=== PATIENT | female | born 1970 | race Caucasian/White ===

== ENCOUNTER 2017-10-08 14:31 | Emergency (ER) | payer BC, OTHER ==
[2017-10-08] MEDS ORDERED: FUROSEMIDE INJ/PF 40 MG/4 ML SDV IV ONE (15:11)
--- NOTE | 2017-10-08 15:18 | ER Document Report ---
ED Medical Screen (RME) - General Chief Complaint: Shortness Of Breath Stated Complaint: CHEST PAIN, SHORTNESS OF BREATH Time Seen by Provider: 10/08/17 15:11 Mode of Arrival: Wheelchair Information source: Patient TRAVEL OUTSIDE OF THE U.S. IN LAST 30 DAYS: No - HPI Patient complains to provider of: sob; leg swelling Onset: Other - pt. sent from dr. Gentile's office for sob and swelling of LE's - Related Data Allergies/Adverse Reactions: fluticasone [From Advair Diskus] Allergy (Verified 10/08/17 14:35) penicillin V [From Pen-Vee K] Allergy (Verified 10/08/17 14:35) salmeterol [From Advair Diskus] Allergy (Verified 10/08/17 14:35) beta blockers Allergy (Uncoded 10/08/17 14:35) Past Medical History - Social History Frequency of alcohol use: None Drug Abuse: None Renal/ Medical History: Denies: Hx Peritoneal Dialysis Physical Exam - Vital signs Vitals: Temp Pulse Resp BP Pulse Ox 97.4 F 118 H 20 135/84 H 94 10/08/17 14:41 10/08/17 14:41 10/08/17 14:41 10/08/17 14:41 10/08/17 14:41 Course - Vital Signs Vital signs: Temp Pulse Resp BP Pulse Ox 97.4 F 118 H 20 135/84 H 94 10/08/17 14:41 10/08/17 14:41 10/08/17 14:41 10/08/17 14:41 10/08/17 14:41
--- NOTE | 2017-10-08 16:08 | RADIOLOGY REPORT (SQ) ---
EXAM DESCRIPTION: CHEST 2 VIEWS COMPLETED DATE/TIME: 10/08/2017 3:50 pm REASON FOR STUDY: sob COMPARISON: None. EXAM PARAMETERS: NUMBER OF VIEWS: two views TECHNIQUE: Digital Frontal and Lateral radiographic views of the chest acquired. RADIATION DOSE: NA LIMITATIONS: Patient has made a shallow inspiration. FINDINGS: LUNGS AND PLEURA: Ill-defined increased density is identified in the lung bases which coul d represent atelectatic changes or minimal basilar infiltrates. Remaining lung novoa are clear. No pleural effusions are identified. MEDIASTINUM AND HILAR STRUCTURES: No masses or contour abnormalities. HEART AND VASCULAR STRUCTURES: Heart normal size. No evidence for failure. BONES: No acute findings. HARDWARE: None in the chest. OTHER: No other significant finding. IMPRESSION: Ill-defined bibasilar densities as noted above. TECHNICAL DOCUMENTATION: JOB ID: [id number] [employer]- All Rights Reserved Reading location - IP/workstation name: [email or web address]
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
[2017-10-08 19:43] LABS: ABSOLUTE BASOPHILS # (AUTO) 0.1 10^3/uL (0.0-0.2); ABSOLUTE EOSINOPHILS # (AUTO) 0.2 10^3/uL (0.0-0.6); ABSOLUTE LYMPHOCYTES (AUTO) 2.4 10^3/uL (0.5-4.7); ABSOLUTE MONOCYTES (AUTO) 0.5 10^3/uL (0.1-1.4); ABSOLUTE NEUT (AUTO) 7.6 10^3/uL (1.7-8.2); BASOPHILS % (AUTO) 0.5 % (0-2); EOSINOPHILS % (AUTO) 1.8 % (0-6); HEMOGLOBIN 12.5 g/dL (12.0-15.5); LYMPHOCYTES % (AUTO) 22.1 % (13-45); MEAN CORPUSCULAR HGB CONC 33.7 g/dL (32.0-36.0); MEAN CORPUSCULAR VOLUME 86 fl (80-97); MONOCYTES % (AUTO) 4.4 % (3-13); PLATELET COUNT 323 10^3/uL (150-450); RED CELL DISTRIBUTION WIDTH 15.7 % (11.5-14.0); SEGMENTED NEUTROPHILS % (AUTO) 71.2 % (42-78); TOTAL CELLS COUNTED % (AUTO) 100 %; WHITE BLOOD COUNT 10.7 10^3/uL (4.0-10.5)
[2017-10-08] MEDS ORDERED: DILTIAZEM HCL 240 MG CAPSULE.CR PO ONE (20:00)
[2017-10-08 20:08] LABS: ALANINE AMINOTRANSFERASE 35 U/L (9-52); ALBUMIN 4.3 g/dL (3.5-5.0); ALKALINE PHOSPHATASE 140 U/L (38-126); ANION GAP 16 (5-19); ASPARTATE AMINO TRANSFERASE 23 U/L (14-36); BILIRUBIN,DIRECT 0.2 mg/dL (0.0-0.4); BILIRUBIN,TOTAL 0.2 mg/dL (0.2-1.3); BLOOD UREA NITROGEN 22 mg/dL (7-20); CALCIUM 9.2 mg/dL (8.4-10.2); CARBON DIOXIDE 24 mmol/L (22-30); CHLORIDE 103 mmol/L (98-107); CREATINE KINASE 77 U/L (30-135); GLUCOSE 103 mg/dL (75-110); POTASSIUM 4.6 mmol/L (3.6-5.0); SODIUM 142.8 mmol/L (137-145); TOTAL PROTEIN 7.9 g/dL (6.3-8.2)
[2017-10-08 20:20] LABS: CREATINE KINASE MB 0.77 ng/mL (<4.55)
[2017-10-08 20:23] LABS: TROPONIN I < 0.012 ng/mL
--- NOTE | 2017-10-08 22:32 | EKG REPORT ---
SEVERITY:- BORDERLINE ECG - SINUS TACHYCARDIA PROBABLE LEFT ATRIAL ABNORMALITY : Confirmed by: Wilfredo Marvin 08-Oct-2017 22:31:38
[2017-10-09 04:58] VITALS: BP 137/79
--- NOTE | 2017-10-09 08:04 | XCELERA REPORT ---
[address] [address] Lower Extremity Venous Evaluation Name: SELMA DOUGLAS Age: 47 yrs Gender: Female : 1970 Patient Status: Emergency Patient Location: ER Study Date: 10/08/2017 07:10 PM Procedure: Color flow and duplex imaging bilaterally of the veins of the lower extremities as well as the Common Femoral veins. Reason For Study: leg swelling, evaluate for DVT Ordering Physician: LINDA TORRES Performed By: Ellen Leblanc Right Sided Venous Evaluation Normal vessel filling wall to wall, compression and augmentation as well as Colour flow down to the infrageniculate veins. Left Sided Venous Evaluation Normal vessel filling wall to wall, compression and augmentation as well as Colour flow down to the infrageniculate veins. Interpretation Summary No duplex evidence of DVT or obstruction in the bilateral lower extremities. : LINDA TORRES > Ephraim Loera
== END 2017-10-08 20:50 | disposition left against medical advice (07) ==
LOC: ER 14:31
DX: R06.02 Shortness of breath (principal); R00.0 Tachycardia, unspecified; Z79.82 Long term (current) use of aspirin; R60.0 Localized edema; I10 Essential (primary) hypertension; E11.9 Type 2 diabetes mellitus without complications; Z90.2 Acquired absence of lung [part of]; Z86.718 Personal history of other venous thrombosis and embolism; Z79.899 Other long term (current) drug therapy; Z88.8 Allergy status to other drugs, medicaments and biological substances; Z88.0 Allergy status to penicillin; Z53.20 Procedure and treatment not carried out because of patient's decision for unspecified reasons
CPT/HCPCS: 36415; 71046; 80053; 82550; 82553; 83880; 84443; 84484; 85025; 85379; 93005; 93010; 93970; 99285

== ENCOUNTER 2017-10-09 13:19 | Observation (INO) | payer BC, OTHER ==
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
[2017-10-09] MEDS ORDERED: KETOROLAC TROMETHAMINE INJ/PF 30 MG/1 ML SDV IV ONE (15:14)
[2017-10-09 15:51] LABS: ALANINE AMINOTRANSFERASE 32 U/L (9-52); ALBUMIN 4.2 g/dL (3.5-5.0); ALKALINE PHOSPHATASE 110 U/L (38-126); ANION GAP 13 (5-19); ASPARTATE AMINO TRANSFERASE 37 U/L (14-36); BILIRUBIN,DIRECT 0.3 mg/dL (0.0-0.4); BILIRUBIN,TOTAL 0.4 mg/dL (0.2-1.3); BLOOD UREA NITROGEN 19 mg/dL (7-20); CALCIUM 9.3 mg/dL (8.4-10.2); CARBON DIOXIDE 26 mmol/L (22-30); CHLORIDE 105 mmol/L (98-107); CREATINE KINASE 78 U/L (30-135); GLUCOSE 88 mg/dL (75-110); POTASSIUM 4.4 mmol/L (3.6-5.0); SODIUM 143.7 mmol/L (137-145); TOTAL PROTEIN 7.9 g/dL (6.3-8.2)
[2017-10-09 15:57] LABS: CREATINE KINASE MB 0.75 ng/mL (<4.55)
[2017-10-09 15:58] LABS: TROPONIN I < 0.012 ng/mL
[2017-10-09 16:00] LABS: ABSOLUTE BASOPHILS # (AUTO) 0.1 10^3/uL (0.0-0.2); ABSOLUTE EOSINOPHILS # (AUTO) 0.1 10^3/uL (0.0-0.6); ABSOLUTE MONOCYTES (AUTO) 0.5 10^3/uL (0.1-1.4); ABSOLUTE NEUT (AUTO) 7.4 10^3/uL (1.7-8.2); BASOPHILS % (AUTO) 0.5 % (0-2); EOSINOPHILS % (AUTO) 1.4 % (0-6); HEMATOCRIT 34.2 % (36.0-47.0); HEMOGLOBIN 11.5 g/dL (12.0-15.5); LYMPHOCYTES % (AUTO) 19.9 % (13-45); MEAN CORPUSCULAR HEMOGLOBIN 28.9 pg (27.0-33.4); MEAN CORPUSCULAR HGB CONC 33.6 g/dL (32.0-36.0); MEAN CORPUSCULAR VOLUME 86 fl (80-97); MONOCYTES % (AUTO) 4.9 % (3-13); PLATELET COUNT 285 10^3/uL (150-450); RED BLOOD COUNT 3.98 10^6/uL (3.72-5.28); RED CELL DISTRIBUTION WIDTH 15.8 % (11.5-14.0); SEGMENTED NEUTROPHILS % (AUTO) 73.3 % (42-78); TOTAL CELLS COUNTED % (AUTO) 100 %; WHITE BLOOD COUNT 10.1 10^3/uL (4.0-10.5)
--- NOTE | 2017-10-09 16:34 | RADIOLOGY REPORT (SQ) ---
EXAM DESCRIPTION: CTA CHEST COMPLETED DATE/TIME: 10/09/2017 4:18 pm REASON FOR STUDY: sob, elevated ddimer COMPARISON: Chest films 10/08/2017 TECHNIQUE: CT scan of the chest performed using helical scanning technique with dynamic intravenous contrast injection. Images reviewed with lung, soft tissue and bone windows. Reconstructed coronal and sagittal MPR images reviewed. Additional 3 dimensional post-processing performed to develop Maximal Intensity Projection images (DE P). All images stored on PACS. All CT scanners at this facility use dose modulation, iterative reconstruction, and/or weight based d osing when appropriate to reduce radiation dose to as low as reasonably achievable (ALARA). [facility]: Dose Right [facility]: CareDose [facility]: Dose Right [facility]: Teradose 4D [facility]: CodeGuard CONTRAST TYPE AND DOSE: contrast/concentration: Isovue 350.00 mg/ml; Total Contrast Delivered: 75.0 ml; Total Saline Delivered: 58.4 ml Contrast bolus optimized for the pulmonary arteries, and diagnostic for the aorta. RENAL FUNCTION: Creatinine 1.7 RADIATION DOSE: CT Rad equipment meets quality standard of care and radiation dose reduction techniq ues were employed. CTDIvol: 19.7 - 19.8 mGy. DLP: 733 mGy-cm. . LIMITATIONS: None. FINDINGS: LUNGS AND PLEURA: Thickened interlobular septa around the periphery of both bases could in dicate mild interstitial edema. There is bandlike atelectasis in the right upper lobe, and right mid dle lobe. Along the left lower lobe lateral aspect, a row of surgical hamida is present post partia l lung resection. No pleural effusions. No pneumothorax. AORTA AND GREAT VESSELS: No aneurysm. Contrast bolus not optimized for the aorta. HEART: No pericardial effusion. No significant coronary artery calcifications. PULMONARY ARTERIES: No emboli visualized in the main pulmonary arteries or the segmental branches. HILAR AND MEDIASTINAL STRUCTURES: No identified masses or abnormal nodes. HARDWARE: None in the chest. UPPER ABDOMEN: Fatty liver THYROID AND OTHER SOFT TISSUES: No masses. No adenopathy. BONES: No acute or significant finding. 3D MIPS: Confirm above findings. OTHER: No other significant finding. IMPRESSION: Right middle lobe and right upper lobe bandlike airspace disease likely atelectasis. Pn eumonia could not be excluded. Old partial resection left lower lobe. No CT angio evidence of acute pulmonary emboli or acute thoracic aortic dissection. COMMENT: Quality ID # [id number]: Final reports with documentation of one or more dose reduction techniques (e.g., Automated exposure control, adjustment of the mA and/or kV according to patient size, use of iterative reconstruction technique) TECHNICAL DOCUMENTATION: JOB ID: [id number] [employer]- All Rights Reserved Reading location - IP/workstation name: [email or web address] [id number]
[2017-10-09] MEDS: FUROSEMIDE INJ/PF 40 MG/4 ML SDV IV SCH (17:58)
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
[2017-10-09] MEDS ORDERED: ALBUTEROL SULFATE 0.083% NEB 2.5 MG/3 ML AMPUL NEB PRN (18:16)
--- NOTE | 2017-10-09 18:18 | EKG REPORT ---
SEVERITY:- OTHERWISE NORMAL ECG - SINUS TACHYCARDIA : Confirmed by: Wilfredo Marvin 09-Oct-2017 18:17:45
[2017-10-09] MEDS ORDERED: (PENDING PHARMACY ID) (Tramadol Hcl/Acetaminophen [Tramadol-Acetaminophn 37.5-325] 1 TAB) PO PRN (20:08)
[2017-10-09] MEDS: PREGABALIN 100 MG CAPSULE PO SCH (21:12)
[2017-10-09] MEDS: PREDNISONE 20 MG TABLET PO SCH (21:13)
[2017-10-09] MEDS: CLONAZEPAM 1 MG TABLET PO PRN (21:13)
[2017-10-09] MEDS: KETOROLAC TROMETHAMINE 10 MG TABLET PO SCH (21:13)
[2017-10-09] MEDS: ENOXAPARIN SODIUM INJ 40 MG/0.4 ML DISP.SYRIN SUBCUT SCH (21:14)
[2017-10-09] MEDS: LANSOPRAZOLE 30 MG TAB.RAP.DR PO SCH (21:14)
[2017-10-09] MEDS ORDERED: QUETIAPINE FUMARATE 100 MG TABLET PO ONE (22:00)
[2017-10-10] MEDS: CARISOPRODOL 350 MG TABLET PO SCH ×4 (01:54→17:32)
[2017-10-10] MEDS: METHOCARBAMOL 750 MG TABLET PO SCH ×4 (01:54→17:32)
[2017-10-10 02:16] LABS: APPEARANCE,URINE CLEAR; BILIRUBIN,URINE NEGATIVE (NEGATIVE); COLOR,URINE YELLOW; GLUCOSE, URINE NEGATIVE (NEGATIVE); KETONES,URINE NEGATIVE (NEGATIVE); LEUKOCYTE ESTERASE,URINE NEGATIVE (NEGATIVE); NITRITE,URINE NEGATIVE (NEGATIVE); PROTEIN,URINE NEGATIVE (NEGATIVE); URINE SPECIFIC GRAVITY 1.024; UROBILINOGEN,URINE NEGATIVE mg/dL (<2.0)
[2017-10-10 05:42] LABS: ABSOLUTE LYMPHOCYTES (AUTO) 0.9 10^3/uL (0.5-4.7); ABSOLUTE MONOCYTES (AUTO) 0.1 10^3/uL (0.1-1.4); ABSOLUTE NEUT (AUTO) 5.9 10^3/uL (1.7-8.2); BASOPHILS % (AUTO) 0.5 % (0-2); EOSINOPHILS % (AUTO) 0.1 % (0-6); HEMATOCRIT 34.8 % (36.0-47.0); HEMOGLOBIN 11.4 g/dL (12.0-15.5); LYMPHOCYTES % (AUTO) 13.3 % (13-45); MEAN CORPUSCULAR HEMOGLOBIN 28.3 pg (27.0-33.4); MEAN CORPUSCULAR HGB CONC 32.8 g/dL (32.0-36.0); MEAN CORPUSCULAR VOLUME 86 fl (80-97); MONOCYTES % (AUTO) 2.1 % (3-13); PLATELET COUNT 285 10^3/uL (150-450); RED BLOOD COUNT 4.03 10^6/uL (3.72-5.28); RED CELL DISTRIBUTION WIDTH 15.9 % (11.5-14.0); TOTAL CELLS COUNTED % (AUTO) 100 %
[2017-10-10] MEDS: LEVOTHYROXINE SODIUM 0.1 MG TABLET PO SCH (06:09)
[2017-10-10] MEDS: PREGABALIN 100 MG CAPSULE PO SCH ×3 (06:09→21:28)
[2017-10-10 06:14] LABS: ALANINE AMINOTRANSFERASE 39 U/L (9-52); ALBUMIN 3.9 g/dL (3.5-5.0); ALKALINE PHOSPHATASE 126 U/L (38-126); ANION GAP 14 (5-19); ASPARTATE AMINO TRANSFERASE 38 U/L (14-36); BILIRUBIN,DIRECT 0.3 mg/dL (0.0-0.4); BILIRUBIN,TOTAL 0.3 mg/dL (0.2-1.3); BLOOD UREA NITROGEN 23 mg/dL (7-20); CALCIUM 9.3 mg/dL (8.4-10.2); CARBON DIOXIDE 24 mmol/L (22-30); CHLORIDE 107 mmol/L (98-107); GLUCOSE 165 mg/dL (75-110); POTASSIUM 4.7 mmol/L (3.6-5.0); SODIUM 145.2 mmol/L (137-145); TOTAL PROTEIN 7.1 g/dL (6.3-8.2)
[2017-10-10] MEDS ORDERED: GLUCAGON,HUMAN RECOMB 1 MG INJ IM PRN (08:23)
[2017-10-10] MEDS ORDERED: DEXTROSE 40% GEL 15 GM TUBE PO PRN (08:23)
[2017-10-10] MEDS ORDERED: DEXTROSE 50%-WATER SYRINGE 25 GM/50 ML DOSE IV PRN (08:23)
[2017-10-10] MEDS ORDERED: DEXTROSE 50%-WATER SYRINGE 12.5 GM/25 ML DOSE IV PRN (08:23)
[2017-10-10] MEDS ORDERED: DEXTROSE 40% GEL 15 GM TUBE X 2 PO PRN (08:23)
[2017-10-10] MEDS: INSULIN REG, HUMAN 100 UNIT/ML 3 ML VIAL (PYX) SUBCUT PRN ×4 (08:44→21:31)
[2017-10-10] MEDS ORDERED: INSULIN REG, HUMAN 100 UNIT/ML 3 ML VIAL (PYX) ONE ×4 (08:50→21:25)
[2017-10-10] MEDS: HYDRALAZINE HCL 50 MG TABLET PO SCH (09:27)
[2017-10-10] MEDS: FUROSEMIDE INJ/PF 40 MG/4 ML SDV IV SCH ×2 (09:28→17:31)
[2017-10-10] MEDS: POTASSIUM CHLORIDE 10 MEQ CAPSULE.ER PO SCH (09:28)
[2017-10-10] MEDS: FOLIC ACID 1 MG TABLET PO SCH (09:28)
[2017-10-10] MEDS: PREDNISONE 20 MG TABLET PO SCH (09:28)
[2017-10-10] MEDS: LANSOPRAZOLE 30 MG TAB.RAP.DR PO SCH (09:29)
[2017-10-10] MEDS: KETOROLAC TROMETHAMINE 10 MG TABLET PO SCH ×2 (09:29→21:28)
[2017-10-10] MEDS: LISINOPRIL 10 MG TABLET PO SCH (09:29)
[2017-10-10] MEDS: ENOXAPARIN SODIUM INJ 40 MG/0.4 ML DISP.SYRIN SUBCUT SCH (09:40)
[2017-10-10] MEDS ORDERED: (PENDING PHARMACY ID) (Diltiazem Hcl [Cartia Xt] 240 MG) PO SCH (10:00)
[2017-10-10] MEDS ORDERED: INSULIN DEGLUDEC 40 UNIT SQ SCH (10:00)
[2017-10-10] MEDS ORDERED: DILTIAZEM HCL 240 MG CAPSULE.CR PO SCH ×2 (10:00→22:00)
[2017-10-10] MEDS ORDERED: (PENDING PHARMACY ID) (Lisinopril [Prinivil] 20 MG) PO SCH (10:00)
[2017-10-10] MEDS ORDERED: (PENDING PHARMACY ID) (Potassium Chloride [Klor-Con M20] 20 MEQ) PO SCH (10:00)
--- NOTE | 2017-10-10 12:50 | RADIOLOGY REPORT (SQ) ---
EXAM DESCRIPTION: CHEST SINGLE VIEW COMPLETED DATE/TIME: 10/10/2017 11:55 am REASON FOR STUDY: SOB COMPARISON: 10/08/2017. EXAM PARAMETERS: NUMBER OF VIEWS: One view. TECHNIQUE: Single frontal radiographic view of the chest acquired. RADIATION DOSE: NA LIMITATIONS: None. FINDINGS: LUNGS AND PLEURA: There are linear densities left mid lung field which could represent dis coid MEDIASTINUM AND HILAR STRUCTURES: Leads cysts. HEART AND VASCULAR STRUCTURES: The heart is normal. The pulmonary vasculature is normal. BONES: Dorsal spondylosis. . HARDWARE: None in the chest. IMPRESSION: Discoid COMMENT: Atelectasis left mid lung field. Otherwise ,no acute disease TECHNICAL DOCUMENTATION: JOB ID: [id number] 2010 [employer]- All Rights Reserved Reading location - IP/workstation name: [email or web address]
[2017-10-10] MEDS ORDERED: OXYCODONE-ACETAMINOPHEN 5-325 MG TABLET PO PRN (13:31)
[2017-10-10] MEDS: OXYCODONE HCL IR 5 MG TABLET PO PRN ×2 (16:01→22:19)
[2017-10-10] MEDS ORDERED: (PENDING PHARMACY ID) (Quetiapine Fumarate [Seroquel] 400 MG) PO SCH (18:00)
[2017-10-10] MEDS ORDERED: QUETIAPINE FUMARATE 100 MG TABLET PO SCH (18:00)
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
[2017-10-10] MEDS: CLONAZEPAM 1 MG TABLET PO PRN (19:30)
[2017-10-10] MEDS ORDERED: TRAMADOL HCL 50 MG TABLET PO PRN (19:39)
[2017-10-11] MEDS: CARISOPRODOL 350 MG TABLET PO SCH ×3 (00:31→11:56)
[2017-10-11] MEDS: METHOCARBAMOL 750 MG TABLET PO SCH ×2 (00:32→05:50)
[2017-10-11] MEDS: OXYCODONE HCL IR 5 MG TABLET PO PRN (04:27)
[2017-10-11] MEDS: PREGABALIN 100 MG CAPSULE PO SCH ×2 (05:50→13:59)
[2017-10-11] MEDS: LEVOTHYROXINE SODIUM 0.1 MG TABLET PO SCH (05:50)
[2017-10-11 08:27] LABS: ANION GAP 14 (5-19); BLOOD UREA NITROGEN 32 mg/dL (7-20); CALCIUM 8.6 mg/dL (8.4-10.2); CARBON DIOXIDE 27 mmol/L (22-30); CHLORIDE 104 mmol/L (98-107); GLUCOSE 95 mg/dL (75-110); POTASSIUM 4.5 mmol/L (3.6-5.0); SODIUM 145.1 mmol/L (137-145)
[2017-10-11] MEDS: KETOROLAC TROMETHAMINE 10 MG TABLET PO SCH (10:44)
[2017-10-11] MEDS: LANSOPRAZOLE 30 MG TAB.RAP.DR PO SCH (10:45)
[2017-10-11] MEDS: FOLIC ACID 1 MG TABLET PO SCH (10:45)
[2017-10-11] MEDS: PREDNISONE 20 MG TABLET PO SCH (10:45)
[2017-10-11] MEDS ORDERED: ACETAMINOPHEN 325 MG TABLET PO PRN (10:47)
[2017-10-11] MEDS ORDERED: IBUPROFEN 600 MG TABLET PO PRN (10:47)
[2017-10-11] MEDS: FUROSEMIDE INJ/PF 40 MG/4 ML SDV IV SCH (10:48)
[2017-10-11] MEDS: ENOXAPARIN SODIUM INJ 40 MG/0.4 ML DISP.SYRIN SUBCUT SCH (10:48)
[2017-10-11] MEDS: POTASSIUM CHLORIDE 10 MEQ CAPSULE.ER PO SCH (10:48)
[2017-10-11] MEDS ORDERED: OXYCODONE HCL IR 5 MG TABLET PO PRN (11:00)
[2017-10-11 12:41] VITALS: BP 105/58
--- NOTE | 2017-10-11 13:52 | XCELERA REPORT ---
[address] [address] Transthoracic Echocardiogram Report Name: SELMA DOUGLAS Age: 47 yrs Gender: Female : 1970 Patient Status: Inpatient Patient Location: [address] [place] [address] Study Date: 10/11/2017 11:56 AM Height: 63 in Weight: 197 lb BSA: 1.9 m2 Procedure: A two-dimensional transthoracic echocardiogram with color flow Doppler was performed. Study Quality: Fair. Reason For Study: SOB, Edema History: SOB, Edema. Ordering Physician: DMITRI MARQUEZ Performed By: Nnamdi Yang Interpretation Summary The left ventricle is normal in size. There is normal left ventricular wall thickness. LV EF is > than 60% Left ventricular systolic function is normal. Doppler measurements suggest normal left ventricular diastolic function The left ventricular wall motion is normal. There is no thrombus. The right ventricle is normal in size and function. The right atrium is normal. The left atrial size is normal. There is no evidence of mitral valve prolapse. There is no vegetation seen on the mitral valve. There is no mitral valve stenosis. There is a mild amount of mitral regurgitation There is no aortic valvular vegetation. There is no aortic valve stenosis There is no LVOT obstruction. No aortic regurgitation is present. There is no tricuspid stenosis. There is a trace amount of tricuspid regurgitation Right ventricular systolic pressure is normal. RVSP is 26 mm of Hg , with RA mean odf 5. There is no pulmonic valvular stenosis. There is a trace amount of pulmonic regurgitation The aortic root is normal size. There is no pericardial effusion. MMode/2D Measurements & Calculations RVDd: 2.3 cm LVIDd: 4.9 cm FS: 32.1 % Ao root diam: 2.6 cm IVSd: 0.91 cm LVIDs: 3.3 cm EDV(Teich): 112.8 ml LVPWd: 0.94 cm ESV(Teich): 45.0 ml Ao root area: 5.2 cm2 EF(Teich): 60.1 % LA dimension: 3.4 cm Doppler Measurements & Calculations MV E max alicia: MV P1/2t max alicia: Ao V2 max: LV V1 max P.9 cm/sec 94.5 cm/sec 129.5 cm/sec 4.1 mmHg MV A max alicia: MV P1/2t: 58.2 msec Ao max PG: LV V1 max: 74.0 cm/sec 6.7 mmHg 100.9 cm/sec MV E/A: 1.9 MVA(P1/2t): 3.8 cm2 LV dP/dt: MV dec slope: 2272 mmHg/s 475.1 cm/sec2 MV dec time: 0.15 sec PA V2 max: PI end-d alicia: TR max alicia: 80.9 cm/sec 126.0 cm/sec 229.4 cm/sec PA max PG: TR max P.6 mmHg 21.0 mmHg Left Ventricle The left ventricle is normal in size. There is normal left ventricular wall thickness. LV EF is > than 60%. Left ventricular systolic function is normal. Doppler measurements suggest normal left ventricular diastolic function. The left ventricular wall motion is normal. There is no thrombus. Right Ventricle The right ventricle is normal in size and function. Atria The right atrium is normal. The left atrial size is normal. Mitral Valve There is mild mitral annular calcification. There is no evidence of mitral valve prolapse. There is no vegetation seen on the mitral valve. There is no mitral valve stenosis. There is a mild amount of mitral regurgitation. Aortic Valve There is no aortic valvular vegetation. There is no aortic valve stenosis. There is no LVOT obstruction. No aortic regurgitation is present. Tricuspid Valve There is no tricuspid stenosis. There is a trace amount of tricuspid regurgitation. Right ventricular systolic pressure is normal. RVSP is 26 mm of Hg , with RA mean odf 5. Pulmonic Valve There is no pulmonic valvular stenosis. There is a trace amount of pulmonic regurgitation. Great Vessels The aortic root is normal size. Effusions There is no pericardial effusion. : DMITRI MARQUEZ > Margarita Dave
[2017-10-11] MEDS: LISINOPRIL 10 MG TABLET PO SCH (14:53)
[2017-10-11] MEDS: HYDRALAZINE HCL 50 MG TABLET PO SCH (14:53)
--- NOTE | 2017-10-11 17:45 | PDOC DISCHARGE SUMMARY ---
General - Admit/Disc Date/PCP Admission Date/Primary Care Provider: 10/09/17 17:51 Discharge Date: 10/11/17 - Left AMA - Discharge Diagnosis (1) Peripheral edema Is this a current diagnosis for this admission?: Yes (2) Dyspnea Is this a current diagnosis for this admission?: Yes (3) Abdominal pain Is this a current diagnosis for this admission?: Yes (4) Diabetes mellitus Is this a current diagnosis for this admission?: Yes (5) Hypertension Is this a current diagnosis for this admission?: Yes - Additional Information Resuscitation Status: Full Code Home Medications: Carisoprodol [Soma 350 mg Tablet] 350 mg PO Q6 10/09/17 Clonazepam [Klonopin 2 mg Tablet] 2 mg PO Q8HP PRN 10/09/17 Diltiazem HCl [Cartia Xt] 240 mg PO DAILY 10/09/17 Folic Acid [Folvite 1 mg Tablet] 1 mg PO DAILY 10/09/17 Hydralazine HCl [Apresoline 50 mg Tablet] 50 mg PO DAILY 10/09/17 Hydrochlorothiazide [Hydrodiuril 25 mg Tablet] 25 mg PO DAILY 10/09/17 Insulin Degludec [Tresiba Flextouch U-100] 40 units SQ DAILY 10/09/17 Ketorolac Tromethamine [Toradol 10 mg Tablet] 10 mg PO Q12 10/09/17 Levothyroxine Sodium [Synthroid 0.1 mg Tablet] 0.1 mg PO Q6AM 10/09/17 Lisinopril [Prinivil] 20 mg PO DAILY 10/09/17 Methocarbamol [Robaxin 750 mg Tablet] 750 mg PO Q6 10/09/17 NPH, Human Insulin Isophane [Novolin N (NPH) Insulin 100 unit/mL] 0 units SQ .SLIDING SCALE 10/09/17 Potassium Chloride [Klor-Con M20] 20 meq PO DAILY 10/09/17 Pregabalin [Lyrica 100 mg Capsule] 200 mg PO Q8 10/09/17 Quetiapine Fumarate [Seroquel] 400 mg PO QPM 10/09/17 Tramadol HCl/Acetaminophen [Tramadol-Acetaminophn 37.5-325] 1 tab PO Q6HP PRN History of Present Illness History of Present Illness: SELMA DOUGLAS is a 47 year old female who was admitted for peripheral edema but left AGAINST MEDICAL ADVICE today. Please see original H&P for full history and physical Hospital Course Hospital Course: After admission to the hospital she was started on IV Lasix for diuresis of her peripheral edema. She has been complaining of pain and yet she tells me that she takes no active pain medication at home. Than when I set that if you not taking any pain medication at home and I will give you Tylenol- at that time patient states that she takes Percocet at home. I asked her if she gets Percocet-states she has chronic back pain and the doctor prescribed it. [place] and I do not have any history of this. This morningby nursing that patient has been going off the floor last night and today for walks. 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 I have not evaluated patient this morning and patient is very upset and telling me that she has to go outside of the gallbladder. Patient tells me that she was to go outside and have pressure. I told her that that is hospital policy but if she wants to go to she will have to go with with supervision with the nurse or an aide. She tells me that she should be allowed to go off the floor she wants because the epstein are closing in on her. I told her that she can go but with supervision only and only for a few minutes at a time. She tells me that she wants to go as many tablets she wants. I told her that nurses have advised me this morning that she is lethargic and drowsy and it is dangerous that she might fall and hurt herself. She tells me that she is fine and she can walk without assistance and does not need supervision. I told her that she can go but only with supervision-I told her that she can go 3-4 times in a day but she states that she wants to go more than that. I told that she can only go for 10-15 minutes at a time but she tells me that she would want to go as many times she want and for longer than 15 minutes at a time. Later I was called by nursing stating that patient wants to leave now because she is unhappy with the care and that she is not allowed to go downstairs on her own. I told nursing that I will be there in less than 15 minutes at a time with the patient right now. Nursing call me back within 5 minutes stating that patient already left the floor and signed AMA papers Physical Exam Vital Signs: Temp Pulse Resp BP Pulse Ox 97.6 F 104 H 20 105/58 L 98 10/11/17 12:40 10/11/17 12:40 10/11/17 12:40 10/11/17 12:40 10/11/17 12:40 Intake & Output 10/10/17 10/11/17 10/12/17 06:59 06:59 06:59 Intake Total 980 Output Total 420 Balance 560 Weight 198 lb 10.184 oz 197 lb 15.602 oz General appearance: PRESENT: no acute distress, obese, other - Lethargic and sleepy Head exam: PRESENT: atraumatic, normocephalic Eye exam: PRESENT: other - Left eye patch noted Ear exam: PRESENT: normal external ear exam Mouth exam: PRESENT: tongue midline Neck exam: ABSENT: tracheal deviation Respiratory exam: PRESENT: clear to auscultation colleen, symmetrical Cardiovascular exam: PRESENT: +S1, +S2 Pulses: PRESENT: +2 pedal pulses bilateral GI/Abdominal exam: PRESENT: normal bowel sounds, soft. 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 Mentation is slow and should respond slowly and asking me the same question multiple times. As I am speaking with her she is telling me that I am too loud Skin exam: PRESENT: dry, warm Results Laboratory Results: 10/10/17 05:18 10/11/17 07:19 10/11/17 07:19 Sodium 145.1 H Potassium 4.5 Chloride 104 Carbon Dioxide 27 Anion Gap 14 BUN 32 H Creatinine 1.08 Est GFR ( Amer) > 60 Est GFR (Non-Af Amer) 54 L Glucose 95 Calcium 8.6 10/11/17 07:19 NT-Pro-B Natriuret Pep 214 H Impressions: Chest/Abdomen CTA 10/09/17 13:47 IMPRESSION: Right middle lobe and right upper lobe bandlike airspace disease likely atelectasis. Pneumonia could not be excluded. Old partial resection left lower lobe. No CT angio evidence of acute pulmonary emboli or acute thoracic aortic dissection. Chest X-Ray 10/10/17 00:00 IMPRESSION: Discoid Qualifiers - * PATIENT BEING DISCHARGED WITH ANY OF THE FOLLOWING DIAGNOSIS: No VTE patient discharged on overlapping Therapy?: No Plan Discharge Plan: Left AMA
[2017-10-11] MEDS ORDERED: QUETIAPINE FUMARATE 100 MG TABLET PO SCH (22:00)
== END 2017-10-11 15:05 | disposition left against medical advice (07) ==
LOC: ER 13:19 → EH 17:51 → INTOOBSV 17:51 → 4S 19:05
PROVIDERS: ADMIT Internal Medicine; ATTEND Internal Medicine
DX: R60.0 Localized edema (principal); R06.02 Shortness of breath; R06.01 Orthopnea; R10.13 Epigastric pain; E11.8 Type 2 diabetes mellitus with unspecified complications; I10 Essential (primary) hypertension; Z53.21 Procedure and treatment not carried out due to patient leaving prior to being seen by health care provider; G89.29 Other chronic pain; M54.9 Dorsalgia, unspecified; R53.83 Other fatigue; R40.0 Somnolence; D86.9 Sarcoidosis, unspecified; R79.89 Other specified abnormal findings of blood chemistry; I69.398 Other sequelae of cerebral infarction; R41.3 Other amnesia; S04.012 Injury of optic nerve, left eye; V69 Occupant of heavy transport vehicle injured in other and unspecified transport accidents; F17.210 Nicotine dependence, cigarettes, uncomplicated; R06.2 Wheezing; R63.5 Abnormal weight gain; R10.30 Lower abdominal pain, unspecified; R06.4 Hyperventilation; R00.0 Tachycardia, unspecified; E03.9 Hypothyroidism, unspecified; Z79.4 Long term (current) use of insulin; Z68.35 Body mass index [BMI] 35.0-35.9, adult; Z90.2 Acquired absence of lung [part of]; Z90.710 Acquired absence of both cervix and uterus; Z79.82 Long term (current) use of aspirin; Z79.02 Long term (current) use of antithrombotics/antiplatelets
CPT/HCPCS: 36415; 71045; 71275; 80048; 80053; 81001; 82550; 82553; 82962; 83036; 83735; 83880; 84484; 85025; 85379; 93005; 93010; 93306; 96374; 99285; J1650; J1885; J1940; J3490; J7512

== ENCOUNTER 2017-10-13 13:00 | Emergency (ER) | payer BC, OTHER ==
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
[2017-10-13 15:58] LABS: ABSOLUTE BASOPHILS # (AUTO) 0.1 10^3/uL (0.0-0.2); ABSOLUTE EOSINOPHILS # (AUTO) 0.2 10^3/uL (0.0-0.6); ABSOLUTE LYMPHOCYTES (AUTO) 2.8 10^3/uL (0.5-4.7); ABSOLUTE MONOCYTES (AUTO) 0.4 10^3/uL (0.1-1.4); ABSOLUTE NEUT (AUTO) 6.8 10^3/uL (1.7-8.2); BASOPHILS % (AUTO) 0.7 % (0-2); HEMATOCRIT 36.3 % (36.0-47.0); HEMOGLOBIN 12.1 g/dL (12.0-15.5); LYMPHOCYTES % (AUTO) 27.1 % (13-45); MEAN CORPUSCULAR HEMOGLOBIN 28.8 pg (27.0-33.4); MEAN CORPUSCULAR HGB CONC 33.3 g/dL (32.0-36.0); MEAN CORPUSCULAR VOLUME 86 fl (80-97); MONOCYTES % (AUTO) 4.3 % (3-13); PLATELET COUNT 341 10^3/uL (150-450); RED CELL DISTRIBUTION WIDTH 15.8 % (11.5-14.0); SEGMENTED NEUTROPHILS % (AUTO) 65.9 % (42-78); TOTAL CELLS COUNTED % (AUTO) 100 %; WHITE BLOOD COUNT 10.4 10^3/uL (4.0-10.5)
--- NOTE | 2017-10-13 16:12 | RADIOLOGY REPORT (SQ) ---
EXAM DESCRIPTION: ACUTE ABDOMEN SERIES COMPLETED DATE/TIME: 10/13/2017 4:04 pm REASON FOR STUDY: Abdominal pain COMPARISON: None. NUMBER OF VIEWS: Three views. TECHNIQUE: Frontal chest, supine abdomen and upright/decubitus abdomen radiographic images acquired. LIMITATIONS: None. FINDINGS: CHEST: Subsegmental airspace disease in the lung bases. FREE AIR: None. No abnormal gas collections. BOWEL GAS PATTERN: Nonobstructive pattern. No dilated loops or air fluid levels. CALCIFICATIONS: No suspicious calcifications. HARDWARE: None in the abdomen. SOFT TISSUES: No gross mass or suggestion of organomegaly. BONES: No acute fracture. No worrisome bone lesions. OTHER: No other significant finding. IMPRESSION: No evidence of bowel obstruction. Atelectasis or early pneumonia in the lung bases. Cl inical correlation is needed. TECHNICAL DOCUMENTATION: JOB ID: [id number] [employer]- All Rights Reserved Reading location - IP/workstation name: [facility]
[2017-10-13 16:13] LABS: ALANINE AMINOTRANSFERASE 21 U/L (9-52); ALBUMIN 4.4 g/dL (3.5-5.0); ALKALINE PHOSPHATASE 140 U/L (38-126); ANION GAP 15 (5-19); ASPARTATE AMINO TRANSFERASE 24 U/L (14-36); BILIRUBIN,DIRECT 0.3 mg/dL (0.0-0.4); BILIRUBIN,TOTAL 0.3 mg/dL (0.2-1.3); BLOOD UREA NITROGEN 21 mg/dL (7-20); CARBON DIOXIDE 28 mmol/L (22-30); CHLORIDE 105 mmol/L (98-107); CREATINE KINASE 45 U/L (30-135); GLUCOSE 105 mg/dL (75-110); LIPASE 62.1 U/L (23-300); SODIUM 147.9 mmol/L (137-145); TOTAL PROTEIN 8.2 g/dL (6.3-8.2)
[2017-10-13 16:25] LABS: CREATINE KINASE MB 0.41 ng/mL (<4.55); NT PRO BNP 42 pg/mL (<125)
[2017-10-13 16:36] LABS: TROPONIN I < 0.012 ng/mL
[2017-10-13 16:41] LABS: APPEARANCE,URINE CLEAR; BILIRUBIN,URINE NEGATIVE (NEGATIVE); COLOR,URINE YELLOW; GLUCOSE, URINE NEGATIVE (NEGATIVE); KETONES,URINE NEGATIVE (NEGATIVE); LEUKOCYTE ESTERASE,URINE SMALL (NEGATIVE); NITRITE,URINE NEGATIVE (NEGATIVE); PROTEIN,URINE NEGATIVE (NEGATIVE); URINE SPECIFIC GRAVITY 1.011; UROBILINOGEN,URINE NEGATIVE mg/dL (<2.0)
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
[2017-10-13 18:04] VITALS: BP 131/63
[2017-10-13 19:37] LABS: URINE AMPHETAMINES SCREEN NEGATIVE; URINE BARBITURATES SCREEN NEGATIVE; URINE BENZODIAZEPINES SCREEN NEGATIVE; URINE COCAINE SCREEN NEGATIVE; URINE MARIJUANA (THC) SCREEN NEGATIVE; URINE METHADONE SCREEN NEGATIVE; URINE PHENCYCLIDINE SCREEN NEGATIVE
--- NOTE | 2017-10-13 22:31 | EKG REPORT ---
SEVERITY:- BORDERLINE ECG - SINUS TACHYCARDIA PROBABLE LEFT ATRIAL ABNORMALITY : Confirmed by: Margarita Dave MD 13-Oct-2017 22:31:08
== END 2017-10-13 18:06 | disposition home or self-care (01) ==
LOC: ER 13:00
DX: R60.0 Localized edema (principal); F17.200 Nicotine dependence, unspecified, uncomplicated; I10 Essential (primary) hypertension; E11.9 Type 2 diabetes mellitus without complications
CPT/HCPCS: 36415; 74022; 80053; 80307; 81001; 82550; 82553; 83690; 83880; 84484; 85025; 93005; 93010; 99284

== ENCOUNTER 2018-03-05 15:55 | Inpatient (IN) | payer BC, OTHER ==
[~2018-03-05 15:55] MED LIST: ROCURONIUM BROMIDE INJ 50 MG/5 ML VIAL IV ONE
[2018-03-05] MEDS ORDERED: ALBUTEROL SULFATE 0.042% NEB (1.25 MG/3 ML) AMPUL NEB ONE (16:25)
[2018-03-05] MEDS ORDERED: FUROSEMIDE INJ/PF 40 MG/4 ML SDV ONE (16:33)
[2018-03-05] MEDS ORDERED: NITROGLYCERIN 2% OINTMENT 1 GM PACKET ONE (16:33)
[2018-03-05] MEDS ORDERED: LORAZEPAM INJ 2 MG/1 ML VIAL ONE (16:34)
[2018-03-05] MEDS ORDERED: ONDANSETRON HCL INJ/PF 4 MG/2 ML SDV ONE (16:34)
[2018-03-05] MEDS ORDERED: KETAMINE HCL INJ 500 MG/10 ML VIAL ONE (16:35)
[2018-03-05] MEDS ORDERED: ETOMIDATE INJ/PF 20 MG/10 ML SDV IV ONE ×3 (16:41→18:56)
[2018-03-05] MEDS ORDERED: FENTANYL CITRATE INJ/PF 100 MCG/2 ML AMPUL ONE ×2 (16:54→22:43)
--- NOTE | 2018-03-05 16:54 | ER Document Report ---
Doctor's Note Notes: 03/05/18 16:53 I was asked to assist with a difficult intubation. The initial attempt, had the tube placed in the esophagus. I used a glide scope, 4 MAC, with a 7.5 ET tube and placed it into the trachea. Bilateral breath sounds with good color change. This is Dr. Hernandez Jarrett.
[2018-03-05] MEDS ORDERED: PROPOFOL 1,000 MG/100 ML INFUS..BTL IV ONE (17:13)
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
[2018-03-05 17:31] LABS: INTERNATIONAL RATION (INR) 1.22
[2018-03-05 17:35] LABS: ALANINE AMINOTRANSFERASE 27 U/L (9-52); ALBUMIN 4.3 g/dL (3.5-5.0); ALKALINE PHOSPHATASE 102 U/L (38-126); ANION GAP 12 (5-19); ASPARTATE AMINO TRANSFERASE 25 U/L (14-36); BILIRUBIN,DIRECT 0.3 mg/dL (0.0-0.4); BILIRUBIN,TOTAL 0.3 mg/dL (0.2-1.3); BLOOD UREA NITROGEN 16 mg/dL (7-20); CALCIUM 9.5 mg/dL (8.4-10.2); CARBON DIOXIDE 28 mmol/L (22-30); CHLORIDE 101 mmol/L (98-107); GLUCOSE 175 mg/dL (75-110); SODIUM 141.2 mmol/L (137-145); TOTAL PROTEIN 7.4 g/dL (6.3-8.2)
--- NOTE | 2018-03-05 17:35 | RADIOLOGY REPORT (SQ) ---
EXAM DESCRIPTION: CHEST SINGLE VIEW COMPLETED DATE/TIME: 03/05/2018 5:20 pm REASON FOR STUDY: intubation COMPARISON: 10/08/2017 EXAM PARAMETERS: NUMBER OF VIEWS: One view. TECHNIQUE: Single frontal radiographic view of the chest acquired. RADIATION DOSE: NA LIMITATIONS: None. FINDINGS: LUNGS AND PLEURA: No opacities, masses or pneumothorax. No pleural effusion. MEDIASTINUM AND HILAR STRUCTURES: No masses. Contour normal. HEART AND VASCULAR STRUCTURES: Heart normal in size. Normal vasculature. BONES: No acute findings. HARDWARE: Endotracheal tube has its tip in the right mainstem bronchus. An NG tube extends to the st omach. OTHER: No other significant finding. IMPRESSION: The endotracheal tube is in the right mainstem bronchus. TECHNICAL DOCUMENTATION: JOB ID: [id number] [employer]- All Rights Reserved Reading location - IP/workstation name: [email or web address]
[2018-03-05 17:45] LABS: HEMATOCRIT 36.3 % (36.0-47.0); MEAN CORPUSCULAR HEMOGLOBIN 27.7 pg (27.0-33.4); MEAN CORPUSCULAR HGB CONC 33.1 g/dL (32.0-36.0); MEAN CORPUSCULAR VOLUME 84 fl (80-97); PLATELET COUNT 444 10^3/uL (150-450); RED BLOOD COUNT 4.33 10^6/uL (3.72-5.28); RED CELL DISTRIBUTION WIDTH 19.6 % (11.5-14.0); WHITE BLOOD COUNT 16.9 10^3/uL (4.0-10.5)
[2018-03-05] MEDS ORDERED: FENTANYL CITRATE INJ/PF 100 MCG/2 ML AMPUL IV ONE ×4 (17:47→22:41)
[2018-03-05] MEDS ORDERED: NITROGLYCERIN 2% OINTMENT 1 GM PACKET TP ONE (17:48)
[2018-03-05] MEDS ORDERED: KETAMINE HCL INJ 500 MG/10 ML VIAL IV ONE ×2 (17:49→17:56)
[2018-03-05 17:50] LABS: APPEARANCE,URINE CLEAR; BILIRUBIN,URINE NEGATIVE (NEGATIVE); COLOR,URINE STRAW; GLUCOSE, URINE NEGATIVE (NEGATIVE); KETONES,URINE NEGATIVE (NEGATIVE); LEUKOCYTE ESTERASE,URINE NEGATIVE (NEGATIVE); NITRITE,URINE NEGATIVE (NEGATIVE); PROTEIN,URINE NEGATIVE (NEGATIVE); URINE SPECIFIC GRAVITY 1.005; UROBILINOGEN,URINE NEGATIVE mg/dL (<2.0)
[2018-03-05] MEDS ORDERED: ROCURONIUM BROMIDE INJ 50 MG/5 ML VIAL IV ONE (17:51)
[2018-03-05] MEDS ORDERED: PIPERACILLIN/TAZOBACTAM 3.375 GM VIAL IV ONE (17:52)
[2018-03-05] MEDS ORDERED: ONDANSETRON HCL INJ/PF 4 MG/2 ML SDV IV ONE (17:52)
[2018-03-05] MEDS ORDERED: FUROSEMIDE INJ/PF 40 MG/4 ML SDV IV ONE (17:53)
[2018-03-05] MEDS ORDERED: NORMAL SALINE 1000 ML 1,000 ML IV ONE (17:54)
[2018-03-05 18:06] LABS: ABSOLUTE LYMPHOCYTES# (MANUAL) 0.7 10^3/uL (0.5-4.7); ABSOLUTE MONOCYTES # (MANUAL) 0.8 10^3/uL (0.1-1.4); ABSOLUTE NEUTROPHILS# (MANUAL) 15.4 10^3/uL (1.7-8.2); BAND NEUTROPHILS % (MANUAL) 2 % (3-5); BASOPHILS % (MANUAL) 0 % (0-2); EOSINOPHILS % (MANUAL) 0 % (0-6); LYMPHOCYTES % (MANUAL) 4 % (13-45); METAMYELOCYTES % (MANUAL) 2 % (0); MONOCYTES % (MANUAL) 5 % (3-13); SEGMENTED NEUTROPHILS % (MAN) 87 % (42-78); TOTAL CELLS COUNTED 100
[2018-03-05 18:07] LABS: HYPOCHROMASIA 1+; PLATELET COMMENT ADEQUATE; POLYCHROMASIA 1+; TOXIC GRANULATION SLIGHT
[2018-03-05 19:29] LABS: ARTERIAL BLOOD BASE EXCESS 3.9 mmol/L; ARTERIAL BLOOD FIO2 100%; ARTERIAL BLOOD H2CO3 1.67 mmol/L (1.05-1.35); ARTERIAL BLOOD HCO3 30.6 mmol/L (20-24); ARTERIAL BLOOD O2 SATURATION 95.7 % (94-98); ARTERIAL BLOOD PCO2 55.5 mmHg (35-45); ARTERIAL BLOOD PH 7.36 (7.35-7.45); ARTERIAL BLOOD PO2 83.5 mmHg (80-100); ARTERIAL BLOOD TOTAL CO2 32.3 mmol/L (21-25)
[2018-03-05] MEDS ORDERED: ENOXAPARIN SODIUM INJ 100 MG/1 ML DISP.SYRIN SUBCUT SCH (20:00)
[2018-03-05] MEDS ORDERED: DEXTROSE 50%-WATER 25 GM/50 ML DISP.SYRIN IV PRN ×2 (21:04)
[2018-03-05] MEDS ORDERED: DEXTROSE 40% GEL 15 GM TUBE PO PRN ×2 (21:04)
[2018-03-05] MEDS ORDERED: GLUCAGON,HUMAN RECOMB 1 MG INJ SUBCUT PRN (21:04)
[2018-03-05] MEDS ORDERED: ONDANSETRON HCL INJ/PF 4 MG/2 ML SDV IV PRN (21:04)
[2018-03-05] MEDS ORDERED: ACETAMINOPHEN 650 MG SUPP.RECT PR PRN (21:04)
[2018-03-05] MEDS ORDERED: ALBUTEROL SULFATE 0.083% NEB 2.5 MG/3 ML AMPUL NEB PRN (21:29)
[2018-03-05] MEDS ORDERED: LABETALOL HCL INJ 20 MG/4 ML DISP.SYRIN IV PRN (21:47)
[2018-03-05] MEDS ORDERED: LEVOFLOXACIN 750 MG/D5W RTU 750 MG/150 ML RTUPB IV SCH (22:00)
[2018-03-05] MEDS: PANTOPRAZOLE SODIUM 40 MG VIAL IV SCH (22:12)
[2018-03-05] MEDS: PROPOFOL 1,000 MG/100 ML INFUS..BTL IV PRN (22:15)
[2018-03-05] MEDS: BUDESONIDE NEB 0.5 MG/2 ML AMPUL NEB SCH (22:18)
[2018-03-05 23:43] LABS: CREATINE KINASE MB 1.24 ng/mL (<4.55)
[2018-03-05] MEDS: NORMAL SALINE 1000 ML 1,000 ML IV PRN (23:45)
[2018-03-05 23:47] LABS: TROPONIN I 0.307 ng/mL
[2018-03-05] MEDS: MIDAZOLAM HCL 50 MG/100 ML RTUINJ IV-INFUSE PRN (23:50)
[2018-03-06] MEDS ORDERED: METHYLPREDNISOLONE INJ 40 MG/1 ML SDV IV SCH
[2018-03-06] MEDS: LEVALBUTEROL HCL NEB 1.25 MG/3 ML AMPUL NEB SCH ×3 (00:38→15:36)
[2018-03-06] MEDS: IPRATROPIUM BROMIDE 0.02% NEB 0.5 MG/2.5 ML AMPUL NEB SCH ×3 (00:38→15:36)
[2018-03-06 00:41] LABS: ARTERIAL BLOOD BASE EXCESS 6.9 mmol/L; ARTERIAL BLOOD H2CO3 1.66 mmol/L (1.05-1.35); ARTERIAL BLOOD HCO3 33.2 mmol/L (20-24); ARTERIAL BLOOD O2 SATURATION 98.4 % (94-98); ARTERIAL BLOOD PCO2 55.2 mmHg (35-45); ARTERIAL BLOOD PO2 122.9 mmHg (80-100); ARTERIAL BLOOD TOTAL CO2 34.9 mmol/L (21-25)
[2018-03-06 00:42] LABS: ARTERIAL BLOOD FIO2 80%
--- NOTE | 2018-03-06 01:05 | RADIOLOGY REPORT (SQ) ---
EXAM DESCRIPTION: XR CHEST 1 VIEW COMPLETED DATE/TME: 03/06/2018 00:00 CLINICAL HISTORY: 47 years, Female, ETT readjusted COMPARISON: Prior chest 03/05/2018 NUMBER OF VIEWS: 1 TECHNIQUE: Portable chest LIMITATIONS: None. FINDINGS: Heart is enlarged but stable. Endotracheal tube is now approximately 1.7 cm above the humphrey. Enteric tube remains in place. No pneumothorax. Osteopenia. Questionable left basilar airspace opacity. IMPRESSION: Tip of the endotracheal tube now lies 1.7 cm above the humphrey. Other findings are grossly stable copyright 2010 [employer]- All Rights Reserved
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
[2018-03-06] MEDS ORDERED: PROPOFOL 1,000 MG/100 ML INFUS..BTL IV PRN (01:20)
[2018-03-06] MEDS ORDERED: ALBUTEROL SULFATE 0.083% NEB 2.5 MG/3 ML AMPUL NEB PRN ×2 (01:51→11:32)
[2018-03-06] MEDS: PROPOFOL 1,000 MG/100 ML INFUS..BTL IV PRN ×7 (02:30→23:40)
[2018-03-06] MEDS: IPRATROPIUM/ALBUTEROL 0.5-2.5 MG/3 ML AMPUL NEB SCH ×3 (03:33→13:58)
[2018-03-06] MEDS: METHYLPREDNISOLONE INJ 125 MG/2 ML SDV IV SCH ×5 (05:05→23:42)
[2018-03-06 05:43] LABS: ARTERIAL BLOOD BASE EXCESS 5.6 mmol/L; ARTERIAL BLOOD H2CO3 1.72 mmol/L (1.05-1.35); ARTERIAL BLOOD HCO3 32.3 mmol/L (20-24); ARTERIAL BLOOD O2 SATURATION 96.8 % (94-98); ARTERIAL BLOOD PCO2 57.3 mmHg (35-45); ARTERIAL BLOOD PH 7.37 (7.35-7.45); ARTERIAL BLOOD PO2 93.9 mmHg (80-100); ARTERIAL BLOOD TOTAL CO2 34.1 mmol/L (21-25)
[2018-03-06 05:47] LABS: HEMOGLOBIN 11.4 g/dL (12.0-15.5); MEAN CORPUSCULAR HEMOGLOBIN 27.9 pg (27.0-33.4); MEAN CORPUSCULAR HGB CONC 33.4 g/dL (32.0-36.0); MEAN CORPUSCULAR VOLUME 84 fl (80-97); PLATELET COUNT 367 10^3/uL (150-450); RED BLOOD COUNT 4.07 10^6/uL (3.72-5.28); RED CELL DISTRIBUTION WIDTH 19.5 % (11.5-14.0); WHITE BLOOD COUNT 20.3 10^3/uL (4.0-10.5)
[2018-03-06 05:48] LABS: ARTERIAL BLOOD FIO2 50%
[2018-03-06] MEDS: MIDAZOLAM HCL 50 MG/100 ML RTUINJ IV-INFUSE PRN ×4 (05:53→22:00)
[2018-03-06 06:08] LABS: CREATINE KINASE MB 1.46 ng/mL (<4.55); TROPONIN I 0.206 ng/mL
[2018-03-06 06:09] LABS: ANION GAP 10 (5-19); BLOOD UREA NITROGEN 16 mg/dL (7-20); CALCIUM 8.7 mg/dL (8.4-10.2); CARBON DIOXIDE 28 mmol/L (22-30); CHLORIDE 103 mmol/L (98-107); CREATINE KINASE 44 U/L (30-135); GLUCOSE 124 mg/dL (75-110); POTASSIUM 4.3 mmol/L (3.6-5.0); SODIUM 141.4 mmol/L (137-145); TRIGLYCERIDES 330 mg/dL (<150)
[2018-03-06 06:14] LABS: FREE T3 3.76 pg/mL (2.77-5.27); FREE T4 (FREE THYROXINE) 0.99 ng/dL (0.78-2.19)
--- NOTE | 2018-03-06 06:24 | RADIOLOGY REPORT (SQ) ---
EXAM DESCRIPTION: XR CHEST 1 VIEW COMPLETED DATE/TME: 03/06/2018 06:00 CLINICAL HISTORY: 47 years, Female, Intubated COMPARISON: 03/06/2018 chest x-ray at 12:53 AM NUMBER OF VIEWS: 1 TECHNIQUE: Portable chest LIMITATIONS: None. FINDINGS: Stable cardiomegaly. Endotracheal tube and enteric tube remain in place. No pneumothorax. Osteopenia. Hazy opacity left lung base. IMPRESSION: Little interval change copyright 2010 [employer]- All Rights Reserved
[2018-03-06 06:27] LABS: THYROID STIMULATING HORMONE 0.27 uIU/mL (0.47-4.68)
[2018-03-06 07:00] LABS: ABSOLUTE LYMPHOCYTES# (MANUAL) 1.2 10^3/uL (0.5-4.7); ABSOLUTE MONOCYTES # (MANUAL) 0.4 10^3/uL (0.1-1.4); ABSOLUTE NEUTROPHILS# (MANUAL) 18.7 10^3/uL (1.7-8.2); BASOPHILS % (MANUAL) 0 % (0-2); EOSINOPHILS % (MANUAL) 0 % (0-6); LYMPHOCYTES % (MANUAL) 6 % (13-45); MONOCYTES % (MANUAL) 2 % (3-13); SEGMENTED NEUTROPHILS % (MAN) 92 % (42-78); TOTAL CELLS COUNTED 100
[2018-03-06 07:09] LABS: ANISOCYTOSIS 2+; PLATELET COMMENT ADEQUATE; POIKILOCYTOSIS 2+; TEAR DROP CELLS 2+; TOXIC GRANULATION 1+
[2018-03-06] MEDS: BUDESONIDE NEB 0.5 MG/2 ML AMPUL NEB SCH ×2 (08:35→20:40)
[2018-03-06] MEDS ORDERED: ENOXAPARIN SODIUM INJ 100 MG/1 ML DISP.SYRIN SUBCUT SCH (10:00)
[2018-03-06] MEDS: NORMAL SALINE 1000 ML 1,000 ML IV PRN ×2 (10:45→22:09)
[2018-03-06] MEDS: PANTOPRAZOLE SODIUM 40 MG VIAL IV SCH ×2 (10:46→21:10)
[2018-03-06] MEDS: LEVOTHYROXINE SODIUM INJ/PF 0.1 MG SDV IV SCH (10:46)
[2018-03-06] MEDS: CHLORHEXIDINE GLUCONATE 0.12% ORAL RINSE 15 ML UDC MM SCH ×2 (10:47→21:20)
[2018-03-06] MEDS ORDERED: ALBUTEROL SULFATE 0.083% NEB 2.5 MG/3 ML AMPUL NEB SCH (11:30)
[2018-03-06 11:55] LABS: CREATINE KINASE MB 1.13 ng/mL (<4.55)
[2018-03-06] MEDS: FONDAPARINUX SODIUM INJ 7.5 MG/0.6 ML DISP.SYRIN SUBCUT SCH (11:57)
[2018-03-06 12:02] LABS: TROPONIN I 0.115 ng/mL
[2018-03-06] MEDS: INSULIN REG, HUMAN 100 UNIT/ML 3 ML VIAL (PYX) SUBCUT PRN ×2 (12:44→19:11)
--- NOTE | 2018-03-06 12:54 | EKG REPORT ---
SEVERITY:- BORDERLINE ECG - SINUS TACHYCARDIA BORDERLINE T ABNORMALITIES, ANT-LAT LEADS : Confirmed by: Wilfredo Marvin 06-Mar-2018 12:53:16
--- NOTE | 2018-03-06 13:48 | RADIOLOGY REPORT (SQ) ---
EXAM DESCRIPTION: CHEST SINGLE VIEW COMPLETED DATE/TIME: 03/06/2018 1:35 pm REASON FOR STUDY: After with endotracheal tube by 1 cm COMPARISON: 03/06/2018 earlier. FINDINGS: Single-view chest AP portable semi-upright at 1249 hours. Endotracheal tube adjusted, good position. Nasogastric tube down. Appearance of the lungs is generally stable. Patchy diffuse airspace disease on the left. TECHNICAL DOCUMENTATION: JOB ID: [id number] Reading location - IP/workstation name: [email or web address]
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
--- NOTE | 2018-03-06 20:27 | CONSULTATION REPORT E ---
Consultation Report NAME: SELMA DOUGLAS : 1970 AGE: 47Y DATE: 03/06/2018 ROOM 608 A TO: SANDRA PRASAD M.D. FROM: THOMAS HOUSTON M.D. Requesting Physician HISTORY OF PRESENT ILLNESS: The patient is 47-year-old female who came in worsening dyspnea over the last 1 or 2 weeks. This became severe, fevers prior to this admission. Hence, the patient went to the emergency room and was admitted. The patient's family said that she has been coughing, sometimes severe paroxysms with whitish to yellow sputum, for the last few days. The patient was diagnosed to have sarcoidosis by lung biopsy in [place] earlier this year. The patient has never seen a party coordinator, but the patient was told that she has sarcoidosis. The patient relocated to [place], [place]. She sees a primary care physician in [place], [place]. The patient was endotracheal intubated last night and mechanically ventilated. That was a difficult endotracheal intubation. Suction with some blood tinged and some purulent endotracheal tube secretions. The patient was placed on ventilator. The patient has been stable on a ventilator overnight. Vital signs have been stable. PAST MEDICAL HISTORY: The patient has multiple episodes of acute respiratory failure requiring endotracheal intubation and invasive mechanical ventilation in the past. She has a past medical history of bronchial asthma/COPD. History of pulmonary sarcoidosis and history of hyperlipidemia, hypertension, pulmonary embolism. She was recently diagnosed and treated with Eliquis. History of heart murmur. History of congestive heart failure. 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 History of diabetes, hypothyroidism, and obesity. SURGICAL HISTORY: 1. Hysterectomy. 2. Partial lobectomy left lung due to lung nodule. SOCIAL HISTORY: Lives with significant other, spouse. Smokes about a pack a day for several years. Denies any illicit drug use or alcohol abuse. FAMILY HISTORY: Diabetes, hypertension. ALLERGIES: 1. ADVAIR. 2. *------* 3. FORMOTEROL. 4. BETA BURAK. HOME MEDICATIONS: 1. Eliquis 5 mg tablet daily. 2. Soma. 3. Klonopin. 4. Cardizem. 5. Folate. 6. Hydralazine. 7. Hydrochlorothiazide. 8. Toradol. 9. Synthroid. 10. Lisinopril. 11. NPH insulin. 12. Lyrica. 13. Seroquel. REVIEW OF SYSTEMS: CONSTITUTIONAL: No fever OR chills. RESPIRATORY: With increasing shortness of breath with cough with yellow-green sputum for the last 1-2 weeks, according to the patient's significant other. History of pneumonia, acute respiratory failure requiring invasive mechanical ventilation, and reportedly history of sarcoidosis. GASTROINTESTINAL: No nausea, vomiting, or diarrhea. GENITOURINARY: No dysuria or hematuria. PHYSICAL EXAMINATION: GENERAL: The patient is sedated, afebrile, not in apparent acute respiratory distress. VITAL SIGNS: Temperature 98.4 with a T-max of 99 degrees Fahrenheit, heart rate is 101, respiratory rate is 13, saturation is 98% on 40% FiO2, pressure support of 10, PEEP of 5, rate of 12, tidal volume 450 with a minute ventilation of 6.27, peak airway pressure 28, exhaled/inhaled tidal volume above 450-470 mL. EYES: No jaundice or pallor. EARS, NOSE, AND THROAT: Oral tracheal tube is in place. No nasal discharge or ear discharge. CHEST AND LUNGS: No wheezing, no rhonchi, no coarse crackles. CARDIOVASCULAR: S1, S2 distinct, tachycardic, regular rhythm. ABDOMEN: Flabby, positive bowel sounds, soft, nondistended, nontender. EXTREMITIES: No joint swelling, no cellulitis. LABORATORY DATA: CBC done this morning showed a white count of 20,000 from 16,000 yesterday, hemoglobin is 11.4, hematocrit is 34, platelet count is 357,000. Blood gas done this morning showed pH of 7.37, pCO2 is 57.3, and pO2 is 93.9 and saturation is 96.8, FiO2 of 50%. Chemistry done today showed sodium is 141, potassium is 4.3, chloride 103, CO2 is 28, BUN 16, creatinine 0.66, glucose 124 and calcium is 8.7, magnesium 1.9. IMAGING STUDIES: Chest x-ray done today showed left lower lobe atelectasis shifting cardiac shadow towards the left side. Tip from the endotracheal tube just slightly above the humphrey pointing towards the right bronchus. Ordered withdrawal of the endotracheal tube at least 1 cm and repeating the chest x-ray following the adjustment of the endotracheal tube. ASSESSMENT: 1. Acute respiratory failure requiring invasive mechanical ventilation. Currently improving and stable. 2. Bronchial asthma/COPD in acute severe bronchospasm. Currently stable and currently not in acute bronchospasm. 3. Pneumonia, possible concomitant. 4. History of sarcoidosis by left lung biopsy. Awaiting biopsy report record from [place]. PLAN/RECOMMENDATION: 1. We will continue to optimize ventilator support. We decreased the FiO2 down to 30%, keeping oxygen saturation 91-94. 2. Continue GI prophylaxis and DVT prophylaxis. 3. Continue Xopenex 1.25 mg every 8 hours around the clock and albuterol 2.5 mg every 4 hours or p.r.n. for breakthrough like severe wheezing or chest tightness. 4. Continue Levaquin. 5. Decrease the Solu-Medrol dose to 60 mg IV every 6 hours. 6. We will start the patient with NG tube feeding using oxepa 1.5 at 20 mL per hour today. 7. Continue Arixtra injection. DICTATING PHYSICIAN: SANDRA PRASAD MD,GLADYS,MPH [id number] PHY#: [id number] ID: [id number] JOB#: [id number] ACCT: [id number] cc:SANDRA PRASAD M.D. > MTDAdria
[2018-03-06] MEDS ORDERED: MEROPENEM 1 GM VIAL ONE (21:40)
[2018-03-06] MEDS: MEROPENEM 1 GM in NORMAL SALINE 50 ML IV SCH (22:02)
[2018-03-07] MEDS: LEVALBUTEROL HCL NEB 1.25 MG/3 ML AMPUL NEB SCH ×4 (00:05→23:11)
[2018-03-07] MEDS: IPRATROPIUM BROMIDE 0.02% NEB 0.5 MG/2.5 ML AMPUL NEB SCH ×4 (00:05→23:11)
[2018-03-07] MEDS: MIDAZOLAM HCL 50 MG/100 ML RTUINJ IV-INFUSE PRN ×6 (00:48→20:54)
[2018-03-07] MEDS: PROPOFOL 1,000 MG/100 ML INFUS..BTL IV PRN ×8 (02:16→22:26)
[2018-03-07 06:00] LABS: HEMOGLOBIN 9.8 g/dL (12.0-15.5); MEAN CORPUSCULAR HEMOGLOBIN 27.4 pg (27.0-33.4); MEAN CORPUSCULAR HGB CONC 32.5 g/dL (32.0-36.0); MEAN CORPUSCULAR VOLUME 84 fl (80-97); PLATELET COUNT 337 10^3/uL (150-450); RED BLOOD COUNT 3.56 10^6/uL (3.72-5.28); RED CELL DISTRIBUTION WIDTH 19.2 % (11.5-14.0); WHITE BLOOD COUNT 14.6 10^3/uL (4.0-10.5)
[2018-03-07] MEDS: MEROPENEM 1 GM in NORMAL SALINE 50 ML IV SCH ×3 (06:04→22:26)
[2018-03-07] MEDS: METHYLPREDNISOLONE INJ 125 MG/2 ML SDV IV SCH ×2 (06:05→11:47)
[2018-03-07] MEDS: NORMAL SALINE 1000 ML 1,000 ML IV PRN ×3 (06:09→23:52)
[2018-03-07 06:28] LABS: ANION GAP 5 (5-19); BLOOD UREA NITROGEN 15 mg/dL (7-20); CALCIUM 8.6 mg/dL (8.4-10.2); CARBON DIOXIDE 27 mmol/L (22-30); CHLORIDE 109 mmol/L (98-107); GLUCOSE 144 mg/dL (75-110); POTASSIUM 3.9 mmol/L (3.6-5.0); SODIUM 140.6 mmol/L (137-145)
[2018-03-07 06:41] LABS: ABSOLUTE LYMPHOCYTES# (MANUAL) 1.8 10^3/uL (0.5-4.7); ABSOLUTE MONOCYTES # (MANUAL) 0.7 10^3/uL (0.1-1.4); ABSOLUTE NEUTROPHILS# (MANUAL) 12.1 10^3/uL (1.7-8.2); BASOPHILS % (MANUAL) 0 % (0-2); EOSINOPHILS % (MANUAL) 0 % (0-6); LYMPHOCYTES % (MANUAL) 12 % (13-45); MONOCYTES % (MANUAL) 5 % (3-13); SEGMENTED NEUTROPHILS % (MAN) 83 % (42-78); TOTAL CELLS COUNTED 100
[2018-03-07 06:42] LABS: ANISOCYTOSIS 2+; PLATELET COMMENT ADEQUATE; POLYCHROMASIA 1+
--- NOTE | 2018-03-07 06:55 | RADIOLOGY REPORT (SQ) ---
EXAM DESCRIPTION: XR CHEST 1 VIEW COMPLETED DATE/TME: 03/07/2018 06:00 CLINICAL HISTORY: 47 years, Female, ASPIRATION? COMPARISON: 03/06/2018 chest NUMBER OF VIEWS: 1 TECHNIQUE: Portable chest LIMITATIONS: None. FINDINGS: Heart size is stable. Endotracheal and enteric tubes remain in place. Osteopenia. Improvement in pulmonary vascular congestion. Equivocal hazy opacity left lung base. Lungs are otherwise clear. No pneumothorax IMPRESSION: Improvement in pulmonary vascular congestion. Other findings are grossly stable copyright 2010 [email or web address]- All Rights Reserved
[2018-03-07 07:03] LABS: ARTERIAL BLOOD BASE EXCESS 2.4 mmol/L; ARTERIAL BLOOD H2CO3 1.13 mmol/L (1.05-1.35); ARTERIAL BLOOD HCO3 26.2 mmol/L (20-24); ARTERIAL BLOOD PCO2 37.6 mmHg (35-45); ARTERIAL BLOOD PH 7.46 (7.35-7.45); ARTERIAL BLOOD PO2 70.1 mmHg (80-100); ARTERIAL BLOOD TOTAL CO2 27.4 mmol/L (21-25)
[2018-03-07 07:15] LABS: ARTERIAL BLOOD FIO2 30%
[2018-03-07] MEDS: BUDESONIDE NEB 0.5 MG/2 ML AMPUL NEB SCH ×2 (08:33→21:36)
[2018-03-07] MEDS: LEVOTHYROXINE SODIUM INJ/PF 0.1 MG SDV IV SCH (10:37)
[2018-03-07] MEDS: PANTOPRAZOLE SODIUM 40 MG VIAL IV SCH ×2 (10:37→22:27)
[2018-03-07] MEDS: CHLORHEXIDINE GLUCONATE 0.12% ORAL RINSE 15 ML UDC MM SCH ×2 (10:37→22:30)
[2018-03-07] MEDS: FONDAPARINUX SODIUM INJ 7.5 MG/0.6 ML DISP.SYRIN SUBCUT SCH (10:37)
--- NOTE | 2018-03-07 16:14 | PDOC PROGRESS REPORT ---
Subjective Progress Note for:: 03/07/18 Subjective:: No adverse events overnight. She still running some elevated temperatures. Had to increase her sedation and since then her breathing pattern has improved. Urine outputs been good. Reason For Visit: ACUTE ON CHRONIC RESPIRATORY FAILURE WITH Physical Exam Vital Signs: Temp Pulse Resp BP Pulse Ox 99.3 F 114 H 24 H 153/79 H 98 03/07/18 16:00 03/07/18 15:34 03/07/18 15:34 03/07/18 09:39 03/07/18 15:34 Intake & Output 03/06/18 03/07/18 03/08/18 06:59 06:59 06:59 Intake Total 1404 4460 1889 Output Total 3550 2125 1275 Balance -2146 2335 614 Weight 93.3 kg 97.2 kg General appearance: PRESENT: no acute distress, disheveled, morbidly obese, other - Sedated, intubated Respiratory exam: PRESENT: decreased breath sounds, symmetrical, unlabored, wheezes. ABSENT: accessory muscle use, rhonchi, tachypnea Cardiovascular exam: PRESENT: tachycardia Vascular exam: PRESENT: normal capillary refill GI/Abdominal exam: PRESENT: normal bowel sounds, soft. ABSENT: distended, guarding, rebound, tenderness Extremities exam: PRESENT: +1 edema - She has generalized nonpitting edema. ABSENT: clubbing Musculoskeletal exam: PRESENT: normal inspection. ABSENT: deformity Neurological exam: PRESENT: other - Sedated, intubated Skin exam: PRESENT: dry, warm Results Laboratory Results: 03/07/18 05:25 03/07/18 05:25 03/07/18 03/07/18 03/07/18 05:25 05:25 05:25 WBC 14.6 H RBC 3.56 L Hgb 9.8 L Hct 30.0 L MCV 84 MCH 27.4 MCHC 32.5 RDW 19.2 H Plt Count 337 Seg Neutrophils % Not Reportable Lymphocytes % Not Reportable Monocytes % Not Reportable Eosinophils % Not Reportable Basophils % Not Reportable Absolute Neutrophils Not Reportable Absolute Lymphocytes Not Reportable Absolute Monocytes Not Reportable Absolute Eosinophils Not Reportable Absolute Basophils Not Reportable Carbonic Acid Cancelled HCO3/H2CO3 Ratio Cancelled ABG pH Cancelled ABG pCO2 Cancelled ABG pO2 Cancelled ABG HCO3 Cancelled ABG O2 Saturation Cancelled ABG Base Excess Cancelled FiO2 Cancelled Sodium 140.6 Potassium 3.9 Chloride 109 H Carbon Dioxide 27 Anion Gap 5 BUN 15 Creatinine 0.50 L Est GFR ( Amer) > 60 Est GFR (Non-Af Amer) > 60 Glucose 144 H Calcium 8.6 Magnesium 2.4 H 03/07/18 06:48 WBC RBC Hgb Hct MCV MCH MCHC RDW Plt Count Seg Neutrophils % Lymphocytes % Monocytes % Eosinophils % Basophils % Absolute Neutrophils Absolute Lymphocytes Absolute Monocytes Absolute Eosinophils Absolute Basophils Carbonic Acid 1.13 HCO3/H2CO3 Ratio 23:1 ABG pH 7.46 H ABG pCO2 37.6 ABG pO2 70.1 L ABG HCO3 26.2 H ABG O2 Saturation 95.0 ABG Base Excess 2.4 FiO2 30% Sodium Potassium Chloride Carbon Dioxide Anion Gap BUN Creatinine Est GFR ( Amer) Est GFR (Non-Af Amer) Glucose Calcium Magnesium 03/05/18 03/05/18 03/05/18 16:24 16:24 23:06 Creatine Kinase 48 CK-MB (CK-2) Troponin I < 0.012 NT-Pro-B Natriuret Pep 114 03/05/18 03/06/18 03/06/18 23:06 05:15 05:15 Creatine Kinase 44 CK-MB (CK-2) 1.24 1.46 Troponin I 0.307 0.206 NT-Pro-B Natriuret Pep 03/06/18 03/06/18 11:16 11:16 Creatine Kinase 38 CK-MB (CK-2) 1.13 Troponin I 0.115 NT-Pro-B Natriuret Pep Impressions: Chest X-Ray 03/07/18 06:00 IMPRESSION: Improvement in pulmonary vascular congestion. Other findings are grossly stable copyright 2011 [employer]- All Rights Reserved Assessment & Plan - Diagnosis (1) Aspiration pneumonia Qualifiers: Aspiration pneumonia type: due to vomit Laterality: left Lung location: lower lobe of lung Qualified Code(s): J69.0 - Pneumonitis due to inhalation of food and vomit Is this a current diagnosis for this admission?: Yes Plan: Continue meropenem. Tracheal aspirate cultures are pending. When she is extubated and clinically improved she is going to need a swallow evaluation. (2) Acute exacerbation of chronic obstructive pulmonary disease (COPD) Is this a current diagnosis for this admission?: Yes Plan: She is on steroids, antibiotics, nebulizer treatments, as well as the oxygen support from mechanical ventilation. She apparently still smokes. She is wheezing today, and if her wheezing does not improve we may have to increase her steroids temporarily. (3) Acute respiratory failure Qualifiers: Respiratory failure complication: unspecified whether with hypoxia or hypercapnia Qualified Code(s): J96.00 - Acute respiratory failure, unspecified whether with hypoxia or hypercapnia Is this a current diagnosis for this admission?: Yes Plan: She was intubated due to her severely increased work of breathing. Once her vital signs stabilized we will begin the process of weaning her from the ventilator. - Time Time Spent with patient: 25-34 minutes
[2018-03-07] MEDS: PREGABALIN 100 MG CAPSULE PO SCH ×2 (16:21→22:27)
[2018-03-07] MEDS: CLONAZEPAM 1 MG TABLET PO SCH ×2 (16:22→22:27)
--- NOTE | 2018-03-07 17:18 | PROGRESS NOTE E ---
Progress Note NAME: SELMA DOUGLAS : 1970 AGE: 47Y DATE: 03/07/2018 ROOM: 608 SUBJECTIVE: Patient is a 47-year-old female who came in with acute respiratory failure, requiring invasive mechanical ventilation. She also had severe COPD exacerbation. There was no fever over the last 24 hours. Patient was noted to be tachycardic at 120 beats per minute this morning, agitated and increased restlessness. There are mild to moderate endotracheal tube secretions. No vomiting noted. No diarrhea noted. Patient is off her home medications, such as Soma, Lyrica, clonazepam, Seroquel and Toradol. Will restart today and determine whether this is enough to make the patient comfortable. OBJECTIVE: GENERAL: Patient appears sedated, not in apparent respiratory distress with a temperature of 99.3, with a T-max of 99.7, heart rate 114 to 120, respiratory rate 24, saturation 98% on 35% FiO2, tidal volume of 415, pressure support of 10, PEEP of 9, and rate of 12. EYES: No jaundice or pallor. EARS, NOSE AND THROAT: No ear drainage. No nasal discharge. Increased whitish secretions around the mouth. Patient appeared to be uncomfortable and restless. CHEST AND LUNGS: No wheezing, no coarse crackles. CARDIOVASCULAR: S1, S2 distinct. Tachycardic at 120, sometimes higher. Regular rate. ABDOMEN: Flabby. Positive bowel sounds. Soft, nondistended. EXTREMITIES: No joint swelling. LABORATORY DATA: CBC done today showed white count of 14.6, down from 20,000 yesterday. Hemoglobin is 9.8 and hematocrit is 30, platelet count is 337,000. ABGs this morning showed pH of 7.46, pCO2 is 37.6, pO2 is 17 and saturation 95% on 30% FiO2. Chemistry done today showed sodium is 140, potassium is 3.9, chloride 109, CO2 is 37, BUN 15, creatinine 0.50 and glucose 144. Calcium is 8.3, carbon dioxide is 2.4. ASSESSMENT: 1. ACUTE RESPIRATORY FAILURE REQUIRING INVASIVE MECHANICAL VENTILATION. Currently not ready to be extubated yet. 2. AGITATED AND TACHYCARDIC, POSSIBLY DUE TO PAIN. Patient on chronic pain medications at home. 3. HISTORY OF COPD. Currently stable. Not in acute exacerbation. PLAN/RECOMMENDATIONS: 1. Will resume Lyrica, Seroquel, Soma and lorazepam. 2. Will continue invasive ventilator management, blood pressure management and nutritional support. DICTATING PHYSICIAN: SANDRA PRASAD MD,GLADYS,MPH [id number] PHY#: [id number] ID: [id number] JOB#: [id number] ACCT: [id number] cc: > MTDD
[2018-03-07] MEDS: METHYLPREDNISOLONE INJ 40 MG/1 ML SDV IV SCH (17:28)
[2018-03-07] MEDS: CARISOPRODOL 350 MG TABLET PO SCH (17:29)
[2018-03-07] MEDS: INSULIN REG, HUMAN 100 UNIT/ML 3 ML VIAL (PYX) SUBCUT PRN (18:24)
[2018-03-07] MEDS: QUETIAPINE FUMARATE 100 MG TABLET PO SCH (22:28)
[2018-03-08] MEDS ORDERED: MIDAZOLAM HCL 50 MG/100 ML RTUINJ ONE (00:15)
[2018-03-08] MEDS: METHYLPREDNISOLONE INJ 40 MG/1 ML SDV IV SCH ×5 (00:16→23:40)
[2018-03-08] MEDS: CARISOPRODOL 350 MG TABLET PO SCH ×5 (00:16→23:40)
[2018-03-08] MEDS: MIDAZOLAM HCL 50 MG/100 ML RTUINJ IV-INFUSE PRN ×3 (00:16→08:28)
[2018-03-08] MEDS: PROPOFOL 1,000 MG/100 ML INFUS..BTL IV PRN ×6 (01:07→20:44)
[2018-03-08 04:12] LABS: HEMATOCRIT 31.4 % (36.0-47.0); HEMOGLOBIN 10.2 g/dL (12.0-15.5); MEAN CORPUSCULAR HEMOGLOBIN 27.2 pg (27.0-33.4); MEAN CORPUSCULAR HGB CONC 32.6 g/dL (32.0-36.0); MEAN CORPUSCULAR VOLUME 84 fl (80-97); PLATELET COUNT 300 10^3/uL (150-450); RED BLOOD COUNT 3.75 10^6/uL (3.72-5.28); RED CELL DISTRIBUTION WIDTH 19.7 % (11.5-14.0); WHITE BLOOD COUNT 14.7 10^3/uL (4.0-10.5)
[2018-03-08 04:13] LABS: ANION GAP 6 (5-19); BLOOD UREA NITROGEN 20 mg/dL (7-20); CALCIUM 8.6 mg/dL (8.4-10.2); CARBON DIOXIDE 24 mmol/L (22-30); CHLORIDE 113 mmol/L (98-107); GLUCOSE 131 mg/dL (75-110); POTASSIUM 4.2 mmol/L (3.6-5.0); SODIUM 143.1 mmol/L (137-145)
[2018-03-08 04:30] LABS: ABSOLUTE LYMPHOCYTES# (MANUAL) 1.8 10^3/uL (0.5-4.7); ABSOLUTE MONOCYTES # (MANUAL) 1.5 10^3/uL (0.1-1.4); ABSOLUTE NEUTROPHILS# (MANUAL) 11.5 10^3/uL (1.7-8.2); BASOPHILS % (MANUAL) 0 % (0-2); EOSINOPHILS % (MANUAL) 0 % (0-6); LYMPHOCYTES % (MANUAL) 12 % (13-45); MONOCYTES % (MANUAL) 10 % (3-13); SEGMENTED NEUTROPHILS % (MAN) 78 % (42-78); TOTAL CELLS COUNTED 100
[2018-03-08 04:31] LABS: ANISOCYTOSIS 1+; PLATELET COMMENT ADEQUATE; POLYCHROMASIA 1+
[2018-03-08] MEDS: MEROPENEM 1 GM in NORMAL SALINE 50 ML IV SCH ×3 (06:00→21:33)
[2018-03-08] MEDS: CLONAZEPAM 1 MG TABLET PO SCH ×3 (06:01→21:34)
[2018-03-08] MEDS: PREGABALIN 100 MG CAPSULE PO SCH ×3 (06:01→21:34)
[2018-03-08 06:17] LABS: ARTERIAL BLOOD BASE EXCESS -0.5 mmol/L; ARTERIAL BLOOD FIO2 35%; ARTERIAL BLOOD H2CO3 1.19 mmol/L (1.05-1.35); ARTERIAL BLOOD HCO3 24.1 mmol/L (20-24); ARTERIAL BLOOD O2 SATURATION 97.3 % (94-98); ARTERIAL BLOOD PCO2 39.5 mmHg (35-45); ARTERIAL BLOOD PO2 95.8 mmHg (80-100); ARTERIAL BLOOD TOTAL CO2 25.4 mmol/L (21-25)
--- NOTE | 2018-03-08 08:13 | RADIOLOGY REPORT (SQ) ---
EXAM DESCRIPTION: CHEST SINGLE VIEW COMPLETED DATE/TIME: 03/08/2018 6:52 am REASON FOR STUDY: Intubated COMPARISON: 03/07/2018 EXAM PARAMETERS: NUMBER OF VIEWS: One view. TECHNIQUE: Single frontal radiographic view of the chest acquired. RADIATION DOSE: NA LIMITATIONS: None. FINDINGS: LUNGS AND PLEURA: No significant interval changes. Stableslight linear parenchymal densi ties at the lung bases, more so on the left. No pneumothorax or pleural effusion. MEDIASTINUM AND HILAR STRUCTURES: No masses. Contour normal. HEART AND VASCULAR STRUCTURES: Cardiomegaly and stable pulmonary vascular congestion. BONES: No acute findings. HARDWARE: Endotracheal tube and nasogastric tube are unchanged in location. OTHER: No other significant finding. IMPRESSION: 1. Stable examinations since the prior study dated 03/07/2018. TECHNICAL DOCUMENTATION: JOB ID: [id number] [employer]- All Rights Reserved Reading location - IP/workstation name: [email or web address]
[2018-03-08] MEDS: IPRATROPIUM BROMIDE 0.02% NEB 0.5 MG/2.5 ML AMPUL NEB SCH ×3 (08:25→23:29)
[2018-03-08] MEDS: BUDESONIDE NEB 0.5 MG/2 ML AMPUL NEB SCH ×2 (08:25→20:48)
[2018-03-08] MEDS: LEVALBUTEROL HCL NEB 1.25 MG/3 ML AMPUL NEB SCH ×3 (08:25→23:29)
[2018-03-08] MEDS: NORMAL SALINE 1000 ML 1,000 ML IV PRN ×2 (08:28→17:31)
[2018-03-08] MEDS: LEVOTHYROXINE SODIUM INJ/PF 0.1 MG SDV IV SCH (09:30)
[2018-03-08] MEDS: PANTOPRAZOLE SODIUM 40 MG VIAL IV SCH ×2 (09:30→21:33)
[2018-03-08] MEDS: CHLORHEXIDINE GLUCONATE 0.12% ORAL RINSE 15 ML UDC MM SCH ×2 (09:30→21:35)
[2018-03-08] MEDS: FONDAPARINUX SODIUM INJ 7.5 MG/0.6 ML DISP.SYRIN SUBCUT SCH (09:31)
--- NOTE | 2018-03-08 18:15 | PDOC PROGRESS REPORT ---
Subjective Progress Note for:: 03/08/18 Subjective:: She still been intermittently febrile. Still tachycardic. Still e ncephalopathic. She does open her eyes to verbal command and will track with her eyes. Reason For Visit: ACUTE ON CHRONIC RESPIRATORY FAILURE WITH Physical Exam Vital Signs: Temp Pulse Resp BP Pulse Ox 99.0 F 113 H 18 151/95 H 97 03/08/18 17:52 03/08/18 17:52 03/08/18 17:52 03/08/18 17:52 03/08/18 17:52 Intake & Output 03/07/18 03/08/18 03/09/18 06:59 06:59 06:59 Intake Total 4460 3603 3024 Output Total 2125 2200 1715 Balance 2335 1403 1309 Weight 97.2 kg 97.9 kg General appearance: PRESENT: disheveled, mild distress, morbidly obese Mouth exam: PRESENT: dry mucosa Teeth exam: PRESENT: poor dentation Respiratory exam: PRESENT: decreased breath sounds - Her respirations are shallow and her breath sounds are diminished in the bases, but difficult to appreciate due to the fact that her tidal volumes are probably pretty low, symmetrical, tachypnea. ABSENT: accessory muscle use, crackles, rhonchi, unlabored, wheezes Cardiovascular exam: PRESENT: tachycardia Vascular exam: PRESENT: normal capillary refill GI/Abdominal exam: PRESENT: hypoactive bowel sounds, soft, tenderness - Mild generalized tenderness to palpation in the abdomen. ABSENT: distended, guarding, rebound Extremities exam: PRESENT: other - She has trace generalized nonpitting edema, her feet are warm. ABSENT: clubbing Musculoskeletal exam: PRESENT: normal inspection. ABSENT: deformity Neurological exam: PRESENT: altered, oriented to person Skin exam: PRESENT: dry, warm Results Laboratory Results: 03/08/18 03:50 03/08/18 03:50 03/08/18 03/08/18 03/08/18 03:50 03:50 06:09 WBC 14.7 H RBC 3.75 Hgb 10.2 L Hct 31.4 L MCV 84 MCH 27.2 MCHC 32.6 RDW 19.7 H Plt Count 300 Seg Neutrophils % Not Reportable Lymphocytes % Not Reportable Monocytes % Not Reportable Eosinophils % Not Reportable Basophils % Not Reportable Absolute Neutrophils Not Reportable Absolute Lymphocytes Not Reportable Absolute Monocytes Not Reportable Absolute Eosinophils Not Reportable Absolute Basophils Not Reportable Carbonic Acid 1.19 HCO3/H2CO3 Ratio 20:1 ABG pH 7.40 ABG pCO2 39.5 ABG pO2 95.8 ABG HCO3 24.1 H ABG O2 Saturation 97.3 ABG Base Excess -0.5 FiO2 35% Sodium 143.1 Potassium 4.2 Chloride 113 H Carbon Dioxide 24 Anion Gap 6 BUN 20 Creatinine 0.51 L Est GFR ( Amer) > 60 Est GFR (Non-Af Amer) > 60 Glucose 131 H Calcium 8.6 Magnesium 2.5 H 03/06/18 00:08 Tracheal Aspirate Gram Stain - Final 03/06/18 00:08 Tracheal Aspirate Sputum Culture - Final C.albicans/C.dubliniensis Normal Sariah Absent 03/05/18 03/05/18 03/05/18 16:24 16:24 23:06 Creatine Kinase 48 CK-MB (CK-2) Troponin I < 0.012 NT-Pro-B Natriuret Pep 114 03/05/18 03/06/18 03/06/18 23:06 05:15 05:15 Creatine Kinase 44 CK-MB (CK-2) 1.24 1.46 Troponin I 0.307 0.206 NT-Pro-B Natriuret Pep 03/06/18 03/06/18 11:16 11:16 Creatine Kinase 38 CK-MB (CK-2) 1.13 Troponin I 0.115 NT-Pro-B Natriuret Pep Impressions: Chest X-Ray 03/08/18 06:00 IMPRESSION: 1. Stable examinations since the prior study dated 03/07/2018. Assessment & Plan - Diagnosis (1) Aspiration pneumonia Qualifiers: Aspiration pneumonia type: due to vomit Laterality: left Lung location: lower lobe of lung Qualified Code(s): J69.0 - Pneumonitis due to inhalation of food and vomit Is this a current diagnosis for this admission?: Yes Plan: She is on broad antibiotic coverage, but it looks like her main issue now is the fact that she is not aerating all the parts of her lungs well enough. I do not know how well she would tolerate chest PT right now but we may have to try something to try to increase her aeration. Currently on tube feeds. (2) Acute exacerbation of chronic obstructive pulmonary disease (COPD) Is this a current diagnosis for this admission?: Yes Plan: I think this is essentially resolved. She is not wheezing anymore, she is just not taking very deep breath. (3) Acute respiratory failure Qualifiers: Respiratory failure complication: hypoxia Qualified Code(s): J96.01 - Acute respiratory failure with hypoxia Is this a current diagnosis for this admission?: Yes Plan: Continue supplemental O2 to maintain SPO2 greater than 90%. Her oxygenation is fine, it is her ventilation that needs improvement, along with aggressive pulmonary toilet. - Time Time Spent with patient: 25-34 minutes
--- NOTE | 2018-03-08 18:19 | PDOC PROGRESS REPORT ---
Subjective Progress Note for:: 03/08/18 Subjective:: No adverse events overnight. She remains sedated and intubated. Temperature curve has improved. She still tachycardic but that is also improved. Urine output has been good. Her sedation has been lightened and she has tolerated that well. Reason For Visit: ACUTE ON CHRONIC RESPIRATORY FAILURE WITH Physical Exam Vital Signs: Temp Pulse Resp BP Pulse Ox 99.0 F 113 H 18 151/95 H 97 03/08/18 17:52 03/08/18 17:52 03/08/18 17:52 03/08/18 17:52 03/08/18 17:52 Intake & Output 03/07/18 03/08/18 03/09/18 06:59 06:59 06:59 Intake Total 4460 3603 3024 Output Total 2125 2200 1715 Balance 2335 1403 1309 Weight 97.2 kg 97.9 kg General appearance: PRESENT: no acute distress, disheveled, morbidly obese, other - Sedated, intubated Respiratory exam: PRESENT: decreased breath sounds, symmetrical, unlabored, wheezes are isolated to the left base. ABSENT: accessory muscle use, rhonchi, tachypnea Cardiovascular exam: PRESENT: tachycardia Vascular exam: PRESENT: normal capillary refill GI/Abdominal exam: PRESENT: normal bowel sounds, soft. ABSENT: distended, guarding, rebound, tenderness Extremities exam: PRESENT: +1 edema - She has generalized nonpitting edema. ABSENT: clubbing Musculoskeletal exam: PRESENT: normal inspection. ABSENT: deformity Neurological exam: PRESENT: other - Sedated, intubated Skin exam: PRESENT: dry, warm Results Laboratory Results: 03/08/18 03:50 03/08/18 03:50 03/08/18 03/08/18 03/08/18 03:50 03:50 06:09 WBC 14.7 H RBC 3.75 Hgb 10.2 L Hct 31.4 L MCV 84 MCH 27.2 MCHC 32.6 RDW 19.7 H Plt Count 300 Seg Neutrophils % Not Reportable Lymphocytes % Not Reportable Monocytes % Not Reportable Eosinophils % Not Reportable Basophils % Not Reportable Absolute Neutrophils Not Reportable Absolute Lymphocytes Not Reportable Absolute Monocytes Not Reportable Absolute Eosinophils Not Reportable Absolute Basophils Not Reportable Carbonic Acid 1.19 HCO3/H2CO3 Ratio 20:1 ABG pH 7.40 ABG pCO2 39.5 ABG pO2 95.8 ABG HCO3 24.1 H ABG O2 Saturation 97.3 ABG Base Excess -0.5 FiO2 35% Sodium 143.1 Potassium 4.2 Chloride 113 H Carbon Dioxide 24 Anion Gap 6 BUN 20 Creatinine 0.51 L Est GFR ( Amer) > 60 Est GFR (Non-Af Amer) > 60 Glucose 131 H Calcium 8.6 Magnesium 2.5 H 03/06/18 00:08 Tracheal Aspirate Gram Stain - Final 03/06/18 00:08 Tracheal Aspirate Sputum Culture - Final C.albicans/C.dubliniensis Normal Sariah Absent 03/05/18 03/05/18 03/05/18 16:24 16:24 23:06 Creatine Kinase 48 CK-MB (CK-2) Troponin I < 0.012 NT-Pro-B Natriuret Pep 114 03/05/18 03/06/18 03/06/18 23:06 05:15 05:15 Creatine Kinase 44 CK-MB (CK-2) 1.24 1.46 Troponin I 0.307 0.206 NT-Pro-B Natriuret Pep 03/06/18 03/06/18 11:16 11:16 Creatine Kinase 38 CK-MB (CK-2) 1.13 Troponin I 0.115 NT-Pro-B Natriuret Pep Impressions: Chest X-Ray 03/08/18 06:00 IMPRESSION: 1. Stable examinations since the prior study dated 03/07/2018. Assessment & Plan - Diagnosis (1) Aspiration pneumonia Qualifiers: Aspiration pneumonia type: due to vomit Laterality: left Lung location: lower lobe of lung Qualified Code(s): J69.0 - Pneumonitis due to inhalation of food and vomit Is this a current diagnosis for this admission?: Yes Plan: Continue meropenem. Cultures are pending. Still planning for a swallow evaluation when she is extubated. (2) Acute exacerbation of chronic obstructive pulmonary disease (COPD) Is this a current diagnosis for this admission?: Yes Plan: Improving well with steroids. Once we get her extubated, we can start to de- escalate to prednisone. (3) Acute respiratory failure Qualifiers: Respiratory failure complication: hypoxia Qualified Code(s): J96.01 - Acute respiratory failure with hypoxia Is this a current diagnosis for this admission?: Yes Plan: She is stable on the ventilator. We hope to be able to start weaning trials tomorrow. She was tachycardic already today so we decided not to do it. - Time Time Spent with patient: 25-34 minutes
[2018-03-08] MEDS: QUETIAPINE FUMARATE 100 MG TABLET PO SCH (21:34)
--- NOTE | 2018-03-09 00:37 | PROGRESS NOTE E ---
Progress Note NAME: SELMA DOUGLAS : 1970 AGE: 47Y DATE: 03/08/2018 ROOM: 608 SUBJECTIVE: The patient is a 47-year-old female who came in with acute respiratory failure requiring intubation and mechanical ventilation due to severe COPD exacerbation and altered mental status. The patient was noted to be tachycardic and agitated this morning while sedation is being weaned off. Unable to wean off sedation completely because of tachycardia to 120 to 125 beats per minute. No vomiting. No diarrhea. The patient tolerated NG tube feeding at 20 mL/hr continued tracheal tube secretions. The patient was started on her home medications yesterday. OBJECTIVE: GENERAL: The patient appears sedated, afebrile, not in apparent respiratory distress. VITAL SIGNS: Temperature 99.3, T-max 99.3. Heart rate 94, respirations 19. O2 saturation 97% on 30% FiO2. SIMV rate of 12, tidal volume 450, PS of 10, PEEP of 5. Peak airway pressure of 25. TV of 365. HEENT: Eyes: No conjunctival pallor. ENT: No ear drainage or nasal discharge. CHEST AND LUNGS: No wheezing. No coarse crackles. No rhonchi noted. CARDIOVASCULAR: S1, S2. ABDOMEN: Flabby. Positive bowel sounds. Soft, nondistended, nontender. EXTREMITIES: No joint swelling, no cellulitis. LABORATORY: White count today is 14.7, hemoglobin 10.2, hematocrit 31.4, platelet count 300. No bands noted. ABG done this morning showed pH of 7.4, pCO2 of 39.5, pO2 of 25.8, saturation 97.3. Chest and lungs showed no new infiltrates, no pleural effusion. Left lower lobe atelectasis due to previous left lower lobe lobectomy. ASSESSMENT: ACUTE RESPIRATORY FAILURE. Requiring aggressive mechanical ventilation, not in acute respiratory distress. The patient agreed to be extubated; the patient became so agitated. PLAN: 1. Optimize ventilator support, hemodynamic and nutritional support. 2. Will do sedation vacation, every morning and if the patient becomes fully awake and comfortable, then will perform spontaneous breathing trial. Will increase the NG tube feeding to 40 mL/hr. DICTATING PHYSICIAN: SANDRA PRASAD MD,GLADYS,MPH [id number] [id number] PHY#: [id number] ID: [id number] JOB#: [id number] ACCT: [id number] cc: > RIK
[2018-03-09] MEDS: MIDAZOLAM HCL 50 MG/100 ML RTUINJ IV-INFUSE PRN (00:42)
[2018-03-09] MEDS: PROPOFOL 1,000 MG/100 ML INFUS..BTL IV PRN ×3 (01:40→10:23)
[2018-03-09] MEDS: NORMAL SALINE 1000 ML 1,000 ML IV PRN ×3 (01:40→19:03)
[2018-03-09 05:25] LABS: HEMATOCRIT 30.8 % (36.0-47.0); HEMOGLOBIN 10.2 g/dL (12.0-15.5); MEAN CORPUSCULAR HEMOGLOBIN 27.5 pg (27.0-33.4); MEAN CORPUSCULAR HGB CONC 33.1 g/dL (32.0-36.0); MEAN CORPUSCULAR VOLUME 83 fl (80-97); PLATELET COUNT 345 10^3/uL (150-450); RED CELL DISTRIBUTION WIDTH 19.5 % (11.5-14.0)
[2018-03-09] MEDS: MEROPENEM 1 GM in NORMAL SALINE 50 ML IV SCH ×3 (05:29→21:33)
[2018-03-09] MEDS: CARISOPRODOL 350 MG TABLET PO SCH ×4 (05:29→23:32)
[2018-03-09] MEDS: CLONAZEPAM 1 MG TABLET PO SCH ×3 (05:29→21:34)
[2018-03-09] MEDS: METHYLPREDNISOLONE INJ 40 MG/1 ML SDV IV SCH ×4 (05:29→23:38)
[2018-03-09] MEDS: PREGABALIN 100 MG CAPSULE PO SCH ×3 (05:29→21:34)
[2018-03-09 05:36] LABS: ALANINE AMINOTRANSFERASE 45 U/L (9-52); ALKALINE PHOSPHATASE 62 U/L (38-126); ANION GAP 6 (5-19); ASPARTATE AMINO TRANSFERASE 30 U/L (14-36); BILIRUBIN,DIRECT 0.3 mg/dL (0.0-0.4); BILIRUBIN,TOTAL 0.3 mg/dL (0.2-1.3); BLOOD UREA NITROGEN 23 mg/dL (7-20); CALCIUM 8.5 mg/dL (8.4-10.2); CARBON DIOXIDE 26 mmol/L (22-30); CHLORIDE 111 mmol/L (98-107); GLUCOSE 131 mg/dL (75-110); POTASSIUM 4.2 mmol/L (3.6-5.0); TOTAL PROTEIN 5.6 g/dL (6.3-8.2)
[2018-03-09 06:24] LABS: ABSOLUTE LYMPHOCYTES# (MANUAL) 2.1 10^3/uL (0.5-4.7); ABSOLUTE NEUTROPHILS# (MANUAL) 9.9 10^3/uL (1.7-8.2); BAND NEUTROPHILS % (MANUAL) 2 % (3-5); BASOPHILS % (MANUAL) 0 % (0-2); EOSINOPHILS % (MANUAL) 0 % (0-6); LYMPHOCYTES % (MANUAL) 15 % (13-45); METAMYELOCYTES % (MANUAL) 1 % (0); MONOCYTES % (MANUAL) 14 % (3-13); SEGMENTED NEUTROPHILS % (MAN) 68 % (42-78); TOTAL CELLS COUNTED 100
[2018-03-09 06:25] LABS: ANISOCYTOSIS 2+; HYPERSEGMENTED NEUTROPHILS PRESENT; POIKILOCYTOSIS SLIGHT; POLYCHROMASIA SLIGHT; SCHISTOCYTES SLIGHT; TOXIC GRANULATION 1+
[2018-03-09 06:26] LABS: PLATELET COMMENT ADEQUATE; PLATELET LARGE PRESENT
--- NOTE | 2018-03-09 06:48 | RADIOLOGY REPORT (SQ) ---
CLINICAL HISTORY: ventilator COMPARISON: March 08, 2018. 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 Lungs are clear without consolidation, atelectasis, mass or edema. There may be a small left pleural effusion. There is no pneumothorax. There are no acute osseous findings. Endotracheal tube, nasogastric tube are unchanged. IMPRESSION: No change.
[2018-03-09] MEDS: IPRATROPIUM BROMIDE 0.02% NEB 0.5 MG/2.5 ML AMPUL NEB SCH ×2 (08:16→16:46)
[2018-03-09] MEDS: BUDESONIDE NEB 0.5 MG/2 ML AMPUL NEB SCH ×2 (08:16→20:57)
[2018-03-09] MEDS: LEVALBUTEROL HCL NEB 1.25 MG/3 ML AMPUL NEB SCH ×2 (08:16→16:46)
[2018-03-09] MEDS: FONDAPARINUX SODIUM INJ 7.5 MG/0.6 ML DISP.SYRIN SUBCUT SCH (09:13)
[2018-03-09] MEDS: PANTOPRAZOLE SODIUM 40 MG VIAL IV SCH ×3 (09:18→21:34)
[2018-03-09] MEDS: LEVOTHYROXINE SODIUM INJ/PF 0.1 MG SDV IV SCH (09:21)
[2018-03-09] MEDS: CHLORHEXIDINE GLUCONATE 0.12% ORAL RINSE 15 ML UDC MM SCH (09:27)
[2018-03-09 14:43] LABS: ARTERIAL BLOOD BASE EXCESS 3.6 mmol/L; ARTERIAL BLOOD H2CO3 1.22 mmol/L (1.05-1.35); ARTERIAL BLOOD HCO3 27.8 mmol/L (20-24); ARTERIAL BLOOD PCO2 40.4 mmHg (35-45); ARTERIAL BLOOD PH 7.46 (7.35-7.45); ARTERIAL BLOOD PO2 59.6 mmHg (80-100)
[2018-03-09 14:47] LABS: ARTERIAL BLOOD FIO2 30%
[2018-03-09] MEDS: TIOTROPIUM BROMIDE DPI 5 CAP/KIT (18 MCG/CAP) IH SCH (17:37)
[2018-03-09] MEDS: BUDESONIDE/FORMOTEROL 160-4.5 MCG 60 PUFF/6 GM MDI IH SCH ×2 (17:39→21:34)
--- NOTE | 2018-03-09 17:56 | PDOC PROGRESS REPORT ---
Subjective Progress Note for:: 03/09/18 Subjective:: No adverse events overnight. Her sedation has been lightened and she is awake and looking at me and answering yes and no questions by shaking her head even though she is on 30 of propofol and 5 of Versed. She still a little tachycardic but her heart rate is improved. Reason For Visit: ACUTE ON CHRONIC RESPIRATORY FAILURE WITH Physical Exam Vital Signs: Temp Pulse Resp BP Pulse Ox 98.6 F 91 20 147/78 H 96 03/09/18 16:00 03/09/18 16:00 03/09/18 16:00 03/09/18 16:00 03/09/18 16:00 Intake & Output 03/08/18 03/09/18 03/10/18 06:59 06:59 06:59 Intake Total 3603 4860 1239 Output Total 2200 3815 2125 Balance 1403 1045 -886 Weight 97.9 kg 98.7 kg General appearance: PRESENT: no acute distress, cooperative, disheveled, morbidly obese, other - Awake and interactive even though she is on sedation, intubated Respiratory exam: PRESENT: rhonchi, symmetrical, unlabored. ABSENT: accessory muscle use, crackles, tachypnea, wheezes Cardiovascular exam: PRESENT: tachycardia Vascular exam: PRESENT: normal capillary refill GI/Abdominal exam: PRESENT: normal bowel sounds, soft. ABSENT: distended, guarding, rebound, tenderness Extremities exam: PRESENT: +1 edema - Generalized nonpitting edema. ABSENT: clubbing Musculoskeletal exam: ABSENT: deformity, normal inspection Neurological exam: PRESENT: alert, awake - Intubated but answers yes/no questions appropriately even though on sedation Skin exam: PRESENT: dry, warm Results Laboratory Results: 03/09/18 05:05 03/09/18 05:05 03/09/18 03/09/18 03/09/18 05:05 05:05 14:18 WBC 14.0 H RBC 3.70 L Hgb 10.2 L Hct 30.8 L MCV 83 MCH 27.5 MCHC 33.1 RDW 19.5 H Plt Count 345 Seg Neutrophils % Not Reportable Lymphocytes % Not Reportable Monocytes % Not Reportable Eosinophils % Not Reportable Basophils % Not Reportable Absolute Neutrophils Not Reportable Absolute Lymphocytes Not Reportable Absolute Monocytes Not Reportable Absolute Eosinophils Not Reportable Absolute Basophils Not Reportable Carbonic Acid 1.22 HCO3/H2CO3 Ratio 22:1 ABG pH 7.46 H ABG pCO2 40.4 ABG pO2 59.6 L ABG HCO3 27.8 H ABG O2 Saturation 92.0 L ABG Base Excess 3.6 FiO2 30% Sodium 143.0 Potassium 4.2 Chloride 111 H Carbon Dioxide 26 Anion Gap 6 BUN 23 H Creatinine 0.50 L Est GFR ( Amer) > 60 Est GFR (Non-Af Amer) > 60 Glucose 131 H Calcium 8.5 Total Bilirubin 0.3 AST 30 ALT 45 Alkaline Phosphatase 62 Total Protein 5.6 L Albumin 3.0 L 03/05/18 03/05/18 03/05/18 16:24 16:24 23:06 Creatine Kinase 48 CK-MB (CK-2) Troponin I < 0.012 NT-Pro-B Natriuret Pep 114 03/05/18 03/06/18 03/06/18 23:06 05:15 05:15 Creatine Kinase 44 CK-MB (CK-2) 1.24 1.46 Troponin I 0.307 0.206 NT-Pro-B Natriuret Pep 03/06/18 03/06/18 11:16 11:16 Creatine Kinase 38 CK-MB (CK-2) 1.13 Troponin I 0.115 NT-Pro-B Natriuret Pep Impressions: Chest X-Ray 03/09/18 05:00 IMPRESSION: No change. Assessment & Plan - Diagnosis (1) Aspiration pneumonia Qualifiers: Aspiration pneumonia type: due to vomit Laterality: left Lung location: lower lobe of lung Qualified Code(s): J69.0 - Pneumonitis due to inhalation of food and vomit Is this a current diagnosis for this admission?: Yes Plan: Doing well on meropenem. Cultures are pending. When she is extubated and taking things by mouth we might be able to switch her to an oral agent. (2) Acute exacerbation of chronic obstructive pulmonary disease (COPD) Is this a current diagnosis for this admission?: Yes Plan: Her wheezing has responded to IV steroids. Once she is extubated and taking things by mouth we might be able to consider putting her on an oral agent. (3) Acute respiratory failure Qualifiers: Respiratory failure complication: hypoxia Qualified Code(s): J96.01 - Acute respiratory failure with hypoxia Is this a current diagnosis for this admission?: Yes Plan: Currently intubated. Pulmonology has been consulted. Anticipate a weaning trial today with possible extubation if she does well with that. - Time Time Spent with patient: 25-34 minutes
--- NOTE | 2018-03-09 19:32 | PROGRESS NOTE E ---
Progress Note NAME: SELMA DOUGLAS : 1970 AGE: 47Y DATE: 03/09/2018 ROOM: 608 SUBJECTIVE: The patient is a 47-year-old female who came in with acute respiratory failure requiring intubation and mechanical ventilation, pneumonia and severe sepsis and COPD/bronchial asthma in acute exacerbation and history of sarcoidosis. The patient has been doing well over the last 24 hours. There were no fever spikes over the last 24 hours. Continued tracheal tube secretions. No nausea, vomiting, diarrhea. Tolerated NG tube feeding. OBJECTIVE: GENERAL: The patient appears awake. Afebrile, not in apparent respiratory distress. VITAL SIGNS: Temperature 98.8 with a T-max of 98.8. Heart rate 92, blood pressure is 125/82, respiratory 17, saturation 97% on 30% FiO2. SIMV rate of 12, tidal volume 450, pressure support of 10, PEEP of 5. Peak airway pressure is 21, exhaled/inhaled tidal volume of 229. Spontaneous respiratory was 17. HEENT: Eyes: No conjunctival pallor. ENT: No ear drainage or nasal discharge. Oral tracheal tube is in place. CHEST AND LUNGS: No wheezing. No rhonchi. No coarse crackles. CARDIOVASCULAR: S1, S2 distinct. Regular rate. ABDOMEN: Flabby. Positive bowel sounds. Soft, nondistended, nontender. EXTREMITIES: No joint swelling, no cellulitis. LABORATORY: CBC showed white count of 14,000, hemoglobin 10.2, hematocrit 30.8, platelet count is 345. Chemistry done this morning showed sodium of 143, potassium 4.2, chloride 111, CO2 is 26, BUN is 23, creatinine 0.5, glucose 131 and calcium is 8.5. Total protein 5.6, albumin 3. Sputum cultures normal [place]. Blood cultures no growth. ASSESSMENT: 1. ACUTE RESPIRATORY FAILURE REQUIRING INVASIVE MECHANICAL VENTILATION. Patient appears to be improving. Did spontaneous breathing trial. If patient does well on spontaneous breathing trial will extubate the patient and discontinue invasive mechanical ventilation. 2. COPD/BRONCHIAL ASTHMA. Currently stable and not in acute exacerbation. 3. PNEUMONIA. Currently improving. PLAN/RECOMMENDATIONS: 1. Will do spontaneous breathing trial. If she is doing okay will extubate the patient. 2. Will start patient's Advair 500 inhaler 1 puff bid daily and Spiriva inhaler 1 puff once daily once extubated. 3. Continue IV antibiotics. DICTATING PHYSICIAN: SANDRA PRASAD MD,GLADYS,MPH [id number] [id number] PHY#: [id number] ID: [id number] JOB#: [id number] ACCT: [id number] cc: > MTDD
[2018-03-09] MEDS: QUETIAPINE FUMARATE 100 MG TABLET PO SCH (21:34)
[2018-03-10] MEDS: IPRATROPIUM BROMIDE 0.02% NEB 0.5 MG/2.5 ML AMPUL NEB SCH ×3 (00:46→16:49)
[2018-03-10] MEDS: LEVALBUTEROL HCL NEB 1.25 MG/3 ML AMPUL NEB SCH ×3 (00:46→16:49)
[2018-03-10] MEDS: NORMAL SALINE 1000 ML 1,000 ML IV PRN ×3 (02:22→23:21)
[2018-03-10 04:33] LABS: BLOOD UREA NITROGEN 27 mg/dL (7-20); CALCIUM 8.7 mg/dL (8.4-10.2); GLUCOSE 108 mg/dL (75-110); POTASSIUM 4.3 mmol/L (3.6-5.0)
[2018-03-10 04:59] LABS: CARBON DIOXIDE 28 mmol/L (22-30); CHLORIDE 109 mmol/L (98-107); SODIUM 142.7 mmol/L (137-145)
[2018-03-10 05:03] LABS: ANION GAP 6 (5-19)
[2018-03-10] MEDS: PREGABALIN 100 MG CAPSULE PO SCH ×3 (05:17→21:38)
[2018-03-10] MEDS: CARISOPRODOL 350 MG TABLET PO SCH ×6 (05:17→23:26)
[2018-03-10] MEDS: CLONAZEPAM 1 MG TABLET PO SCH ×3 (05:17→21:38)
[2018-03-10] MEDS: MEROPENEM 1 GM in NORMAL SALINE 50 ML IV SCH ×3 (05:21→21:37)
[2018-03-10] MEDS: METHYLPREDNISOLONE INJ 40 MG/1 ML SDV IV SCH ×2 (05:21→21:38)
[2018-03-10 08:16] LABS: HEMATOCRIT 32.6 % (36.0-47.0); HEMOGLOBIN 10.6 g/dL (12.0-15.5); MEAN CORPUSCULAR HEMOGLOBIN 27.5 pg (27.0-33.4); MEAN CORPUSCULAR HGB CONC 32.6 g/dL (32.0-36.0); MEAN CORPUSCULAR VOLUME 84 fl (80-97); PLATELET COUNT 338 10^3/uL (150-450); RED BLOOD COUNT 3.87 10^6/uL (3.72-5.28); RED CELL DISTRIBUTION WIDTH 19.9 % (11.5-14.0); WHITE BLOOD COUNT 16.9 10^3/uL (4.0-10.5)
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
[2018-03-10] MEDS: BUDESONIDE NEB 0.5 MG/2 ML AMPUL NEB SCH (08:37)
[2018-03-10 09:08] LABS: ABSOLUTE LYMPHOCYTES# (MANUAL) 2.2 10^3/uL (0.5-4.7); ABSOLUTE MONOCYTES # (MANUAL) 1.2 10^3/uL (0.1-1.4); ABSOLUTE NEUTROPHILS# (MANUAL) 13.5 10^3/uL (1.7-8.2); BAND NEUTROPHILS % (MANUAL) 1 % (3-5); BASOPHILS % (MANUAL) 0 % (0-2); EOSINOPHILS % (MANUAL) 0 % (0-6); LYMPHOCYTES % (MANUAL) 13 % (13-45); MONOCYTES % (MANUAL) 7 % (3-13); MYELOCYTES % (MANUAL) 1 % (0); SEGMENTED NEUTROPHILS % (MAN) 73 % (42-78); TOTAL CELLS COUNTED 100
[2018-03-10 09:09] LABS: METAMYELOCYTES % (MANUAL) 5 % (0)
[2018-03-10 09:11] LABS: PLATELET COMMENT ADEQUATE; TOXIC GRANULATION 1+; TOXIC VACUOLATION PRESENT
[2018-03-10 09:12] LABS: ANISOCYTOSIS 2+; HYPOCHROMASIA SLIGHT; POLYCHROMASIA SLIGHT
[2018-03-10] MEDS ORDERED: (PENDING PHARMACY ID) (Lisinopril [Prinivil] 20 MG) PO SCH (10:00)
[2018-03-10] MEDS: HYDRALAZINE HCL 50 MG TABLET PO SCH (10:29)
[2018-03-10] MEDS: HYDROCHLOROTHIAZIDE 25 MG TABLET PO SCH ×2 (10:30→21:39)
[2018-03-10] MEDS: PANTOPRAZOLE SODIUM 40 MG VIAL IV SCH ×2 (10:30→21:38)
[2018-03-10] MEDS: FOLIC ACID 1 MG TABLET PO SCH (10:30)
[2018-03-10] MEDS: LEVOTHYROXINE SODIUM INJ/PF 0.1 MG SDV IV SCH (10:30)
[2018-03-10] MEDS: APIXABAN 5 MG TABLET PO SCH ×2 (10:31→21:41)
[2018-03-10] MEDS: FLUCONAZOLE 100 MG TABLET PO SCH (10:31)
[2018-03-10] MEDS: TIOTROPIUM BROMIDE DPI 5 CAP/KIT (18 MCG/CAP) IH SCH (10:32)
[2018-03-10] MEDS: BUDESONIDE/FORMOTEROL 160-4.5 MCG 60 PUFF/6 GM MDI IH SCH ×2 (10:32→21:37)
[2018-03-10] MEDS: HYDROMORPHONE HCL INJ/PF 2 MG/ML AMPULE IV PRN (10:48)
[2018-03-10] MEDS ORDERED: (PENDING PHARMACY ID) (Pregabalin [Lyrica] 200 MG) PO SCH (14:00)
[2018-03-10] MEDS ORDERED: METHYLPREDNISOLONE INJ 40 MG/1 ML SDV IV SCH (14:00)
[2018-03-10] MEDS ORDERED: CLONAZEPAM 1 MG TABLET PO PRN (16:02)
[2018-03-10 16:23] LABS: PATH REVIEW PATHOLOGIST REVIEWED
[2018-03-10] MEDS: DILTIAZEM HCL 240 MG CAPSULE.CR PO SCH (21:38)
[2018-03-10] MEDS: QUETIAPINE FUMARATE 100 MG TABLET PO SCH (21:39)
[2018-03-10] MEDS ORDERED: (PENDING PHARMACY ID) (Diltiazem Hcl [Diltiazem 24hr Er] 240 MG) PO SCH (22:00)
[2018-03-10] MEDS ORDERED: (PENDING PHARMACY ID) (Quetiapine Fumarate [Seroquel] 400 MG) PO SCH (22:00)
[2018-03-10] MEDS ORDERED: PREGABALIN 100 MG CAPSULE PO SCH (22:00)
[2018-03-11] MEDS: IPRATROPIUM BROMIDE 0.02% NEB 0.5 MG/2.5 ML AMPUL NEB SCH ×4 (00:34→23:55)
[2018-03-11] MEDS: LEVALBUTEROL HCL NEB 1.25 MG/3 ML AMPUL NEB SCH ×4 (00:34→23:55)
--- NOTE | 2018-03-11 00:42 | PROGRESS NOTE E ---
Progress Note NAME: SELMA DOUGLAS : 1970 AGE: 47Y DATE: 03/10/2018 ROOM: 608 SUBJECTIVE: The patient is a 47-year-old female who came in with acute respiratory failure requiring intubation and mechanical ventilation. Due to severe COPD/bronchial asthma exacerbation. Appeared improved. Extubated yesterday and doing well in the last 24 hours. No fever spikes. No vomiting, no diarrhea, no chest pain. Denies any hemoptysis or purulent sputum production. Denies any dysphagia. OBJECTIVE: GENERAL: The patient awake, alert, coherent, oriented x3. Afebrile, not in apparent respiratory distress. VITAL SIGNS: Temperature 97.9 with a T-max of 97.9. Heart rate is 109. Blood pressure is 155/86, respiratory 17, saturation 95% on 2 L nasal cannula. HEENT: Eyes: No conjunctival pallor with pus to the left eye, possibly blind eye. Ears, nose and throat: No ear drainage, no nasal discharge. CHEST AND LUNGS: No wheezing. No rhonchi. No coarse crackles. CARDIOVASCULAR: S1, S2 distinct. Regular rate, regular rhythm. ABDOMEN: Flabby. Positive bowel sounds. Soft, nondistended, nontender. EXTREMITIES: No joint swelling, no cellulitis. No bipedal edema. LABORATORY: CBC done today showed white count of 16.9 from 14,000 yesterday; hemoglobin 10.6; hematocrit 32.6; platelet count is 338. The seg neutrophils is 33%, band neutrophils is 1%, leukocytes 13%. ABG done yesterday at 2:00 p.m. showed pH of 7.46, pCO2 of 40, pO2 of 59.6, and oxygen saturation 92%. Chemistry done at 3:52 p.m showed sodium of 142, potassium 4.3, chloride 109, CO2 is 28, BUN is 27, creatinine 0.5, glucose 108 and calcium is 8.7. ASSESSMENT: 1. BRONCHIAL ASTHMA/COPD. Currently stable and not in acute severe exacerbation. 2. HISTORY OF ACUTE RESPIRATORY FAILURE REQUIRING INVASIVE MECHANICAL VENTILATION. Currently resolved. Patient extubated. 3. 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 Appeared currently stable. No apparent infiltrates in the lung 3. MORBID OBESITY. PLAN/RECOMMENDATIONS: 1. Continue Symbicort 2 puffs twice a day and albuterol inhaler 2 puffs 4 times a day as needed. 2. Discontinue budesonide nebulizer. 3. Continue meropenem IV. 4. Decrease the Solu-Medrol dose to 20 mg IV piggyback every 8 hours. 5. Continue Protonix 40 mg IV q.12. DICTATING PHYSICIAN: SANDRA PRASAD MD.GLADYS,MPH 1953M [id number] PHY#: [id number] ID: [id number] JOB#: [id number] ACCT: [id number] cc: > MTDD
[2018-03-11] MEDS: CARISOPRODOL 350 MG TABLET PO SCH ×5 (01:02→23:45)
[2018-03-11] MEDS: HYDROMORPHONE HCL INJ/PF 2 MG/ML AMPULE IV PRN ×3 (01:02→18:01)
[2018-03-11 04:21] LABS: ALANINE AMINOTRANSFERASE 43 U/L (9-52); ALBUMIN 3.3 g/dL (3.5-5.0); ALKALINE PHOSPHATASE 54 U/L (38-126); ANION GAP 7 (5-19); ASPARTATE AMINO TRANSFERASE 20 U/L (14-36); BILIRUBIN,DIRECT 0.2 mg/dL (0.0-0.4); BILIRUBIN,TOTAL 0.4 mg/dL (0.2-1.3); BLOOD UREA NITROGEN 28 mg/dL (7-20); CARBON DIOXIDE 30 mmol/L (22-30); CHLORIDE 105 mmol/L (98-107); GLUCOSE 143 mg/dL (75-110); POTASSIUM 4.8 mmol/L (3.6-5.0); SODIUM 141.8 mmol/L (137-145)
[2018-03-11] MEDS: METHYLPREDNISOLONE INJ 40 MG/1 ML SDV IV SCH ×3 (05:28→21:10)
[2018-03-11] MEDS: MEROPENEM 1 GM in NORMAL SALINE 50 ML IV SCH ×3 (05:28→21:09)
[2018-03-11] MEDS: PREGABALIN 100 MG CAPSULE PO SCH ×3 (05:29→21:11)
[2018-03-11] MEDS: CLONAZEPAM 1 MG TABLET PO SCH ×4 (05:29→23:44)
[2018-03-11] MEDS: LEVOTHYROXINE SODIUM 0.1 MG TABLET PO SCH (05:29)
[2018-03-11] MEDS: FOLIC ACID 1 MG TABLET PO SCH (11:00)
[2018-03-11] MEDS: HYDRALAZINE HCL 50 MG TABLET PO SCH (11:01)
[2018-03-11] MEDS: LISINOPRIL 10 MG TABLET PO SCH (11:01)
[2018-03-11] MEDS: FLUCONAZOLE 100 MG TABLET PO SCH (11:02)
[2018-03-11] MEDS: HYDROCHLOROTHIAZIDE 25 MG TABLET PO SCH ×2 (11:02→21:13)
[2018-03-11] MEDS: APIXABAN 5 MG TABLET PO SCH ×2 (11:03→21:14)
[2018-03-11] MEDS: PANTOPRAZOLE SODIUM 40 MG VIAL IV SCH ×2 (11:03→21:10)
[2018-03-11] MEDS: TIOTROPIUM BROMIDE DPI 5 CAP/KIT (18 MCG/CAP) IH SCH (11:03)
[2018-03-11] MEDS: BUDESONIDE/FORMOTEROL 160-4.5 MCG 60 PUFF/6 GM MDI IH SCH ×2 (11:04→21:18)
[2018-03-11] MEDS: INSULIN REG, HUMAN 100 UNIT/ML 3 ML VIAL (PYX) SUBCUT PRN ×2 (12:38→23:46)
[2018-03-11] MEDS: NORMAL SALINE 1000 ML 1,000 ML IV PRN (12:42)
--- NOTE | 2018-03-11 19:09 | PDOC PROGRESS REPORT ---
Subjective Progress Note for:: 03/11/18 Subjective:: This is 47 years old female patient presented with several days history of shortness of breath to ER. Patient intubated for acute on chronic hypoxemic respiratory failure. She is extubated 2 days ago and she tolerates well. Currently she is on oxygen via nasal cannula and BiPAP at night. Since her condition is stabilized she is going to be downgraded and be transferred to [facility]. Reason For Visit: ACUTE ON CHRONIC RESPIRATORY FAILURE WITH Physical Exam Vital Signs: Temp Pulse Resp BP Pulse Ox 99.1 F 99 14 112/82 93 03/11/18 12:00 03/11/18 09:20 03/11/18 18:15 03/11/18 18:15 03/11/18 18:15 Intake & Output 03/10/18 03/11/18 03/12/18 06:59 06:59 06:59 Intake Total 3304 2091 1050 Output Total 4160 5070 1250 Balance -853 -8912 -200 Weight 97.5 kg 97.7 kg General appearance: PRESENT: no acute distress Head exam: PRESENT: atraumatic Eye exam: PRESENT: conjunctiva pink Neck exam: ABSENT: carotid bruit, JVD, lymphadenopathy, thyromegaly Respiratory exam: PRESENT: clear to auscultation colleen, rales, wheezes. ABSENT: rhonchi Cardiovascular exam: PRESENT: RRR. ABSENT: diastolic murmur, rubs, systolic murmur Pulses: PRESENT: normal dorsalis pedis pul GI/Abdominal exam: PRESENT: normal bowel sounds, soft. ABSENT: distended, guarding, mass, organolmegaly, rebound, tenderness Neurological exam: PRESENT: alert, awake, oriented to time, oriented to situation Results Laboratory Results: 03/10/18 03:52 03/11/18 03:41 03/11/18 03:41 Sodium 141.8 Potassium 4.8 Chloride 105 Carbon Dioxide 30 Anion Gap 7 BUN 28 H Creatinine 0.57 Est GFR ( Amer) > 60 Est GFR (Non-Af Amer) > 60 Glucose 143 H Calcium 9.0 Total Bilirubin 0.4 AST 20 ALT 43 Alkaline Phosphatase 54 Total Protein 6.0 L Albumin 3.3 L 03/05/18 19:37 Blood Blood Culture - Final NO GROWTH IN 5 DAYS 03/05/18 16:24 Blood Blood Culture - Final NO GROWTH IN 5 DAYS 03/05/18 03/05/18 03/05/18 16:24 16:24 23:06 Creatine Kinase 48 CK-MB (CK-2) Troponin I < 0.012 NT-Pro-B Natriuret Pep 114 03/05/18 03/06/18 03/06/18 23:06 05:15 05:15 Creatine Kinase 44 CK-MB (CK-2) 1.24 1.46 Troponin I 0.307 0.206 NT-Pro-B Natriuret Pep 03/06/18 03/06/18 11:16 11:16 Creatine Kinase 38 CK-MB (CK-2) 1.13 Troponin I 0.115 NT-Pro-B Natriuret Pep Impressions: Chest X-Ray 03/09/18 05:00 IMPRESSION: No change. Assessment & Plan - Diagnosis (1) Acute and chronic respiratory failure with hypercapnia Is this a current diagnosis for this admission?: Yes Plan: Status post extubation (2) Acute exacerbation of chronic obstructive pulmonary disease (COPD) Is this a current diagnosis for this admission?: Yes Plan: Continue bronchodilator and BiPAP at night. (3) Aspiration pneumonia Qualifiers: Aspiration pneumonia type: due to vomit Laterality: left Lung location: lower lobe of lung Qualified Code(s): J69.0 - Pneumonitis due to inhalation of food and vomit Is this a current diagnosis for this admission?: Yes Plan: Patient has been getting meropenem empirically (4) Hypertension Qualifiers: Hypertension type: unspecified Qualified Code(s): I10 - Essential (primary) hypertension Is this a current diagnosis for this admission?: Yes Plan: Continue home medication (5) Hypothyroidism Qualifiers: Hypothyroidism type: unspecified Qualified Code(s): E03.9 - Hypothyroidism, unspecified Is this a current diagnosis for this admission?: Yes (6) Diabetes mellitus Qualifiers: Diabetes mellitus type: type 2 Diabetes mellitus complication status: with unspecified complications Is this a current diagnosis for this admission?: Yes Plan: To the current regimen
[2018-03-11] MEDS ORDERED: FENTANYL 50 MCG/HR PATCH.TD72 TD SCH (20:00)
[2018-03-11] MEDS: QUETIAPINE FUMARATE 100 MG TABLET PO SCH ×2 (21:12→23:46)
[2018-03-11] MEDS: DILTIAZEM HCL 240 MG CAPSULE.CR PO SCH (21:12)
[2018-03-11] MEDS: CHLORHEXIDINE GLUCONATE 0.12% ORAL RINSE 15 ML UDC MM SCH (23:06)
[2018-03-12] MEDS: NORMAL SALINE 1000 ML 1,000 ML IV PRN ×2 (00:42→17:45)
[2018-03-12] MEDS: HYDROMORPHONE HCL INJ/PF 2 MG/ML AMPULE IV PRN (05:39)
[2018-03-12] MEDS: PREGABALIN 100 MG CAPSULE PO SCH ×3 (05:39→22:18)
[2018-03-12] MEDS: CLONAZEPAM 1 MG TABLET PO SCH ×4 (05:39→22:18)
[2018-03-12] MEDS: CARISOPRODOL 350 MG TABLET PO SCH ×4 (05:39→22:52)
[2018-03-12] MEDS: LEVOTHYROXINE SODIUM 0.1 MG TABLET PO SCH (05:39)
[2018-03-12] MEDS: METHYLPREDNISOLONE INJ 40 MG/1 ML SDV IV SCH (05:39)
[2018-03-12] MEDS: MEROPENEM 1 GM in NORMAL SALINE 50 ML IV SCH (05:40)
[2018-03-12 05:44] LABS: ALANINE AMINOTRANSFERASE 58 U/L (9-52); ALBUMIN 3.2 g/dL (3.5-5.0); ALKALINE PHOSPHATASE 88 U/L (38-126); ANION GAP 9 (5-19); ASPARTATE AMINO TRANSFERASE 24 U/L (14-36); BILIRUBIN,DIRECT 0.2 mg/dL (0.0-0.4); BILIRUBIN,TOTAL 0.3 mg/dL (0.2-1.3); BLOOD UREA NITROGEN 23 mg/dL (7-20); CALCIUM 8.8 mg/dL (8.4-10.2); CARBON DIOXIDE 28 mmol/L (22-30); CHLORIDE 102 mmol/L (98-107); GLUCOSE 132 mg/dL (75-110); POTASSIUM 4.3 mmol/L (3.6-5.0); SODIUM 139.4 mmol/L (137-145); TOTAL PROTEIN 5.7 g/dL (6.3-8.2)
[2018-03-12] MEDS: INSULIN REG, HUMAN 100 UNIT/ML 3 ML VIAL (PYX) SUBCUT PRN (06:25)
[2018-03-12] MEDS: LEVALBUTEROL HCL NEB 1.25 MG/3 ML AMPUL NEB SCH ×2 (08:22→16:05)
[2018-03-12] MEDS: IPRATROPIUM BROMIDE 0.02% NEB 0.5 MG/2.5 ML AMPUL NEB SCH ×2 (08:22→16:05)
[2018-03-12] MEDS: LANSOPRAZOLE 30 MG TAB.RAP.DR PO SCH ×3 (09:52→22:20)
[2018-03-12] MEDS: FOLIC ACID 1 MG TABLET PO SCH (09:52)
[2018-03-12] MEDS: FLUCONAZOLE 100 MG TABLET PO SCH (09:52)
[2018-03-12] MEDS: APIXABAN 5 MG TABLET PO SCH ×2 (09:52→22:18)
[2018-03-12] MEDS: BUDESONIDE/FORMOTEROL 160-4.5 MCG 60 PUFF/6 GM MDI IH SCH ×2 (09:53→22:21)
[2018-03-12] MEDS: TIOTROPIUM BROMIDE DPI 5 CAP/KIT (18 MCG/CAP) IH SCH (09:53)
[2018-03-12] MEDS: CHLORHEXIDINE GLUCONATE 0.12% ORAL RINSE 15 ML UDC MM SCH ×2 (09:54→22:52)
[2018-03-12] MEDS: HYDROCHLOROTHIAZIDE 25 MG TABLET PO SCH ×2 (09:56→22:18)
[2018-03-12] MEDS: LISINOPRIL 10 MG TABLET PO SCH (09:56)
[2018-03-12] MEDS: HYDRALAZINE HCL 50 MG TABLET PO SCH (09:57)
--- NOTE | 2018-03-12 11:27 | PROGRESS NOTE E ---
Progress Note NAME: SELMA DOUGLAS : 1970 AGE: 47Y DATE: 03/11/2018 ROOM: 320 SUBJECTIVE: The patient is a 47-year-old female who came in with acute respiratory failure requiring invasive mechanical ventilation due to severe COPD/bronchial asthma exacerbation. The patient was extubated 2 days ago. Currently, he is feeling well. Denies any fever, chills. Denies any increasing cough or purulent sputum production, hemoptysis. The patient has improving appetite. OBJECTIVE: GENERAL: The patient is awake, alert, coherent, oriented x3, afebrile, not in apparent severe respiratory distress. VITAL SIGNS: Temperature is 98.2 with a T-max of 98.6, heart rate 110, blood pressure is 112/82, respiratory rate 14, saturation 93%. EYES: No jaundice or pallor. EARS, NOSE, AND THROAT: No ear drainage. No nasal discharge. CHEST AND LUNGS: No wheezing, no rhonchi, no coarse crackles. CARDIOVASCULAR: S1, S2 distinct. Normal rate. Regular rhythm. ABDOMEN: Flabby. Positive bowel sounds. Soft, nondistended, nontender. EXTREMITIES: No joint swelling. No cellulitis. LABORATORY: CBC done today showed white count of 16.9, up from 14,000, hemoglobin is 10.6, hematocrit is 32.6, platelet count is 738 with 1 band, neutrophils. Chemistry done today showed sodium is 141, potassium 4.8, chloride of 105, CO2 is 30, BUN is 30, creatinine 0.57, glucose 186, and calcium is 9, total protein 6, and albumin 3.3. ASSESSMENT/PLAN: 1. COPD/BRONCHIAL ASTHMA, ACUTE SEVERE EXACERBATION-CURRENTLY IMPROVED AND STATUS POST ENDOTRACHEAL INTUBATION AND STATUS POST INVASIVE MECHANICAL VENTILATION. 2. HISTORY OF PULMONARY SARCOIDOSIS, STABLE, STATUS POST LEFT LOWER LOBECTOMY. 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 Recommend tapering of IV Solu-Medrol to oral. 3. Continue Spiriva inhaler 1 capsule daily and continue Symbicort 160 mcg 2 puffs twice a day. DICTATING PHYSICIAN: SANDRA PRASAD MD,GLADYS,MPH [id number] [id number] PHY#: [id number] ID: [id number] JOB#: [id number] ACCT: [id number] cc: > MTDD
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
[2018-03-12] MEDS: DILTIAZEM HCL 240 MG CAPSULE.CR PO SCH (22:17)
[2018-03-12] MEDS: QUETIAPINE FUMARATE 100 MG TABLET PO SCH (22:20)
[2018-03-12] MEDS: TRESIBA 100 UNIT/ML SUBCUT SCH (22:59)
[2018-03-13] MEDS: IPRATROPIUM BROMIDE 0.02% NEB 0.5 MG/2.5 ML AMPUL NEB SCH ×3 (00:37→16:22)
[2018-03-13] MEDS: LEVALBUTEROL HCL NEB 1.25 MG/3 ML AMPUL NEB SCH ×3 (00:37→16:22)
[2018-03-13] MEDS: CARISOPRODOL 350 MG TABLET PO SCH ×4 (00:39→17:58)
[2018-03-13] MEDS: CLONAZEPAM 1 MG TABLET PO SCH ×3 (06:13→21:26)
[2018-03-13] MEDS: PREGABALIN 100 MG CAPSULE PO SCH ×3 (06:13→21:27)
[2018-03-13] MEDS: LEVOTHYROXINE SODIUM 0.1 MG TABLET PO SCH (06:14)
[2018-03-13] MEDS: LANSOPRAZOLE 30 MG TAB.RAP.DR PO SCH ×4 (08:28→21:27)
[2018-03-13] MEDS: LEVOFLOXACIN 750 MG/D5W RTU 750 MG/150 ML RTUPB IV SCH (10:43)
[2018-03-13] MEDS: HYDROCHLOROTHIAZIDE 25 MG TABLET PO SCH ×2 (10:46→21:27)
[2018-03-13] MEDS: HYDRALAZINE HCL 50 MG TABLET PO SCH (10:46)
[2018-03-13] MEDS: APIXABAN 5 MG TABLET PO SCH ×2 (10:47→21:28)
[2018-03-13] MEDS: FLUCONAZOLE 100 MG TABLET PO SCH (10:47)
[2018-03-13] MEDS: LISINOPRIL 10 MG TABLET PO SCH (10:47)
[2018-03-13] MEDS: FOLIC ACID 1 MG TABLET PO SCH (10:47)
[2018-03-13] MEDS: TIOTROPIUM BROMIDE DPI 5 CAP/KIT (18 MCG/CAP) IH SCH (10:49)
[2018-03-13] MEDS: PREDNISONE 20 MG TABLET PO SCH (10:49)
[2018-03-13] MEDS: BUDESONIDE/FORMOTEROL 160-4.5 MCG 60 PUFF/6 GM MDI IH SCH ×2 (10:50→21:28)
[2018-03-13] MEDS: CHLORHEXIDINE GLUCONATE 0.12% ORAL RINSE 15 ML UDC MM SCH ×2 (11:00→21:44)
--- NOTE | 2018-03-13 12:23 | PDOC PROGRESS REPORT ---
Subjective Progress Note for:: 03/13/18 Subjective:: No significant change overnight. Patient is sleeping quietly. 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 Reason For Visit: ACUTE ON CHRONIC RESPIRATORY FAILURE WITH Physical Exam Vital Signs: Temp Pulse Resp BP Pulse Ox 97.8 F 80 16 109/64 95 03/13/18 08:00 03/13/18 09:16 03/13/18 09:16 03/13/18 08:00 03/13/18 09:16 Intake & Output 03/12/18 03/13/18 03/14/18 06:59 06:59 06:59 Intake Total 2923 1077 Output Total 2400 1575 Balance 523 -498 Weight 103.6 kg 105 kg General appearance: PRESENT: no acute distress Eye exam: PRESENT: conjunctiva pink Mouth exam: PRESENT: moist Neck exam: ABSENT: carotid bruit, JVD, lymphadenopathy, thyromegaly Respiratory exam: PRESENT: clear to auscultation colleen. ABSENT: rales, rhonchi, wheezes Cardiovascular exam: PRESENT: RRR. ABSENT: diastolic murmur, rubs, systolic murmur GI/Abdominal exam: PRESENT: normal bowel sounds, soft. ABSENT: distended, guarding, mass, organolmegaly, rebound, tenderness Results Laboratory Results: 03/10/18 03:52 03/12/18 04:20 03/05/18 03/05/18 03/05/18 16:24 16:24 23:06 Creatine Kinase 48 CK-MB (CK-2) Troponin I < 0.012 NT-Pro-B Natriuret Pep 114 03/05/18 03/06/18 03/06/18 23:06 05:15 05:15 Creatine Kinase 44 CK-MB (CK-2) 1.24 1.46 Troponin I 0.307 0.206 NT-Pro-B Natriuret Pep 03/06/18 03/06/18 11:16 11:16 Creatine Kinase 38 CK-MB (CK-2) 1.13 Troponin I 0.115 NT-Pro-B Natriuret Pep Impressions: Chest X-Ray 03/09/18 05:00 IMPRESSION: No change. Assessment & Plan - Diagnosis (1) Acute and chronic respiratory failure with hypercapnia Is this a current diagnosis for this admission?: Yes Plan: Status post extubation (2) Acute exacerbation of chronic obstructive pulmonary disease (COPD) Is this a current diagnosis for this admission?: Yes Plan: Continue bronchodilator and BiPAP at night. (3) Aspiration pneumonia Qualifiers: Aspiration pneumonia type: due to vomit Laterality: left Lung location: lower lobe of lung Qualified Code(s): J69.0 - Pneumonitis due to inhalation of food and vomit Is this a current diagnosis for this admission?: Yes Plan: Meropenem was switched to Levaquin (4) Hypertension Qualifiers: Hypertension type: unspecified Qualified Code(s): I10 - Essential (primary) hypertension Is this a current diagnosis for this admission?: Yes Plan: Continue home medication (5) Hypothyroidism Qualifiers: Hypothyroidism type: unspecified Qualified Code(s): E03.9 - Hypothyroidism, unspecified Is this a current diagnosis for this admission?: Yes Plan: Continue Synthroid (6) Diabetes mellitus Qualifiers: Diabetes mellitus type: type 2 Diabetes mellitus complication status: with unspecified complications Is this a current diagnosis for this admission?: Yes Plan: To the current regimen (7) Recent history of pulmonary embolism Is this a current diagnosis for this admission?: Yes Plan: Continue Eliquis (8) History of ischemic stroke without residual deficits Is this a current diagnosis for this admission?: Yes Plan: Continue current regimen (9) Pulmonary sarcoidosis Is this a current diagnosis for this admission?: Yes Plan: In remission
[2018-03-13 14:17] LABS: HEMATOCRIT 34.2 % (36.0-47.0); HEMOGLOBIN 11.1 g/dL (12.0-15.5); MEAN CORPUSCULAR HEMOGLOBIN 27.6 pg (27.0-33.4); MEAN CORPUSCULAR HGB CONC 32.3 g/dL (32.0-36.0); MEAN CORPUSCULAR VOLUME 85 fl (80-97); PLATELET COUNT 356 10^3/uL (150-450); RED BLOOD COUNT 4.01 10^6/uL (3.72-5.28); RED CELL DISTRIBUTION WIDTH 20.2 % (11.5-14.0); WHITE BLOOD COUNT 13.6 10^3/uL (4.0-10.5)
[2018-03-13 15:16] LABS: ABSOLUTE LYMPHOCYTES# (MANUAL) 1.8 10^3/uL (0.5-4.7); ABSOLUTE MONOCYTES # (MANUAL) 0.3 10^3/uL (0.1-1.4); ABSOLUTE NEUTROPHILS# (MANUAL) 11.6 10^3/uL (1.7-8.2); BAND NEUTROPHILS % (MANUAL) 1 % (3-5); BASOPHILS % (MANUAL) 0 % (0-2); EOSINOPHILS % (MANUAL) 0 % (0-6); LYMPHOCYTES % (MANUAL) 13 % (13-45); MONOCYTES % (MANUAL) 2 % (3-13); SEGMENTED NEUTROPHILS % (MAN) 84 % (42-78); TOTAL CELLS COUNTED 100
[2018-03-13 15:17] LABS: ANISOCYTOSIS 2+; HYPOCHROMASIA SLIGHT; PLATELET CLUMPS PRESENT; PLATELET COMMENT ADEQUATE; POLYCHROMASIA SLIGHT; TOXIC GRANULATION 1+
[2018-03-13] MEDS: DILTIAZEM HCL 240 MG CAPSULE.CR PO SCH (21:26)
[2018-03-13] MEDS: QUETIAPINE FUMARATE 100 MG TABLET PO SCH (21:26)
[2018-03-13] MEDS: TRESIBA 100 UNIT/ML SUBCUT SCH (21:42)
[2018-03-14] MEDS: LEVALBUTEROL HCL NEB 1.25 MG/3 ML AMPUL NEB SCH ×2 (00:25→08:33)
[2018-03-14] MEDS: IPRATROPIUM BROMIDE 0.02% NEB 0.5 MG/2.5 ML AMPUL NEB SCH ×2 (00:25→08:33)
[2018-03-14] MEDS: CARISOPRODOL 350 MG TABLET PO SCH ×3 (00:25→11:12)
[2018-03-14] MEDS: PREGABALIN 100 MG CAPSULE PO SCH (05:22)
[2018-03-14] MEDS: CLONAZEPAM 1 MG TABLET PO SCH (05:22)
[2018-03-14] MEDS: LEVOTHYROXINE SODIUM 0.1 MG TABLET PO SCH (05:22)
[2018-03-14 07:06] LABS: HEMATOCRIT 32.7 % (36.0-47.0); HEMOGLOBIN 10.7 g/dL (12.0-15.5); MEAN CORPUSCULAR HEMOGLOBIN 27.7 pg (27.0-33.4); MEAN CORPUSCULAR HGB CONC 32.5 g/dL (32.0-36.0); MEAN CORPUSCULAR VOLUME 85 fl (80-97); PLATELET COUNT 320 10^3/uL (150-450); RED BLOOD COUNT 3.85 10^6/uL (3.72-5.28); RED CELL DISTRIBUTION WIDTH 19.8 % (11.5-14.0); WHITE BLOOD COUNT 12.1 10^3/uL (4.0-10.5)
--- NOTE | 2018-03-14 07:07 | PROGRESS NOTE E ---
Progress Note NAME: SELMA DOUGLAS : 1970 AGE: 47Y DATE: 03/13/2018 ROOM: 322 SUBJECTIVE: The patient is a 47-year-old female who came in with acute respiratory failure requiring invasive mechanical ventilation. The patient was extubated about 2-3 days ago. Admitted has been doing well. Denies any increasing cough or hemoptysis. No chest pain. No acutely worsening dyspnea. No nausea, vomiting, diarrhea. OBJECTIVE: GENERAL: The patient is awake, alert, coherent, oriented x3, afebrile, not in apparent severe respiratory distress. VITAL SIGNS: Temperature is 97.6, with a T-max of 98.9, heart rate is 117, blood pressure is 94/61 to 109/64, respiratory rate is 17, and oxygen saturation 96% on 1.5 L nasal cannula EYES: No jaundice or pallor. EARS, NOSE, AND THROAT: No ear drainage. No nasal discharge. CHEST AND LUNGS: No wheezing. No rhonchi. No coarse crackles. CARDIOVASCULAR: S1, S2 distinct. Normal rate. Regular rhythm. ABDOMEN: Flabby. Positive bowel sounds. Soft, nondistended, nontender. EXTREMITIES: No joint swelling. No cellulitis. LABORATORY: CBC done 3 days ago showed a white count of 16.5, hemoglobin is 10.6, hematocrit is 32.6. Chemistry done yesterday showed sodium of 139.4, potassium of 4.3, chloride is 102, CO2 is 28, BUN is 23, creatinine 0.6, and calcium is 8.8. ASSESSMENT: 1. COPD/BRONCHIAL ASTHMA, currently stable and not in acute exacerbation. 2. STATUS POST ACUTE RESPIRATORY FAILURE REQUIRING INVASIVE MECHANICAL VENTILATION, currently extubated and currently stable. 3. HISTORY OF PULMONARY SARCOIDOSIS, appeared to be stable. 4. MORBID OBESITY. PLAN/RECOMMENDATIONS: 1. Recommend pulmonary clinic followup 3-4 weeks after hospital discharge. 2. Continue Advair and Spiriva upon discharge. 3. Continue Symbicort 160 mcg 2 puffs b.i.d. and Spiriva inhaler 1 capsule to be inhaled once daily upon discharge. 4. Continue antibiotics for a total of 10 days. DICTATING PHYSICIAN: SANDRA PRASAD MD.GLADYS,MPH [id number] PHY#: [id number] ID: [id number] JOB#: [id number] ACCT: [id number] cc: > RIK
[2018-03-14 07:31] LABS: ANION GAP 5 (5-19); BLOOD UREA NITROGEN 19 mg/dL (7-20); CALCIUM 8.6 mg/dL (8.4-10.2); CARBON DIOXIDE 33 mmol/L (22-30); CHLORIDE 102 mmol/L (98-107); GLUCOSE 93 mg/dL (75-110); SODIUM 139.5 mmol/L (137-145)
[2018-03-14 07:43] LABS: ABSOLUTE LYMPHOCYTES# (MANUAL) 3.5 10^3/uL (0.5-4.7); ABSOLUTE MONOCYTES # (MANUAL) 0.6 10^3/uL (0.1-1.4); ABSOLUTE NEUTROPHILS# (MANUAL) 7.9 10^3/uL (1.7-8.2); BAND NEUTROPHILS % (MANUAL) 2 % (3-5); BASOPHILS % (MANUAL) 0 % (0-2); EOSINOPHILS % (MANUAL) 1 % (0-6); LYMPHOCYTES % (MANUAL) 29 % (13-45); METAMYELOCYTES % (MANUAL) 2 % (0); MONOCYTES % (MANUAL) 5 % (3-13); SEGMENTED NEUTROPHILS % (MAN) 61 % (42-78); TOTAL CELLS COUNTED 100
[2018-03-14 07:45] LABS: ANISOCYTOSIS 2+; HYPOCHROMASIA SLIGHT; PLATELET COMMENT ADEQUATE; POLYCHROMASIA SLIGHT
[2018-03-14] MEDS: LANSOPRAZOLE 30 MG TAB.RAP.DR PO SCH ×2 (08:27→10:19)
[2018-03-14] MEDS ORDERED: HYDROCHLOROTHIAZIDE 25 MG TABLET PO SCH (10:00)
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
[2018-03-14] MEDS: PREDNISONE 20 MG TABLET PO SCH (10:18)
[2018-03-14] MEDS: HYDRALAZINE HCL 50 MG TABLET PO SCH ×2 (10:18→10:31)
[2018-03-14] MEDS: FOLIC ACID 1 MG TABLET PO SCH (10:18)
[2018-03-14] MEDS: APIXABAN 5 MG TABLET PO SCH (10:19)
[2018-03-14] MEDS: LEVOFLOXACIN 750 MG/D5W RTU 750 MG/150 ML RTUPB IV SCH (10:19)
[2018-03-14] MEDS: FLUCONAZOLE 100 MG TABLET PO SCH (10:19)
[2018-03-14] MEDS: CHLORHEXIDINE GLUCONATE 0.12% ORAL RINSE 15 ML UDC MM SCH (10:20)
[2018-03-14] MEDS: BUDESONIDE/FORMOTEROL 160-4.5 MCG 60 PUFF/6 GM MDI IH SCH (10:20)
[2018-03-14] MEDS: LISINOPRIL 10 MG TABLET PO SCH (10:28)
[2018-03-14] MEDS: TIOTROPIUM BROMIDE DPI 5 CAP/KIT (18 MCG/CAP) IH SCH (11:31)
[2018-03-14 13:55] VITALS: BP 117/64
[2018-03-14] MEDS ORDERED: DILTIAZEM HCL 240 MG CAPSULE.CR PO SCH (22:00)
== END 2018-03-14 14:15 | disposition home or self-care (01) | DRG 208 ==
LOC: ER 15:55 → EH 20:20 → ICU 23:35 → 3W 03-12 00:15
PROVIDERS: ADMIT Emergency Medicine; ATTEND Emergency Medicine
PROC: 5A1945Z Respiratory Ventilation, 24-96 Consecutive Hours (ICD-10-PCS; principal; 2018-03-05)
PROC: 0BH17EZ Insertion of Endotracheal Airway into Trachea, Via Natural or Artificial Opening (ICD-10-PCS; 2018-03-05)
DX: J96.22 Acute and chronic respiratory failure with hypercapnia (principal); J69.0 Pneumonitis due to inhalation of food and vomit; J44.1 Chronic obstructive pulmonary disease with (acute) exacerbation; B37.89 Other sites of candidiasis; F17.210 Nicotine dependence, cigarettes, uncomplicated; E78.5 Hyperlipidemia, unspecified; Z86.711 Personal history of pulmonary embolism; E11.9 Type 2 diabetes mellitus without complications; I10 Essential (primary) hypertension; E03.9 Hypothyroidism, unspecified; D86.0 Sarcoidosis of lung; E66.9 Obesity, unspecified; R01.1 Cardiac murmur, unspecified; I69.998 Other sequelae following unspecified cerebrovascular disease; H54.62 Unqualified visual loss, left eye, normal vision right eye; Z90.710 Acquired absence of both cervix and uterus; Z90.2 Acquired absence of lung [part of]; Z82.49 Family history of ischemic heart disease and other diseases of the circulatory system; Z83.3 Family history of diabetes mellitus; Z88.0 Allergy status to penicillin; Z79.4 Long term (current) use of insulin; Z79.899 Other long term (current) drug therapy; Z88.8 Allergy status to other drugs, medicaments and biological substances; Z79.890 Hormone replacement therapy; Z78.1 Physical restraint status
CPT/HCPCS: 36415; 51702; 71045; 80048; 80053; 81001; 81025; 82550; 82553; 82803; 82962; 83605; 83735; 83880; 84439; 84443; 84478; 84481; 84484; 85025; 85610; 85730; 87040; 87070; 87205; 93005; 93010; 94002; 94003; 94660; 96361; 96365; 96372; 96375; 99291; 99292; 99406; J1170; J1650; J1652; J1815; J1940; J1956; J2185; J2250; J2405; J2543; J2704; J2920; J2930; J3010; J3490; J7030; J7512; S0164

== ENCOUNTER 2018-06-02 17:09 | Inpatient (IN) | payer OTHER, BC ==
[2018-06-02] MEDS ORDERED: METHYLPREDNISOLONE INJ 125 MG/2 ML SDV IV ONE (18:27)
[2018-06-02] MEDS ORDERED: IPRATROPIUM/ALBUTEROL 0.5-2.5 MG/3 ML AMPUL NEB ONE (18:27)
[2018-06-02] MEDS: ALBUTEROL SULFATE 0.083% NEB 2.5 MG/3 ML AMPUL NEB SCH ×2 (18:43→19:10)
--- NOTE | 2018-06-02 18:50 | RADIOLOGY REPORT (SQ) ---
EXAM DESCRIPTION: CHEST SINGLE VIEW COMPLETED DATE/TIME: 06/02/2018 6:42 pm REASON FOR STUDY: dyspnea COMPARISON: 03/09/2018. EXAM PARAMETERS: NUMBER OF VIEWS: One view. TECHNIQUE: Single frontal radiographic view of the chest acquired. RADIATION DOSE: NA LIMITATIONS: None. FINDINGS: LUNGS AND PLEURA: No opacities, masses or pneumothorax. No pleural effusion. MEDIASTINUM AND HILAR STRUCTURES: No masses. Contour normal. HEART AND VASCULAR STRUCTURES: Heart normal in size. Normal vasculature. BONES: No acute findings. HARDWARE: None in the chest. OTHER: No other significant finding. IMPRESSION: NO ACUTE RADIOGRAPHIC FINDING IN THE CHEST. TECHNICAL DOCUMENTATION: JOB ID: [id number] [employer]- All Rights Reserved Reading location - IP/workstation name: [email or web address]
[2018-06-02 19:10] LABS: ARTERIAL BLOOD BASE EXCESS -0.4 mmol/L; ARTERIAL BLOOD H2CO3 1.25 mmol/L (1.05-1.35); ARTERIAL BLOOD HCO3 24.6 mmol/L (20-24); ARTERIAL BLOOD O2 SATURATION 81.4 % (94-98); ARTERIAL BLOOD PCO2 41.6 mmHg (35-45); ARTERIAL BLOOD PH 7.39 (7.35-7.45); ARTERIAL BLOOD PO2 45.9 mmHg (80-100); ARTERIAL BLOOD TOTAL CO2 25.8 mmol/L (21-25)
[2018-06-02 19:12] LABS: ARTERIAL BLOOD FIO2 ROOM AIR
[2018-06-02 19:24] LABS: ABSOLUTE EOSINOPHILS # (AUTO) 0.1 10^3/uL (0.0-0.6); ABSOLUTE LYMPHOCYTES (AUTO) 2.1 10^3/uL (0.5-4.7); ABSOLUTE MONOCYTES (AUTO) 0.6 10^3/uL (0.1-1.4); ABSOLUTE NEUT (AUTO) 6.8 10^3/uL (1.7-8.2); BASOPHILS % (AUTO) 0.4 % (0-2); HEMATOCRIT 33.9 % (36.0-47.0); HEMOGLOBIN 11.4 g/dL (12.0-15.5); MEAN CORPUSCULAR HEMOGLOBIN 27.4 pg (27.0-33.4); MEAN CORPUSCULAR HGB CONC 33.6 g/dL (32.0-36.0); MEAN CORPUSCULAR VOLUME 82 fl (80-97); MONOCYTES % (AUTO) 6.2 % (3-13); PLATELET COUNT 341 10^3/uL (150-450); RED BLOOD COUNT 4.15 10^6/uL (3.72-5.28); RED CELL DISTRIBUTION WIDTH 19.3 % (11.5-14.0); SEGMENTED NEUTROPHILS % (AUTO) 70.4 % (42-78); TOTAL CELLS COUNTED % (AUTO) 100 %; WHITE BLOOD COUNT 9.6 10^3/uL (4.0-10.5)
[2018-06-02 19:30] LABS: INTERNATIONAL RATION (INR) 0.94; PARTIAL THROMBOPLASTIN TIME 29.6 SEC (23.5-35.8)
[2018-06-02 19:46] LABS: ALANINE AMINOTRANSFERASE 43 U/L (9-52); ALBUMIN 4.3 g/dL (3.5-5.0); ALKALINE PHOSPHATASE 109 U/L (38-126); ANION GAP 13 (5-19); ASPARTATE AMINO TRANSFERASE 33 U/L (14-36); BILIRUBIN,DIRECT 0.3 mg/dL (0.0-0.4); BILIRUBIN,TOTAL 0.3 mg/dL (0.2-1.3); BLOOD UREA NITROGEN 23 mg/dL (7-20); CALCIUM 9.9 mg/dL (8.4-10.2); CARBON DIOXIDE 25 mmol/L (22-30); CHLORIDE 99 mmol/L (98-107); CREATINE KINASE 60 U/L (30-135); GLUCOSE 182 mg/dL (75-110); POTASSIUM 4.7 mmol/L (3.6-5.0); TOTAL PROTEIN 7.3 g/dL (6.3-8.2)
[2018-06-02 19:57] LABS: NT PRO BNP 19 pg/mL (<125)
[2018-06-02 20:00] LABS: TROPONIN I < 0.012 ng/mL
[2018-06-02] MEDS ORDERED: NORMAL SALINE 500 ML IV ONE (20:14)
[2018-06-02] MEDS ORDERED: GLUCAGON,HUMAN RECOMB 1 MG INJ IM PRN (21:08)
[2018-06-02] MEDS ORDERED: MAG HYDROX/AL HYDROX/SIMETH SUSP 30 ML UDCUP PO PRN (21:08)
[2018-06-02] MEDS ORDERED: MAGNESIUM HYDROXIDE SUSP 30 ML UDCUP PO PRN (21:08)
[2018-06-02] MEDS ORDERED: IPRATROPIUM/ALBUTEROL 0.5-2.5 MG/3 ML AMPUL NEB PRN (21:08)
[2018-06-02] MEDS ORDERED: DEXTROSE 50%-WATER 25 GM/50 ML DISP.SYRIN IV PRN ×2 (21:08)
[2018-06-02] MEDS ORDERED: ACETAMINOPHEN 325 MG TABLET PO PRN (21:08)
[2018-06-02] MEDS ORDERED: DEXTROSE 40% GEL 15 GM TUBE PO PRN ×2 (21:08)
[2018-06-02] MEDS ORDERED: CLONAZEPAM 1 MG TABLET PO PRN (21:11)
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
[2018-06-02] MEDS ORDERED: HYDRALAZINE HCL INJ/PF 20 MG/1 ML SDV IV PRN (21:13)
[2018-06-02] MEDS ORDERED: (PENDING PHARMACY ID) (Lisinopril [Prinivil] 20 MG) PO SCH (21:15)
[2018-06-02] MEDS: APIXABAN 5 MG TABLET PO SCH (21:39)
[2018-06-02] MEDS: DILTIAZEM HCL 240 MG CAPSULE.CR PO SCH (21:39)
[2018-06-02] MEDS: DOCUSATE SODIUM 100 MG CAPSULE PO SCH (21:40)
[2018-06-02] MEDS: DOXYCYCLINE HYCLATE 100 MG TABLET PO SCH (21:41)
[2018-06-02] MEDS: LISINOPRIL 10 MG TABLET PO SCH (21:41)
[2018-06-02] MEDS: QUETIAPINE FUMARATE 100 MG TABLET PO SCH (21:41)
[2018-06-02] MEDS: FLUTICASONE NASAL SPRAY 50 MCG/SPRY 120 SPRAY/16 GM NASL SCH (21:42)
[2018-06-02] MEDS: MAGNESIUM SULFATE/D5W 1 GM/100 ML RTUPB IV SCH ×2 (21:43→22:17)
[2018-06-02] MEDS: INSULIN LISPRO 100 UNIT/ML 3 ML VIAL SUBCUT SCH (21:43)
[2018-06-02] MEDS ORDERED: (PENDING PHARMACY ID) (Quetiapine Fumarate [Seroquel] 400 MG) PO SCH (22:00)
[2018-06-02] MEDS ORDERED: HEPARIN SOD (PORCINE) 5,000 UNIT/ML 1 ML SYRINGE SUBCUT SCH (22:00)
[2018-06-02] MEDS ORDERED: (PENDING PHARMACY ID) (Diltiazem Hcl [Diltiazem 24hr Er] 240 MG) PO SCH (22:00)
[2018-06-03] MEDS: IPRATROPIUM/ALBUTEROL 0.5-2.5 MG/3 ML AMPUL NEB SCH ×3 (00:10→15:49)
[2018-06-03] MEDS ORDERED: CLONAZEPAM 1 MG TABLET PO PRN (01:30)
[2018-06-03 01:47] LABS: CREATINE KINASE MB 0.42 ng/mL (<4.55)
[2018-06-03 01:49] LABS: TROPONIN I < 0.012 ng/mL
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
[2018-06-03 07:33] LABS: HEMATOCRIT 32.3 % (36.0-47.0); HEMOGLOBIN 10.4 g/dL (12.0-15.5); MEAN CORPUSCULAR HGB CONC 32.3 g/dL (32.0-36.0); MEAN CORPUSCULAR VOLUME 84 fl (80-97); PLATELET COUNT 320 10^3/uL (150-450); RED BLOOD COUNT 3.86 10^6/uL (3.72-5.28); RED CELL DISTRIBUTION WIDTH 19.1 % (11.5-14.0); WHITE BLOOD COUNT 10.7 10^3/uL (4.0-10.5)
[2018-06-03 07:54] LABS: ANION GAP 11 (5-19); BLOOD UREA NITROGEN 26 mg/dL (7-20); CALCIUM 9.6 mg/dL (8.4-10.2); CARBON DIOXIDE 22 mmol/L (22-30); CHLORIDE 101 mmol/L (98-107); GLUCOSE 338 mg/dL (75-110); POTASSIUM 5.3 mmol/L (3.6-5.0); TRIGLYCERIDES 141 mg/dL (<150)
[2018-06-03 08:08] LABS: DIRECT LDL 141 mg/dL (<100)
[2018-06-03 08:30] LABS: TROPONIN I < 0.012 ng/mL
[2018-06-03] MEDS: DOCUSATE SODIUM 100 MG CAPSULE PO SCH ×2 (09:03→18:40)
[2018-06-03] MEDS: LISINOPRIL 10 MG TABLET PO SCH (09:16)
[2018-06-03] MEDS: FLUTICASONE NASAL SPRAY 50 MCG/SPRY 120 SPRAY/16 GM NASL SCH ×2 (09:16→22:35)
[2018-06-03] MEDS: APIXABAN 5 MG TABLET PO SCH ×2 (09:17→22:34)
[2018-06-03] MEDS: INSULIN LISPRO 100 UNIT/ML 3 ML VIAL SUBCUT SCH ×3 (09:17→18:44)
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
[2018-06-03 14:17] LABS: TROPONIN I < 0.012 ng/mL
[2018-06-03] MEDS: DOXYCYCLINE HYCLATE 100 MG TABLET PO SCH ×2 (14:59→22:36)
[2018-06-03] MEDS ORDERED: OXYCODONE-ACETAMINOPHEN 5-325 MG TABLET PO PRN (18:28)
[2018-06-03] MEDS: DILTIAZEM HCL 240 MG CAPSULE.CR PO SCH (22:34)
[2018-06-03] MEDS: QUETIAPINE FUMARATE 100 MG TABLET PO SCH (22:35)
[2018-06-04] MEDS: IPRATROPIUM/ALBUTEROL 0.5-2.5 MG/3 ML AMPUL NEB SCH ×2 (00:19→07:47)
[2018-06-04] MEDS: INSULIN LISPRO 100 UNIT/ML 3 ML VIAL SUBCUT SCH (09:28)
[2018-06-04] MEDS: DOCUSATE SODIUM 100 MG CAPSULE PO SCH (09:29)
[2018-06-04] MEDS: LISINOPRIL 10 MG TABLET PO SCH (09:33)
[2018-06-04] MEDS: APIXABAN 5 MG TABLET PO SCH (09:34)
[2018-06-04] MEDS: FLUTICASONE NASAL SPRAY 50 MCG/SPRY 120 SPRAY/16 GM NASL SCH (09:34)
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
[2018-06-04 10:52] VITALS: BP 108/73
[2018-06-04] MEDS: DOXYCYCLINE HYCLATE 100 MG TABLET PO SCH (11:07)
== END 2018-06-04 11:06 | disposition home or self-care (01) | DRG 190 ==
LOC: ER 17:09 → EH 21:08 → 5 23:40 → OBSVTOIN 06-04 09:34
PROVIDERS: ADMIT Internal Medicine; ATTEND Internal Medicine
DX: J44.1 Chronic obstructive pulmonary disease with (acute) exacerbation (principal); J96.21 Acute and chronic respiratory failure with hypoxia; Z68.41 Body mass index [BMI] 40.0-44.9, adult; E11.9 Type 2 diabetes mellitus without complications; E66.01 Morbid (severe) obesity due to excess calories; E78.5 Hyperlipidemia, unspecified; E03.9 Hypothyroidism, unspecified; Z86.711 Personal history of pulmonary embolism; S06.9X0A Unspecified intracranial injury without loss of consciousness, initial encounter; Z79.4 Long term (current) use of insulin; F32.9 Major depressive disorder, single episode, unspecified; G47.33 Obstructive sleep apnea (adult) (pediatric); Z91.19 Patient's noncompliance with other medical treatment and regimen; Z79.02 Long term (current) use of antithrombotics/antiplatelets; H54.40 Blindness, one eye, unspecified eye; Z90.2 Acquired absence of lung [part of]; F17.210 Nicotine dependence, cigarettes, uncomplicated; Z83.3 Family history of diabetes mellitus; Z82.49 Family history of ischemic heart disease and other diseases of the circulatory system; Z90.710 Acquired absence of both cervix and uterus; Z88.0 Allergy status to penicillin; Z88.8 Allergy status to other drugs, medicaments and biological substances; R00.0 Tachycardia, unspecified; I69.398 Other sequelae of cerebral infarction
CPT/HCPCS: 36415; 71045; 80048; 80053; 80061; 82550; 82553; 82803; 82962; 83036; 83605; 83735; 83880; 84443; 84484; 85025; 85027; 85610; 85730; 87040; 94640; 94667; 94668; 94799; 96365; 96375; 99285; G0378; J0360; J1815; J2930; J3475; J7040; J7620

== ENCOUNTER 2018-08-30 15:42 | Emergency (ER) | payer BC ==
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
[2018-08-30] MEDS ORDERED: ONDANSETRON HCL INJ/PF 4 MG/2 ML SDV IV ONE (16:19)
--- NOTE | 2018-08-30 16:42 | RADIOLOGY REPORT (SQ) ---
EXAM DESCRIPTION: CHEST SINGLE VIEW COMPLETED DATE/TIME: 08/30/2018 4:32 pm REASON FOR STUDY: sob, cough COMPARISON: 06/02/2018 EXAM PARAMETERS: NUMBER OF VIEWS: One view. TECHNIQUE: Single frontal radiographic view of the chest acquired. RADIATION DOSE: NA LIMITATIONS: Body habitus. Positioning. FINDINGS: LUNGS AND PLEURA: Low lung volumes. No obvious pneumonia. No large effusions. MEDIASTINUM AND HILAR STRUCTURES: No masses. Contour normal. HEART AND VASCULAR STRUCTURES: Heart normal in size. Normal vasculature. BONES: No acute findings. HARDWARE: None in the chest. OTHER: No other significant finding. IMPRESSION: Low lung volumes. No obvious pneumonia. TECHNICAL DOCUMENTATION: JOB ID: [id number] [employer]- All Rights Reserved Reading location - IP/workstation name: [email or web address]
[2018-08-30] MEDS: IPRATROPIUM/ALBUTEROL 0.5-2.5 MG/3 ML AMPUL NEB ONE ×2 (17:11→17:14)
[2018-08-30] MEDS: NORMAL SALINE 1000 ML 1,000 ML IV PRN ×2 (17:12→19:12)
[2018-08-30 17:37] LABS: VENOUS BLOOD BASE EXCESS 0.6 mmol/L; VENOUS BLOOD PCO2 44.2 mmHg (35-63); VENOUS BLOOD PH 7.39 (7.30-7.42)
[2018-08-30 17:45] LABS: ABSOLUTE BASOPHILS # (AUTO) 0.1 10^3/uL (0.0-0.2); ABSOLUTE EOSINOPHILS # (AUTO) 0.1 10^3/uL (0.0-0.6); ABSOLUTE LYMPHOCYTES (AUTO) 1.7 10^3/uL (0.5-4.7); ABSOLUTE MONOCYTES (AUTO) 0.7 10^3/uL (0.1-1.4); ABSOLUTE NEUT (AUTO) 7.7 10^3/uL (1.7-8.2); BASOPHILS % (AUTO) 0.6 % (0-2); EOSINOPHILS % (AUTO) 0.6 % (0-6); HEMATOCRIT 37.9 % (36.0-47.0); HEMOGLOBIN 12.6 g/dL (12.0-15.5); LYMPHOCYTES % (AUTO) 16.6 % (13-45); MEAN CORPUSCULAR HEMOGLOBIN 27.8 pg (27.0-33.4); MEAN CORPUSCULAR HGB CONC 33.3 g/dL (32.0-36.0); MEAN CORPUSCULAR VOLUME 83 fl (80-97); MONOCYTES % (AUTO) 6.7 % (3-13); PLATELET COUNT 300 10^3/uL (150-450); RED BLOOD COUNT 4.54 10^6/uL (3.72-5.28); RED CELL DISTRIBUTION WIDTH 17.9 % (11.5-14.0); SEGMENTED NEUTROPHILS % (AUTO) 75.5 % (42-78); TOTAL CELLS COUNTED % (AUTO) 100 %; WHITE BLOOD COUNT 10.2 10^3/uL (4.0-10.5)
[2018-08-30 17:55] LABS: INTERNATIONAL RATION (INR) 0.94; PROTHROMBIN TIME 13.1 SEC (11.4-15.4)
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
[2018-08-30 19:28] LABS: ALANINE AMINOTRANSFERASE 50 U/L (9-52); ALBUMIN 3.9 g/dL (3.5-5.0); ALKALINE PHOSPHATASE 110 U/L (38-126); ANION GAP 7 (5-19); ASPARTATE AMINO TRANSFERASE 48 U/L (14-36); BILIRUBIN,DIRECT 0.3 mg/dL (0.0-0.4); BILIRUBIN,TOTAL 0.3 mg/dL (0.2-1.3); BLOOD UREA NITROGEN 18 mg/dL (7-20); CALCIUM 8.6 mg/dL (8.4-10.2); CARBON DIOXIDE 27 mmol/L (22-30); CHLORIDE 103 mmol/L (98-107); GLUCOSE 132 mg/dL (75-110); LIPASE 410.6 U/L (23-300); POTASSIUM 4.1 mmol/L (3.6-5.0); SODIUM 136.8 mmol/L (137-145); TOTAL PROTEIN 6.6 g/dL (6.3-8.2)
[2018-08-30 19:40] LABS: NT PRO BNP 38 pg/mL (<125)
[2018-08-30 19:44] LABS: TROPONIN I < 0.012 ng/mL
[2018-08-30 20:43] VITALS: BP 108/70
--- NOTE | 2018-08-30 22:57 | EKG REPORT ---
SEVERITY:- BORDERLINE ECG - SINUS TACHYCARDIA PROBABLE LEFT ATRIAL ABNORMALITY : Confirmed by: Wilfredo Marvin 30-Aug-2018 22:56:05
== END 2018-08-30 20:43 | disposition home or self-care (01) ==
LOC: ER 15:42
DX: I95.9 Hypotension, unspecified (principal); E86.0 Dehydration; R53.1 Weakness; E11.9 Type 2 diabetes mellitus without complications; Z79.4 Long term (current) use of insulin; J44.9 Chronic obstructive pulmonary disease, unspecified; I11.0 Hypertensive heart disease with heart failure; I50.9 Heart failure, unspecified; F17.210 Nicotine dependence, cigarettes, uncomplicated; R00.0 Tachycardia, unspecified
CPT/HCPCS: 93005; 94640; 99284; 96361; 96374; 36415; 82962; 83690; 85025; 85610; 80053; 84484; 82803; 83605; 83880; 71045; 93010; J2405; J7030; J7620

== ENCOUNTER 2019-02-15 14:59 | Emergency (ER) | payer BC, OTHER ==
[2019-02-15] MEDS ORDERED: NORMAL SALINE 1000 ML 1,000 ML IV ONE (15:23)
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
[2019-02-15 16:20] LABS: ABSOLUTE BASOPHILS # (AUTO) 0.1 10^3/uL (0.0-0.2); ABSOLUTE EOSINOPHILS # (AUTO) 0.1 10^3/uL (0.0-0.6); ABSOLUTE LYMPHOCYTES (AUTO) 2.6 10^3/uL (0.5-4.7); ABSOLUTE MONOCYTES (AUTO) 0.7 10^3/uL (0.1-1.4); ABSOLUTE NEUT (AUTO) 7.8 10^3/uL (1.7-8.2); BASOPHILS % (AUTO) 0.8 % (0-2); EOSINOPHILS % (AUTO) 0.7 % (0-6); HEMATOCRIT 37.6 % (36.0-47.0); HEMOGLOBIN 12.7 g/dL (12.0-15.5); LYMPHOCYTES % (AUTO) 22.9 % (13-45); MEAN CORPUSCULAR HEMOGLOBIN 28.5 pg (27.0-33.4); MEAN CORPUSCULAR HGB CONC 33.6 g/dL (32.0-36.0); MEAN CORPUSCULAR VOLUME 85 fl (80-97); PLATELET COUNT 236 10^3/uL (150-450); RED BLOOD COUNT 4.44 10^6/uL (3.72-5.28); RED CELL DISTRIBUTION WIDTH 17.2 % (11.5-14.0); SEGMENTED NEUTROPHILS % (AUTO) 69.6 % (42-78); TOTAL CELLS COUNTED % (AUTO) 100 %; WHITE BLOOD COUNT 11.2 10^3/uL (4.0-10.5)
[2019-02-15 16:25] LABS: VENOUS BLOOD BASE EXCESS 0.3 mmol/L; VENOUS BLOOD HCO3 24.4 mmol/L (20-32); VENOUS BLOOD PCO2 37.6 mmHg (35-63); VENOUS BLOOD PH 7.43 (7.30-7.42)
--- NOTE | 2019-02-15 16:35 | RADIOLOGY REPORT (SQ) ---
EXAM DESCRIPTION: CHEST SINGLE VIEW COMPLETED DATE/TIME: 02/15/2019 4:24 pm REASON FOR STUDY: tachycardia and tachypnea COMPARISON: 08/30/2018 EXAM PARAMETERS: NUMBER OF VIEWS: One view. TECHNIQUE: Single frontal radiographic view of the chest acquired. RADIATION DOSE: NA LIMITATIONS: None. FINDINGS: LUNGS AND PLEURA: No opacities, masses or pneumothorax. No pleural effusion. MEDIASTINUM AND HILAR STRUCTURES: No masses. Contour normal. HEART AND VASCULAR STRUCTURES: Heart normal in size. Normal vasculature. BONES: No acute findings. HARDWARE: None in the chest. OTHER: No other significant finding. IMPRESSION: No evidence of acute cardiopulmonary process. TECHNICAL DOCUMENTATION: JOB ID: [id number] [employer]- All Rights Reserved Reading location - IP/workstation name: [email or web address]
[2019-02-15 16:36] LABS: INTERNATIONAL RATION (INR) 1.05; PARTIAL THROMBOPLASTIN TIME 26.5 SEC (23.5-35.8); PROTHROMBIN TIME 13.7 SEC (11.4-15.4)
--- NOTE | 2019-02-15 16:37 | RADIOLOGY REPORT (SQ) ---
EXAM DESCRIPTION: CT HEAD WITHOUT COMPLETED DATE/TIME: 02/15/2019 4:23 pm REASON FOR STUDY: AMS COMPARISON: None. TECHNIQUE: Axial images acquired through the brain without intravenous contrast. Images reviewed wi th bone, brain and subdural windows. Additional sagittal and coronal reconstructions were generated. Images stored on PACS. All CT scanners at this facility use dose modulation, iterative reconstruction, and/or weight based d osing when appropriate to reduce radiation dose to as low as reasonably achievable (ALARA). [facility]: Dose Right [facility]: CareDose [facility]: Dose Right [facility]: Teradose 4D [facility]: Cerephex RADIATION DOSE: CT Rad equipment meets quality standard of care and radiation dose reduction techniq ues were employed. CTDIvol: 53.2 mGy. DLP: 991 mGy-cm. mGy. LIMITATIONS: None. FINDINGS: VENTRICLES: Normal size and contour. CEREBRUM: No masses. No hemorrhage. No midline shift. No evidence for acute infarction. Normal gra y/white matter differentiation. No areas of low density in the white matter. CEREBELLUM: No masses. No hemorrhage. No alteration of density. No evidence for acute infarction. EXTRAAXIAL SPACES: No fluid collections. No masses. ORBITS AND GLOBE: No intra- or extraconal masses. Normal contour of globe without masses. CALVARIUM: No fracture. PARANASAL SINUSES: No fluid or mucosal thickening. SOFT TISSUES: No mass or hematoma. OTHER: No other significant finding. IMPRESSION: NO ACUTE INTRACRANIAL IMAGING FINDINGS. EVIDENCE OF ACUTE STROKE: NO. COMMENT: Quality ID # [id number]: Final reports with documentation of one or more dose reduction techniques (e.g., Automated exposure control, adjustment of the mA and/or kV according to patient size, use of iterative reconstruction technique) TECHNICAL DOCUMENTATION: JOB ID: [id number] [employer]- All Rights Reserved Reading location - IP/workstation name: [email or web address]
[2019-02-15 16:46] LABS: ALBUMIN 3.7 g/dL (3.5-5.0); ALKALINE PHOSPHATASE 170 U/L (38-126); ANION GAP 13 (5-19); ASPARTATE AMINO TRANSFERASE 36 U/L (14-36); BILIRUBIN,DIRECT 0.2 mg/dL (0.0-0.4); BILIRUBIN,TOTAL 0.3 mg/dL (0.2-1.3); BLOOD UREA NITROGEN 20 mg/dL (7-20); C-REACTIVE PROTEIN 38.8 mg/L (<10.0); CALCIUM 9.3 mg/dL (8.4-10.2); CARBON DIOXIDE 25 mmol/L (22-30); CHLORIDE 98 mmol/L (98-107); GLUCOSE 215 mg/dL (75-110); POTASSIUM 4.9 mmol/L (3.6-5.0); TOTAL PROTEIN 6.5 g/dL (6.3-8.2)
--- NOTE | 2019-02-15 17:46 | EKG REPORT ---
SEVERITY:- BORDERLINE ECG - SINUS RHYTHM PROBABLE LEFT ATRIAL ABNORMALITY : Confirmed by: Jose Gentile MD 15-Feb-2019 17:44:49
[2019-02-15 18:11] LABS: APPEARANCE,URINE SLIGHTLY-CLOUDY; BILIRUBIN,URINE NEGATIVE (NEGATIVE); COLOR,URINE YELLOW; GLUCOSE, URINE NEGATIVE (NEGATIVE); KETONES,URINE NEGATIVE (NEGATIVE); LEUKOCYTE ESTERASE,URINE SMALL (NEGATIVE); NITRITE,URINE NEGATIVE (NEGATIVE); PROTEIN,URINE NEGATIVE (NEGATIVE); UROBILINOGEN,URINE NEGATIVE mg/dL (<2.0)
[2019-02-15] MEDS ORDERED: FENTANYL CITRATE INJ/PF 100 MCG/2 ML AMPUL IV ONE ×2 (18:20→19:36)
[2019-02-15] MEDS ORDERED: IPRATROPIUM/ALBUTEROL 0.5-2.5 MG/3 ML AMPUL NEB ONE (18:21)
[2019-02-15] MEDS ORDERED: HYDROCODONE/ACETAMINOPHEN 5-325 MG (6 TAB/ER DISP) PO PRN (18:22)
[2019-02-15] MEDS ORDERED: LEVOFLOXACIN 750 MG/D5W RTU 750 MG/150 ML RTUPB IV ONE (18:28)
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
[2019-02-15 20:10] VITALS: BP 134/74
== END 2019-02-15 20:20 | disposition home or self-care (01) ==
LOC: ER 14:59
DX: J18.9 Pneumonia, unspecified organism (principal); M25.561 Pain in right knee; R53.1 Weakness; R53.83 Other fatigue; M25.562 Pain in left knee; I95.9 Hypotension, unspecified; R00.0 Tachycardia, unspecified; F17.200 Nicotine dependence, unspecified, uncomplicated; I10 Essential (primary) hypertension; J44.9 Chronic obstructive pulmonary disease, unspecified; E11.9 Type 2 diabetes mellitus without complications
CPT/HCPCS: 93005; 36415; 87040; 83605; 85025; 85610; 85730; 86140; 80053; 81001; 84484; 82803; 71045; 70450; 93010; J3010; J7030; J1956; J7620; 51701; 94640; 96361; 96365; 96375; 96376; 99284

== ENCOUNTER 2019-02-21 15:18 | Inpatient (IN) | payer BC, OTHER ==
--- NOTE | 2019-02-21 16:30 | RADIOLOGY REPORT (SQ) ---
EXAM DESCRIPTION: CHEST SINGLE VIEW COMPLETED DATE/TIME: 02/21/2019 4:19 pm REASON FOR STUDY: COPD COMPARISON: 02/15/2019 EXAM PARAMETERS: NUMBER OF VIEWS: One view. TECHNIQUE: Single frontal radiographic view of the chest acquired. RADIATION DOSE: NA LIMITATIONS: None. FINDINGS: LUNGS AND PLEURA: Diffuse parenchymal opacities at the lung bases right greater than left. No pneumothorax. MEDIASTINUM AND HILAR STRUCTURES: No masses. Contour normal. HEART AND VASCULAR STRUCTURES: Heart enlarged with vascular congestion. BONES: No acute findings. HARDWARE: None in the chest. OTHER: No other significant finding. IMPRESSION: Bibasilar pneumonia right greater than left. Vascular congestion. TECHNICAL DOCUMENTATION: JOB ID: [id number] [employer]- All Rights Reserved Reading location - IP/workstation name: [email or web address]
[2019-02-21] MEDS ORDERED: IPRATROPIUM/ALBUTEROL 0.5-2.5 MG/3 ML AMPUL NEB ONE (16:37)
[2019-02-21] MEDS ORDERED: FUROSEMIDE INJ/PF 20 MG/2 ML SDV IV ONE (16:37)
[2019-02-21] MEDS ORDERED: KETAMINE HCL INJ 500 MG/10 ML VIAL IV ONE (16:37)
[2019-02-21] MEDS ORDERED: METHYLPREDNISOLONE INJ 125 MG/2 ML SDV IV ONE (16:37)
[2019-02-21 16:41] LABS: ABSOLUTE EOSINOPHILS # (AUTO) 0.1 10^3/uL (0.0-0.6); ABSOLUTE LYMPHOCYTES (AUTO) 2.4 10^3/uL (0.5-4.7); ABSOLUTE MONOCYTES (AUTO) 0.6 10^3/uL (0.1-1.4); ABSOLUTE NEUT (AUTO) 6.1 10^3/uL (1.7-8.2); BASOPHILS % (AUTO) 0.5 % (0-2); HEMATOCRIT 36.4 % (36.0-47.0); LYMPHOCYTES % (AUTO) 25.9 % (13-45); MEAN CORPUSCULAR HEMOGLOBIN 28.5 pg (27.0-33.4); MEAN CORPUSCULAR HGB CONC 33.1 g/dL (32.0-36.0); MEAN CORPUSCULAR VOLUME 86 fl (80-97); MONOCYTES % (AUTO) 6.4 % (3-13); PLATELET COUNT 213 10^3/uL (150-450); RED BLOOD COUNT 4.23 10^6/uL (3.72-5.28); RED CELL DISTRIBUTION WIDTH 17.2 % (11.5-14.0); SEGMENTED NEUTROPHILS % (AUTO) 66.2 % (42-78); TOTAL CELLS COUNTED % (AUTO) 100 %; WHITE BLOOD COUNT 9.1 10^3/uL (4.0-10.5)
[2019-02-21 16:50] LABS: VENOUS BLOOD BASE EXCESS -0.7 mmol/L; VENOUS BLOOD HCO3 24.9 mmol/L (20-32); VENOUS BLOOD PCO2 44.3 mmHg (35-63); VENOUS BLOOD PH 7.37 (7.30-7.42)
[2019-02-21] MEDS: MAGNESIUM SULFATE/D5W 1 GM/100 ML RTUPB IV SCH ×2 (16:52→17:01)
[2019-02-21] MEDS ORDERED: LORAZEPAM INJ 2 MG/1 ML VIAL IV ONE (16:57)
[2019-02-21 16:58] LABS: PROTHROMBIN TIME 14.2 SEC (11.4-15.4)
[2019-02-21 17:01] LABS: ALBUMIN 3.9 g/dL (3.5-5.0); ALKALINE PHOSPHATASE 165 U/L (38-126); ANION GAP 15 (5-19); ASPARTATE AMINO TRANSFERASE 35 U/L (14-36); BILIRUBIN,DIRECT 0.2 mg/dL (0.0-0.4); BILIRUBIN,TOTAL 0.3 mg/dL (0.2-1.3); BLOOD UREA NITROGEN 17 mg/dL (7-20); CARBON DIOXIDE 24 mmol/L (22-30); CHLORIDE 100 mmol/L (98-107); GLUCOSE 305 mg/dL (75-110); POTASSIUM 4.4 mmol/L (3.6-5.0); TOTAL PROTEIN 6.7 g/dL (6.3-8.2)
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
[2019-02-21 17:35] LABS: CREATINE KINASE MB 0.84 ng/mL (<4.55)
[2019-02-21 17:39] LABS: NT PRO BNP 53 pg/mL (<125); TROPONIN I < 0.012 ng/mL
[2019-02-21] MEDS ORDERED: ONDANSETRON HCL INJ/PF 4 MG/2 ML SDV IV PRN (18:03)
[2019-02-21] MEDS ORDERED: ACETAMINOPHEN 325 MG TABLET PO PRN (18:03)
[2019-02-21] MEDS ORDERED: OXYCODONE-ACETAMINOPHEN 5-325 MG TABLET PO PRN (18:03)
[2019-02-21] MEDS ORDERED: MAG HYDROX/AL HYDROX/SIMETH SUSP 30 ML UDCUP PO PRN (18:03)
[2019-02-21] MEDS ORDERED: AZITHROMYCIN 250 MG TABLET PO ONE (18:12)
[2019-02-21] MEDS ORDERED: CEFTRIAXONE 1 GM/D5W RTU 50 ML IV ONE (18:12)
[2019-02-21] MEDS ORDERED: GLUCAGON,HUMAN RECOMB 1 MG INJ IM PRN (18:14)
[2019-02-21] MEDS ORDERED: DEXTROSE 40% GEL 15 GM TUBE PO PRN ×2 (18:14)
[2019-02-21] MEDS ORDERED: DEXTROSE 50%-WATER 25 GM/50 ML DISP.SYRIN IV PRN ×2 (18:14)
[2019-02-21] MEDS ORDERED: NORMAL SALINE 1000 ML 1,000 ML IV PRN (18:16)
[2019-02-21] MEDS ORDERED: NORMAL SALINE 1000 ML 3,000 ML IV PRN (18:16)
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
[2019-02-21] MEDS ORDERED: ALBUTEROL SULFATE 0.083% NEB 2.5 MG/3 ML AMPUL NEB SCH (20:00)
[2019-02-21] MEDS: INSULIN REG, HUMAN 100 UNIT/ML 3 ML VIAL (PYX) SUBCUT SCH (21:47)
[2019-02-21] MEDS ORDERED: CLONAZEPAM 1 MG TABLET PO PRN (23:30)
[2019-02-21] MEDS ORDERED: METOPROLOL TARTRATE PF/INJ 5 MG/5 ML SDV IV PRN (23:32)
[2019-02-21] MEDS ORDERED: HYDRALAZINE HCL INJ/PF 20 MG/1 ML SDV IV PRN (23:32)
[2019-02-21] MEDS ORDERED: QUETIAPINE FUMARATE 100 MG TABLET PO ONE (23:59)
[2019-02-21] MEDS ORDERED: IPRATROPIUM BROMIDE 0.02% NEB 0.5 MG/2.5 ML AMPUL NEB ONE (23:59)
[2019-02-21] MEDS ORDERED: HYDRALAZINE HCL 25 MG TABLET PO ONE (23:59)
[2019-02-21] MEDS ORDERED: HYDROCHLOROTHIAZIDE 25 MG TABLET PO ONE (23:59)
[2019-02-21] MEDS ORDERED: ALBUTEROL SULFATE HFA (90 MCG/PUFF) 200 PUFF/8.5 GM MDI IH ONE (23:59)
[2019-02-21] MEDS ORDERED: PREGABALIN 100 MG CAPSULE PO ONE (23:59)
[2019-02-21] MEDS ORDERED: APIXABAN 5 MG TABLET PO ONE (23:59)
--- NOTE | 2019-02-22 00:26 | EKG REPORT ---
SEVERITY:- ABNORMAL ECG - SINUS TACHYCARDIA LEFT ATRIAL ABNORMALITY BORDERLINE T ABNORMALITIES, INFERIOR LEADS : Confirmed by: Wilfredo Marvin 22-Feb-2019 00:26:38
[2019-02-22] MEDS: RINGERS SOLUTION,LACTATED 1,000 ML IV PRN ×6 (00:28→13:42)
[2019-02-22] MEDS: CARISOPRODOL 350 MG TABLET PO SCH ×5 (00:30→23:18)
[2019-02-22] MEDS: APIXABAN 5 MG TABLET PO SCH ×3 (00:31→23:18)
[2019-02-22] MEDS: ALBUTEROL SULFATE 0.083% NEB 2.5 MG/3 ML AMPUL NEB SCH ×4 (02:15→11:50)
[2019-02-22 03:00] LABS: HEMATOCRIT 35.2 % (36.0-47.0); HEMOGLOBIN 11.6 g/dL (12.0-15.5); MEAN CORPUSCULAR HEMOGLOBIN 28.3 pg (27.0-33.4); MEAN CORPUSCULAR HGB CONC 32.8 g/dL (32.0-36.0); MEAN CORPUSCULAR VOLUME 86 fl (80-97); PLATELET COUNT 197 10^3/uL (150-450); RED BLOOD COUNT 4.08 10^6/uL (3.72-5.28); RED CELL DISTRIBUTION WIDTH 17.3 % (11.5-14.0); WHITE BLOOD COUNT 7.8 10^3/uL (4.0-10.5)
[2019-02-22 03:20] LABS: ANION GAP 14 (5-19); BLOOD UREA NITROGEN 20 mg/dL (7-20); CALCIUM 9.2 mg/dL (8.4-10.2); CARBON DIOXIDE 24 mmol/L (22-30); CHLORIDE 101 mmol/L (98-107)
[2019-02-22 03:45] LABS: GLUCOSE 542 mg/dL (75-110)
[2019-02-22] MEDS ORDERED: INSULIN LISPRO 100 UNIT/ML 3 ML VIAL SUBCUT ONE (04:30)
[2019-02-22] MEDS ORDERED: METOPROLOL TARTRATE PF/INJ 5 MG/5 ML SDV IV ONE (04:30)
[2019-02-22] MEDS: PREGABALIN 100 MG CAPSULE PO SCH ×3 (05:48→23:17)
[2019-02-22] MEDS ORDERED: IPRATROPIUM BROMIDE 0.02% NEB 0.5 MG/2.5 ML AMPUL NEB SCH (08:00)
[2019-02-22] MEDS: INSULIN REG, HUMAN 100 UNIT/ML 3 ML VIAL (PYX) SUBCUT SCH ×4 (08:39→23:18)
[2019-02-22] MEDS: LEVOFLOXACIN 750 MG/D5W RTU 750 MG/150 ML RTUPB IV SCH (09:41)
[2019-02-22] MEDS: ALBUTEROL SULFATE HFA (90 MCG/PUFF) 200 PUFF/8.5 GM MDI IH SCH ×2 (09:41→13:38)
[2019-02-22] MEDS ORDERED: HYDROCHLOROTHIAZIDE 25 MG TABLET PO SCH (10:00)
[2019-02-22] MEDS ORDERED: LISINOPRIL 10 MG TABLET PO SCH (10:00)
[2019-02-22] MEDS ORDERED: CEFTRIAXONE 1 GM/D5W RTU 1 GM/50 ML RTUPB IV SCH (10:00)
[2019-02-22] MEDS ORDERED: HYDRALAZINE HCL 25 MG TABLET PO SCH (10:00)
[2019-02-22] MEDS ORDERED: DILTIAZEM HCL 240 MG CAPSULE.CR PO SCH (10:00)
[2019-02-22] MEDS ORDERED: OXYCODONE HCL IR 5 MG TABLET PO ONE (10:45)
[2019-02-22] MEDS ORDERED: INSULIN GLARGINE,HUM.REC.ANLOG 1,000 UNIT/10 ML VIAL SUBCUT ONE ×2 (13:42→23:30)
--- NOTE | 2019-02-22 14:22 | EKG REPORT ---
SEVERITY:- OTHERWISE NORMAL ECG - SINUS TACHYCARDIA : Confirmed by: Wilfredo Marvin 22-Feb-2019 14:22:35
--- NOTE | 2019-02-22 14:22 | PDOC PROGRESS REPORT ---
Subjective Progress Note for:: 02/22/19 Subjective:: Today patient complains of headache as well as pleuritic chest pain which is worse on coughing. Patient is unhappy that she is only receiving Percocet 1 5/325mg p.o. every 4 hours as needed for pain. I have discussed with patient about giving her a lidocaine patch as the pain is likely musculoskeletal from her coughing and even discussed trying Tylenol with codeine but patient has been very reluctant. Patient's girlfriend at bedside states that patient has been taking hydrocodone/acetaminophen 7.5-325 mg at home. Prescribed by her primary care for her knee pain and other pains. Patient is having some cough but her main concern is about pain control. Reason For Visit: COPD EXACERBATION,COMMUNITY AUIRED PNEUMONIA Physical Exam Vital Signs: Temp Pulse Resp BP Pulse Ox 98.0 F 87 18 112/64 92 02/22/19 11:24 02/22/19 11:50 02/22/19 11:50 02/22/19 11:24 02/22/19 11:50 Intake & Output 02/21/19 02/22/19 02/23/19 06:59 06:59 06:59 Intake Total 6691 1974 Output Total 1450 Balance 5241 1974 Weight 101 kg General appearance: PRESENT: morbidly obese Neck exam: ABSENT: JVD Respiratory exam: PRESENT: chest wall tenderness, rhonchi, symmetrical, unlabored. ABSENT: tachypnea, wheezes Cardiovascular exam: PRESENT: RRR, +S1, +S2, tachycardia GI/Abdominal exam: PRESENT: normal bowel sounds, soft. ABSENT: rebound, rigid, tenderness Neurological exam: PRESENT: alert, awake, oriented to person, oriented to place, oriented to time, oriented to situation Psychiatric exam: PRESENT: agitated Results Laboratory Results: 02/22/19 02:47 02/22/19 02:47 02/21/19 02/21/19 02/21/19 16:14 16:14 16:14 WBC 9.1 RBC 4.23 Hgb 12.0 Hct 36.4 MCV 86 MCH 28.5 MCHC 33.1 RDW 17.2 H Plt Count 213 Seg Neutrophils % 66.2 VBG pH 7.37 VBG pCO2 44.3 VBG HCO3 24.9 VBG Base Excess -0.7 Sodium 138.7 Potassium 4.4 Chloride 100 Carbon Dioxide 24 Anion Gap 15 BUN 17 Creatinine 0.91 Est GFR ( Amer) > 60 Glucose 305 H Lactic Acid Calcium 10.0 Phosphorus Magnesium Total Bilirubin 0.3 AST 35 Alkaline Phosphatase 165 H Total Protein 6.7 Albumin 3.9 02/22/19 02/22/19 02/22/19 02:47 02:47 02:47 WBC 7.8 RBC 4.08 Hgb 11.6 L Hct 35.2 L MCV 86 MCH 28.3 MCHC 32.8 RDW 17.3 H Plt Count 197 Seg Neutrophils % VBG pH VBG pCO2 VBG HCO3 VBG Base Excess Sodium 138.9 Potassium 5.0 Chloride 101 Carbon Dioxide 24 Anion Gap 14 BUN 20 Creatinine 0.97 Est GFR ( Amer) > 60 Glucose 542 H* Lactic Acid 3.8 H Calcium 9.2 Phosphorus 3.0 Magnesium 1.6 Total Bilirubin AST Alkaline Phosphatase Total Protein Albumin 02/22/19 06:14 WBC RBC Hgb Hct MCV MCH MCHC RDW Plt Count Seg Neutrophils % VBG pH VBG pCO2 VBG HCO3 VBG Base Excess Sodium Potassium Chloride Carbon Dioxide Anion Gap BUN Creatinine Est GFR ( Amer) Glucose Lactic Acid 4.2 H Calcium Phosphorus Magnesium Total Bilirubin AST Alkaline Phosphatase Total Protein Albumin 02/21/19 02/21/19 16:14 16:14 Creatine Kinase 79 CK-MB (CK-2) 0.84 Troponin I < 0.012 NT-Pro-B Natriuret Pep 53 Impressions: Chest X-Ray 02/21/19 16:01 IMPRESSION: Bibasilar pneumonia right greater than left. Vascular congestion. Assessment and Plan - Diagnosis (1) Community acquired pneumonia Qualifiers: Laterality: unspecified laterality Qualified Code(s): J18.9 - Pneumonia, unspecified organism Is this a current diagnosis for this admission?: Yes Plan: Bibasilar pneumonia continue with Levaquin 750 mg daily Discontinue Rocephin will start on expectorant (2) Acute exacerbation of chronic obstructive pulmonary disease (COPD) Is this a current diagnosis for this admission?: Yes Plan: Patient received a dose of Solu-Medrol 125 mg in ER yesterday Currently patient is not on any steroids and is not having any significant whe ezing. Given poorly controlled blood sugars, I will refrain from starting on steroids at this time and will opt to treat with standing nebulizers. (3) Sepsis Qualifiers: Sepsis type: sepsis due to unspecified organism Sepsis acute organ dysf unction status: with acute organ dysfunction Severe sepsis acute organ dy sfunction type: acute respiratory failure Acute respiratory failure type: with hypoxia Severe sepsis shock status: without septic shock Qualified Code(s): A41.9 - Sepsis, unspecified organism; R65.20 - Severe sepsis without septic shock; J96.01 - Acute respiratory failure with hypoxia Is this a current diagnosis for this admission?: Yes Plan: Sepsis secondary to suspected bacterial community-acquired pneumonia as evidenced by respiratory failure on admission with hypoxia requiring BiPAP initially, tachycardia, lactic acidosis, pneumonia evident on chest x-ray image which has been reviewed by me. Trend lactic acid still currently elevated. IV fluids Currently not requiring any more oxygen and on room air (4) Uncontrolled diabetes mellitus Is this a current diagnosis for this admission?: Yes Plan: Blood sugars are very poorly controlled. Patient takes Tresiba 90 units nightly at home. I have resumed on Lantus 90 units nightly. Given elevated sugars today, I have also given a dose of Lantus 30 units now to help with blood sugar control. Patient will ultimately need more intensive therapy than nightly dosing of Tresiba as her hemoglobin A1c is 9 Continue sliding scale insulin, Accu-Cheks and diabetic diet (5) Morbid obesity Is this a current diagnosis for this admission?: Yes Plan: Dietary weight loss education (6) Hypothyroidism Qualifiers: Hypothyroidism type: unspecified Qualified Code(s): E03.9 - Hypothyroidism, unspecified Is this a current diagnosis for this admission?: Yes Plan: I will verify patient's dose of levothyroxine and restart (7) Pleuritic chest pain Is this a current diagnosis for this admission?: Yes Plan: Pain control. Seems to be secondary to costochondritis from coughing and respiratory tract infection (8) History of pulmonary embolism Is this a current diagnosis for this admission?: Yes Plan: Continue on Eliquis 5 mg twice a day - Plan Summary Summary: I have reviewed patient's [employer] aware and she was prescribed hydrocodone/acetaminophen 7.5 mg - 325 mg every 4 hours as needed for 20 doses starting on 02/17/2019. I will go ahead and just place patient on 7.5 mg of oxycodone every 4 hours as needed pain control. - Time Time Spent with patient: 15-24 minutes
[2019-02-22] MEDS ORDERED: INSULIN GLARGINE,HUM.REC.ANLOG 1,000 UNIT/10 ML VIAL (PYX) SUBCUT ONE (14:30)
[2019-02-22] MEDS ORDERED: NORMAL SALINE 1000 ML 1,000 ML IV ONE (15:00)
[2019-02-22] MEDS ORDERED: LIDOCAINE 5% (700 MG) TRANSDERMAL ADH..PATCH TP ONE (15:00)
[2019-02-22] MEDS: OXYCODONE HCL IR 5 MG TABLET PO PRN (16:47)
[2019-02-22] MEDS: IPRATROPIUM/ALBUTEROL 0.5-2.5 MG/3 ML AMPUL NEB SCH (20:24)
[2019-02-22] MEDS ORDERED: DILTIAZEM HCL 120 MG CAP.SR.24H PO SCH (22:00)
[2019-02-22] MEDS ORDERED: INSULIN GLARGINE,HUM.REC.ANLOG 1,000 UNIT/10 ML VIAL SUBCUT SCH (22:00)
[2019-02-22] MEDS ORDERED: INSULIN GLARGINE,HUM.REC.ANLOG 1,000 UNIT/10 ML VIAL (PYX) SUBCUT PRN (23:08)
[2019-02-22] MEDS: DILTIAZEM HCL 120 MG CAP.SR.24H PO SCH (23:17)
[2019-02-22] MEDS: QUETIAPINE FUMARATE 100 MG TABLET PO SCH (23:26)
[2019-02-23] MEDS: IPRATROPIUM/ALBUTEROL 0.5-2.5 MG/3 ML AMPUL NEB SCH ×4 (03:31→20:35)
[2019-02-23] MEDS: PREGABALIN 100 MG CAPSULE PO SCH ×3 (05:39→22:17)
[2019-02-23] MEDS: CARISOPRODOL 350 MG TABLET PO SCH ×3 (05:39→17:19)
[2019-02-23 05:49] LABS: ABSOLUTE LYMPHOCYTES (AUTO) 2.4 10^3/uL (0.5-4.7); ABSOLUTE MONOCYTES (AUTO) 0.6 10^3/uL (0.1-1.4); ABSOLUTE NEUT (AUTO) 5.5 10^3/uL (1.7-8.2); BASOPHILS % (AUTO) 0.2 % (0-2); EOSINOPHILS % (AUTO) 0.2 % (0-6); HEMATOCRIT 31.5 % (36.0-47.0); HEMOGLOBIN 10.5 g/dL (12.0-15.5); LYMPHOCYTES % (AUTO) 27.9 % (13-45); MEAN CORPUSCULAR HEMOGLOBIN 28.7 pg (27.0-33.4); MEAN CORPUSCULAR HGB CONC 33.4 g/dL (32.0-36.0); MEAN CORPUSCULAR VOLUME 86 fl (80-97); MONOCYTES % (AUTO) 6.7 % (3-13); PLATELET COUNT 191 10^3/uL (150-450); RED BLOOD COUNT 3.67 10^6/uL (3.72-5.28); RED CELL DISTRIBUTION WIDTH 17.2 % (11.5-14.0); TOTAL CELLS COUNTED % (AUTO) 100 %; WHITE BLOOD COUNT 8.5 10^3/uL (4.0-10.5)
[2019-02-23 06:05] LABS: ANION GAP 10 (5-19); BLOOD UREA NITROGEN 20 mg/dL (7-20); CALCIUM 9.1 mg/dL (8.4-10.2); CARBON DIOXIDE 27 mmol/L (22-30); CHLORIDE 105 mmol/L (98-107); GLUCOSE 229 mg/dL (75-110); POTASSIUM 3.8 mmol/L (3.6-5.0)
[2019-02-23] MEDS: LEVOFLOXACIN 750 MG/D5W RTU 750 MG/150 ML RTUPB IV SCH ×2 (09:15→10:24)
[2019-02-23] MEDS: DILTIAZEM HCL 240 MG CAPSULE.CR PO SCH (09:16)
[2019-02-23] MEDS: APIXABAN 5 MG TABLET PO SCH ×2 (09:16→22:17)
[2019-02-23] MEDS: INSULIN REG, HUMAN 100 UNIT/ML 3 ML VIAL (PYX) SUBCUT SCH ×4 (09:16→22:17)
[2019-02-23] MEDS: OXYCODONE HCL IR 5 MG TABLET PO PRN ×3 (09:16→17:20)
[2019-02-23] MEDS ORDERED: INSULIN GLARGINE,HUM.REC.ANLOG 1,000 UNIT/10 ML VIAL SUBCUT ONE (10:30)
[2019-02-23] MEDS ORDERED: INSULIN GLARGINE,HUM.REC.ANLOG 1,000 UNIT/10 ML VIAL (PYX) SUBCUT ONE (11:00)
[2019-02-23] MEDS: LISINOPRIL 10 MG TABLET PO SCH (12:03)
[2019-02-23] MEDS: HYDROCHLOROTHIAZIDE 25 MG TABLET PO SCH ×2 (12:04→22:17)
[2019-02-23] MEDS: LEVOFLOXACIN 750 MG TABLET PO SCH (13:34)
--- NOTE | 2019-02-23 16:47 | PDOC PROGRESS REPORT ---
Subjective Subjective:: Patient complains today of not receiving 10 mg of oxycodone but is still receiving 7.5 mg. She states that she needs the oxycodone 10 mg for her chest pain and continues to be adamant that other options including lidocaine, Tylenol and other non-narcotic options will not work for her. I explained to patient that the Vicodin was only prescribed for her knee pain after her knee surgery and that since her knee was not bothering her she should try taking the other medications rather than dwelling so much on getting 10 mg of oxycodone. Patient also states that she would like antibiotics p.o. because the IV bothers her. Patient is generally unpleased and states that she is not receiving her klonipin even though it has been ordered and she has received it. Complains of some lower extremity swelling. Reason For Visit: COPD EXACERBATION,COMMUNITY AUIRED PNEUMONIA Physical Exam Vital Signs: Temp Pulse Resp BP Pulse Ox 97.3 F 112 H 16 107/65 98 02/23/19 12:01 02/23/19 14:25 02/23/19 14:25 02/23/19 12:01 02/23/19 14:25 Intake & Output 02/22/19 02/23/19 02/24/19 06:59 06:59 06:59 Intake Total 6691 5255 236 Output Total 1450 1740 Balance 5241 3515 236 Weight 101 kg 107.9 kg General appearance: PRESENT: morbidly obese Respiratory exam: PRESENT: symmetrical, unlabored, wheezes - Mild. ABSENT: tachypnea Cardiovascular exam: PRESENT: RRR, +S1, +S2, tachycardia GI/Abdominal exam: PRESENT: normal bowel sounds, soft. ABSENT: rebound, rigid, tenderness Extremities exam: PRESENT: +1 edema Neurological exam: PRESENT: alert, awake, oriented to person, oriented to place, oriented to time, oriented to situation Psychiatric exam: PRESENT: anxious Results Laboratory Results: 02/23/19 05:22 02/23/19 05:22 02/23/19 02/23/19 02/23/19 05:22 05:22 05:22 WBC 8.5 RBC 3.67 L Hgb 10.5 L Hct 31.5 L MCV 86 MCH 28.7 MCHC 33.4 RDW 17.2 H Plt Count 191 Seg Neutrophils % 65.0 Sodium 141.9 Potassium 3.8 Chloride 105 Carbon Dioxide 27 Anion Gap 10 BUN 20 Creatinine 0.85 Est GFR ( Amer) > 60 Glucose 229 H Lactic Acid 1.7 Calcium 9.1 02/21/19 02/21/19 16:14 16:14 Creatine Kinase 79 CK-MB (CK-2) 0.84 Troponin I < 0.012 NT-Pro-B Natriuret Pep 53 Impressions: Chest X-Ray 02/21/19 16:01 IMPRESSION: Bibasilar pneumonia right greater than left. Vascular congestion. Assessment and Plan - Diagnosis (1) Community acquired pneumonia Qualifiers: Laterality: unspecified laterality Qualified Code(s): J18.9 - Pneumonia, unspecified organism Is this a current diagnosis for this admission?: Yes Plan: Bibasilar pneumonia continue with Levaquin 750 mg daily day 3 Continue expectorant (2) Acute exacerbation of chronic obstructive pulmonary disease (COPD) Is this a current diagnosis for this admission?: Yes Plan: Patient received a dose of Solu-Medrol 125 mg in ER on admission Continue nebulizer treatments. I have started patient on prednisone 20 mg twice a day for short course. (3) Sepsis Qualifiers: Sepsis type: sepsis due to unspecified organism Sepsis acute organ dysfun ction status: with acute organ dysfunction Severe sepsis acute organ dysf unction type: acute respiratory failure Acute respiratory failure type: with hypoxia Severe sepsis shock status: without septic shock Qualified Code(s): A41.9 - Sepsis, unspecified organism; R65.20 - Severe sepsis without septic shock; J96.01 - Acute respiratory failure with hypoxia Is this a current diagnosis for this admission?: Yes Plan: Sepsis secondary to suspected bacterial community-acquired pneumonia as evidenced by respiratory failure on admission with hypoxia requiring BiPAP initially, tachycardia, lactic acidosis, pneumonia evident on chest x-ray image which has been reviewed by me. Lactic acidosis resolved, hypoxic respiratory failure resolved. (4) Uncontrolled diabetes mellitus Is this a current diagnosis for this admission?: Yes Plan: Blood sugars are poorly controlled but better as compared to how she presented. Patient did not receive full dose of 90 units last night but instead was given 70 units. I gave her an additional 20 units this morning Patient takes Tresiba 90 units nightly at home. I have her on Lantus 90 units nightly. Patient will ultimately need more intensive therapy than nightly dosing of Tresiba as her hemoglobin A1c is 9 but I would like to see how patients blood sugars respond to her full dose of 90 units nightly first before adjusting regimen Continue sliding scale insulin, Accu-Cheks and diabetic diet (5) Morbid obesity Is this a current diagnosis for this admission?: Yes Plan: Dietary weight loss education (6) Hypothyroidism Qualifiers: Hypothyroidism type: unspecified Qualified Code(s): E03.9 - Hypothyroidism, unspecified Is this a current diagnosis for this admission?: Yes Plan: I tried to verify patient's dose of Synthroid but patient does not know the dose. I will try to get dose from patient's pharmacy if possible (7) Pleuritic chest pain Is this a current diagnosis for this admission?: Yes Plan: Pain control. Seems to be secondary to costochondritis from coughing and respiratory tract infection (8) History of pulmonary embolism Is this a current diagnosis for this admission?: Yes Plan: Continue on Eliquis 5 mg twice a day - Plan Summary Summary: I have reviewed patient's [employer] aware and she was prescribed hydrocodone/acetam inophen 7.5 mg - 325 mg every 4 hours as needed for 20 doses starting on 02/17/2019. I will go ahead and just place patient on 7.5 mg of oxycodone every 4 hours as needed pain control. - Time Time Spent with patient: 15-24 minutes
[2019-02-23] MEDS ORDERED: INSULIN GLARGINE,HUM.REC.ANLOG 1,000 UNIT/10 ML VIAL SUBCUT SCH (22:00)
[2019-02-23] MEDS: QUETIAPINE FUMARATE 100 MG TABLET PO SCH (22:17)
[2019-02-23] MEDS: DILTIAZEM HCL 120 MG CAP.SR.24H PO SCH (22:17)
[2019-02-23] MEDS: PREDNISONE 20 MG TABLET PO SCH (22:22)
[2019-02-24] MEDS: CARISOPRODOL 350 MG TABLET PO SCH ×3 (00:52→13:23)
[2019-02-24] MEDS: IPRATROPIUM/ALBUTEROL 0.5-2.5 MG/3 ML AMPUL NEB SCH ×3 (02:42→14:33)
[2019-02-24] MEDS: OXYCODONE HCL IR 5 MG TABLET PO PRN ×3 (04:20→13:22)
[2019-02-24] MEDS: PREGABALIN 100 MG CAPSULE PO SCH ×2 (05:46→13:23)
[2019-02-24 06:27] LABS: ABSOLUTE EOSINOPHILS # (AUTO) 0.1 10^3/uL (0.0-0.6); ABSOLUTE LYMPHOCYTES (AUTO) 2.7 10^3/uL (0.5-4.7); ABSOLUTE MONOCYTES (AUTO) 0.5 10^3/uL (0.1-1.4); ABSOLUTE NEUT (AUTO) 4.1 10^3/uL (1.7-8.2); BASOPHILS % (AUTO) 0.3 % (0-2); EOSINOPHILS % (AUTO) 1.4 % (0-6); HEMATOCRIT 32.2 % (36.0-47.0); HEMOGLOBIN 10.8 g/dL (12.0-15.5); LYMPHOCYTES % (AUTO) 36.1 % (13-45); MEAN CORPUSCULAR HEMOGLOBIN 28.5 pg (27.0-33.4); MEAN CORPUSCULAR HGB CONC 33.5 g/dL (32.0-36.0); MEAN CORPUSCULAR VOLUME 85 fl (80-97); MONOCYTES % (AUTO) 6.9 % (3-13); PLATELET COUNT 197 10^3/uL (150-450); RED BLOOD COUNT 3.77 10^6/uL (3.72-5.28); RED CELL DISTRIBUTION WIDTH 17.5 % (11.5-14.0); SEGMENTED NEUTROPHILS % (AUTO) 55.3 % (42-78); TOTAL CELLS COUNTED % (AUTO) 100 %; WHITE BLOOD COUNT 7.4 10^3/uL (4.0-10.5)
[2019-02-24 06:50] LABS: ANION GAP 7 (5-19); BLOOD UREA NITROGEN 14 mg/dL (7-20); CARBON DIOXIDE 31 mmol/L (22-30); CHLORIDE 104 mmol/L (98-107); GLUCOSE 126 mg/dL (75-110); POTASSIUM 3.5 mmol/L (3.6-5.0)
[2019-02-24] MEDS: INSULIN REG, HUMAN 100 UNIT/ML 3 ML VIAL (PYX) SUBCUT SCH ×2 (07:55→13:23)
[2019-02-24] MEDS ORDERED: POTASSIUM CHLORIDE 10 MEQ TABLET.ER PO ONE (08:00)
[2019-02-24] MEDS: LEVOFLOXACIN 750 MG TABLET PO SCH (10:02)
[2019-02-24] MEDS: LISINOPRIL 10 MG TABLET PO SCH (10:02)
[2019-02-24] MEDS: APIXABAN 5 MG TABLET PO SCH (10:02)
[2019-02-24] MEDS: HYDROCHLOROTHIAZIDE 25 MG TABLET PO SCH (10:02)
[2019-02-24] MEDS: DILTIAZEM HCL 240 MG CAPSULE.CR PO SCH (10:02)
[2019-02-24] MEDS: PREDNISONE 20 MG TABLET PO SCH (10:11)
--- NOTE | 2019-02-24 13:12 | PDOC DISCHARGE SUMMARY ---
Impression - Admit/DC Date/PCP Admission Date/Primary Care Provider: 02/21/19 18:24 AUDREY RESENDIZ MD Discharge Date: 02/24/19 - Discharge Diagnosis (1) Community acquired pneumonia Is this a current diagnosis for this admission?: Yes (2) Acute exacerbation of chronic obstructive pulmonary disease (COPD) Is this a current diagnosis for this admission?: Yes (3) Sepsis Is this a current diagnosis for this admission?: Yes (4) Uncontrolled diabetes mellitus Is this a current diagnosis for this admission?: Yes (5) Morbid obesity Is this a current diagnosis for this admission?: Yes (6) Hypothyroidism Is this a current diagnosis for this admission?: Yes (7) Pleuritic chest pain Is this a current diagnosis for this admission?: Yes (8) History of pulmonary embolism Is this a current diagnosis for this admission?: Yes (9) Anxiety Is this a current diagnosis for this admission?: Yes - Assessment Summary: Patient presented with worsening shortness of breath as well as cough. On presentation patient was hemodynamically stable. Blood work revealed no evidence of leukocytosis. Patient was noted to have significant lactic acidosis over 4. Patient was also noted to be significantly hypoxic. Patient was sent for a chest x-ray which showed bibasilar pneumonia greater in the right side than the left. Patient was diagnosed with sepsis as evidenced by pneumonia and tachycardia, lactic acidosis and hypoxic respiratory failure. Patient received IV fluids. Documentation notes that patient was initially placed on a BiPAP. Patient was weaned off BiPAP the next day was able to tolerate room air. Hypoxia resolved. Patient was started on antibiotics as well and received IV antibiotics initially ceftriaxone and Levaquin and later de-escalated to only Levaquin. Patient's breathing status is improved and patient is being transitioned to oral Levaquin for 4 more doses to complete 7-day course. Of note patient was also noted to have a mild COPD exacerbation on admission and received Solu-Medrol as well as standing nebulizer treatments. Patient is being discharged on 2 more days of prednisone to make a total of 4 days of steroids. Patient was also very hyperglycemic on presentation with blood sugars in the 500s. Her A1c was measured to be 9.3 indicating poor control of diabetes mellitus type 2. Patient was placed on Lantus [address] of her Tresiba while inpatient and sliding scale insulin and her blood sugar subsequently improved. I have instructed patient that I believe that she will need standing pre-meal doses of NovoLog as opposed to only sliding scale and should of course continue taking her Tresiba 90 units nightly. Patient states that her feeding habits a little bit off cycle and she does not consistently eat scheduled meals. I have recommended patient to take 10 units standing pre-major meals i.e. breakfast lunch and dinner in addition to her sliding scale and Tresiba. She would like to discuss this with her primary care doctor. Patient also expressed pleuritic chest pain on coughing which he states has been from coughing a lot. I have offered patient Tylenol and a lidocaine patch for patient has been very insistent on receiving narcotics for treatment of this pain because she was prescribed Vicodin for recent knee procedure that was done outpatient. I have educated patient that her narcotics was strictly for surgical procedure and that she should refrain from using it for any sort of type of pain that she experiences given its high risk of addiction/dependence. Patient is being discharged in stable conditions. - Additional Information Resuscitation Status: Full Code Discharge Diet: Diabetic Discharge Activity: Activity As Tolerated Referrals: AUDREY RESENDIZ MD [Primary Care Provider] - (Please schedule follow-up appointment within 1 to 2 weeks.) Prescriptions: Prednisone [Deltasone 20 mg Tablet] 20 mg PO Q12 2 Days #4 tablet Levofloxacin [Levaquin 500 mg Tablet] 500 mg PO DAILY #4 tablet Lidocaine [Lidoderm 5% (700 mg) Transdermal Patch] 1 patch TP DAILY #10 adh..patch Home Medications: Albuterol Sulfate [Albuterol Sulfate Hfa] 2 puff IH QID 02/21/19 Apixaban [Eliquis 5 mg Tablet] 5 mg PO Q12 02/21/19 Aspirin [Ecotrin] 81 mg PO DAILY 02/21/19 Carisoprodol [Soma 350 mg Tablet] 350 mg PO Q6 02/21/19 Clonazepam [Klonopin 2 mg Tablet] 2 mg PO Q8HP PRN 02/21/19 Diltiazem HCl [Diltiazem 12Hr ER] 120 mg PO QHS 02/21/19 Diltiazem HCl [Diltiazem 24Hr ER] 240 mg PO DAILY 02/21/19 Folic Acid [Folvite 1 mg Tablet] 1 mg PO DAILY 02/21/19 Hydralazine HCl [Apresoline 25 mg Tablet] 25 mg PO BID 02/21/19 Hydrochlorothiazide [Hydrodiuril 25 mg Tablet] 25 mg PO BID 02/21/19 Insulin Aspart [Novolog Flexpen] 0 unit SUBCUT .SLD SCALE 02/21/19 Insulin Degludec [Tresiba] 90 unit SQ QHS 02/21/19 Lisinopril 20 mg PO DAILY 02/21/19 Pregabalin [Lyrica] 200 mg PO Q8 02/21/19 Quetiapine Fumarate [Seroquel] 400 mg PO QHS 02/21/19 Acetaminophen [Tylenol 325 mg Tablet] 650 mg PO Q4HP PRN tablet 02/24/19 Levofloxacin [Levaquin 500 mg Tablet] 500 mg PO DAILY #4 tablet 02/24/19 Lidocaine [Lidoderm 5% (700 mg) Transdermal Patch] 1 patch TP DAILY #10 adh..patch 02/24/19 Prednisone [Deltasone 20 mg Tablet] 20 mg PO Q12 2 Days #4 tablet 02/24/19 History of Present Illiness History of Present Illness: SELMA DOUGLAS is a 48 year old female who has a history of asthma COPD presents with respiratory distress. Patient's partner states that patient been running in the low 80s to 90s at home with a home pulse ox. Patient does not wear home oxygen but sounds like she would meet requirements for such. Upon admission patient was adamantly refusing to wear BiPAP. At that time ER doctor gave patient Ativan 2 mg and ketamine 20 mg IV while trying to hold patient down and she was trying to swipe away the mass to get it off her face according to respiratory therapy. Upon my review with the patient her ABG was normal and did not require BiPAP at this time. Patient was getting out of bed when I walked into the room to go to the bathroom. Her lungs were diminished but her wheezing was not severe and her O2 sats were mildly diminished. Patient had no treatment prior to arrival all activities aggravating factor. Physical Exam Vital Signs: Temp Pulse Resp BP Pulse Ox 97.6 F 124 H 18 129/74 H 92 02/24/19 11:19 02/24/19 11:19 02/24/19 11:19 02/24/19 11:19 02/24/19 11:19 Intake & Output 02/23/19 02/24/19 02/25/19 06:59 06:59 06:59 Intake Total 5255 686 Output Total 6120 Balance 3515 686 Weight 107.9 kg 106.4 kg General appearance: PRESENT: no acute distress, cooperative, morbidly obese Neck exam: ABSENT: JVD Respiratory exam: PRESENT: clear to auscultation colleen Cardiovascular exam: PRESENT: +S1, +S2 GI/Abdominal exam: PRESENT: normal bowel sounds Neurological exam: PRESENT: alert, awake Results Laboratory Results: WBC 7.4 10^3/uL (4.0-10.5) 02/24/19 05:42 RBC 3.77 10^6/uL (3.72-5.28) 02/24/19 05:42 Hgb 10.8 g/dL (12.0-15.5) L 02/24/19 05:42 Hct 32.2 % (36.0-47.0) L 02/24/19 05:42 MCV 85 fl (80-97) 02/24/19 05:42 MCH 28.5 pg (27.0-33.4) 02/24/19 05:42 MCHC 33.5 g/dL (32.0-36.0) 02/24/19 05:42 RDW 17.5 % (11.5-14.0) H 02/24/19 05:42 Plt Count 197 10^3/uL (150-450) 02/24/19 05:42 Lymph % (Auto) 36.1 % (13-45) 02/24/19 05:42 Falls % (Auto) 6.9 % (3-13) 02/24/19 05:42 Eos % (Auto) 1.4 % (0-6) 02/24/19 05:42 Baso % (Auto) 0.3 % (0-2) 02/24/19 05:42 Absolute Neuts (auto) 4.1 10^3/uL (1.7-8.2) 02/24/19 05:42 Absolute Lymphs (auto) 2.7 10^3/uL (0.5-4.7) 02/24/19 05:42 Absolute Monos (auto) 0.5 10^3/uL (0.1-1.4) 02/24/19 05:42 Absolute Eos (auto) 0.1 10^3/uL (0.0-0.6) 02/24/19 05:42 Absolute Basos (auto) 0.0 10^3/uL (0.0-0.2) 02/24/19 05:42 Seg Neutrophils % 55.3 % (42-78) 02/24/19 05:42 PT 14.2 SEC (11.4-15.4) 02/21/19 16:14 INR 1.10 02/21/19 16:14 VBG pH 7.37 (7.30-7.42) 02/21/19 16:14 VBG pCO2 44.3 mmHg (35-63) 02/21/19 16:14 VBG HCO3 24.9 mmol/L (20-32) 02/21/19 16:14 VBG Base Excess -0.7 mmol/L 02/21/19 16:14 Sodium 142.2 mmol/L (137-145) 02/24/19 05:42 Potassium 3.5 mmol/L (3.6-5.0) L 02/24/19 05:42 Chloride 104 mmol/L (98-107) 02/24/19 05:42 Carbon Dioxide 31 mmol/L (22-30) H 02/24/19 05:42 Anion Gap 7 (5-19) 02/24/19 05:42 BUN 14 mg/dL (7-20) 02/24/19 05:42 Creatinine 0.86 mg/dL (0.52-1.25) 02/24/19 05:42 Est GFR ( Amer) > 60 (>60) 02/24/19 05:42 Est GFR (MDRD) Non-Af > 60 (>60) 02/24/19 05:42 Glucose 126 mg/dL (75-110) H 02/24/19 05:42 POC Glucose 158 mg/dL (70-110) H 02/24/19 11:20 Hemoglobin A1c % 9.3 % (4.7-6.0) H 02/22/19 02:47 Lactic Acid 1.7 mmol/L (0.7-2.1) 02/23/19 05:22 Lactic Acid (Sepsis) 4.7 mmol/L (0.7-2.1) H 02/21/19 22:18 Calcium 9.0 mg/dL (8.4-10.2) 02/24/19 05:42 Phosphorus 3.0 mg/dL (2.5-4.5) 02/22/19 02:47 Magnesium 1.6 mg/dL (1.6-2.3) 02/22/19 02:47 Total Bilirubin 0.3 mg/dL (0.2-1.3) 02/21/19 16:14 Direct Bilirubin 0.2 mg/dL (0.0-0.4) 02/21/19 16:14 Neonat Total Bilirubin Not Reportable 02/21/19 16:14 Neonat Direct Bilirubin Not Reportable 02/21/19 16:14 Neonat Indirect Bili Not Reportable 02/21/19 16:14 AST 35 U/L (14-36) 02/21/19 16:14 ALT 47 U/L (<35) 02/21/19 16:14 Alkaline Phosphatase 165 U/L (38-126) H 02/21/19 16:14 Creatine Kinase 79 U/L (30-135) 02/21/19 16:14 CK-MB (CK-2) 0.84 ng/mL (<4.55) 02/21/19 16:14 Troponin I < 0.012 ng/mL 02/21/19 16:14 NT-Pro-B Natriuret Pep 53 pg/mL (<125) 02/21/19 16:14 Total Protein 6.7 g/dL (6.3-8.2) 02/21/19 16:14 Albumin 3.9 g/dL (3.5-5.0) 02/21/19 16:14 02/21/19 16:14 CK-MB (CK-2) 0.84 Troponin I < 0.012 NT-Pro-B Natriuret Pep 53 Impressions: Chest X-Ray 02/21/19 16:01 IMPRESSION: Bibasilar pneumonia right greater than left. Vascular congestion. Plan Time Spent: Greater than 30 Minutes Stroke Is this a Stroke Patient?: No Acute Heart Failure - Is this a Heart Failure Patient?: No
[2019-02-24 15:57] VITALS: BP 124/59
== END 2019-02-24 16:00 | disposition home or self-care (01) | DRG 871 ==
LOC: ER 15:18 → EH 18:24 → OBSVTOIN 18:24 → INTOOBSV 18:24 → 3S 21:21 → INTOOBSV 02-22 12:04 → OBSVTOIN 02-22 12:04
PROVIDERS: ADMIT Internal Medicine; ATTEND Internal Medicine
DX: A41.9 Sepsis, unspecified organism (principal); J18.9 Pneumonia, unspecified organism; J44.1 Chronic obstructive pulmonary disease with (acute) exacerbation; J44.0 Chronic obstructive pulmonary disease with (acute) lower respiratory infection; Z68.41 Body mass index [BMI] 40.0-44.9, adult; I11.0 Hypertensive heart disease with heart failure; E11.65 Type 2 diabetes mellitus with hyperglycemia; I50.9 Heart failure, unspecified; E03.9 Hypothyroidism, unspecified; E78.5 Hyperlipidemia, unspecified; F41.9 Anxiety disorder, unspecified; E66.01 Morbid (severe) obesity due to excess calories; F32.9 Major depressive disorder, single episode, unspecified; F17.200 Nicotine dependence, unspecified, uncomplicated; M94.0 Chondrocostal junction syndrome [Tietze]; H53.8 Other visual disturbances; I69.398 Other sequelae of cerebral infarction; Z86.711 Personal history of pulmonary embolism; Z90.2 Acquired absence of lung [part of]; Z88.0 Allergy status to penicillin; Z88.8 Allergy status to other drugs, medicaments and biological substances; Z90.710 Acquired absence of both cervix and uterus; Z79.82 Long term (current) use of aspirin; Z79.899 Other long term (current) drug therapy; Z79.4 Long term (current) use of insulin; Z87.820 Personal history of traumatic brain injury; Z90.49 Acquired absence of other specified parts of digestive tract; Z83.3 Family history of diabetes mellitus
CPT/HCPCS: 36415; 71045; 80048; 80053; 82550; 82553; 82803; 82962; 83036; 83605; 83735; 83880; 84100; 84484; 85025; 85027; 85610; 87040; 87150; 93005; 93010; 94640; 94660; 96365; 96366; 96375; 99285; J0696; J1815; J1940; J1956; J2060; J2930; J3475; J3490; J7030; J7120; J7620

== ENCOUNTER 2019-05-20 21:23 | Emergency (ER) | payer BC, OTHER ==
[2019-05-20] MEDS ORDERED: IPRATROPIUM/ALBUTEROL 0.5-2.5 MG/3 ML AMPUL NEB ONE (21:59)
[2019-05-20] MEDS: IPRATROPIUM/ALBUTEROL 0.5-2.5 MG/3 ML AMPUL NEB PRN ×2 (22:20→22:25)
[2019-05-20 22:25] LABS: ABSOLUTE BASOPHILS # (AUTO) 0.1 10^3/uL (0.0-0.2); ABSOLUTE EOSINOPHILS # (AUTO) 0.2 10^3/uL (0.0-0.6); BASOPHILS % (AUTO) 0.5 % (0-2); MEAN CORPUSCULAR HGB CONC 33.6 g/dL (32.0-36.0); TOTAL CELLS COUNTED % (AUTO) 100 %
[2019-05-20 22:30] LABS: ABSOLUTE LYMPHOCYTES (AUTO) 2.8 10^3/uL (0.5-4.7); ABSOLUTE MONOCYTES (AUTO) 0.7 10^3/uL (0.1-1.4); ABSOLUTE NEUT (AUTO) 8.6 10^3/uL (1.7-8.2); EOSINOPHILS % (AUTO) 1.6 % (0-6); HEMATOCRIT 38.3 % (36.0-47.0); HEMOGLOBIN 12.9 g/dL (12.0-15.5); LYMPHOCYTES % (AUTO) 22.7 % (13-45); MEAN CORPUSCULAR HEMOGLOBIN 28.7 pg (27.0-33.4); MEAN CORPUSCULAR VOLUME 85 fl (80-97); MONOCYTES % (AUTO) 5.7 % (3-13); PLATELET COUNT 321 10^3/uL (150-450); RED CELL DISTRIBUTION WIDTH 17.2 % (11.5-14.0); SEGMENTED NEUTROPHILS % (AUTO) 69.5 % (42-78); WHITE BLOOD COUNT 12.3 10^3/uL (4.0-10.5)
[2019-05-20 22:43] LABS: ALBUMIN 4.6 g/dL (3.5-5.0); ALKALINE PHOSPHATASE 136 U/L (38-126); ANION GAP 12 (5-19); ASPARTATE AMINO TRANSFERASE 35 U/L (14-36); BILIRUBIN,DIRECT 0.3 mg/dL (0.0-0.4); BILIRUBIN,TOTAL 0.3 mg/dL (0.2-1.3); BLOOD UREA NITROGEN 25 mg/dL (7-20); CALCIUM 9.9 mg/dL (8.4-10.2); CARBON DIOXIDE 26 mmol/L (22-30); CHLORIDE 102 mmol/L (98-107); GLUCOSE 140 mg/dL (75-110); POTASSIUM 4.7 mmol/L (3.6-5.0); TOTAL PROTEIN 8.2 g/dL (6.3-8.2)
[2019-05-20 22:44] LABS: A TYPE INFLUENZA AG NEGATIVE (NEGATIVE); B INFLUENZA AG NEGATIVE (NEGATIVE)
[2019-05-20 22:55] LABS: CREATINE KINASE MB 0.91 ng/mL (<4.55); NT PRO BNP 28 pg/mL (<125)
--- NOTE | 2019-05-20 23:00 | RADIOLOGY REPORT (SQ) ---
Chest one view on 05/20/2019 at 10:47 PM CLINICAL INDICATION: Shortness of breath COMPARISON: 02/21/2019 FINDINGS: Mild cardiomegaly is noted. There is slight elevation of the left hemidiaphragm. The lungs are clear. Hilar and mediastinal contours are within normal limits. Pulmonary vascularity is within normal limits. IMPRESSION: No acute disease.
[2019-05-20 23:11] LABS: TROPONIN I < 0.012 ng/mL
[2019-05-20] MEDS ORDERED: ACETAMINOPHEN 325 MG TABLET PO ONE (23:27)
[2019-05-20 23:36] LABS: ARTERIAL BLOOD BASE EXCESS 0.8 mmol/L; ARTERIAL BLOOD FIO2 ROOM AIR; ARTERIAL BLOOD H2CO3 1.48 mmol/L (1.05-1.35); ARTERIAL BLOOD O2 SATURATION 89.5 % (94-98); ARTERIAL BLOOD PCO2 49.3 mmHg (35-45); ARTERIAL BLOOD PH 7.36 (7.35-7.45); ARTERIAL BLOOD PO2 59.5 mmHg (80-100); ARTERIAL BLOOD TOTAL CO2 28.5 mmol/L (21-25)
[2019-05-21] MEDS ORDERED: KETOROLAC TROMETHAMINE INJ/PF 30 MG/1 ML SDV IV ONE (01:30)
[2019-05-21] MEDS ORDERED: METHYLPREDNISOLONE INJ 125 MG/2 ML SDV IV ONE (01:52)
[2019-05-21] MEDS ORDERED: NORMAL SALINE 1000 ML 1,000 ML IV ONE (01:52)
[2019-05-21] MEDS ORDERED: IPRATROPIUM/ALBUTEROL 0.5-2.5 MG/3 ML AMPUL NEB ONE (01:54)
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
[2019-05-21] MEDS ORDERED: DILTIAZEM HCL 120 MG CAP.SR.24H PO ONE (02:10)
[2019-05-21] MEDS ORDERED: HYDRALAZINE HCL INJ/PF 20 MG/1 ML SDV IV PRN (02:11)
[2019-05-21] MEDS ORDERED: KETOROLAC TROMETHAMINE INJ/PF 30 MG/1 ML SDV IV PRN (02:11)
[2019-05-21] MEDS ORDERED: IPRATROPIUM/ALBUTEROL 0.5-2.5 MG/3 ML AMPUL NEB PRN (02:12)
[2019-05-21] MEDS ORDERED: CHLORPHENIRAMINE MALEATE 4 MG TABLET PO SCH (02:15)
[2019-05-21] MEDS: MAGNESIUM SULFATE/D5W 1 GM/100 ML RTUPB IV SCH ×2 (02:27→03:17)
[2019-05-21] MEDS ORDERED: AZITHROMYCIN INJ 500 MG VIAL IV ONE (02:41)
[2019-05-21] MEDS ORDERED: AZITHROMYCIN 500 MG in DEXTROSE 5%-WATER 250 ML IV ONE (03:00)
[2019-05-21 05:21] VITALS: BP 155/93
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
[2019-05-21] MEDS ORDERED: AZITHROMYCIN 500 MG in DEXTROSE 5%-WATER 250 ML IV SCH (22:00)
== END 2019-05-21 07:10 | disposition other institution (70) ==
LOC: ER 21:23
DX: J96.21 Acute and chronic respiratory failure with hypoxia (principal); J44.1 Chronic obstructive pulmonary disease with (acute) exacerbation; E11.9 Type 2 diabetes mellitus without complications; R00.0 Tachycardia, unspecified; R11.2 Nausea with vomiting, unspecified; R05 Cough; F17.210 Nicotine dependence, cigarettes, uncomplicated; I50.9 Heart failure, unspecified; Z20.828 Contact with and (suspected) exposure to other viral communicable diseases
CPT/HCPCS: 94640; 99291; 96361; 96375; 96365; 96366; 96368; 36415; 87040; 87070; 82553; 87880; 82803; 83605; 83690; 85025; 87635; 86308; 80053; 84484; 87804; 83880; 71045; J0360; J2930; J1885; J3475; J7060; J7030; J0456; J7620 ×2

== ENCOUNTER 2019-05-22 15:52 | Inpatient (IN) | payer BC, OTHER ==
[2019-05-22 17:08] LABS: ARTERIAL BLOOD H2CO3 1.38 mmol/L (1.05-1.35); ARTERIAL BLOOD HCO3 24.9 mmol/L (20-24); ARTERIAL BLOOD O2 SATURATION 83.3 % (94-98); ARTERIAL BLOOD PH 7.35 (7.35-7.45); ARTERIAL BLOOD PO2 49.9 mmHg (80-100); ARTERIAL BLOOD TOTAL CO2 26.3 mmol/L (21-25)
[2019-05-22 17:08] LABS: ABSOLUTE BASOPHILS # (AUTO) 0.1 10^3/uL (0.0-0.2); ABSOLUTE EOSINOPHILS # (AUTO) 0.1 10^3/uL (0.0-0.6); ABSOLUTE MONOCYTES (AUTO) 0.5 10^3/uL (0.1-1.4); ABSOLUTE NEUT (AUTO) 8.2 10^3/uL (1.7-8.2); BASOPHILS % (AUTO) 0.5 % (0-2); EOSINOPHILS % (AUTO) 0.5 % (0-6); HEMATOCRIT 37.7 % (36.0-47.0); HEMOGLOBIN 12.4 g/dL (12.0-15.5); LYMPHOCYTES % (AUTO) 25.2 % (13-45); MEAN CORPUSCULAR HEMOGLOBIN 27.8 pg (27.0-33.4); MEAN CORPUSCULAR VOLUME 84 fl (80-97); MONOCYTES % (AUTO) 4.2 % (3-13); PLATELET COUNT 297 10^3/uL (150-450); RED BLOOD COUNT 4.47 10^6/uL (3.72-5.28); RED CELL DISTRIBUTION WIDTH 16.9 % (11.5-14.0); SEGMENTED NEUTROPHILS % (AUTO) 69.6 % (42-78); TOTAL CELLS COUNTED % (AUTO) 100 %; WHITE BLOOD COUNT 11.7 10^3/uL (4.0-10.5)
[2019-05-22 17:09] LABS: ARTERIAL BLOOD FIO2 ROOM AIR
[2019-05-22 17:15] LABS: ALBUMIN 4.3 g/dL (3.5-5.0); ALKALINE PHOSPHATASE 135 U/L (38-126); ANION GAP 15 (5-19); ASPARTATE AMINO TRANSFERASE 32 U/L (14-36); BILIRUBIN,DIRECT 0.1 mg/dL (0.0-0.4); BILIRUBIN,TOTAL 0.3 mg/dL (0.2-1.3); BLOOD UREA NITROGEN 41 mg/dL (7-20); CALCIUM 8.7 mg/dL (8.4-10.2); CARBON DIOXIDE 24 mmol/L (22-30); CHLORIDE 99 mmol/L (98-107); GLUCOSE 178 mg/dL (75-110); POTASSIUM 4.1 mmol/L (3.6-5.0); TOTAL PROTEIN 7.5 g/dL (6.3-8.2)
--- NOTE | 2019-05-22 17:20 | RADIOLOGY REPORT (SQ) ---
EXAM DESCRIPTION: CHEST SINGLE VIEW COMPLETED DATE/TIME: 05/22/2019 5:03 pm REASON FOR STUDY: sob COMPARISON: 05/20/2019 and 02/21/2019 TECHNIQUE: Single frontal radiographic view of the chest acquired. NUMBER OF VIEWS: One view. LIMITATIONS: None. FINDINGS: LUNGS AND PLEURA: No pneumothorax. No consolidation or pleural effusion. MEDIASTINUM AND HILAR STRUCTURES: Stable. HEART AND VASCULAR STRUCTURES: Stable. BONES: No acute findings. HARDWARE: None in the chest. OTHER: No other significant finding. IMPRESSION: NO ACUTE FINDINGS. TECHNICAL DOCUMENTATION: JOB ID: [id number] [id number] 2010 [employer]- All Rights Reserved Reading location - IP/workstation name: [email or web address]
[2019-05-22] MEDS ORDERED: NORMAL SALINE 1000 ML 1,000 ML IV ONE (18:09)
[2019-05-22 18:12] LABS: A TYPE INFLUENZA AG NEGATIVE (NEGATIVE); B INFLUENZA AG NEGATIVE (NEGATIVE)
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
[2019-05-22] MEDS ORDERED: ALBUTEROL SULFATE HFA (90 MCG/PUFF) 8 GM MDI IH PRN (18:49)
[2019-05-22] MEDS ORDERED: GUAIFENESIN SYRP 200 MG/10 ML UDC PO PRN (18:49)
[2019-05-22] MEDS ORDERED: ACETAMINOPHEN 325 MG TABLET PO PRN (18:49)
[2019-05-22] MEDS ORDERED: IPRATROPIUM/ALBUTEROL 0.5-2.5 MG/3 ML AMPUL NEB ONE (18:53)
[2019-05-22] MEDS ORDERED: METHYLPREDNISOLONE INJ 125 MG/2 ML SDV IV ONE (18:53)
[2019-05-22] MEDS ORDERED: GLUCAGON,HUMAN RECOMB 1 MG INJ IM PRN (19:01)
[2019-05-22] MEDS ORDERED: DEXTROSE 40% GEL 15 GM TUBE PO PRN ×2 (19:01)
[2019-05-22] MEDS ORDERED: DEXTROSE 50%-WATER 25 GM/50 ML DISP.SYRIN IV PRN ×2 (19:01)
[2019-05-22] MEDS ORDERED: NICOTINE 14 MG/24 HR PATCH.TD24 TD ONE (19:01)
[2019-05-22] MEDS ORDERED: AZITHROMYCIN 250 MG TABLET PO SCH (19:04)
[2019-05-22] MEDS ORDERED: IBUPROFEN 600 MG TABLET PO PRN (19:07)
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
[2019-05-22] MEDS ORDERED: AZITHROMYCIN 250 MG TABLET PO ONE (20:45)
[2019-05-22] MEDS: NORMAL SALINE 1000 ML 1,000 ML IV PRN (22:07)
[2019-05-22] MEDS ORDERED: INSULIN GLARGINE,HUM.REC.ANLOG 1,000 UNIT/10 ML VIAL (PYX) SUBCUT ONE (22:15)
[2019-05-22] MEDS: FAMOTIDINE INJ/PF 20 MG/2 ML SDV IV SCH (23:08)
[2019-05-22] MEDS: GUAIFENESIN 600 MG TABLET.SA PO SCH (23:08)
[2019-05-22] MEDS: INSULIN LISPRO 100 UNIT/ML 3 ML VIAL SUBCUT SCH (23:09)
--- NOTE | 2019-05-23 00:29 | EKG REPORT ---
SEVERITY:- BORDERLINE ECG - SINUS TACHYCARDIA PROBABLE LEFT ATRIAL ABNORMALITY : Confirmed by: Wilfredo Marvin 23-May-2019 00:28:19
[2019-05-23] MEDS ORDERED: INFLUENZA QUAD (6MOS+) 2019-20 VAC 0.5 ML SYR IM ONE (01:15)
[2019-05-23] MEDS: IPRATROPIUM/ALBUTEROL 0.5-2.5 MG/3 ML AMPUL NEB SCH ×4 (02:31→20:21)
[2019-05-23] MEDS: FLUTICASONE NASAL SPRAY 50 MCG/SPRY 120 SPRAY/16 GM NASL SCH ×3 (03:37→21:32)
[2019-05-23] MEDS: METHYLPREDNISOLONE INJ 40 MG/1 ML SDV IV SCH ×3 (05:30→21:30)
[2019-05-23] MEDS: NORMAL SALINE 1000 ML 1,000 ML IV PRN (05:32)
[2019-05-23 05:35] LABS: HEMATOCRIT 35.1 % (36.0-47.0); HEMOGLOBIN 11.7 g/dL (12.0-15.5); MEAN CORPUSCULAR HEMOGLOBIN 28.4 pg (27.0-33.4); MEAN CORPUSCULAR HGB CONC 33.5 g/dL (32.0-36.0); MEAN CORPUSCULAR VOLUME 85 fl (80-97); PLATELET COUNT 254 10^3/uL (150-450); RED BLOOD COUNT 4.13 10^6/uL (3.72-5.28); WHITE BLOOD COUNT 17.7 10^3/uL (4.0-10.5)
[2019-05-23 06:00] LABS: ANION GAP 9 (5-19); BLOOD UREA NITROGEN 32 mg/dL (7-20); CALCIUM 8.8 mg/dL (8.4-10.2); CARBON DIOXIDE 27 mmol/L (22-30); CHLORIDE 103 mmol/L (98-107); GLUCOSE 287 mg/dL (75-110)
[2019-05-23 06:12] LABS: POTASSIUM 5.1 mmol/L (3.6-5.0)
[2019-05-23] MEDS: NICOTINE 14 MG/24 HR PATCH.TD24 TD SCH (09:05)
[2019-05-23] MEDS ORDERED: (PENDING PHARMACY ID) (Clonazepam [Clonazepam] 0.5 MG) PO PRN (09:58)
[2019-05-23] MEDS ORDERED: APIXABAN 5 MG TABLET PO SCH ×2 (10:00→11:00)
[2019-05-23] MEDS: INSULIN LISPRO 100 UNIT/ML 3 ML VIAL SUBCUT SCH ×5 (10:00→21:28)
[2019-05-23] MEDS ORDERED: LEVALBUTEROL HCL NEB 1.25 MG/3 ML AMPUL NEB PRN (10:00)
[2019-05-23] MEDS ORDERED: CLONAZEPAM 1 MG TABLET PO PRN (10:21)
[2019-05-23] MEDS: BUSPIRONE HCL 10 MG TABLET PO SCH ×2 (10:35→21:31)
[2019-05-23] MEDS: GUAIFENESIN 600 MG TABLET.SA PO SCH ×2 (10:35→21:31)
[2019-05-23] MEDS: FAMOTIDINE INJ/PF 20 MG/2 ML SDV IV SCH ×2 (10:35→21:31)
[2019-05-23] MEDS: ASPIRIN 81 MG TABLET, ENT COATED PO SCH (10:36)
[2019-05-23] MEDS: FOLIC ACID 1 MG TABLET PO SCH (10:36)
--- NOTE | 2019-05-23 10:56 | RADIOLOGY REPORT (SQ) ---
EXAM DESCRIPTION: CHEST SINGLE VIEW COMPLETED DATE/TIME: 05/23/2019 10:47 am REASON FOR STUDY: dyspnea, hypoxia COMPARISON: 05/22/2019 EXAM PARAMETERS: NUMBER OF VIEWS: One view. TECHNIQUE: Single frontal radiographic view of the chest acquired. RADIATION DOSE: NA LIMITATIONS: None. FINDINGS: LUNGS AND PLEURA: Bilateral alveolar airspace disease. Increased from prior study. MEDIASTINUM AND HILAR STRUCTURES: No masses. Contour normal. HEART AND VASCULAR STRUCTURES: Heart is enlarged. BONES: No acute findings. HARDWARE: None in the chest. OTHER: No other significant finding. IMPRESSION: Cardiomegaly with probable pulmonary edema. TECHNICAL DOCUMENTATION: JOB ID: [id number] 2010 [employer]- All Rights Reserved Reading location - IP/workstation name: [email or web address]
[2019-05-23] MEDS ORDERED: DILTIAZEM HCL 60 MG TABLET PO ONE (11:00)
[2019-05-23] MEDS ORDERED: BUTALB/ACETAMINOPHEN/CAFFEINE 1 TAB EACH PO ONE (11:00)
[2019-05-23 11:26] LABS: ARTERIAL BLOOD BASE EXCESS -3.5 mmol/L; ARTERIAL BLOOD FIO2 2L; ARTERIAL BLOOD H2CO3 1.51 mmol/L (1.05-1.35); ARTERIAL BLOOD HCO3 23.4 mmol/L (20-24); ARTERIAL BLOOD O2 SATURATION 94.1 % (94-98); ARTERIAL BLOOD PCO2 50.1 mmHg (35-45); ARTERIAL BLOOD PH 7.29 (7.35-7.45); ARTERIAL BLOOD PO2 78.3 mmHg (80-100)
[2019-05-23] MEDS: LIDOCAINE 5% (700 MG) TRANSDERMAL ADH..PATCH TP SCH (12:33)
[2019-05-23 15:10] LABS: INTERNATIONAL RATION (INR) 1.18; PROTHROMBIN TIME 15.1 SEC (11.4-15.4)
[2019-05-23 15:12] LABS: PARTIAL THROMBOPLASTIN TIME 27.7 SEC (23.5-35.8)
[2019-05-23] MEDS ORDERED: HALOPERIDOL LACTATE INJ 5 MG/1 ML VIAL IV PRN (15:14)
[2019-05-23] MEDS ORDERED: CEFTRIAXONE 2 GM/D5W RTU 2 GM/50 ML RTUPB IV ONE (16:00)
--- NOTE | 2019-05-23 16:15 | RADIOLOGY REPORT (SQ) ---
EXAM DESCRIPTION: CT HEAD WITHOUT COMPLETED DATE/TIME: 05/23/2019 4:03 pm REASON FOR STUDY: bacteremia, fever, headache/neck pain COMPARISON: 02/15/2019 TECHNIQUE: Axial images acquired through the brain without intravenous contrast. Images reviewed wi th bone, brain and subdural windows. Additional sagittal and coronal reconstructions were generated. Images stored on PACS. All CT scanners at this facility use dose modulation, iterative reconstruction, and/or weight based d osing when appropriate to reduce radiation dose to as low as reasonably achievable (ALARA). [facility]: Dose Right [facility]: CareDose [facility]: Dose Right [facility]: Teradose 4D [facility]: [employer] RADIATION DOSE: CT Rad equipment meets quality standard of care and radiation dose reduction techniq ues were employed. CTDIvol: 48.6 mGy. DLP: 905 mGy-cm. mGy. LIMITATIONS: None. FINDINGS: VENTRICLES: Normal size and contour. CEREBRUM: No masses. No hemorrhage. No midline shift. No evidence for acute infarction. Normal gra y/white matter differentiation. No areas of low density in the white matter. CEREBELLUM: No masses. No hemorrhage. No alteration of density. No evidence for acute infarction. EXTRAAXIAL SPACES: No fluid collections. No masses. ORBITS AND GLOBE: No intra- or extraconal masses. Normal contour of globe without masses. CALVARIUM: No fracture. PARANASAL SINUSES: No fluid or mucosal thickening. SOFT TISSUES: No mass or hematoma. OTHER: No other significant finding. IMPRESSION: NORMAL BRAIN CT WITHOUT CONTRAST. EVIDENCE OF ACUTE STROKE: NO. COMMENT: Quality ID # [id number]: Final reports with documentation of one or more dose reduction techniques (e.g., Automated exposure control, adjustment of the mA and/or kV according to patient size, use of iterative reconstruction technique) TECHNICAL DOCUMENTATION: JOB ID: [id number] 2010 [employer]- All Rights Reserved Reading location - IP/workstation name: [email or web address]
[2019-05-23] MEDS: PREGABALIN 50 MG CAPSULE PO SCH ×2 (16:38→21:31)
--- NOTE | 2019-05-23 17:05 | PDOC PROGRESS REPORT ---
Subjective Progress Note for:: 05/23/19 Subjective:: SELMA DOUGLAS is a 48 year old female with a past medical history significant for uncontrolled insulin-dependent diabetes mellitus, morbid obesity, remote pulmonary embolism on Eliquis, PTSD, COPD (not on home O2), chronic bronchitis, tobacco dependence with continuous use, and medication noncompliance who was admitted 05/22/2019 with Acute respiratory failure secondary to COPD. Patient was seen multiple times throughout the day. She is noted to have labile mood, anxiety, easily to direct; difficulty to assess mental status, though technically alert and oriented to self, place, and situation. She reports continued headache, neck pain, shortness of breath, cough, and sputum production. She denies fevers, chest pain, abdominal pain, nausea and vomiting. Reason For Visit: ACUTE RESPIRATORY FAILURE WITH HYPOXIA,COPD Physical Exam Vital Signs: Temp Pulse Resp BP Pulse Ox 98.1 F 112 H 16 128/70 H 92 05/23/19 12:15 05/23/19 13:46 05/23/19 12:15 05/23/19 12:15 05/23/19 12:15 Pulse Oximeter Continuous Start: 05/22/19 18:52 Freq: RTQ4 Status: Complete Protocol: Document 05/23/19 08:00 [facility] [place] (Rec: 05/23/19 11:23 [facility] [place] [id number]) Pulse Oximetry Assessment Oxygen Saturation (92-100) 90 Oxygen Delivery Method Room Air Fraction of Inspired Oxygen (FIO2) 21 Equipment Usage Equipment Standby Continuous SpO2 Machine # Nursing monitor Intake & Output 05/22/19 05/23/19 05/24/19 06:59 06:59 06:59 Intake Total 927 2000 Output Total 0 1000 Balance 927 1000 Weight 97.9 kg General appearance: PRESENT: no acute distress, disheveled, obese, well- developed, well-nourished. ABSENT: cooperative Head exam: PRESENT: atraumatic, normocephalic Eye exam: PRESENT: conjunctiva pink, EOMI, PERRLA. ABSENT: scleral icterus Mouth exam: PRESENT: moist, tongue midline Teeth exam: PRESENT: poor dentation Respiratory exam: PRESENT: prolonged expiratory phas, rhonchi, symmetrical, unla bored, wheezes, other - Supplemental oxygen via nasal cannula; refuses BiPAP. ABSENT: rales Cardiovascular exam: PRESENT: RRR, +S1, +S2. ABSENT: diastolic murmur, rubs, systolic murmur Pulses: PRESENT: normal dorsalis pedis pul Vascular exam: PRESENT: normal capillary refill GI/Abdominal exam: PRESENT: distended - Rotund, normal bowel sounds, soft. ABSENT: guarding, mass, organolmegaly, rebound, tenderness Rectal exam: PRESENT: deferred Extremities exam: PRESENT: full ROM. ABSENT: calf tenderness, clubbing, pedal edema Neurological exam: PRESENT: alert, awake, oriented to person, oriented to place, CN II-XII grossly intact, other - Lethargic; intermittently oriented to situation and time. ABSENT: oriented to time, oriented to situation, motor sensory deficit Psychiatric exam: PRESENT: anxious, unusual affect. ABSENT: homicidal ideation, normal mood - Labile, suicidal ideation Skin exam: PRESENT: dry, intact, warm. ABSENT: cyanosis, rash Results Laboratory Results: 05/23/19 05:11 05/23/19 05:11 05/22/19 05/22/19 05/22/19 16:25 16:25 16:50 WBC 11.7 H RBC 4.47 Hgb 12.4 Hct 37.7 MCV 84 MCH 27.8 MCHC 33.0 RDW 16.9 H Plt Count 297 Seg Neutrophils % 69.6 Carbonic Acid 1.38 H HCO3/H2CO3 Ratio 18:1 ABG pH 7.35 ABG pCO2 46.0 H ABG pO2 49.9 L ABG HCO3 24.9 H ABG O2 Saturation 83.3 L ABG Base Excess -1.0 FiO2 ROOM AIR Sodium 137.7 Potassium 4.1 Chloride 99 Carbon Dioxide 24 Anion Gap 15 BUN 41 H Creatinine 2.04 H Est GFR ( Amer) 31 L Glucose 178 H Lactic Acid Calcium 8.7 Total Bilirubin 0.3 AST 32 Alkaline Phosphatase 135 H Total Protein 7.5 Albumin 4.3 05/22/19 05/23/19 05/23/19 17:25 05:11 05:11 WBC 17.7 H RBC 4.13 Hgb 11.7 L Hct 35.1 L MCV 85 MCH 28.4 MCHC 33.5 RDW 17.0 H Plt Count 254 Seg Neutrophils % Carbonic Acid HCO3/H2CO3 Ratio ABG pH ABG pCO2 ABG pO2 ABG HCO3 ABG O2 Saturation ABG Base Excess FiO2 Sodium 138.5 Potassium 5.1 H D Chloride 103 Carbon Dioxide 27 Anion Gap 9 BUN 32 H Creatinine 1.41 H Est GFR ( Amer) 48 L Glucose 287 H Lactic Acid 1.8 Calcium 8.8 Total Bilirubin AST Alkaline Phosphatase Total Protein Albumin 05/23/19 11:00 WBC RBC Hgb Hct MCV MCH MCHC RDW Plt Count Seg Neutrophils % Carbonic Acid 1.51 H HCO3/H2CO3 Ratio 15:1 ABG pH 7.29 L ABG pCO2 50.1 H ABG pO2 78.3 L ABG HCO3 23.4 ABG O2 Saturation 94.1 ABG Base Excess -3.5 FiO2 2L Sodium Potassium Chloride Carbon Dioxide Anion Gap BUN Creatinine Est GFR ( Amer) Glucose Lactic Acid Calcium Total Bilirubin AST Alkaline Phosphatase Total Protein Albumin 05/22/19 17:25 Blood Blood Culture (PCR) - Final 05/22/19 16:25 Troponin I < 0.012 Impressions: Chest X-Ray 05/23/19 00:00 IMPRESSION: Cardiomegaly with probable pulmonary edema. Head CT 05/23/19 00:00 IMPRESSION: NORMAL BRAIN CT WITHOUT CONTRAST. EVIDENCE OF ACUTE STROKE: NO. Assessment and Plan - Diagnosis (1) Acute exacerbation of chronic obstructive pulmonary disease (COPD) Is this a current diagnosis for this admission?: Yes Plan: Blood cultures (05/22/2019; 1 of 4 bottles) initially reported as positive for gram-negative differential cocci; fortunately, culture grew quickly enough to be identified as a gram-positive cocci in pairs. Likely alphahemolytic strep per micro. Repeat blood cultures pending. Sputum culture pending; has not yet been obtained. Repeat ABG is somewhat improved; pH 7.29/pCO2 50.1/pO2 78.3/ RIR657.4. Patient is admitted to the medical floor on continuous cardiac telemetry and pulse oximetry. Will provide supplemental oxygen and BiPAP as needed to maintain saturations greater than 89%. Patient has been refusing BiPAP. We will continue p.o. azithromycin as was prescribed yesterday. Now on IV Rocephin for meningitis coverage. Continue scheduled and as needed nebulizer treatments. Provide IV Solu-Medrol. Mucinex twice daily. Flonase. Robitussin as needed. PPI. Pulmonary toilet is encouraged with incentive spirometer, flutter valve, and early ambulation. (2) Meningitis Is this a current diagnosis for this admission?: Yes Plan: Patient with blood culture (1 of 4 bottles) positive for gram-positive cocci in pairs. Currently complaining of headache, neck stiffness, and low-grade fever. She has labile mood. She is currently alert and oriented x4, though with difficult to assess capacity for higher level thinking. Is unclear if this is related to her underlying Mental health (reportedly PTSD; home medications include temazepam, Lyrica, Requip, Seroquel, Soma). Unfortunately both she and her significant other are very poor historians. Head CT was benign. Infectious disease has recommended Rocephin 2 g twice daily. Eliquis is placed on hold; lumbar puncture is ordered. (3) Acute respiratory failure with hypoxia Is this a current diagnosis for this admission?: Yes Plan: Secondary #1. Evaluation and management as above. (4) Bacteremia Is this a current diagnosis for this admission?: Yes Plan: Blood cultures (05/22/2019; 1 of 4 bottles) initially reported as positive for gram-negative differential cocci; fortunately, culture grew quickly enough to be identified as a gram-positive cocci in pairs. Likely alphahemolytic strep per micro. Infectious diseases consulted; appreciate their evaluation recommendations. At the time of their recommendations, we were still under the impression that she was growing gram-negative diplococci. They advised 2 g Rocephin twice daily. We will continue Rocephin until further identification and sensitivity is known available. (5) Viral URI Is this a current diagnosis for this admission?: Yes Plan: Questionable viral prodrome prior to COPD exacerbation. Influenza is negative. COVID19 testing pending. Droplet w/ N95 and contract precautions. Chest x-ray demonstrated cardiomegaly with probable pulmonary edema. Patient does not have clear evidence of fluid overload by exam (rhonchi throughout; difficult to hear crackles, no pedal edema). Of note, the patient has a history of sarcoidosis. Any CT imaging would likelybe unhelpful in further evaluating for COVID19. Patient has been intermittently discussing leaving AGAINST MEDICAL ADVICE. Infection control nurse has been notified; she has been in contact with the [facility] department to determine the patient's rights, under the circumstances, with regard to leaving AMA. Awaiting their formal recommendations. (6) Acute kidney injury Is this a current diagnosis for this admission?: Yes Plan: Improved; Cr 2.04-> 1.41 Likely prerenal secondary to tachypnea and poor p.o. intake. Received 1 L normal saline bolus by ED provider. Continue maintenance IV fluids overnight. Unfortunately, the patient now has suggestion of pulmonary edema by chest x-ray. We will hold IV fluids; continue to encourage p.o. fluids. Avoid nephrotoxic medications. Follow-up chemistry. (7) Morbid obesity Is this a current diagnosis for this admission?: Yes Plan: BMI 48.3. The patient's morbid obesity certainly exacerbates her COPD and baseline respiratory status. She has a short neck and by positioning I am concerned that she may have partial airway obstruction while sleeping. Therefore I have asked the nursing maintain head of bed elevated to greater than 30 degrees and not allow pillows. She likely has underlying MARINO; recommend outpatient follow-up for formalized sleep testing. She is placed on a cardiac/consistent carb diet. When mentation is improved will need to discuss lifestyle and dietary modification. (8) Diabetes mellitus Qualifiers: Diabetes mellitus type: type 2 Diabetes mellitus complication status: with unspecified complications Is this a current diagnosis for this admission?: Yes Plan: Uncontrolled diabetes mellitus; A1c (02/22/2019) 9.3%. She is placed on a consistent carb/cardiac diet. Lantus 64 units nightly. Accu-Cheks before meals and at bedtime with sliding scale insulin. Hypoglycemia protocol in place. (9) History of pulmonary embolism Is this a current diagnosis for this admission?: Yes Plan: Continue Eliquis 5 mg twice daily. Low threshold for evaluating for CTA as the patient has demonstrated medication noncompliance. (10) Tobacco dependence Is this a current diagnosis for this admission?: Yes Plan: Smoking cessation strongly encouraged. Nicotine replacement therapies are provided. - Time Time Spent with patient: 35 or more minutes Medications reviewed and adjusted accordingly: Yes Anticipated discharge: Home
[2019-05-23] MEDS ORDERED: CEFTRIAXONE 2 GM/D5W RTU 2 GM/50 ML RTUPB IV SCH ×2 (18:00→22:00)
[2019-05-23] MEDS: ROPINIROLE HCL 0.25 MG TABLET PO SCH (21:28)
[2019-05-23] MEDS: INSULIN GLARGINE,HUM.REC.ANLOG 1,000 UNIT/10 ML VIAL SUBCUT SCH (21:29)
[2019-05-23] MEDS: DILTIAZEM HCL 120 MG CAP.SR.24H PO SCH (21:31)
[2019-05-23] MEDS: PHARMACY COMMUNICATION ORDER MC SCH (21:32)
[2019-05-23] MEDS ORDERED: INSULIN GLARGINE,HUM.REC.ANLOG 1,000 UNIT/10 ML VIAL SUBCUT SCH (22:00)
[2019-05-23] MEDS ORDERED: AZITHROMYCIN 250 MG TABLET PO SCH (22:00)
[2019-05-23] MEDS: CEFTRIAXONE 2 GM/D5W RTU 2 GM/50 ML RTUPB IV SCH (23:27)
[2019-05-23] MEDS: CLONAZEPAM 1 MG TABLET PO PRN (23:27)
[2019-05-24] MEDS: IPRATROPIUM/ALBUTEROL 0.5-2.5 MG/3 ML AMPUL NEB SCH ×4 (02:07→20:08)
[2019-05-24] MEDS: METHYLPREDNISOLONE INJ 40 MG/1 ML SDV IV SCH ×3 (05:09→21:50)
[2019-05-24] MEDS: PREGABALIN 50 MG CAPSULE PO SCH ×3 (05:09→21:49)
[2019-05-24] MEDS: LEVOTHYROXINE SODIUM 0.1 MG TABLET PO SCH (05:09)
[2019-05-24 06:06] LABS: HEMATOCRIT 34.5 % (36.0-47.0); HEMOGLOBIN 11.6 g/dL (12.0-15.5); MEAN CORPUSCULAR HEMOGLOBIN 28.5 pg (27.0-33.4); MEAN CORPUSCULAR HGB CONC 33.6 g/dL (32.0-36.0); MEAN CORPUSCULAR VOLUME 85 fl (80-97); PLATELET COUNT 261 10^3/uL (150-450); RED BLOOD COUNT 4.07 10^6/uL (3.72-5.28); RED CELL DISTRIBUTION WIDTH 17.1 % (11.5-14.0)
[2019-05-24 06:30] LABS: ANION GAP 11 (5-19); BLOOD UREA NITROGEN 28 mg/dL (7-20); CALCIUM 9.3 mg/dL (8.4-10.2); CARBON DIOXIDE 24 mmol/L (22-30); CHLORIDE 106 mmol/L (98-107); GLUCOSE 283 mg/dL (75-110); POTASSIUM 4.4 mmol/L (3.6-5.0)
--- NOTE | 2019-05-24 08:53 | Progress Note ---
Provider Note Provider Note: [facility] ID Telephone Advice Consultation Chart reviewed. This is a 48-year-old woman with multiple comorbid conditions including uncontrolled DM, morbid obesity with BMI 38, COPD, history of PE on Eliquis. Patient presented to the ED on 05/20 due to fever, chills, cough, shortness of breath. She received prednisone and azithromycin for COPD exacerbation. There was concern about her recent traveling history and her respiratory distress. She was in [place] 1 month ago, but returned to [place] 3 weeks ago. She had significant tachycardia and hypoxemia, mild leukocytosis. Her influenza test was negative. CXR did show cardiomegaly with opacities suggestive of pulmonary edema. She complained of headache and neck pain. CT brain was negative. Today her WBC increased to 17k. Her blood cultures from admission were initially reported as 1 bottle with a Gram negative diplococci that was later on corrected as GPC in pairs suggestive of Streptococcus spp. She has been afebrile, BP is improved, oxygen saturation remains in low 90s. Due to her traveling history, COVID-19 testing is pending and she remains in isolation awaiting for test results. PMH: Obesity DM COPD GERD PE Allergies: Beta-Blockers (Beta-Adrenergic Bloc Allergy (Unknown, Verified 05/23/19 08:14) betamethasone [From Beta-1] Allergy (Verified 05/23/19 08:14) fluticasone [From Advair Diskus] Allergy (Verified 02/15/19 15:16) penicillin V [From Pen-Vee K] Allergy (Verified 02/15/19 15:16) salmeterol [From Advair Diskus] Allergy (Verified 02/15/19 15:16) Medications: Albuterol Sulfate [Albuterol Sulfate Hfa] 2 puff IH QIDP PRN 02/21/19 Apixaban [Eliquis 5 mg Tablet] 5 mg PO Q12 02/21/19 Aspirin [Ecotrin] 81 mg PO DAILY 02/21/19 Diltiazem HCl [Diltiazem 24Hr ER] 240 mg PO DAILY 02/21/19 Folic Acid [Folvite 1 mg Tablet] 1 mg PO DAILY 02/21/19 Hydrochlorothiazide [Hydrodiuril 25 mg Tablet] 25 mg PO BID 02/21/19 Insulin Aspart [Novolog Flexpen] 0 unit SUBCUT .SLD SCALE 02/21/19 Insulin Degludec [Tresiba] 90 unit SQ QHS 02/21/19 Lisinopril 20 mg PO DAILY 02/21/19 Pregabalin [Lyrica] 200 mg PO Q8 02/21/19 Quetiapine Fumarate [Seroquel] 400 mg PO QHS 02/21/19 Carisoprodol [Soma 350 mg Tablet] 350 mg PO QIDP PRN 05/23/19 Clonazepam 2 mg PO Q8HP PRN 05/23/19 Diltiazem HCl [Diltiazem 24Hr ER (Cd)] 120 mg PO QHS 05/23/19 Hydralazine HCl [Apresoline 50 mg Tablet] 50 mg PO BID 05/23/19 Insulin Aspart [Novolog Insulin 100 Unit/1 ml 10 ml] 10 unit SQ MEALS 05/23/19 Levothyroxine Sodium [Synthroid 0.1 mg Tablet] 0.1 mg PO Q6AM 05/23/19 Ropinirole HCl [Requip 0.25 Mg Tablet] 0.25 mg PO QPM 05/23/19 Vital Signs: Temp Pulse Resp BP Pulse Ox 97.6 F 105 H 20 108/45 L 98 05/24/19 05:16 05/24/19 07:00 05/23/19 20:21 05/24/19 05:16 05/24/19 05:16 Pulse Oximeter Continuous Start: 05/22/19 18:52 Freq: RTQ4 Status: Complete Protocol: Document 05/23/19 08:00 [facility] [place] (Rec: 05/23/19 11:23 [facility] [place] [id number]) Pulse Oximetry Assessment Oxygen Saturation (92-100) 90 Oxygen Delivery Method Room Air Fraction of Inspired Oxygen (FIO2) 21 Equipment Usage Equipment Standby Continuous SpO2 Machine # Nursing monitor Intake & Output 05/23/19 05/24/19 05/25/19 06:59 06:59 06:59 Intake Total 927 2900 Output Total 0 1000 Balance 927 1900 Weight 97.9 kg 97.3 kg Weight/Height Weight 97.3 kg Height 5 ft 3 in Laboratories: 05/24/19 05:05 05/24/19 05:05 MCV 85 fl (80-97) 05/24/19 05:05 MCH 28.5 pg (27.0-33.4) 05/24/19 05:05 MCHC 33.6 g/dL (32.0-36.0) 05/24/19 05:05 RDW 17.1 % (11.5-14.0) H 05/24/19 05:05 Seg Neutrophils % 69.6 % (42-78) 05/22/19 16:25 Carbonic Acid 1.51 mmol/L (1.05-1.35) H 05/23/19 11:00 HCO3/H2CO3 Ratio 15:1 05/23/19 11:00 ABG pH 7.29 (7.35-7.45) L 05/23/19 11:00 ABG pCO2 50.1 mmHg (35-45) H 05/23/19 11:00 ABG pO2 78.3 mmHg (80-100) L 05/23/19 11:00 ABG HCO3 23.4 mmol/L (20-24) 05/23/19 11:00 ABG O2 Saturation 94.1 % (94-98) 05/23/19 11:00 ABG Base Excess -3.5 mmol/L 05/23/19 11:00 FiO2 2L 05/23/19 11:00 Chloride 106 mmol/L (98-107) 05/24/19 05:05 Carbon Dioxide 24 mmol/L (22-30) 05/24/19 05:05 Anion Gap 11 (5-19) 05/24/19 05:05 Est GFR ( Amer) > 60 (>60) 05/24/19 05:05 Glucose 283 mg/dL (75-110) H 05/24/19 05:05 Lactic Acid 1.8 mmol/L (0.7-2.1) 05/22/19 17:25 Calcium 9.3 mg/dL (8.4-10.2) 05/24/19 05:05 Total Bilirubin 0.3 mg/dL (0.2-1.3) 05/22/19 16:25 AST 32 U/L (14-36) 05/22/19 16:25 Alkaline Phosphatase 135 U/L (38-126) H 05/22/19 16:25 Total Protein 7.5 g/dL (6.3-8.2) 05/22/19 16:25 Albumin 4.3 g/dL (3.5-5.0) 05/22/19 16:25 05/22/19 17:25 Blood Blood Culture (PCR) - Final Gram positive cocci in pairs Radiology: Chest X-Ray 05/23/19 00:00 IMPRESSION: Cardiomegaly with probable pulmonary edema. Head CT 05/23/19 00:00 IMPRESSION: NORMAL BRAIN CT WITHOUT CONTRAST. EVIDENCE OF ACUTE STROKE: NO. Assessment and Recommendations: ID consulted initially for Gram negative diplococci bacteremia, corrected to Gram positive cocci in pairs. Patient is morbidly obese and presented with worsening respiratory symptoms. There is also documentation about headache and neck pain. Ceftriaxone BID was started to cover for NEUROPATHOLOGIST involvement. She also received steroids for COPD exacerbation. Blood cultures are growing Gram positive cocci in pairs, likely Streptococcus spp. CT scan of head negative for abscess or stroke. Will recommend to continue ceftriaxone 2g IV every 12 hr for now. TTE to rule out endocarditis (might need LUBNA due to her body habitus). Consider lumbar puncture if suspicion for meningitis is high. Continue isolation until more information is available. Pratima Diop MD [facility] ID [phone]
[2019-05-24] MEDS: FLUTICASONE NASAL SPRAY 50 MCG/SPRY 120 SPRAY/16 GM NASL SCH ×2 (09:04→21:51)
[2019-05-24] MEDS: LIDOCAINE 5% (700 MG) TRANSDERMAL ADH..PATCH TP SCH (09:04)
[2019-05-24] MEDS: ASPIRIN 81 MG TABLET, ENT COATED PO SCH (09:04)
[2019-05-24] MEDS: NICOTINE 14 MG/24 HR PATCH.TD24 TD SCH (09:05)
[2019-05-24] MEDS: CEFTRIAXONE 2 GM/D5W RTU 2 GM/50 ML RTUPB IV SCH ×2 (09:16→21:50)
[2019-05-24] MEDS: INSULIN LISPRO 100 UNIT/ML 3 ML VIAL SUBCUT SCH ×4 (09:16→21:51)
[2019-05-24] MEDS: GUAIFENESIN 600 MG TABLET.SA PO SCH ×2 (09:17→21:49)
[2019-05-24] MEDS: BUSPIRONE HCL 10 MG TABLET PO SCH ×2 (09:17→21:47)
[2019-05-24] MEDS: CLONAZEPAM 1 MG TABLET PO PRN ×2 (09:17→21:55)
[2019-05-24] MEDS: FOLIC ACID 1 MG TABLET PO SCH (09:17)
[2019-05-24] MEDS: FAMOTIDINE INJ/PF 20 MG/2 ML SDV IV SCH ×2 (09:17→21:50)
--- NOTE | 2019-05-24 12:51 | PDOC PROGRESS REPORT ---
Subjective Progress Note for:: 05/24/19 Reason For Visit: ACUTE RESPIRATORY FAILURE WITH HYPOXIA,COPD 05/24/2019 Patient was admitted with COPD exacerbation, medication noncompliance, anxiety, cough Physical Exam Vital Signs: Temp Pulse Resp BP Pulse Ox 97.7 F 104 H 18 138/68 H 96 05/24/19 09:15 05/24/19 11:35 05/24/19 11:35 05/24/19 11:35 05/24/19 11:35 Pulse Oximeter Continuous Start: 05/22/19 18:52 Freq: RTQ4 Status: Complete Protocol: Document 05/23/19 08:00 [facility] [place]Rec: 05/23/19 11:23 [facility] [id number] Pulse Oximetry Assessment Oxygen Saturation (92-100) 90 Oxygen Delivery Method Room Air Fraction of Inspired Oxygen (FIO2) 21 Equipment Usage Equipment Standby Continuous SpO2 Machine # Nursing monitor Intake & Output 05/23/19 05/24/19 05/25/19 06:59 06:59 06:59 Intake Total 927 2900 50 Output Total 0 1000 Balance 927 1900 50 Weight 97.9 kg 97.3 kg General appearance: PRESENT: no acute distress Respiratory exam: PRESENT: decreased breath sounds, rhonchi Cardiovascular exam: PRESENT: RRR. ABSENT: diastolic murmur, rubs, systolic murmur Neurological exam: PRESENT: alert, awake, oriented to person, oriented to place, oriented to time, oriented to situation, CN II-XII grossly intact, other - P atient is able to take your chin and turn it from side to side also put it on her chest, no significant nuchal rigidity. ABSENT: motor sensory deficit Psychiatric exam: PRESENT: agitated - Threatening to leave AMA, anxious Results Laboratory Results: 05/24/19 05:05 05/24/19 05:05 05/24/19 05/24/19 05:05 05:05 WBC 13.0 H RBC 4.07 Hgb 11.6 L Hct 34.5 L MCV 85 MCH 28.5 MCHC 33.6 RDW 17.1 H Plt Count 261 Sodium 141.2 Potassium 4.4 Chloride 106 Carbon Dioxide 24 Anion Gap 11 BUN 28 H Creatinine 1.08 Est GFR ( Amer) > 60 Glucose 283 H Calcium 9.3 05/22/19 17:25 Blood Blood Culture (PCR) - Final 05/22/19 16:25 Troponin I < 0.012 Impressions: Chest X-Ray 05/23/19 00:00 IMPRESSION: Cardiomegaly with probable pulmonary edema. Head CT 05/23/19 00:00 IMPRESSION: NORMAL BRAIN CT WITHOUT CONTRAST. EVIDENCE OF ACUTE STROKE: NO. 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 use Diabetes m ellitus complication status: with other specified complication Qualified Code(s): E11.69 - Type 2 diabetes mellitus with other specified complication Is this a current diagnosis for this admission?: Yes (5) Viral URI Is this a current diagnosis for this admission?: Yes (6) Anxiety Is this a current diagnosis for this admission?: Yes (7) COPD exacerbation Is this a current diagnosis for this admission?: Yes - Plan Summary Summary: 05/24/2019 Temperature 97.6, rate approximately 104, pressure stabilized 108/45 and O2 sat is anywhere from 90 to 98% on room air Patient Medrol 40 mg every 8 hours Rocephin 2 g IV every 12 hours Eliquis 5 mg every 12 hours Also BuSpar and Klonopin and Haldol as needed as well as Requip and Lyrica Infectious disease recommends continuing the Rocephin for the possibility of meningitis although this appears to be low. She has a LP ordered Covid 19 was reported negative Prefer patient to stay in the hospital receiving IV antibiotics until further blood cultures have resulted. Have also ordered a echocardiogram per infectious disease recommendations - Time Time Spent with patient: 25-34 minutes
[2019-05-24] MEDS ORDERED: KETOROLAC TROMETHAMINE INJ/PF 30 MG/1 ML SDV IV PRN (17:00)
[2019-05-24] MEDS: ROPINIROLE HCL 0.25 MG TABLET PO SCH (17:37)
[2019-05-24] MEDS: DILTIAZEM HCL 120 MG CAP.SR.24H PO SCH (21:47)
[2019-05-24] MEDS: MORPHINE SULFATE 10 MG/ML INJ IV PRN (21:49)
[2019-05-24] MEDS: INSULIN GLARGINE,HUM.REC.ANLOG 1,000 UNIT/10 ML VIAL SUBCUT SCH (21:52)
--- NOTE | 2019-05-24 22:14 | XCELERA REPORT ---
[address] [address] Transthoracic Echocardiogram Report Name: SELMA DOUGLAS Age: 48 yrs Gender: Female : 1970 Patient Status: Inpatient Patient Location: [address] [place], [place] [address] Study Date: 05/24/2019 01:25 PM Height: 63 in Weight: 214 lb BSA: 2.0 m2 Procedure: A two-dimensional transthoracic echocardiogram with color flow and Doppler was performed. The study was technically limited with all images being suboptimal in quality. Reason For Study: Rule out endocarditis History: ENDOCARDITIS. Ordering Physician: SONJA HEATH Performed By: Ellen Leblanc Interpretation Summary No defenite evidence of Endocarditis in this limited echo.If clinical suspicion is high recommend LUBNA. The left ventricle is normal in size. There is normal left ventricular wall thickness. LV EF is 60% Left ventricular systolic function is normal. Doppler measurements suggest normal left ventricular diastolic function The left ventricular wall motion is normal. There is no thrombus. Probably no ASD,VSD , or PFO seen. The right ventricle is grossly normal size. The right ventricle is not well visualized secondary to technical limitations The right atrium is normal. The left atrial size is normal. There is no evidence of mitral valve prolapse. There is no vegetation seen on the mitral valve. There is no mitral valve stenosis. There is no mitral regurgitation noted. There is no aortic valvular vegetation. There is no aortic valve stenosis There is no LVOT obstruction. No aortic regurgitation is present. There is no tricuspid valve vegetation. There is no tricuspid stenosis. There is a trace amount of tricuspid regurgitation There is mild pulmonary hypertension by echo RVSP is 37 mm of Hg , with RA mean of 10. There is no pulmonic valvular stenosis. There is a trace amount of pulmonic regurgitation The inferior vena cava was not visualized The aortic root is normal size. There is no pericardial effusion. No defenite evidence of Endocarditis in this limited echo.If clinical suspicion is high recommend LUBNA. MMode/2D Measurements & Calculations RVDd: 2.4 cm LVIDd: 4.9 cm FS: 31.0 % Ao root diam: 2.5 cm IVSd: 0.88 cm LVIDs: 3.4 cm EDV(Teich): 111.5 ml Ao root area: 4.9 cm2 LVPWd: 0.93 cm ESV(Teich): 46.1 ml EF(Teich): 58.6 % Doppler Measurements & Calculations MV E max alicia: MV dec slope: Ao V2 max: LV V1 max P.2 cm/sec 765.4 cm/sec2 170.7 cm/sec 7.6 mmHg MV A max alicia: MV dec time: Ao max PG: LV V1 max: 90.3 cm/sec 0.14 sec 11.7 mmHg 137.9 cm/sec MV E/A: 1.2 PA V2 max: PI end-d alicia: TR max alicia: 116.5 cm/sec 131.8 cm/sec 261.6 cm/sec PA max P.4 mmHg TR max P.4 mmHg Left Ventricle The left ventricle is normal in size. There is normal left ventricular wall thickness. LV EF is 60%. Left ventricular systolic function is normal. Doppler measurements suggest normal left ventricular diastolic function. The left ventricular wall motion is normal. There is no thrombus. Probably no ASD,VSD , or PFO seen. Right Ventricle The right ventricle is grossly normal size. The right ventricle is not well visualized secondary to technical limitations. Atria The right atrium is normal. The left atrial size is normal. Mitral Valve There is no evidence of mitral valve prolapse. There is no vegetation seen on the mitral valve. There is no mitral valve stenosis. There is no mitral regurgitation noted. Aortic Valve There is no aortic valvular vegetation. There is no aortic valve stenosis. There is no LVOT obstruction. No aortic regurgitation is present. Tricuspid Valve There is no tricuspid valve vegetation. There is no tricuspid stenosis. There is a trace amount of tricuspid regurgitation. There is mild pulmonary hypertension by echo. RVSP is 37 mm of Hg , with RA mean of 10. Pulmonic Valve There is no pulmonic valvular stenosis. There is a trace amount of pulmonic regurgitation. Great Vessels The aortic root is normal size. The inferior vena cava was not visualized. Effusions There is no pericardial effusion. : SONJA HEATH Lakshmi
[2019-05-24] MEDS: PHARMACY COMMUNICATION ORDER MC SCH (22:18)
[2019-05-25] MEDS: IPRATROPIUM/ALBUTEROL 0.5-2.5 MG/3 ML AMPUL NEB SCH ×4 (02:04→21:26)
[2019-05-25] MEDS: MORPHINE SULFATE 10 MG/ML INJ IV PRN ×4 (02:25→20:26)
[2019-05-25] MEDS: PREGABALIN 50 MG CAPSULE PO SCH ×3 (05:09→22:41)
[2019-05-25] MEDS: LEVOTHYROXINE SODIUM 0.1 MG TABLET PO SCH (05:09)
[2019-05-25] MEDS: METHYLPREDNISOLONE INJ 40 MG/1 ML SDV IV SCH (05:09)
[2019-05-25] MEDS: INSULIN LISPRO 100 UNIT/ML 3 ML VIAL SUBCUT SCH ×4 (08:32→22:41)
[2019-05-25 08:47] LABS: ABSOLUTE MONOCYTES (AUTO) 0.6 10^3/uL (0.1-1.4); ABSOLUTE NEUT (AUTO) 9.9 10^3/uL (1.7-8.2); BASOPHILS % (AUTO) 0.1 % (0-2); HEMATOCRIT 36.7 % (36.0-47.0); LYMPHOCYTES % (AUTO) 8.7 % (13-45); MEAN CORPUSCULAR HEMOGLOBIN 27.8 pg (27.0-33.4); MEAN CORPUSCULAR HGB CONC 32.5 g/dL (32.0-36.0); MEAN CORPUSCULAR VOLUME 85 fl (80-97); MONOCYTES % (AUTO) 5.5 % (3-13); PLATELET COUNT 271 10^3/uL (150-450); RED CELL DISTRIBUTION WIDTH 17.1 % (11.5-14.0); SEGMENTED NEUTROPHILS % (AUTO) 85.7 % (42-78); TOTAL CELLS COUNTED % (AUTO) 100 %; WHITE BLOOD COUNT 11.5 10^3/uL (4.0-10.5)
[2019-05-25 09:10] LABS: ANION GAP 14 (5-19); BLOOD UREA NITROGEN 34 mg/dL (7-20); CARBON DIOXIDE 22 mmol/L (22-30); CHLORIDE 106 mmol/L (98-107); GLUCOSE 315 mg/dL (75-110); POTASSIUM 4.4 mmol/L (3.6-5.0)
[2019-05-25] MEDS: NICOTINE 14 MG/24 HR PATCH.TD24 TD SCH (11:33)
[2019-05-25] MEDS: LIDOCAINE 5% (700 MG) TRANSDERMAL ADH..PATCH TP SCH (11:33)
[2019-05-25] MEDS: CEFTRIAXONE 2 GM/D5W RTU 2 GM/50 ML RTUPB IV SCH ×2 (11:45→22:43)
[2019-05-25] MEDS: FOLIC ACID 1 MG TABLET PO SCH (11:46)
[2019-05-25] MEDS: FAMOTIDINE INJ/PF 20 MG/2 ML SDV IV SCH ×2 (11:46→22:41)
[2019-05-25] MEDS: BUSPIRONE HCL 10 MG TABLET PO SCH (11:46)
[2019-05-25] MEDS: ASPIRIN 81 MG TABLET, ENT COATED PO SCH (11:47)
[2019-05-25] MEDS: GUAIFENESIN 600 MG TABLET.SA PO SCH ×2 (11:47→22:41)
--- NOTE | 2019-05-25 12:01 | PDOC PROGRESS REPORT ---
Subjective Progress Note for:: 05/25/19 Reason For Visit: ACUTE RESPIRATORY FAILURE WITH HYPOXIA,COPD 05/25/2019 Patient was admitted with a COPD exacerbation, medication noncompliance, anxiety, cough Physical Exam Vital Signs: Temp Pulse Resp BP Pulse Ox 98.6 F 110 H 19 116/74 95 05/25/19 10:39 05/25/19 10:39 05/25/19 10:39 05/25/19 10:39 05/25/19 10:39 Pulse Oximeter Continuous Start: 05/22/19 18:5 2 Freq: RTQ4 Status: Complete Protocol: Document 05/23/19 08:00 [facility] [place]Rec: 05/23/19 11:23 [facility] [place] [id number]) Pulse Oximetry Assessment Oxygen Saturation (92-100) 90 Oxygen Delivery Method Room Air Fraction of Inspired Oxygen (FIO2) 21 Equipment Usage Equipment Standby Continuous SpO2 Machine # Nursing monitor Intake & Output 05/24/19 05/25/19 05/26/19 06:59 06:59 06:59 Intake Total 2900 168 50 Output Total 1000 Balance 1900 168 50 Weight 97.3 kg 97.3 kg General appearance: PRESENT: no acute distress Respiratory exam: PRESENT: clear to auscultation colleen. ABSENT: rales, rhonchi, wheezes Cardiovascular exam: PRESENT: RRR. ABSENT: diastolic murmur, rubs, systolic murmur Neurological exam: PRESENT: alert, awake, oriented to person, oriented to place, oriented to time, oriented to situation, CN II-XII grossly intact, other - No focal deficits patient is able to take her chin and touch her chest although she states her neck it still hurts to turn her head from side to side. ABSENT: motor sensory deficit Psychiatric exam: PRESENT: anxious, flat affect. ABSENT: homicidal ideation, suicidal ideation Results Laboratory Results: 05/25/19 07:52 05/25/19 07:52 05/25/19 05/25/19 07:52 07:52 WBC 11.5 H RBC 4.30 Hgb 12.0 Hct 36.7 MCV 85 MCH 27.8 MCHC 32.5 RDW 17.1 H Plt Count 271 Seg Neutrophils % 85.7 H Sodium 141.5 Potassium 4.4 Chloride 106 Carbon Dioxide 22 Anion Gap 14 BUN 34 H Creatinine 1.01 Est GFR ( Amer) > 60 Glucose 315 H Calcium 9.0 05/22/19 17:25 Blood Blood Culture (PCR) - Final 05/22/19 16:25 Troponin I < 0.012 Impressions: Chest X-Ray 05/23/19 00:00 IMPRESSION: Cardiomegaly with probable pulmonary edema. Head CT 05/23/19 00:00 IMPRESSION: NORMAL BRAIN CT WITHOUT CONTRAST. EVIDENCE OF ACUTE STROKE: NO. Assessment and Plan - Diagnosis (1) Acute respiratory failure with hypoxia Is this a current diagnosis for this admission?: Yes (2) Dyspnea Qualifiers: Dyspnea type: shortness of breath Qualified Code(s): R06.02 - Shortness of breath; R06.00 - Dyspnea, unspecified; R06.01 - Orthopnea Is this a current diagnosis for this admission?: Yes (3) Morbid obesity Is this a current diagnosis for this admission?: Yes (4) Type 2 diabetes mellitus Qualifiers: Diabetes mellitus salvage determiner insulin use: without halfway use Diabetes mellitus complication status: with other specified complication Qualified Code(s): E11.69 - Type 2 diabetes mellitus with other specified complication Is this a current diagnosis for this admission?: Yes (5) Viral URI Is this a current diagnosis for this admission?: Yes (6) Anxiety Is this a current diagnosis for this admission?: Yes (7) COPD exacerbation Is this a current diagnosis for this admission?: Yes - Plan Summary Summary: 05/24/2019 Temperature 97.6, rate approximately 104, pressure stabilized 108/45 and O2 sat is anywhere from 90 to 98% on room air Patient Medrol 40 mg every 8 hours Rocephin 2 g IV every 12 hours Eliquis 5 mg every 12 hours Also BuSpar and Klonopin and Haldol as needed as well as Requip and Lyrica Infectious disease recommends continuing the Rocephin for the possibility of meningitis although this appears to be low. She has a LP ordered Covid 19 was reported negative Prefer patient to stay in the hospital receiving IV antibiotics until further blood cultures have resulted. Have also ordered a echocardiogram per infectious disease recommendations 05/25/2019 Temperature 98.2 pulse is slightly high at 104 but patient runs a normally high pulse rate. Blood pressure stable 140/82 and her sats are 94% on room air Patient had only one positive blood culture out of 4 and currently on Rocephin 2 g every 12 hours per infectious disease TTE yesterday was negative for any vegetation and she had an ejection fracture o f 60% Patient is still on Solu-Medrol 40 mg IV every 8 Eliquis has been held now for 48 hours so she should be able to have her lumbar puncture done today looking for either bacterial or viral meningitis. And honestly I doubt that she has either. Patient's co-visit 19 test was negative reportedly yesterday If lumbar puncture proved to be negative I would anticipate on discharging her tomorrow having her complete her antibiotics with Keflex p.o. I am going to DC her IV Solu-Medrol today and place her on p.o. prednisone - Time Time Spent with patient: 25-34 minutes
[2019-05-25] MEDS: FLUTICASONE NASAL SPRAY 50 MCG/SPRY 120 SPRAY/16 GM NASL SCH (13:11)
[2019-05-25] MEDS: CLONAZEPAM 1 MG TABLET PO PRN ×2 (13:31→22:40)
[2019-05-25 15:07] LABS: APPEARANCE ALL TUBES CLEAR; COLOR TUBE 1 PINK; COLOR TUBE 2 COLORLESS; COLOR TUBE 3 COLORLESS; COLOR TUBE 4 COLORLESS; CSF TOTAL VOLUME 20.5 CC; CSF TUBE NUMBER 3; RED BLOOD CELL,CSF 89 /uL (0-10); VOLUME TUBE 1 4.2 CC; VOLUME TUBE 2 5.3 CC; VOLUME TUBE 3 5.2 CC; VOLUME TUBE 4 5.8 CC
[2019-05-25 15:08] LABS: GLUCOSE,CSF 202 mg/dL (40-70); PROTEIN,CSF 93 mg/dL (12-60); WHITE BLOOD CELL,CSF 2 /uL (0-5)
--- NOTE | 2019-05-25 15:50 | RADIOLOGY REPORT (SQ) ---
EXAM DESCRIPTION: LUMBAR PUNCTURE COMPLETED DATE/TIME: 05/25/2019 2:29 pm REASON FOR STUDY: encephalopathy, (+) blood cultures COMPARISON: None. FLUOROSCOPY TIME: 0.2 seconds 1 images saved to PACS. TECHNIQUE: Fluoroscopic guided lumbar puncture. LIMITATIONS: None. PROCEDURE: After written consent and assessment were obtained, the patient was brought into the fluo roscopy room and placed prone on the table. The patient's lower back was prepped in a sterile fashio n and an entry site was selected under live fluoroscopic guidance. The entry site was anesthetized wi th 1% lidocaine. A 20 gauge needle was advanced through the skin and into the thecal sac at the level of L2-L3. Opening pressure of 29 water units. After approximately 21.5 ml was drained, the needle was removed and a sterile bandage was placed of the site. Closing pressure of 16 water units. Speci mens were sent to the lab for testing. A fluoroscopic spot image was saved to PACS confirming level access. FINDINGS: Clear CSF IMPRESSION: Lumbar puncture under fluoroscopy. No immediate complication. COMMENT: Patient medication list reviewed: Yes- Quality ID# [id number]:Eligible professional attests to doc umenting in the medical record they obtained, updated, or reviewed the patient's current medications. . Quality ID 145: Final reports for procedures using fluoroscopy that document radiation exposure bart blaise, or exposure time and number of fluorographic images (if radiation exposure indices are not avail able) TECHNICAL DOCUMENTATION: JOB ID: [id number] 2010 [employer]- All Rights Reserved Reading location - IP/workstation name: [email or web address]
[2019-05-25] MEDS: ROPINIROLE HCL 0.25 MG TABLET PO SCH (17:18)
[2019-05-25] MEDS: INSULIN GLARGINE,HUM.REC.ANLOG 1,000 UNIT/10 ML VIAL SUBCUT SCH (22:41)
[2019-05-25] MEDS: DILTIAZEM HCL 120 MG CAP.SR.24H PO SCH (22:42)
[2019-05-26] MEDS: BUSPIRONE HCL 10 MG TABLET PO SCH ×3 (01:45→22:21)
[2019-05-26] MEDS: PHARMACY COMMUNICATION ORDER MC SCH ×2 (01:46→22:21)
[2019-05-26] MEDS: FLUTICASONE NASAL SPRAY 50 MCG/SPRY 120 SPRAY/16 GM NASL SCH ×3 (01:46→22:21)
[2019-05-26] MEDS: IPRATROPIUM/ALBUTEROL 0.5-2.5 MG/3 ML AMPUL NEB SCH ×4 (02:12→20:20)
[2019-05-26] MEDS: MORPHINE SULFATE 10 MG/ML INJ IV PRN ×2 (02:41→08:31)
[2019-05-26] MEDS: PREGABALIN 50 MG CAPSULE PO SCH ×3 (05:41→22:20)
[2019-05-26] MEDS: LEVOTHYROXINE SODIUM 0.1 MG TABLET PO SCH (05:41)
[2019-05-26] MEDS: INSULIN LISPRO 100 UNIT/ML 3 ML VIAL SUBCUT SCH ×4 (08:25→22:08)
[2019-05-26] MEDS ORDERED: CARISOPRODOL 350 MG TABLET PO PRN (09:00)
[2019-05-26] MEDS: ASPIRIN 81 MG TABLET, ENT COATED PO SCH (09:27)
[2019-05-26] MEDS: GUAIFENESIN 600 MG TABLET.SA PO SCH ×2 (09:27→22:20)
[2019-05-26] MEDS: FOLIC ACID 1 MG TABLET PO SCH (09:28)
[2019-05-26] MEDS: PREDNISONE 20 MG TABLET PO SCH (09:28)
[2019-05-26] MEDS: FAMOTIDINE INJ/PF 20 MG/2 ML SDV IV SCH ×2 (09:31→22:20)
[2019-05-26] MEDS: NICOTINE 14 MG/24 HR PATCH.TD24 TD SCH (11:34)
[2019-05-26] MEDS: LIDOCAINE 5% (700 MG) TRANSDERMAL ADH..PATCH TP SCH (11:34)
--- NOTE | 2019-05-26 14:05 | Progress Note ---
Provider Note Provider Note: [facility] Telephone Advice Follow Up Chart reviewed. This is a 48-year-old woman with multiple comorbid conditions in cluding uncontrolled DM, morbid obesity with BMI 38, anxiety disorder, COPD, history of PE on Eliquis. Patient presented to the ED on 05/20 due to fever, chills, cough, shortness of breath. She received prednisone and azithromycin for COPD exacerbation. There was concern about her recent traveling history and her respiratory distress. She was in [place] 1 month ago, but returned to [place] 3 weeks ago. She had significant tachycardia and hypoxemia, mild leukocytosis. Her influenza test was negative. CXR did show cardiomegaly with opacities suggestive of pulmonary edema. Covid-19 test negative. She complained of headache and neck pain. CT brain was negative. LP done and CSF analysis not consistent with bacterial meningitis. Protein elevated, but patient's symptoms resolving. Low suspicion for meningitis. Her blood cultures from admission were initially reported as 1 bottle with a Gram negative diplococci that was later on corrected as GPC in pairs suggestive of Streptococcus spp. Patient's cultures were updated as Streptococcus mitis. 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 TTE was negative for vegetations although it was limited. She has been afebrile, BP is improved, oxygen saturation remains in low 90s. Medications: Albuterol Sulfate [Albuterol Sulfate Hfa] 2 puff IH QIDP PRN 02/21/19 Apixaban [Eliquis 5 mg Tablet] 5 mg PO Q12 02/21/19 Aspirin [Ecotrin] 81 mg PO DAILY 02/21/19 Diltiazem HCl [Diltiazem 24Hr ER] 240 mg PO DAILY 02/21/19 Folic Acid [Folvite 1 mg Tablet] 1 mg PO DAILY 02/21/19 Hydrochlorothiazide [Hydrodiuril 25 mg Tablet] 25 mg PO BID 02/21/19 Insulin Aspart [Novolog Flexpen] 0 unit SUBCUT .SLD SCALE 02/21/19 Insulin Degludec [Tresiba] 90 unit SQ QHS 02/21/19 Lisinopril 20 mg PO DAILY 02/21/19 Pregabalin [Lyrica] 200 mg PO Q8 02/21/19 Quetiapine Fumarate [Seroquel] 400 mg PO QHS 02/21/19 Carisoprodol [Soma 350 mg Tablet] 350 mg PO QIDP PRN 05/23/19 Clonazepam 2 mg PO Q8HP PRN 05/23/19 Diltiazem HCl [Diltiazem 24Hr ER (Cd)] 120 mg PO QHS 05/23/19 Hydralazine HCl [Apresoline 50 mg Tablet] 50 mg PO BID 05/23/19 Insulin Aspart [Novolog Insulin 100 Unit/1 ml 10 ml] 10 unit SQ MEALS 05/23/19 Levothyroxine Sodium [Synthroid 0.1 mg Tablet] 0.1 mg PO Q6AM 05/23/19 Ropinirole HCl [Requip 0.25 Mg Tablet] 0.25 mg PO QPM 05/23/19 Vital Signs: Temp Pulse Resp BP Pulse Ox 98.3 F 96 12 129/70 H 96 05/26/19 11:12 05/26/19 11:12 05/26/19 11:12 05/26/19 11:12 05/26/19 11:12 Pulse Oximeter Continuous Start: 05/22/19 18:52 Freq: RTQ4 Status: Complete Protocol: Document 05/23/19 08:00 [facility] [place] (Rec: 05/23/19 11:23 [facility] [place] [id number]) Pulse Oximetry Assessment Oxygen Saturation (92-100) 90 Oxygen Delivery Method Room Air Fraction of Inspired Oxygen (FIO2) 21 Equipment Usage Equipment Standby Continuous SpO2 Machine # Nursing monitor Intake & Output 05/25/19 05/26/19 05/27/19 06:59 06:59 06:59 Intake Total 168 1126 Balance 168 1126 Weight 97.3 kg 99.1 kg Weight/Height Weight 99.1 kg Height 5 ft 3 in Laboratories: 05/25/19 07:52 05/25/19 07:52 MCV 85 fl (80-97) 05/25/19 07:52 MCH 27.8 pg (27.0-33.4) 05/25/19 07:52 MCHC 32.5 g/dL (32.0-36.0) 05/25/19 07:52 RDW 17.1 % (11.5-14.0) H 05/25/19 07:52 Seg Neutrophils % 85.7 % (42-78) H 05/25/19 07:52 Carbonic Acid 1.51 mmol/L (1.05-1.35) H 05/23/19 11:00 HCO3/H2CO3 Ratio 15:1 05/23/19 11:00 ABG pH 7.29 (7.35-7.45) L 05/23/19 11:00 ABG pCO2 50.1 mmHg (35-45) H 05/23/19 11:00 ABG pO2 78.3 mmHg (80-100) L 05/23/19 11:00 ABG HCO3 23.4 mmol/L (20-24) 05/23/19 11:00 ABG O2 Saturation 94.1 % (94-98) 05/23/19 11:00 ABG Base Excess -3.5 mmol/L 05/23/19 11:00 FiO2 2L 05/23/19 11:00 Chloride 106 mmol/L (98-107) 05/25/19 07:52 Carbon Dioxide 22 mmol/L (22-30) 05/25/19 07:52 Anion Gap 14 (5-19) 05/25/19 07:52 Est GFR ( Amer) > 60 (>60) 05/25/19 07:52 Glucose 315 mg/dL (75-110) H 05/25/19 07:52 Lactic Acid 1.8 mmol/L (0.7-2.1) 05/22/19 17:25 Calcium 9.0 mg/dL (8.4-10.2) 05/25/19 07:52 Total Bilirubin 0.3 mg/dL (0.2-1.3) 05/22/19 16:25 AST 32 U/L (14-36) 05/22/19 16:25 Alkaline Phosphatase 135 U/L (38-126) H 05/22/19 16:25 Total Protein 7.5 g/dL (6.3-8.2) 05/22/19 16:25 Albumin 4.3 g/dL (3.5-5.0) 05/22/19 16:25 Fluid Tube Number 3 05/25/19 14:05 CSF Volume 20.5 CC 05/25/19 14:05 CSF Appearance CLEAR 05/25/19 14:05 CSF WBC 2 /uL (0-5) 05/25/19 14:05 CSF RBC 89 /uL (0-10) 05/25/19 14:05 CSF Color (1) PINK 05/25/19 14:05 CSF Color (2) COLORLESS 05/25/19 14:05 CSF Color (3) COLORLESS 05/25/19 14:05 CSF Color (4) COLORLESS 05/25/19 14:05 CSF Glucose 202 mg/dL (40-70) H 05/25/19 14:05 CSF Total Protein 93 mg/dL (12-60) H 05/25/19 14:05 05/22/19 17:25 Blood Blood Culture (PCR) - Final 05/22/19 17:25 Blood Blood Culture - Final Strep Mitis/Oralis Group Radiology: Chest X-Ray 05/23/19 00:00 IMPRESSION: Cardiomegaly with probable pulmonary edema. Head CT 05/23/19 00:00 IMPRESSION: NORMAL BRAIN CT WITHOUT CONTRAST. EVIDENCE OF ACUTE STROKE: NO. Lumbar Puncture 05/25/19 00:00 IMPRESSION: Lumbar puncture under fluoroscopy. No immediate complication. Assessment and Recommendations: Patient evaluated due to Streptococcus mitis bacteremia in 1 set. This is rarely a contaminant. It can be translocation from the oral cavity. These can also cause endocarditis but this has been ruled out with TTE. She cleared the bacteremia. Her headache resolved and no neck stiffness. LP was done but CSF analysis not consistent with bacterial meningitis. She is ready to be discharged home. If an oral option is elected, levofloxacin 750 mg po daily for 7 days (total of 10 days) would be recommended. Linezolid is an alternative but she is on anxiolytics and this can increase the risk of serotonin syndrome. Avoid any calcium, magnesium, iron, aluminium containing drugs and MVI while on levofloxacin. Be aware of the risk of CDI and tendon rupture, QT prolongation. Please call if questions. Pratima Diop MD [facility] ID [phone]
--- NOTE | 2019-05-26 14:13 | PDOC PROGRESS REPORT ---
Subjective Progress Note for:: 05/26/19 Reason For Visit: ACUTE RESPIRATORY FAILURE WITH HYPOXIA,COPD 05/26/2019 COPD exacerbation ,medication noncompliance anxiety and cough Physical Exam Vital Signs: Temp Pulse Resp BP Pulse Ox 98.3 F 96 16 129/70 H 96 05/26/19 11:12 05/26/19 13:57 05/26/19 13:57 05/26/19 11:12 05/26/19 13:57 Pulse Oximeter Continuous Start: 05/22/19 18:52 Freq: RTQ4 Status: Complete Protocol: Document 05/23/19 08:00 [facility] [place]23/19 11:23 [facility] [id number] Pulse Oximetry Assessment Oxygen Saturation (92-100) 90 Oxygen Delivery Method Room Air Fraction of Inspired Oxygen (FIO2) 21 Equipment Usage Equipment Standby Continuous SpO2 Machine # Nursing monitor Intake & Output 05/25/19 05/26/19 05/27/19 06:59 06:59 06:59 Intake Total 168 1126 480 Balance 168 1126 480 Weight 97.3 kg 99.1 kg General appearance: PRESENT: no acute distress, other - Patient asking to go home Respiratory exam: PRESENT: clear to auscultation colleen. ABSENT: rales, rhonchi, wheezes Cardiovascular exam: PRESENT: RRR. ABSENT: diastolic murmur, rubs, systolic murmur Neurological exam: PRESENT: alert, awake, oriented to person, oriented to place, oriented to time, oriented to situation, CN II-XII grossly intact, other - No nuchal rigidity, photophobia. ABSENT: motor sensory deficit Psychiatric exam: PRESENT: appropriate affect, normal mood. ABSENT: homicidal ideation, suicidal ideation Results Laboratory Results: 05/25/19 07:52 05/25/19 07:52 05/25/19 05/25/19 14:05 14:05 Fluid Tube Number 3 CSF Volume 20.5 CSF Appearance CLEAR CSF WBC 2 CSF RBC 89 CSF Color (1) PINK CSF Color (2) COLORLESS CSF Color (3) COLORLESS CSF Color (4) COLORLESS CSF Glucose 202 H CSF Total Protein 93 H 05/22/19 17:25 Blood Blood Culture (PCR) - Final 05/22/19 17:25 Blood Blood Culture - Final Strep Mitis/Oralis Grp 05/22/19 16:25 Troponin I < 0.012 Impressions: Chest X-Ray 05/23/19 00:00 IMPRESSION: Cardiomegaly with probable pulmonary edema. Head CT 05/23/19 00:00 IMPRESSION: NORMAL BRAIN CT WITHOUT CONTRAST. EVIDENCE OF ACUTE STROKE: NO. Lumbar Puncture 05/25/19 00:00 IMPRESSION: Lumbar puncture under fluoroscopy. No immediate complication. Assessment and Plan - Diagnosis (1) Acute respiratory failure with hypoxia Is this a current diagnosis for this admission?: Yes (2) Dyspnea Qualifiers: Dyspnea type: shortness of breath Qualified Code(s): R06.02 - Shortness of breath; R06.00 - Dyspnea, unspecified; R06.01 - Orthopnea Is this a current diagnosis for this admission?: Yes (3) Morbid obesity Is this a current diagnosis for this admission?: Yes (4) Type 2 diabetes mellitus Qualifiers: Diabetes mellitus intermediate teacher insulin use: without jail use Diabetes mellitus complication status: with other specified complication Qualified Code(s): E11.69 - Type 2 diabetes mellitus with other specified complication Is this a current diagnosis for this admission?: Yes (5) Viral URI Is this a current diagnosis for this admission?: Yes (6) Anxiety Is this a current diagnosis for this admission?: Yes (7) COPD exacerbation Is this a current diagnosis for this admission?: Yes - Plan Summary Summary: 05/24/2019 Temperature 97.6, rate approximately 104, pressure stabilized 108/45 and O2 sat is anywhere from 90 to 98% on room air Patient Medrol 40 mg every 8 hours Rocephin 2 g IV every 12 hours Eliquis 5 mg every 12 hours Also BuSpar and Klonopin and Haldol as needed as well as Requip and Lyrica Infectious disease recommends continuing the Rocephin for the possibility of meningitis although this appears to be low. She has a LP ordered Covid 19 was reported negative Prefer patient to stay in the hospital receiving IV antibiotics until further blood cultures have resulted. Have also ordered a echocardiogram per infectious disease recommendations 05/25/2019 Temperature 98.2 pulse is slightly high at 104 but patient runs a normally high pulse rate. Blood pressure stable 140/82 and her sats are 94% on room air Patient had only one positive blood culture out of 4 and currently on Rocephin 2 g every 12 hours per infectious disease TTE yesterday was negative for any vegetation and she had an ejection fracture of 60% Patient is still on Solu-Medrol 40 mg IV every 8 Eliquis has been held now for 48 hours so she should be able to have her lumbar puncture done today looking for either bacterial or viral meningitis. And honestly I doubt that she has either. Patient's co-visit 19 test was negative reportedly yesterday If lumbar puncture proved to be negative I would anticipate on discharging her tomorrow having her complete her antibiotics with Keflex p.o. I am going to DC her IV Solu-Medrol today and place her on p.o. prednisone 05/26/2019 Patient remains afebrile 98 3 pulse 96 blood pressure 129/70 Patient denies nuchal rigidity or headache Lumbar puncture yesterday was basically normal Going to keep patient relatively inactive today with bedrest so she does not get a post LP headache and plan to discharge her tomorrow. Agree that 7 days of Levaquin would be indicated, appreciate infectious disease note I have changed patient's medications to all p.o. I have discussed this with patient and her significant other - Time Time Spent with patient: 25-34 minutes
[2019-05-26] MEDS: OXYCODONE HCL IR 5 MG TABLET PO PRN ×2 (15:35→23:47)
[2019-05-26] MEDS: CEPHALEXIN 500 MG CAPSULE PO SCH ×2 (15:35→22:20)
[2019-05-26] MEDS: ROPINIROLE HCL 0.25 MG TABLET PO SCH (17:43)
[2019-05-26] MEDS: INSULIN GLARGINE,HUM.REC.ANLOG 1,000 UNIT/10 ML VIAL SUBCUT SCH (22:09)
[2019-05-26] MEDS: DILTIAZEM HCL 120 MG CAP.SR.24H PO SCH (22:20)
[2019-05-27] MEDS: IPRATROPIUM/ALBUTEROL 0.5-2.5 MG/3 ML AMPUL NEB SCH ×2 (02:28→08:39)
[2019-05-27] MEDS: PREGABALIN 50 MG CAPSULE PO SCH (06:02)
[2019-05-27] MEDS: LEVOTHYROXINE SODIUM 0.1 MG TABLET PO SCH (06:02)
[2019-05-27] MEDS: CEPHALEXIN 500 MG CAPSULE PO SCH (06:02)
[2019-05-27] MEDS: OXYCODONE HCL IR 5 MG TABLET PO PRN ×2 (06:25→10:32)
[2019-05-27] MEDS: INSULIN LISPRO 100 UNIT/ML 3 ML VIAL SUBCUT SCH ×2 (10:27→12:39)
[2019-05-27] MEDS: PREDNISONE 20 MG TABLET PO SCH (10:34)
[2019-05-27] MEDS: ASPIRIN 81 MG TABLET, ENT COATED PO SCH (10:34)
[2019-05-27] MEDS: BUSPIRONE HCL 10 MG TABLET PO SCH (10:34)
[2019-05-27] MEDS: LIDOCAINE 5% (700 MG) TRANSDERMAL ADH..PATCH TP SCH (10:35)
[2019-05-27] MEDS: GUAIFENESIN 600 MG TABLET.SA PO SCH (10:35)
[2019-05-27] MEDS: FOLIC ACID 1 MG TABLET PO SCH (10:35)
[2019-05-27] MEDS: NICOTINE 14 MG/24 HR PATCH.TD24 TD SCH (10:36)
[2019-05-27] MEDS: FAMOTIDINE INJ/PF 20 MG/2 ML SDV IV SCH (10:36)
[2019-05-27] MEDS: FLUTICASONE NASAL SPRAY 50 MCG/SPRY 120 SPRAY/16 GM NASL SCH (12:39)
[2019-05-27 13:36] VITALS: BP 139/69
--- NOTE | 2019-05-27 16:31 | PDOC DISCHARGE SUMMARY ---
Impression - Admit/DC Date/PCP Admission Date/Primary Care Provider: 05/22/19 18:53 AUDREY RESENDIZ MD Discharge Date: 05/27/19 - Discharge Diagnosis (1) Acute respiratory failure with hypoxia Is this a current diagnosis for this admission?: Yes (2) Dyspnea Is this a current diagnosis for this admission?: Yes (3) Morbid obesity Is this a current diagnosis for this admission?: Yes (4) Type 2 diabetes mellitus Is this a current diagnosis for this admission?: Yes (5) Viral URI Is this a current diagnosis for this admission?: Yes (6) Anxiety Is this a current diagnosis for this admission?: Yes (7) COPD exacerbation Is this a current diagnosis for this admission?: Yes - Assessment Summary: 05/24/2019 Temperature 97.6, rate approximately 104, pressure stabilized 108/45 and O2 sat is anywhere from 90 to 98% on room air Patient Medrol 40 mg every 8 hours Rocephin 2 g IV every 12 hours Eliquis 5 mg every 12 hours Also BuSpar and Klonopin and Haldol as needed as well as Requip and Lyrica Infectious disease recommends continuing the Rocephin for the possibility of meningitis although this appears to be low. She has a LP ordered Covid 19 was reported negative Prefer patient to stay in the hospital receiving IV antibiotics until further blood cultures have resulted. Have also ordered a echocardiogram per infectious disease recommendations 05/25/2019 Temperature 98.2 pulse is slightly high at 104 but patient runs a normally high pulse rate. Blood pressure stable 140/82 and her sats are 94% on room air Patient had only one positive blood culture out of 4 and currently on Rocephin 2 g every 12 hours per infectious disease TTE yesterday was negative for any vegetation and she had an ejection fracture of 60% Patient is still on Solu-Medrol 40 mg IV every 8 Eliquis has been held now for 48 hours so she should be able to have her lumbar puncture done today looking for either bacterial or viral meningitis. And honestly I doubt that she has either. Patient's co-visit 19 test was negative reportedly yesterday If lumbar puncture proved to be negative I would anticipate on discharging her tomorrow having her complete her antibiotics with Keflex p.o. I am going to DC her IV Solu-Medrol today and place her on p.o. prednisone 05/26/2019 Patient remains afebrile 98 3 pulse 96 blood pressure 129/70 Patient denies nuchal rigidity or headache Lumbar puncture yesterday was basically normal Going to keep patient relatively inactive today with bedrest so she does not get a post LP headache and plan to discharge her tomorrow. Agree that 7 days of Levaquin would be indicated, appreciate infectious disease note I have changed patient's medications to all p.o. I have discussed this with patient and her significant other 05/27/2019. She was discharged home today. Was originally admitted on the after having been seen in the emergency room on the and discharged home. He was admitted with shortness of breath have been getting worse for the last 4 or 5 days. Also complains of chills and nonproductive cough Patient was tested for Covid 19 and found to be negative while here in the hospital She also underwent a lumbar puncture that was normal. Patient was discharged home today on3 days of Keflex 500 mg 3 times daily. Her strep mitis and to be sensitive to the cephalosporins. This was one positive blood culture out of 4, could have very well been a contaminant Patient was medically stable at the time of discharge she was also sent out on a Medrol Dosepak 3 days worth of oxycodone and her Lyrica 50 mg every 8 hours as well as a NicoDerm patch. Patient and her significant other seems satisfied with the visit and the discussion today - Additional Information Resuscitation Status: Full Code Discharge Diet: Diabetic Discharge Activity: Activity As Tolerated Referrals: AUDREY RESENDIZ MD [Primary Care Provider] - 06/07/19 10:00 am Prescriptions: Cephalexin Monohydrate [Keflex 500 mg Capsule] 500 mg PO Q8 3 Days #12 capsule Pregabalin [Lyrica 50 mg Capsule] 50 mg PO Q8 30 Days #90 capsule Methylprednisolone [Medrol Dosepack (4 mg/Tab) 21 Tab/Dosepak] 4 mg PO ASDIR PRN #21 tab.ds.pk PRN Reason: Nicotine [Nicoderm 14 mg/24 Hr Transdermal Patch] 1 each TD DAILY 30 Days #30 patch.td24 Oxycodone HCl [Oxy-Ir 5 mg Tablet] 5 mg PO Q6HP PRN 3 Days #12 tablet PRN Reason: Home Medications: Albuterol Sulfate [Albuterol Sulfate Hfa] 2 puff IH QIDP PRN 02/21/19 Apixaban [Eliquis 5 mg Tablet] 5 mg PO Q12 02/21/19 Aspirin [Ecotrin] 81 mg PO DAILY 02/21/19 Diltiazem HCl [Diltiazem 24Hr ER] 240 mg PO DAILY 02/21/19 Folic Acid [Folvite 1 mg Tablet] 1 mg PO DAILY 02/21/19 Hydrochlorothiazide [Hydrodiuril 25 mg Tablet] 25 mg PO BID 02/21/19 Insulin Aspart [Novolog Flexpen] 0 unit SUBCUT .SLD SCALE 02/21/19 Insulin Degludec [Tresiba] 90 unit SQ QHS 02/21/19 Lisinopril 20 mg PO DAILY 02/21/19 Quetiapine Fumarate [Seroquel] 400 mg PO QHS 02/21/19 Carisoprodol [Soma 350 mg Tablet] 350 mg PO QIDP PRN 05/23/19 Clonazepam 2 mg PO Q8HP PRN 05/23/19 Diltiazem HCl [Diltiazem 24Hr ER (Cd)] 120 mg PO QHS 05/23/19 Hydralazine HCl [Apresoline 50 mg Tablet] 50 mg PO BID 05/23/19 Insulin Aspart [Novolog Insulin (Aspart) 100 unit/mL] 10 unit SQ MEALS 05/23/19 Levothyroxine Sodium [Synthroid 0.1 mg Tablet] 0.1 mg PO Q6AM 05/23/19 Ropinirole HCl [Requip 0.25 mg Tablet] 0.25 mg PO QPM 05/23/19 Acetaminophen [Tylenol 325 mg Tablet] 650 mg PO Q4HP PRN tablet 05/27/19 Cephalexin Monohydrate [Keflex 500 mg Capsule] 500 mg PO Q8 3 Days #12 capsule 05/27/19 Clonazepam [Klonopin 1 mg Tablet] 1 mg PO Q8HP PRN tablet 05/27/19 Guaifenesin [Mucinex Sr 600 mg Tablet.sa] 600 mg PO Q12 tablet.sa 05/27/19 Guaifenesin [Robitussin Syrup 200 mg/10 ml Ud Cup] 200 mg PO Q4HP PRN udc Ibuprofen [Motrin 600 mg Tablet] 600 mg PO Q8HP PRN tablet 05/27/19 Methylprednisolone [Medrol Dosepack (4 mg/Tab) 21 Tab/Dosepak] 4 mg PO ASDIR PRN #21 tab.ds.pk 05/27/19 Nicotine [Nicoderm 14 mg/24 Hr Transdermal Patch] 1 each TD DAILY 30 Days #30 patch.td24 05/27/19 Oxycodone HCl [Oxy-Ir 5 mg Tablet] 5 mg PO Q6HP PRN 3 Days #12 tablet 05/27/19 Pregabalin [Lyrica 50 mg Capsule] 50 mg PO Q8 30 Days #90 capsule 05/27/19 History of Present Illiness History of Present Illness: SELMA DOUGLAS is a 48 year old female Physical Exam Vital Signs: Temp Pulse Resp BP Pulse Ox 97.7 F 100 18 138/68 H 99 05/27/19 12:54 05/27/19 12:54 05/27/19 12:54 05/27/19 12:54 05/27/19 12:54 Pulse Oximeter Continuous Start: 05/22/19 18:52 Freq: RTQ4 Status: Complete Protocol: Document 05/23/19 08:00 [facility] [place]Rec[place] 05/23/19 11:23 [facility] [id number] Pulse Oximetry Assessment Oxygen Saturation (92-100) 90 Oxygen Delivery Method Room Air Fraction of Inspired Oxygen (FIO2) 21 Equipment Usage Equipment Standby Continuous SpO2 Machine # Nursing monitor Intake & Output 05/26/19 05/27/19 05/28/19 06:59 06:59 06:59 Intake Total 1126 980 222 Balance 1126 980 222 Weight 99.1 kg 99.1 kg Results Laboratory Results: WBC 11.5 10^3/uL (4.0-10.5) H 05/25/19 07:52 RBC 4.30 10^6/uL (3.72-5.28) 05/25/19 07:52 Hgb 12.0 g/dL (12.0-15.5) 05/25/19 07:52 Hct 36.7 % (36.0-47.0) 05/25/19 07:52 MCV 85 fl (80-97) 05/25/19 07:52 MCH 27.8 pg (27.0-33.4) 05/25/19 07:52 MCHC 32.5 g/dL (32.0-36.0) 05/25/19 07:52 RDW 17.1 % (11.5-14.0) H 05/25/19 07:52 Plt Count 271 10^3/uL (150-450) 05/25/19 07:52 Lymph % (Auto) 8.7 % (13-45) L 05/25/19 07:52 [place] % (Auto) 5.5 % (3-13) 05/25/19 07:52 Eos % (Auto) 0.0 % (0-6) 05/25/19 07:52 Baso % (Auto) 0.1 % (0-2) 05/25/19 07:52 Absolute Neuts (auto) 9.9 10^3/uL (1.7-8.2) H 05/25/19 07:52 Absolute Lymphs (auto) 1.0 10^3/uL (0.5-4.7) 05/25/19 07:52 Absolute Monos (auto) 0.6 10^3/uL (0.1-1.4) 05/25/19 07:52 Absolute Eos (auto) 0.0 10^3/uL (0.0-0.6) 05/25/19 07:52 Absolute Basos (auto) 0.0 10^3/uL (0.0-0.2) 05/25/19 07:52 Seg Neutrophils % 85.7 % (42-78) H 05/25/19 07:52 PT 15.1 SEC (11.4-15.4) 05/23/19 14:48 INR 1.18 05/23/19 14:48 APTT 27.7 SEC (23.5-35.8) 05/23/19 14:48 Carbonic Acid 1.51 mmol/L (1.05-1.35) H 05/23/19 11:00 HCO3/H2CO3 Ratio 15:1 05/23/19 11:00 ABG pH 7.29 (7.35-7.45) L 05/23/19 11:00 ABG pCO2 50.1 mmHg (35-45) H 05/23/19 11:00 ABG pO2 78.3 mmHg (80-100) L 05/23/19 11:00 ABG HCO3 23.4 mmol/L (20-24) 05/23/19 11:00 ABG Total CO2 25.0 mmol/L (21-25) 05/23/19 11:00 ABG O2 Saturation 94.1 % (94-98) 05/23/19 11:00 ABG Base Excess -3.5 mmol/L 05/23/19 11:00 FiO2 2L 05/23/19 11:00 Sodium 141.5 mmol/L (137-145) 05/25/19 07:52 Potassium 4.4 mmol/L (3.6-5.0) 05/25/19 07:52 Chloride 106 mmol/L (98-107) 05/25/19 07:52 Carbon Dioxide 22 mmol/L (22-30) 05/25/19 07:52 Anion Gap 14 (5-19) 05/25/19 07:52 BUN 34 mg/dL (7-20) H 05/25/19 07:52 Creatinine 1.01 mg/dL (0.52-1.25) 05/25/19 07:52 Est GFR ( Amer) > 60 (>60) 05/25/19 07:52 Est GFR (MDRD) Non-Af 58 (>60) L 05/25/19 07:52 Glucose 315 mg/dL (75-110) H 05/25/19 07:52 POC Glucose 152 mg/dL (70-110) H 05/27/19 11:07 Lactic Acid 1.8 mmol/L (0.7-2.1) 05/22/19 17:25 Calcium 9.0 mg/dL (8.4-10.2) 05/25/19 07:52 Total Bilirubin 0.3 mg/dL (0.2-1.3) 05/22/19 16:25 Direct Bilirubin 0.1 mg/dL (0.0-0.4) 05/22/19 16:25 Neonat Total Bilirubin Not Reportable 05/22/19 16:25 Neonat Direct Bilirubin Not Reportable 05/22/19 16:25 Neonat Indirect Bili Not Reportable 05/22/19 16:25 AST 32 U/L (14-36) 05/22/19 16:25 ALT 32 U/L (<35) 05/22/19 16:25 Alkaline Phosphatase 135 U/L (38-126) H 05/22/19 16:25 Troponin I < 0.012 ng/mL 05/22/19 16:25 Total Protein 7.5 g/dL (6.3-8.2) 05/22/19 16:25 Albumin 4.3 g/dL (3.5-5.0) 05/22/19 16:25 Fluid Tube Number 3 05/25/19 14:05 CSF Volume 20.5 CC 05/25/19 14:05 CSF Appearance CLEAR 05/25/19 14:05 CSF WBC 2 /uL (0-5) 05/25/19 14:05 CSF RBC 89 /uL (0-10) 05/25/19 14:05 CSF Color (1) PINK 05/25/19 14:05 CSF Color (2) COLORLESS 05/25/19 14:05 CSF Color (3) COLORLESS 05/25/19 14:05 CSF Color (4) COLORLESS 05/25/19 14:05 CSF Glucose 202 mg/dL (40-70) H 05/25/19 14:05 CSF Total Protein 93 mg/dL (12-60) H 05/25/19 14:05 Influenza A (Rapid) NEGATIVE (NEGATIVE) 05/22/19 17:35 Influenza B (Rapid) NEGATIVE (NEGATIVE) 05/22/19 17:35 05/22/19 16:25 Troponin I < 0.012 Impressions: Chest X-Ray 05/22/19 16:47 IMPRESSION: NO ACUTE FINDINGS. Chest X-Ray 05/23/19 00:00 IMPRESSION: Cardiomegaly with probable pulmonary edema. Head CT 05/23/19 00:00 IMPRESSION: NORMAL BRAIN CT WITHOUT CONTRAST. EVIDENCE OF ACUTE STROKE: NO. Lumbar Puncture 05/25/19 00:00 IMPRESSION: Lumbar puncture under fluoroscopy. No immediate complication. Stroke Is this a Stroke Patient?: No Acute Heart Failure - Is this a Heart Failure Patient?: No
== END 2019-05-27 13:29 | disposition home or self-care (01) | DRG 189 ==
LOC: ER 15:52 → EH 18:53 → 3S 21:56 → 5 05-23 06:18 → 4N 05-24 14:59
PROVIDERS: ADMIT Internal Medicine; ATTEND Physician Assistant
PROC: 5A09457 Assistance with Respiratory Ventilation, 24-96 Consecutive Hours, Continuous Positive Airway Pressure (ICD-10-PCS; principal; 2019-05-25)
PROC: 009U3ZX Drainage of Spinal Canal, Percutaneous Approach, Diagnostic (ICD-10-PCS; 2019-05-25)
PROC: B01B1ZZ Fluoroscopy of Spinal Cord using Low Osmolar Contrast (ICD-10-PCS; 2019-05-25)
DX: J96.01 Acute respiratory failure with hypoxia (principal); J44.1 Chronic obstructive pulmonary disease with (acute) exacerbation; Z68.42 Body mass index [BMI] 45.0-49.9, adult; N17.9 Acute kidney failure, unspecified; F41.9 Anxiety disorder, unspecified; E66.01 Morbid (severe) obesity due to excess calories; J06.9 Acute upper respiratory infection, unspecified; F43.10 Post-traumatic stress disorder, unspecified; E78.5 Hyperlipidemia, unspecified; I10 Essential (primary) hypertension; E03.9 Hypothyroidism, unspecified; K21.9 Gastro-esophageal reflux disease without esophagitis; E11.65 Type 2 diabetes mellitus with hyperglycemia; D86.9 Sarcoidosis, unspecified; F17.210 Nicotine dependence, cigarettes, uncomplicated; E78.00 Pure hypercholesterolemia, unspecified; Z91.14 Patient's other noncompliance with medication regimen; Z79.899 Other long term (current) drug therapy; Z79.4 Long term (current) use of insulin; Z79.01 Long term (current) use of anticoagulants; Z86.711 Personal history of pulmonary embolism; Z90.2 Acquired absence of lung [part of]; Z79.82 Long term (current) use of aspirin; Z88.8 Allergy status to other drugs, medicaments and biological substances; Z88.0 Allergy status to penicillin
CPT/HCPCS: 36415; 36600; 62328; 70450; 71045; 80048; 80053; 82803; 82945; 82962; 83605; 84157; 84484; 85025; 85027; 85610; 85730; 87040; 87077; 87150; 87186; 87252; 87804; 89050; 93005; 93010; 93306; 94640; 94660; 94762; 94799; 99285; J0696; J1630; J1815; J1885; J2270; J2920; J2930; J3490; J7030; J7620; S0028

== ENCOUNTER 2019-06-05 19:31 | Emergency (ER) | payer BC, OTHER ==
[2019-06-05] MEDS ORDERED: METHYLPREDNISOLONE INJ 125 MG/2 ML SDV IV ONE (19:57)
[2019-06-05] MEDS ORDERED: IPRATROPIUM/ALBUTEROL 0.5-2.5 MG/3 ML AMPUL NEB ONE ×2 (19:57→21:26)
[2019-06-05 20:08] LABS: ABSOLUTE EOSINOPHILS # (AUTO) 0.1 10^3/uL (0.0-0.6); ABSOLUTE LYMPHOCYTES (AUTO) 1.9 10^3/uL (0.5-4.7); ABSOLUTE MONOCYTES (AUTO) 0.8 10^3/uL (0.1-1.4); ABSOLUTE NEUT (AUTO) 6.8 10^3/uL (1.7-8.2); BASOPHILS % (AUTO) 0.4 % (0-2); EOSINOPHILS % (AUTO) 0.9 % (0-6); HEMATOCRIT 36.8 % (36.0-47.0); HEMOGLOBIN 12.5 g/dL (12.0-15.5); MEAN CORPUSCULAR HEMOGLOBIN 28.5 pg (27.0-33.4); MEAN CORPUSCULAR HGB CONC 34.1 g/dL (32.0-36.0); MEAN CORPUSCULAR VOLUME 84 fl (80-97); MONOCYTES % (AUTO) 8.6 % (3-13); PLATELET COUNT 296 10^3/uL (150-450); RED BLOOD COUNT 4.41 10^6/uL (3.72-5.28); RED CELL DISTRIBUTION WIDTH 17.4 % (11.5-14.0); SEGMENTED NEUTROPHILS % (AUTO) 70.1 % (42-78); TOTAL CELLS COUNTED % (AUTO) 100 %; WHITE BLOOD COUNT 9.7 10^3/uL (4.0-10.5)
--- NOTE | 2019-06-05 20:20 | RADIOLOGY REPORT (SQ) ---
EXAM DESCRIPTION: XR CHEST 1 VIEW COMPLETED DATE/TME: 06/05/2019 19:41 CLINICAL HISTORY: 48 years, Female, dyspnea COMPARISON: Prior study from 05/23/2019 NUMBER OF VIEWS: One TECHNIQUE: Single frontal view of the chest was obtained portably LIMITATIONS: None. FINDINGS: Cardiac and mediastinal contours are stable. Lung volumes are low. No focal consolidation, pleural effusion, or pneumothorax is evident. IMPRESSION: Negative low lung volume study. copyright 2010 [employer]- All Rights Reserved
[2019-06-05 20:22] LABS: ALBUMIN 4.2 g/dL (3.5-5.0); ALKALINE PHOSPHATASE 111 U/L (38-126); ANION GAP 11 (5-19); ASPARTATE AMINO TRANSFERASE 31 U/L (14-36); BILIRUBIN,DIRECT 0.4 mg/dL (0.0-0.4); BILIRUBIN,TOTAL 0.4 mg/dL (0.2-1.3); BLOOD UREA NITROGEN 15 mg/dL (7-20); CALCIUM 9.4 mg/dL (8.4-10.2); CARBON DIOXIDE 31 mmol/L (22-30); CHLORIDE 96 mmol/L (98-107); GLUCOSE 123 mg/dL (75-110); POTASSIUM 4.1 mmol/L (3.6-5.0); TOTAL PROTEIN 7.7 g/dL (6.3-8.2)
[2019-06-05 20:33] LABS: ARTERIAL BLOOD BASE EXCESS 6.5 mmol/L; ARTERIAL BLOOD H2CO3 1.38 mmol/L (1.05-1.35); ARTERIAL BLOOD HCO3 31.3 mmol/L (20-24); ARTERIAL BLOOD O2 SATURATION 88.1 % (94-98); ARTERIAL BLOOD PCO2 45.7 mmHg (35-45); ARTERIAL BLOOD PH 7.45 (7.35-7.45); ARTERIAL BLOOD PO2 51.9 mmHg (80-100); ARTERIAL BLOOD TOTAL CO2 32.7 mmol/L (21-25)
[2019-06-05 20:34] LABS: NT PRO BNP 62 pg/mL (<125)
[2019-06-05 20:36] LABS: TROPONIN I < 0.012 ng/mL
[2019-06-05 20:37] LABS: ARTERIAL BLOOD FIO2 ROOM AIR
[2019-06-05] MEDS ORDERED: MAGNESIUM SULFATE/D5W 1 GM/100 ML RTUPB IV SCH (21:30)
--- NOTE | 2019-06-05 22:06 | EKG REPORT ---
SEVERITY:- ABNORMAL ECG - SINUS TACHYCARDIA LEFT ATRIAL ABNORMALITY NONSPECIFIC ST-T CHANGES DIFFUSE : Confirmed by: Jose Gentile MD 05-Jun-2019 22:05:31
[2019-06-05 22:16] VITALS: BP 111/68
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
== END 2019-06-05 22:41 | disposition left against medical advice (07) ==
LOC: ER 19:31
DX: J44.1 Chronic obstructive pulmonary disease with (acute) exacerbation (principal); R09.02 Hypoxemia; I10 Essential (primary) hypertension; R00.0 Tachycardia, unspecified; F17.200 Nicotine dependence, unspecified, uncomplicated; E11.9 Type 2 diabetes mellitus without complications; Z87.01 Personal history of pneumonia (recurrent); Z90.2 Acquired absence of lung [part of]; Z88.8 Allergy status to other drugs, medicaments and biological substances; Z88.0 Allergy status to penicillin; Z53.29 Procedure and treatment not carried out because of patient's decision for other reasons
CPT/HCPCS: 93005; 94640; 99285; 96375; 96365; 36415; 82803; 85025; 80053; 84484; 83880; 71045; 93010; J2930; J3475; J7620

== ENCOUNTER 2019-06-29 22:10 | Emergency (ER) | payer BC, OTHER ==
[2019-06-29 23:08] LABS: ABSOLUTE BASOPHILS # (AUTO) 0.1 10^3/uL (0.0-0.2); ABSOLUTE EOSINOPHILS # (AUTO) 0.1 10^3/uL (0.0-0.6); ABSOLUTE LYMPHOCYTES (AUTO) 2.6 10^3/uL (0.5-4.7); ABSOLUTE MONOCYTES (AUTO) 0.8 10^3/uL (0.1-1.4); ABSOLUTE NEUT (AUTO) 10.8 10^3/uL (1.7-8.2); BASOPHILS % (AUTO) 0.8 % (0-2); EOSINOPHILS % (AUTO) 0.5 % (0-6); HEMATOCRIT 35.8 % (36.0-47.0); HEMOGLOBIN 12.1 g/dL (12.0-15.5); LYMPHOCYTES % (AUTO) 17.8 % (13-45); MEAN CORPUSCULAR HEMOGLOBIN 27.8 pg (27.0-33.4); MEAN CORPUSCULAR HGB CONC 33.8 g/dL (32.0-36.0); MEAN CORPUSCULAR VOLUME 82 fl (80-97); MONOCYTES % (AUTO) 5.8 % (3-13); PLATELET COUNT 287 10^3/uL (150-450); RED BLOOD COUNT 4.36 10^6/uL (3.72-5.28); RED CELL DISTRIBUTION WIDTH 18.6 % (11.5-14.0); SEGMENTED NEUTROPHILS % (AUTO) 75.1 % (42-78); TOTAL CELLS COUNTED % (AUTO) 100 %; WHITE BLOOD COUNT 14.4 10^3/uL (4.0-10.5)
[2019-06-29] MEDS ORDERED: IPRATROPIUM/ALBUTEROL 0.5-2.5 MG/3 ML AMPUL NEB ONE (23:16)
[2019-06-29 23:18] LABS: INTERNATIONAL RATION (INR) 1.11; PROTHROMBIN TIME 14.4 SEC (11.4-15.4)
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
[2019-06-29 23:24] LABS: ALBUMIN 4.7 g/dL (3.5-5.0); ALKALINE PHOSPHATASE 154 U/L (38-126); ANION GAP 12 (5-19); ASPARTATE AMINO TRANSFERASE 36 U/L (14-36); BILIRUBIN,TOTAL 0.3 mg/dL (0.2-1.3); BLOOD UREA NITROGEN 31 mg/dL (7-20); CALCIUM 11.3 mg/dL (8.4-10.2); CARBON DIOXIDE 30 mmol/L (22-30); CHLORIDE 93 mmol/L (98-107); GLUCOSE 177 mg/dL (75-110); POTASSIUM 4.7 mmol/L (3.6-5.0); TOTAL PROTEIN 7.9 g/dL (6.3-8.2)
[2019-06-29] MEDS ORDERED: ONDANSETRON HCL INJ/PF 4 MG/2 ML SDV IV ONE (23:24)
[2019-06-29] MEDS ORDERED: MORPHINE SULFATE 10 MG/ML INJ IV ONE (23:24)
[2019-06-29 23:40] LABS: VENOUS BLOOD BASE EXCESS 4.1 mmol/L; VENOUS BLOOD HCO3 29.3 mmol/L (20-32); VENOUS BLOOD PCO2 45.3 mmHg (35-63); VENOUS BLOOD PH 7.43 (7.30-7.42)
--- NOTE | 2019-06-29 23:57 | RADIOLOGY REPORT (SQ) ---
XR CHEST 1 VIEW EXAM DATE: 06/29/2019 10:28 PM CDT HISTORY: Shortness of breath. COMPARISON: 06/05/2019 FINDINGS: The heart size is within normal limits. There is no pulmonary vascular congestion. No consolidation, pleural effusion, or pneumothorax is seen. IMPRESSION: No evidence of acute cardiopulmonary disease.
[2019-06-30] MEDS: NORMAL SALINE 1000 ML 1,000 ML IV PRN ×2 (01:09→03:49)
--- NOTE | 2019-06-30 03:27 | RADIOLOGY REPORT (SQ) ---
CT abdomen and pelvis without contrast on 06/30/2019 at 2:43 AM CLINICAL INDICATION: Left lower quadrant pain TECHNIQUE: Multiple axial images are obtained throughout the abdomen and pelvis without the administration of contrast. This exam was performed according to our departmental dose-optimization program, which includes automated exposure control, adjustment of the mA and/or kV according to patient size and/or use of iterative reconstruction technique. Total DLP is 913.01 mGy*cm. COMPARISON: CT chest and upper abdomen from 10/09/2017 FINDINGS: Abdomen: There is a stable pulmonary cyst in the medial right lung base. There is mild linear atelectasis or scarring in the left lung base. The lung bases are otherwise clear. There is fatty infiltration of the liver. Hepatomegaly is noted. There are no renal or ureteral stones and no hydronephrosis. There is a 1.9 cm right adrenal nodule that measures 6 Hounsfield units and is consistent with an adenoma with no follow-up recommended. The unenhanced solid abdominal organs are otherwise unremarkable. There is no abdominal adenopathy. There is no free fluid or free air within the abdomen. The abdominal portion of the GI tract is unremarkable. Pelvis: The patient is status post hysterectomy. There is no free fluid in the pelvis. There is no pelvic adenopathy. Pelvic portion of the GI tract including the appendix is unremarkable. No bony abnormality is noted. IMPRESSION: 1. Hepatomegaly with fatty infiltration of the liver. 2. Otherwise essentially unremarkable unenhanced exam.
[2019-06-30] MEDS ORDERED: MORPHINE SULFATE 10 MG/ML INJ IV ONE (03:34)
[2019-06-30 05:53] LABS: APPEARANCE,URINE SLIGHTLY-CLOUDY; BILIRUBIN,URINE NEGATIVE (NEGATIVE); COLOR,URINE YELLOW; GLUCOSE, URINE NEGATIVE (NEGATIVE); KETONES,URINE NEGATIVE (NEGATIVE); PROTEIN,URINE NEGATIVE (NEGATIVE); URINE SPECIFIC GRAVITY 1.012; UROBILINOGEN,URINE NEGATIVE mg/dL (<2.0)
[2019-06-30] MEDS ORDERED: CEFTRIAXONE 1 GM/D5W RTU 1 GM/50 ML RTUPB IV ONE (05:55)
[2019-06-30 07:21] VITALS: BP 123/95
--- NOTE | 2019-06-30 09:56 | EKG REPORT ---
SEVERITY:- ABNORMAL ECG - SINUS TACHYCARDIA BASELINE ARTIFACTS : Confirmed by: Wilfredo Marvin 30-Jun-2019 09:55:40
== END 2019-06-30 07:23 | disposition home or self-care (01) ==
LOC: ER 22:10
DX: N39.0 Urinary tract infection, site not specified (principal); R11.2 Nausea with vomiting, unspecified; R00.0 Tachycardia, unspecified; R10.9 Unspecified abdominal pain; R06.02 Shortness of breath; R05 Cough; R19.7 Diarrhea, unspecified; F17.210 Nicotine dependence, cigarettes, uncomplicated; D86.9 Sarcoidosis, unspecified; J44.9 Chronic obstructive pulmonary disease, unspecified; Z88.8 Allergy status to other drugs, medicaments and biological substances; Z88.0 Allergy status to penicillin; I50.9 Heart failure, unspecified; I11.0 Hypertensive heart disease with heart failure; E11.9 Type 2 diabetes mellitus without complications
CPT/HCPCS: 93005; 36415; 87040; 83605; 83690; 85025; 85610; 80053; 81001; 82803; 71045; 74176; 93010; J2270 ×2; J2405; J7030; J0696; J7620; 82962; 94640; 96361; 96365; 96375; 96376; 99285

== ENCOUNTER 2019-07-26 13:21 | Observation (INO) | payer BC, OTHER ==
[2019-07-26] MEDS ORDERED: METHYLPREDNISOLONE INJ 125 MG/2 ML SDV IV ONE (13:43)
[2019-07-26] MEDS ORDERED: IPRATROPIUM/ALBUTEROL 0.5-2.5 MG/3 ML AMPUL NEB ONE (13:46)
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
--- NOTE | 2019-07-26 13:59 | RADIOLOGY REPORT (SQ) ---
EXAM DESCRIPTION: CHEST SINGLE VIEW IMAGES COMPLETED DATE/TIME: 07/26/2019 1:48 pm REASON FOR STUDY: sob COMPARISON: 06/29/2019 EXAM PARAMETERS: NUMBER OF VIEWS: One view. TECHNIQUE: Single frontal radiographic view of the chest acquired. RADIATION DOSE: NA LIMITATIONS: None. FINDINGS: LUNGS AND PLEURA: Low lung volumes with interstitial crowding. No focal consolidation, pl eural effusion or pneumothorax. MEDIASTINUM AND HILAR STRUCTURES: Central vascular congestion. HEART AND VASCULAR STRUCTURES: Enlarged cardiac silhouette, stable. Central vascular congestion with out overt edema. BONES: No acute findings. HARDWARE: None in the chest. OTHER: No other significant finding. IMPRESSION: Low lung volumes with Central vascular congestion and without overt edema. TECHNICAL DOCUMENTATION: JOB ID: [id number] 2010 [employer]- All Rights Reserved Reading location - IP/workstation name: [email or web address]
[2019-07-26] MEDS: MAGNESIUM SULFATE/D5W 1 GM/100 ML RTUPB IV SCH ×2 (14:13→14:30)
[2019-07-26 14:30] LABS: HEMATOCRIT 35.1 % (36.0-47.0); HEMOGLOBIN 11.7 g/dL (12.0-15.5); MEAN CORPUSCULAR HEMOGLOBIN 27.2 pg (27.0-33.4); MEAN CORPUSCULAR HGB CONC 33.4 g/dL (32.0-36.0); MEAN CORPUSCULAR VOLUME 82 fl (80-97); PLATELET COUNT 283 10^3/uL (150-450); RED CELL DISTRIBUTION WIDTH 18.6 % (11.5-14.0); WHITE BLOOD COUNT 10.4 10^3/uL (4.0-10.5)
[2019-07-26 14:51] LABS: ALBUMIN 4.2 g/dL (3.5-5.0); ALKALINE PHOSPHATASE 144 U/L (38-126); ANION GAP 9 (5-19); ASPARTATE AMINO TRANSFERASE 48 U/L (14-36); BILIRUBIN,TOTAL 0.4 mg/dL (0.2-1.3); BLOOD UREA NITROGEN 14 mg/dL (7-20); CALCIUM 9.8 mg/dL (8.4-10.2); CARBON DIOXIDE 28 mmol/L (22-30); CHLORIDE 99 mmol/L (98-107); CREATINE KINASE 53 U/L (30-135); GLUCOSE 192 mg/dL (75-110); POTASSIUM 4.7 mmol/L (3.6-5.0); TOTAL PROTEIN 7.3 g/dL (6.3-8.2)
[2019-07-26 14:55] LABS: ABSOLUTE LYMPHOCYTES# (MANUAL) 2.8 10^3/uL (0.5-4.7); ABSOLUTE MONOCYTES # (MANUAL) 0.1 10^3/uL (0.1-1.4); BASOPHILS % (MANUAL) 1 % (0-2); EOSINOPHILS % (MANUAL) 0 % (0-6); LYMPHOCYTES % (MANUAL) 25 % (13-45); METAMYELOCYTES % (MANUAL) 2 % (0-1); MONOCYTES % (MANUAL) 1 % (3-13); SEGMENTED NEUTROPHILS % (MAN) 69 % (42-78); TOTAL CELLS COUNTED 100
[2019-07-26 14:56] LABS: ANISOCYTOSIS 2+; PLATELET COMMENT ADEQUATE; PLATELET LARGE PRESENT; POIKILOCYTOSIS SLIGHT; POLYCHROMASIA 1+; TEAR DROP CELLS SLIGHT
[2019-07-26 15:02] LABS: CREATINE KINASE MB 1.07 ng/mL (<4.55)
[2019-07-26 15:03] LABS: TROPONIN I < 0.012 ng/mL
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
[2019-07-26] MEDS: ALBUTEROL SULFATE 0.083% NEB 2.5 MG/3 ML AMPUL NEB SCH (16:07)
[2019-07-26] MEDS ORDERED: MAG HYDROX/AL HYDROX/SIMETH SUSP 30 ML UDCUP PO PRN (16:18)
[2019-07-26] MEDS ORDERED: ONDANSETRON HCL INJ/PF 4 MG/2 ML SDV IV PRN (16:18)
[2019-07-26] MEDS ORDERED: ACETAMINOPHEN 325 MG TABLET PO PRN (16:18)
[2019-07-26] MEDS ORDERED: MAGNESIUM HYDROXIDE SUSP 30 ML UDCUP PO PRN (16:18)
[2019-07-26] MEDS ORDERED: ALBUTEROL SULFATE 0.083% NEB 2.5 MG/3 ML AMPUL NEB PRN (16:18)
[2019-07-26] MEDS ORDERED: HYDRALAZINE HCL INJ/PF 20 MG/1 ML SDV IV PRN (16:25)
[2019-07-26 16:35] LABS: APPEARANCE,URINE CLEAR; BILIRUBIN,URINE NEGATIVE (NEGATIVE); COLOR,URINE STRAW; GLUCOSE, URINE NEGATIVE (NEGATIVE); KETONES,URINE NEGATIVE (NEGATIVE); LEUKOCYTE ESTERASE,URINE NEGATIVE (NEGATIVE); NITRITE,URINE NEGATIVE (NEGATIVE); PROTEIN,URINE NEGATIVE (NEGATIVE); URINE SPECIFIC GRAVITY 1.005; UROBILINOGEN,URINE NEGATIVE mg/dL (<2.0)
[2019-07-26] MEDS ORDERED: GUAIFENESIN SYRP 200 MG/10 ML UDC PO PRN (16:42)
--- NOTE | 2019-07-26 16:46 | PDOC H&P ---
History of Present Illness Admission Date/PCP: 07/26/19 16:19 AUDREY RESENDIZ MD Patient complains of: shortness of breath History of Present Illness: SELMA DOUGLAS is a 48 year old female with a past medical history significant for uncontrolled insulin-dependent diabetes mellitus, morbid obesity, remote pulmonary embolism on Eliquis, PTSD, COPD (not on home O2), chronic bronchitis, tobacco dependence with continuous use, and medication noncompliance who pre sented to the emergency department with a complaint of 2-3 days with progressively worsening shortness of breath, productive cough, and wheezing. Patient developed hemoptysis overnight which is what prompted her to be seen in the emergency department today. Evaluation emergency department revealed Low-grade temp 99.5, tachycardia (HR 108) hypertensive urgency (160/110) and mild hypoxia on room air. CBC and chemistry are unremarkable other than slightly elevated transaminases (AST 48/ALT 54/alk phos 144). Chest x-ray reveals low lung volumes with central vascular congestion without overt edema. She is provided IV magnesium, Solu-Medrol, and supplemental oxygen. She is referred to the hospitalist service for admission and management of the above- stated complaints and findings. Past Medical History Cardiac Medical History: Reports: Congestive Heart Failure, Hyperlipidema, Hypertension, Pulmonary Embolism, Heart Murmur Pulmonary Medical History: Reports: Bronchitis, Chronic Obstructive Pulmonary Disease (COPD), Intubation, Pneumonia, Respiratory Failure, Sleep Apnea EENT Medical History: Reports: None Neurological Medical History: Reports: Ischemic CVA Denies: Seizures Endocrine Medical History: Reports: Diabetes Mellitus Type 2, Hypothyroidism, Obesity Denies: Diabetes Mellitus Type 1, Hyperthyroidism Renal/ Medical History: Reports: None Malignancy Medical History: Reports: None GI Medical History: Reports: Gastroesophageal Reflux Disease Denies: Cirrhosis, Crohn's Disease, Hepatitis, Ulcerative Colitis Musculoskeltal Medical History: Denies: Arthritis, Gout Skin Medical History: Denies: Eczema, Psoriasis Psychiatric Medical History: Reports: Depression, Post Traumatic Stress Disorder Hematology: Denies: Anemia, Bleeding Tendencies Past Surgical History Past Surgical History: Reports: Hysterectomy, Other - Partial LLL lung resection Social History Smoking Status: Former Smoker Electronic Cigarette use?: No Last Time Smoked: 07/14/2019 Frequency of Alcohol Use: None Hx Recreational Drug Use: No Drugs: None Hx Prescription Drug Abuse: No - Advance Directive Resuscitation Status: Full Code Family History Family History: DM, Hypertension Parental Family History Reviewed: Yes Children Family History Reviewed: Yes Sibling(s) Family History Reviewed.: Yes Medication/Allergy Home Medications: Albuterol Sulfate [Albuterol Sulfate Hfa] 2 puff IH QIDP PRN 02/21/19 Apixaban [Eliquis 5 mg Tablet] 5 mg PO Q12 02/21/19 Aspirin [Ecotrin] 81 mg PO DAILY 02/21/19 Diltiazem HCl [Diltiazem 24Hr ER] 240 mg PO DAILY 02/21/19 Folic Acid [Folvite 1 mg Tablet] 1 mg PO DAILY 02/21/19 Hydrochlorothiazide [Hydrodiuril 25 mg Tablet] 25 mg PO BID 02/21/19 Insulin Aspart [Novolog Flexpen] 0 unit SUBCUT .SLD SCALE 02/21/19 Insulin Degludec [Tresiba] 90 unit SQ QHS 02/21/19 Lisinopril 20 mg PO DAILY 02/21/19 Quetiapine Fumarate [Seroquel] 400 mg PO QHS 02/21/19 Carisoprodol [Soma 350 mg Tablet] 350 mg PO QIDP PRN 05/23/19 Clonazepam 2 mg PO Q8HP PRN 05/23/19 Diltiazem HCl [Diltiazem 24Hr ER (Cd)] 120 mg PO QHS 05/23/19 Hydralazine HCl [Apresoline 50 mg Tablet] 50 mg PO BID 05/23/19 Insulin Aspart [Novolog Insulin (Aspart) 100 unit/mL] 10 unit SQ MEALS 05/23/19 Levothyroxine Sodium [Synthroid 0.1 mg Tablet] 0.1 mg PO Q6AM 05/23/19 Ropinirole HCl [Requip 0.25 mg Tablet] 0.25 mg PO QPM 05/23/19 Acetaminophen [Tylenol 325 mg Tablet] 650 mg PO Q4HP PRN tablet 05/27/19 Cephalexin Monohydrate [Keflex 500 mg Capsule] 500 mg PO Q8 3 Days #12 capsule 05/27/19 Clonazepam [Klonopin 1 mg Tablet] 1 mg PO Q8HP PRN tablet 05/27/19 Guaifenesin [Mucinex Sr 600 mg Tablet.sa] 600 mg PO Q12 tablet.sa 03/20/20 Guaifenesin [Robitussin Syrup 200 mg/10 ml Ud Cup] 200 mg PO Q4HP PRN udc 05/27/19 Ibuprofen [Motrin 600 mg Tablet] 600 mg PO Q8HP PRN tablet 05/27/19 Methylprednisolone [Medrol Dosepack (4 mg/Tab) 21 Tab/Dosepak] 4 mg PO ASDIR PRN #21 tab.ds.pk 05/27/19 Nicotine [Nicoderm 14 mg/24 Hr Transdermal Patch] 1 each TD DAILY 30 Days #30 patch.td24 05/27/19 Oxycodone HCl [Oxy-Ir 5 mg Tablet] 5 mg PO Q6HP PRN 3 Days #12 tablet 05/27/19 Pregabalin [Lyrica 50 mg Capsule] 50 mg PO Q8 30 Days #90 capsule 05/27/19 Ipratropium/Albuterol Sulfate [Duoneb 3 ml Ampul] 3 ml NEB RTQ6HP PRN #30 vial.neb 06/05/19 Methylprednisolone [Medrol Dosepack (4 mg/Tab) 21 Tab/Dosepak] 4 mg PO ASDIR PRN #21 tab.ds.pk 06/05/19 Cephalexin Monohydrate [Keflex 500 mg Capsule] 500 mg PO QID #20 capsule 06/30/19 Ondansetron [Zofran Odt 4 mg Tablet] 1 - 2 tab PO Q4H PRN #15 tab.rapdis 06/30/19 Allergies/Adverse Reactions: Beta-Blockers (Beta-Adrenergic Bloc Allergy (Unknown, Verified 07/26/19 16:26) betamethasone [From Beta-1] Allergy (Verified 07/26/19 16:26) fluticasone [From Advair Diskus] Allergy (Verified 07/26/19 16:26) penicillin V [From Pen-Vee K] Allergy (Verified 07/26/19 16:26) salmeterol [From Advair Diskus] Allergy (Verified 07/26/19 16:26) artficial sweeteners Allergy (Uncoded 07/26/19 16:26) Review of Systems Constitutional: ABSENT: chills, fever(s), headache(s), weight gain, weight loss Eyes: ABSENT: visual disturbances Ears: ABSENT: hearing changes Cardiovascular: ABSENT: chest pain, dyspnea on exertion, edema, orthropnea, p alpitations Respiratory: PRESENT: cough, dyspnea, hemoptysis Gastrointestinal: ABSENT: abdominal pain, constipation, diarrhea, hematemesis, hematochezia, nausea, vomiting Genitourinary: ABSENT: dysuria, hematuria Musculoskeletal: ABSENT: joint swelling Integumentary: ABSENT: rash, wounds Neurological: ABSENT: abnormal gait, abnormal speech, confusion, dizziness, focal weakness, syncope Psychiatric: ABSENT: anxiety, depression, homidical ideation, suicidal ideation Endocrine: ABSENT: cold intolerance, heat intolerance, polydipsia, polyuria Hematologic/Lymphatic: ABSENT: easy bleeding, easy bruising Physical Exam Vital Signs: Temp Pulse Resp BP Pulse Ox 99.5 F 19 160/110 H 90 L 07/26/19 13:25 07/26/19 16:07 07/26/19 16:07 07/26/19 16:07 Intake & Output 07/25/19 07/26/19 07/27/19 06:59 06:59 06:59 Intake Total 200 Balance 200 General appearance: PRESENT: no acute distress, disheveled - Strong odor of tobacco, obese, well-developed, well-nourished Head exam: PRESENT: atraumatic, normocephalic Eye exam: PRESENT: conjunctiva pink, EOMI, PERRLA, other - Missing left eye (remote injury). ABSENT: scleral icterus Mouth exam: PRESENT: moist, tongue midline Teeth exam: PRESENT: poor dentation Neck exam: ABSENT: carotid bruit, JVD, lymphadenopathy, thyromegaly Respiratory exam: PRESENT: prolonged expiratory phas, rhonchi, symmetrical, tachypnea, unlabored, wheezes, other - Supplemental oxygen via nasal cannula. ABSENT: rales Cardiovascular exam: PRESENT: RRR, tachycardia. ABSENT: diastolic murmur, rubs, systolic murmur Pulses: PRESENT: normal dorsalis pedis pul Vascular exam: PRESENT: normal capillary refill GI/Abdominal exam: PRESENT: normal bowel sounds, soft. ABSENT: distended, guarding, mass, organolmegaly, rebound, tenderness Rectal exam: PRESENT: deferred Extremities exam: PRESENT: full ROM. ABSENT: calf tenderness, clubbing, pedal edema Neurological exam: PRESENT: alert, awake, oriented to person, oriented to place, oriented to time, oriented to situation, CN II-XII grossly intact. ABSENT: motor sensory deficit Psychiatric exam: PRESENT: anxious, appropriate affect, unusual affect. ABSENT: homicidal ideation, normal mood - Labile, suicidal ideation Skin exam: PRESENT: dry, intact, warm. ABSENT: cyanosis, rash Results Laboratory Results: 07/26/19 14:15 07/26/19 14:15 07/26/19 07/26/19 14:15 14:15 WBC 10.4 RBC 4.30 Hgb 11.7 L Hct 35.1 L MCV 82 MCH 27.2 MCHC 33.4 RDW 18.6 H Plt Count 283 Seg Neutrophils % Not Reportable Sodium 135.9 L Potassium 4.7 Chloride 99 Carbon Dioxide 28 Anion Gap 9 BUN 14 Creatinine 0.99 Est GFR ( Amer) > 60 Glucose 192 H Calcium 9.8 Total Bilirubin 0.4 AST 48 H Alkaline Phosphatase 144 H Total Protein 7.3 Albumin 4.2 07/26/19 07/26/19 07/26/19 14:15 14:15 14:15 Creatine Kinase 53 CK-MB (CK-2) 1.07 Troponin I < 0.012 NT-Pro-B Natriuret Pep 40 Impressions: Chest X-Ray 07/26/19 13:25 IMPRESSION: Low lung volumes with Central vascular congestion and without overt edema. Assessment and Plan - Diagnosis (1) Acute exacerbation of chronic obstructive pulmonary disease (COPD) Is this a current diagnosis for this admission?: Yes Plan: Sputum cultures are pending. CXR is benign. ABG pending Patient is admitted to the medical floor. Will provide supplemental oxygen as needed to maintain saturations greater than 89%. CPAP ordered for MARINO; consider BiPAP once ABG results are available. Continue scheduled and as needed nebulizer treatments. Provide IV Solu-Medrol. Mucinex twice daily. Flonase. Robitussin as needed. PPI. Pulmonary toilet is encouraged with incentive spirometer, flutter valve, and early ambulation. (2) Pulmonary sarcoidosis Is this a current diagnosis for this admission?: Yes Plan: Steroids as above. Followed by Dr. Kemp; will require close follow up. May benefit from pulmonary rehabilitation following discharge. (3) Acute and chronic respiratory failure Is this a current diagnosis for this admission?: Yes Plan: Secondary to #1 & 2. Management as above. (4) Hypertensive urgency Is this a current diagnosis for this admission?: Yes Plan: IV hydralazine 10 mg now. Continue IV hydralazine every 6 hours. Blood pressure control. We will resume home regiment once reconciled. Cardiac diet. (5) Hypothyroidism Qualifiers: Hypothyroidism type: unspecified Qualified Code(s): E03.9 - Hypothyroidism, unspecified Is this a current diagnosis for this admission?: Yes Plan: Continue home dose levothyroxine. (6) Pleuritic chest pain Is this a current diagnosis for this admission?: Yes Plan: Tylenol as needed. Lidoderm patch Nonpharmacological interventions. Avoid narcotics (7) Tobacco dependence Is this a current diagnosis for this admission?: Yes Plan: Patient states that she discontinued smoking 2 weeks ago, however, she has a very strong odor of tobacco about her and is noted to have cigarette geovain on her purse. Smoking cessation strongly encouraged. Nicotine replacement therapies offered and declined at this time. (8) Morbid obesity with BMI of 40.0-44.9, adult Is this a current diagnosis for this admission?: Yes Plan: Dietary discretion and lifestyle modification are advised. A1c with a.m. lab work. Continue home dose levothyroxine. Cardiac/consistent carb diet. (9) MARINO (obstructive sleep apnea) Is this a current diagnosis for this admission?: Yes Plan: Patient with likely stay; has not had the opportunity to have an overnight sleep study completed for CPAP. Discussed importance of keeping head of bed elevated and not utilizing pillows to prevent neck flexion worsening her obstruction. Supplemental oxygen as needed and CPAP nightly. - Time Time Spent with patient: 35 or more minutes Medications reviewed and adjusted accordingly: Yes Anticipated discharge: Home Within: within 48 hours
[2019-07-26 16:55] LABS: ARTERIAL BLOOD BASE EXCESS 2.2 mmol/L; ARTERIAL BLOOD FIO2 2; ARTERIAL BLOOD H2CO3 1.38 mmol/L (1.05-1.35); ARTERIAL BLOOD HCO3 27.5 mmol/L (20-24); ARTERIAL BLOOD O2 SATURATION 93.1 % (94-98); ARTERIAL BLOOD PCO2 45.7 mmHg (35-45); ARTERIAL BLOOD PO2 66.5 mmHg (80-100); ARTERIAL BLOOD TOTAL CO2 28.9 mmol/L (21-25)
[2019-07-26] MEDS ORDERED: HYDRALAZINE HCL INJ/PF 20 MG/1 ML SDV IV ONE (17:00)
[2019-07-26] MEDS ORDERED: KETOROLAC TROMETHAMINE INJ/PF 30 MG/1 ML SDV IV ONE (17:00)
[2019-07-26] MEDS ORDERED: APIXABAN 5 MG TABLET PO SCH (18:00)
[2019-07-26 18:27] VITALS: BP 136/61
[2019-07-26] MEDS ORDERED: CLONAZEPAM 1 MG TABLET PO PRN (19:11)
[2019-07-26] MEDS ORDERED: HYDROCHLOROTHIAZIDE 25 MG TABLET PO SCH (20:00)
[2019-07-26] MEDS ORDERED: FAMOTIDINE 20 MG TABLET PO SCH (22:00)
[2019-07-26] MEDS ORDERED: DILTIAZEM HCL 120 MG CAP.SR.24H PO SCH (22:00)
[2019-07-26] MEDS ORDERED: METHYLPREDNISOLONE INJ 40 MG/1 ML SDV IV SCH (22:00)
[2019-07-26] MEDS ORDERED: SODIUM CHLORIDE NASAL SPRAY 44 ML NASL SCH (22:00)
[2019-07-26] MEDS ORDERED: GUAIFENESIN 600 MG TABLET.SA PO SCH (22:00)
[2019-07-27] MEDS ORDERED: IPRATROPIUM/ALBUTEROL 0.5-2.5 MG/3 ML AMPUL NEB SCH
[2019-07-27] MEDS ORDERED: LEVOTHYROXINE SODIUM 0.1 MG TABLET PO SCH (06:00)
--- NOTE | 2019-07-27 07:44 | EKG REPORT ---
SEVERITY:- BORDERLINE ECG - SINUS TACHYCARDIA PROBABLE LEFT ATRIAL ABNORMALITY : Confirmed by: Margarita Dave MD 27-Jul-2019 07:44:08
[2019-07-27] MEDS ORDERED: FLUTICASONE NASAL SPRAY 50 MCG/SPRY 120 SPRAY/16 GM NASL SCH (10:00)
[2019-07-27] MEDS ORDERED: DOCUSATE SODIUM 100 MG CAPSULE PO SCH (10:00)
[2019-07-27] MEDS ORDERED: LIDOCAINE 5% (700 MG) TRANSDERMAL ADH..PATCH TP SCH (10:00)
[2019-07-27] MEDS ORDERED: LISINOPRIL 10 MG TABLET PO SCH (10:00)
--- NOTE | 2019-07-27 16:44 | Left Against Medical Advice ---
Against Medical Advice Admission Date/Time: 07/26/19 16:19 Primary Care Provider: AUDREY RESENDIZ MD Date of Patient Emigration: 07/26/19 - Diagnosis: (1) Acute exacerbation of chronic obstructive pulmonary disease (COPD) Is this a current diagnosis for this admission?: Yes (2) Pulmonary sarcoidosis Is this a current diagnosis for this admission?: Yes (3) Acute and chronic respiratory failure Is this a current diagnosis for this admission?: Yes (4) Hypertensive urgency Is this a current diagnosis for this admission?: Yes (5) Hypothyroidism Is this a current diagnosis for this admission?: Yes (6) Pleuritic chest pain Is this a current diagnosis for this admission?: Yes (7) Tobacco dependence Is this a current diagnosis for this admission?: Yes (8) Morbid obesity with BMI of 40.0-44.9, adult Is this a current diagnosis for this admission?: Yes (9) MARINO (obstructive sleep apnea) Is this a current diagnosis for this admission?: Yes - Summary: Summary: Please see Admission and Progress Notes as well. SELMA DOUGLAS is a 49 F, who LEFT AGAINST MEDICAL ADVICE. The Patient was admitted on 07/26/19 16:19. Per H&P: SELMA DOUGLAS is a 48 year old female with a past medical history significant for uncontrolled insulin-dependent diabetes mellitus, morbid obesity, remote pulmonary embolism on Eliquis, PTSD, COPD (not on home O2), chronic bronchitis, tobacco dependence with continuous use, and medication noncompliance who presented to the emergency department with a complaint of 2-3 days with progressively worsening shortness of breath, productive cough, and wheezing. Patient developed hemoptysis overnight which is what prompted her to be seen in the emergency department today. Evaluation emergency department revealed Low-grade temp 99.5, tachycardia (HR 108) hypertensive urgency (160/110) and mild hypoxia on room air. CBC and chemistry are unremarkable other than slightly elevated transaminases (AST 48/ALT 54/alk phos 144). Chest x-ray reveals low lung volumes with central vascular congestion without overt edema. She is provided IV magnesium, Solu-Medrol, and supplemental oxygen. She is referred to the hospitalist service for admission and management of the above- stated complaints and findings. Course: Patient was started on standard COPD care set w/ recommendations for supplemental oxygen, nebulizer treatments, steroid therapy, and BiPAP use while sleeping. Upon arrival to the floor, was called by nursing with patient request for continuous pulse oximetry. Patient also requesting to keep pillow despite education that neck flexion would worsen her MARINO and overall respiratory status; asked nursing to provide 'flat' pillow. Nursing was also asked to educate patient on BiPAP importance and to document patient's use/tolerance. Hypertensive urgency was addressed through IV Hydralazine pending home medication reconciliation. Uncontrolled DM was addressed through SSI. Patient reported AKHTAR and was provided IV Toradol per her specific request. Per nursing notes, the patient left AGAINST MEDICAL ADVICE at 20:00.
== END 2019-07-26 19:30 | disposition left against medical advice (07) ==
LOC: ER 13:21 → EH 16:19 → INTOOBSV 16:19 → 4S 18:58
PROVIDERS: ADMIT Internal Medicine; ATTEND Internal Medicine
DX: J44.1 Chronic obstructive pulmonary disease with (acute) exacerbation (principal); G47.33 Obstructive sleep apnea (adult) (pediatric); D86.0 Sarcoidosis of lung; J96.21 Acute and chronic respiratory failure with hypoxia; I16.0 Hypertensive urgency; E03.9 Hypothyroidism, unspecified; R07.81 Pleurodynia; E11.65 Type 2 diabetes mellitus with hyperglycemia; F17.210 Nicotine dependence, cigarettes, uncomplicated; E66.01 Morbid (severe) obesity due to excess calories; I69.398 Other sequelae of cerebral infarction; H54.62 Unqualified visual loss, left eye, normal vision right eye; R51 Headache; Z91.19 Patient's noncompliance with other medical treatment and regimen; Z82.49 Family history of ischemic heart disease and other diseases of the circulatory system; Z68.41 Body mass index [BMI] 40.0-44.9, adult; Z90.2 Acquired absence of lung [part of]; Z79.4 Long term (current) use of insulin
CPT/HCPCS: 93005; 99285; 96375; 96365; 36415; 82553; 82803; 82550; 85025; 80053; 81001; 84484; 83880; 71045; 93010; 36600; J2930; J1885; J3475; J3490

== ENCOUNTER 2019-08-18 16:18 | Emergency (ER) | payer BC, OTHER ==
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
[2019-08-18 17:12] LABS: ABSOLUTE BASOPHILS # (AUTO) 0.1 10^3/uL (0.0-0.2); ABSOLUTE LYMPHOCYTES (AUTO) 2.9 10^3/uL (0.5-4.7); ABSOLUTE MONOCYTES (AUTO) 0.6 10^3/uL (0.1-1.4); ABSOLUTE NEUT (AUTO) 7.6 10^3/uL (1.7-8.2); BASOPHILS % (AUTO) 0.8 % (0-2); EOSINOPHILS % (AUTO) 0.4 % (0-6); HEMATOCRIT 37.7 % (36.0-47.0); HEMOGLOBIN 12.3 g/dL (12.0-15.5); LYMPHOCYTES % (AUTO) 25.5 % (13-45); MEAN CORPUSCULAR HEMOGLOBIN 25.7 pg (27.0-33.4); MEAN CORPUSCULAR HGB CONC 32.6 g/dL (32.0-36.0); MEAN CORPUSCULAR VOLUME 79 fl (80-97); MONOCYTES % (AUTO) 5.3 % (3-13); PLATELET COUNT 333 10^3/uL (150-450); RED BLOOD COUNT 4.79 10^6/uL (3.72-5.28); RED CELL DISTRIBUTION WIDTH 18.4 % (11.5-14.0); TOTAL CELLS COUNTED % (AUTO) 100 %; WHITE BLOOD COUNT 11.2 10^3/uL (4.0-10.5)
--- NOTE | 2019-08-18 17:20 | RADIOLOGY REPORT (SQ) ---
EXAM DESCRIPTION: CHEST SINGLE VIEW IMAGES COMPLETED DATE/TIME: 08/18/2019 4:04 pm REASON FOR STUDY: Short of breath chest pain COMPARISON: 07/26/2019 EXAM PARAMETERS: NUMBER OF VIEWS: One view. TECHNIQUE: Single frontal radiographic view of the chest acquired. RADIATION DOSE: NA LIMITATIONS: None. FINDINGS: LUNGS AND PLEURA: Improved aeration in the right perihilar and left lower lobe. No focal consolidation or pleural effusion. No pneumothorax. MEDIASTINUM AND HILAR STRUCTURES: No masses. Contour normal. HEART AND VASCULAR STRUCTURES: Heart normal in size. Normal vasculature. BONES: No acute findings. HARDWARE: None in the chest. OTHER: No other significant finding. IMPRESSION: No acute cardiopulmonary disease. Improved aeration from prior. TECHNICAL DOCUMENTATION: JOB ID: [id number] 2010 [employer]- All Rights Reserved Reading location - IP/workstation name: [email or web address]
[2019-08-18 17:26] LABS: ALBUMIN 4.4 g/dL (3.5-5.0); ALKALINE PHOSPHATASE 122 U/L (38-126); ANION GAP 10 (5-19); ASPARTATE AMINO TRANSFERASE 42 U/L (14-36); BILIRUBIN,TOTAL 0.4 mg/dL (0.2-1.3); BLOOD UREA NITROGEN 35 mg/dL (7-20); CALCIUM 11.1 mg/dL (8.4-10.2); CARBON DIOXIDE 33 mmol/L (22-30); CHLORIDE 95 mmol/L (98-107); GLUCOSE 154 mg/dL (75-110); POTASSIUM 3.5 mmol/L (3.6-5.0); TOTAL PROTEIN 7.7 g/dL (6.3-8.2)
--- NOTE | 2019-08-18 17:28 | EKG REPORT ---
SEVERITY:- ABNORMAL ECG - SINUS TACHYCARDIA RIGHT ATRIAL ABNORMALITY NONSPECIFIC INTRAVENTRICULAR CONDUCTION DELAY : Confirmed by: Margarita Dave MD 18-Aug-2019 17:27:35
[2019-08-18] MEDS ORDERED: MORPHINE SULFATE 10 MG/ML INJ IV ONE ×3 (17:36→21:53)
[2019-08-18] MEDS ORDERED: NORMAL SALINE 1000 ML 1,000 ML IV ONE ×2 (17:37→18:11)
[2019-08-18] MEDS ORDERED: ONDANSETRON HCL INJ/PF 4 MG/2 ML SDV IV ONE (17:37)
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
--- NOTE | 2019-08-18 18:33 | RADIOLOGY REPORT (SQ) ---
EXAM DESCRIPTION: CT HEAD WITHOUT IMAGES COMPLETED DATE/TIME: 08/18/2019 6:21 pm REASON FOR STUDY: AMS, fall COMPARISON: 05/23/2019 TECHNIQUE: Axial images acquired through the brain without intravenous contrast. Images reviewed wi th bone, brain and subdural windows. Additional sagittal and coronal reconstructions were generated. Images stored on PACS. All CT scanners at this facility use dose modulation, iterative reconstruction, and/or weight based d osing when appropriate to reduce radiation dose to as low as reasonably achievable (ALARA). [facility]: Dose Right [facility]: CareDose [facility]: Dose Right [facility]: Teradose 4D [facility]: Smart [employer] RADIATION DOSE: CT Rad equipment meets quality standard of care and radiation dose reduction techniq ues were employed. CTDIvol: 48.6 mGy. DLP: 855 mGy-cm. mGy. LIMITATIONS: None. FINDINGS: VENTRICLES: Normal size and contour. CEREBRUM: No masses. No hemorrhage. No midline shift. No evidence for acute infarction. Normal gra y/white matter differentiation. No areas of low density in the white matter. CEREBELLUM: No masses. No hemorrhage. No alteration of density. No evidence for acute infarction. EXTRAAXIAL SPACES: No fluid collections. No masses. ORBITS AND GLOBE: No intra- or extraconal masses. Normal contour of globe without masses. CALVARIUM: No fracture. PARANASAL SINUSES: No fluid or mucosal thickening. SOFT TISSUES: No mass or hematoma. OTHER: No other significant finding. IMPRESSION: NORMAL BRAIN CT WITHOUT CONTRAST. EVIDENCE OF ACUTE STROKE: NO. COMMENT: Quality ID # [id number]: Final reports with documentation of one or more dose reduction techniques (e.g., Automated exposure control, adjustment of the mA and/or kV according to patient size, use of iterative reconstruction technique) TECHNICAL DOCUMENTATION: JOB ID: [id number] 2010 [employer]- All Rights Reserved Reading location - IP/workstation name: [email or web address]
--- NOTE | 2019-08-18 18:36 | RADIOLOGY REPORT (SQ) ---
EXAM DESCRIPTION: CT LUMBAR SPINE WITHOUT IMAGES COMPLETED DATE/TIME: 08/18/2019 6:21 pm REASON FOR STUDY: Low back pain, frequent falls COMPARISON: None. TECHNIQUE: Axial images acquired through the lumbar spine without intravenous contrast. Images revi ewed with lung, soft tissue and bone windows. Reconstructed coronal and sagittal MPR images reviewed . All images stored on PACS. All CT scanners at this facility use dose modulation, iterative reconstruction, and/or weight based d osing when appropriate to reduce radiation dose to as low as reasonably achievable (ALARA). [facility]: Dose Right [facility]: CareDose [facility]: Dose Right [facility]: Teradose 4D [facility]: Smart [employer] RADIATION DOSE: CT Rad equipment meets quality standard of care and radiation dose reduction techniq ues were employed. CTDIvol: 31.5 mGy. DLP: 1193 mGy-cm. mGy. LIMITATIONS: None. FINDINGS: SEGMENTATION: Normal. No transitional anatomy. ALIGNMENT: Normal. VERTEBRAL BODIES: No fractures. No dislocation. No acute findings. DISCS: No significant protrusions. Study limited by lack of intrathecal contrast. PEDICLES, TRANSVERSE PROCESSES: No fractures. No dislocation. No acute findings. FACETS, POSTERIOR ELEMENTS: No fractures. No dislocation. No spinal stenosis. HARDWARE: None in the spine. VISUALIZED RIBS: No fractures. SOFT TISSUES: Fatty liver. OTHER: No other significant finding. IMPRESSION: Normal lumbar CT. Hepatic steatosis. TECHNICAL DOCUMENTATION: JOB ID: [id number] Quality ID # [id number]: Final reports with documentation of one or more dose reduction techniques (e.g., Au tomated exposure control, adjustment of the mA and/or kV according to patient size, use of iterative reconstruction technique) 2010 [employer]- All Rights Reserved Reading location - IP/workstation name: [email or web address]
[2019-08-18 20:43] LABS: ANION GAP 7 (5-19); BLOOD UREA NITROGEN 34 mg/dL (7-20); CALCIUM 9.9 mg/dL (8.4-10.2); CARBON DIOXIDE 35 mmol/L (22-30); CHLORIDE 98 mmol/L (98-107); GLUCOSE 99 mg/dL (75-110); POTASSIUM 3.4 mmol/L (3.6-5.0)
[2019-08-18] MEDS ORDERED: POTASSIUM CHLORIDE 10 MEQ TABLET.ER PO ONE (20:55)
[2019-08-18 22:02] LABS: ANION GAP 6 (5-19); BLOOD UREA NITROGEN 34 mg/dL (7-20); CALCIUM 9.2 mg/dL (8.4-10.2); CARBON DIOXIDE 32 mmol/L (22-30); CHLORIDE 101 mmol/L (98-107); GLUCOSE 124 mg/dL (75-110); POTASSIUM 3.4 mmol/L (3.6-5.0)
[2019-08-18 22:57] VITALS: BP 114/57
== END 2019-08-18 22:57 | disposition home or self-care (01) ==
LOC: ER 16:18
DX: N17.9 Acute kidney failure, unspecified (principal); R55 Syncope and collapse; R19.7 Diarrhea, unspecified; R05 Cough; R53.1 Weakness; R07.9 Chest pain, unspecified; M54.5 Low back pain; R00.0 Tachycardia, unspecified; R29.6 Repeated falls; E11.9 Type 2 diabetes mellitus without complications; J44.9 Chronic obstructive pulmonary disease, unspecified; E66.9 Obesity, unspecified; K76.0 Fatty (change of) liver, not elsewhere classified; I10 Essential (primary) hypertension; Z86.711 Personal history of pulmonary embolism; Z87.891 Personal history of nicotine dependence; Z88.8 Allergy status to other drugs, medicaments and biological substances; Z88.0 Allergy status to penicillin; Z91.018 Allergy to other foods; Z79.01 Long term (current) use of anticoagulants
CPT/HCPCS: 93005; 96376; 99285; 96361; 96374; 96375; 36415; 83735; 85025; 80053; 84484; 71045; 70450; 72131; 93010; J2270; J2405; J7030

== ENCOUNTER 2019-08-29 13:50 | Emergency (ER) | payer BC, OTHER ==
[2019-08-29] MEDS ORDERED: MORPHINE SULFATE 10 MG/ML INJ IV ONE ×2 (14:09→20:00)
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
[2019-08-29 14:27] LABS: ABSOLUTE BASOPHILS # (AUTO) 0.1 10^3/uL (0.0-0.2); ABSOLUTE EOSINOPHILS # (AUTO) 0.1 10^3/uL (0.0-0.6); ABSOLUTE LYMPHOCYTES (AUTO) 2.1 10^3/uL (0.5-4.7); ABSOLUTE MONOCYTES (AUTO) 0.7 10^3/uL (0.1-1.4); ABSOLUTE NEUT (AUTO) 9.8 10^3/uL (1.7-8.2); BASOPHILS % (AUTO) 0.5 % (0-2); EOSINOPHILS % (AUTO) 0.5 % (0-6); HEMATOCRIT 41.8 % (36.0-47.0); HEMOGLOBIN 13.5 g/dL (12.0-15.5); LYMPHOCYTES % (AUTO) 16.5 % (13-45); MEAN CORPUSCULAR HEMOGLOBIN 25.4 pg (27.0-33.4); MEAN CORPUSCULAR HGB CONC 32.2 g/dL (32.0-36.0); MEAN CORPUSCULAR VOLUME 79 fl (80-97); MONOCYTES % (AUTO) 5.3 % (3-13); PLATELET COUNT 313 10^3/uL (150-450); RED BLOOD COUNT 5.31 10^6/uL (3.72-5.28); RED CELL DISTRIBUTION WIDTH 18.3 % (11.5-14.0); SEGMENTED NEUTROPHILS % (AUTO) 77.2 % (42-78); TOTAL CELLS COUNTED % (AUTO) 100 %; WHITE BLOOD COUNT 12.7 10^3/uL (4.0-10.5)
[2019-08-29 14:41] LABS: ALBUMIN 4.3 g/dL (3.5-5.0); ALKALINE PHOSPHATASE 139 U/L (38-126); ANION GAP 11 (5-19); ASPARTATE AMINO TRANSFERASE 45 U/L (14-36); BILIRUBIN,TOTAL 0.4 mg/dL (0.2-1.3); BLOOD UREA NITROGEN 17 mg/dL (7-20); CALCIUM 10.7 mg/dL (8.4-10.2); CARBON DIOXIDE 31 mmol/L (22-30); CHLORIDE 96 mmol/L (98-107); GLUCOSE 160 mg/dL (75-110); POTASSIUM 3.6 mmol/L (3.6-5.0); TOTAL PROTEIN 7.7 g/dL (6.3-8.2)
--- NOTE | 2019-08-29 15:14 | RADIOLOGY REPORT (SQ) ---
EXAM DESCRIPTION: KNEE BILATERAL 1-2 VIEWS IMAGES COMPLETED DATE/TIME: 08/29/2019 2:48 pm REASON FOR STUDY: injury COMPARISON: None. NUMBER OF VIEWS: Four views. TECHNIQUE: AP and lateral views of the right and left knees were obtained. LIMITATIONS: None. FINDINGS: MINERALIZATION: Normal. RIGHT KNEE BONES: No acute fracture or dislocation. JOINT: No joint effusion. The quadriceps and patellar tendon silhouettes are intact. SOFT TISSUE: LEFT KNEE BONES: No acute fracture or dislocation. JOINT: No joint effusion. The quadriceps and patellar tendon silhouettes are intact. SOFT TISSUE: No prepatellar soft tissue swelling. IMPRESSION: No acute osseous abnormality of the knees. TECHNICAL DOCUMENTATION: JOB ID: [id number] 2010 [employer]- All Rights Reserved Reading location - IP/workstation name: [email or web address]
[2019-08-29 20:20] LABS: APPEARANCE,URINE CLOUDY; BILIRUBIN,URINE NEGATIVE (NEGATIVE); COLOR,URINE AMBER; GLUCOSE, URINE NEGATIVE (NEGATIVE); KETONES,URINE NEGATIVE (NEGATIVE); LEUKOCYTE ESTERASE,URINE SMALL (NEGATIVE); NITRITE,URINE NEGATIVE (NEGATIVE); PROTEIN,URINE 30 mg/dL (NEGATIVE); URINE SPECIFIC GRAVITY 1.023; UROBILINOGEN,URINE NEGATIVE mg/dL (<2.0)
[2019-08-29] MEDS ORDERED: NORMAL SALINE 500 ML IV ONE (20:26)
[2019-08-29] MEDS ORDERED: FENTANYL CITRATE INJ/PF 100 MCG/2 ML AMPUL IV ONE (20:30)
[2019-08-29] MEDS ORDERED: ONDANSETRON HCL INJ/PF 4 MG/2 ML SDV IV ONE (20:30)
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
[2019-08-29] MEDS ORDERED: HYDROCODONE/ACETAMINOPHEN 5-325 MG (6 TAB/ER DISP) PO PRN (22:06)
[2019-08-29] MEDS ORDERED: LIDOCAINE 5% (700 MG) TRANSDERMAL ADH..PATCH TP ONE (22:06)
[2019-08-29 23:12] VITALS: BP 135/80
== END 2019-08-29 23:10 | disposition home or self-care (01) ==
LOC: ER 13:50
DX: S89.92XA Unspecified injury of left lower leg, initial encounter (principal); M25.561 Pain in right knee; M25.562 Pain in left knee; W19.XXXA Unspecified fall, initial encounter; Y93.89 Activity, other specified; M54.5 Low back pain; D72.829 Elevated white blood cell count, unspecified; J44.9 Chronic obstructive pulmonary disease, unspecified; I10 Essential (primary) hypertension; E11.9 Type 2 diabetes mellitus without complications; I26.99 Other pulmonary embolism without acute cor pulmonale; Z79.01 Long term (current) use of anticoagulants; Z87.891 Personal history of nicotine dependence; Z88.8 Allergy status to other drugs, medicaments and biological substances; Z88.0 Allergy status to penicillin
CPT/HCPCS: 99283; 96361; 96374; 96375; 36415; 87086; 85025; 80053; 81001; 73560; J3010; J2270; J2405; J7040

== ENCOUNTER 2019-09-11 02:26 | Emergency (ER) | payer BC, OTHER ==
[2019-09-11 05:14] LABS: ABSOLUTE EOSINOPHILS # (AUTO) 0.1 10^3/uL (0.0-0.6); ABSOLUTE LYMPHOCYTES (AUTO) 2.8 10^3/uL (0.5-4.7); ABSOLUTE MONOCYTES (AUTO) 0.6 10^3/uL (0.1-1.4); ABSOLUTE NEUT (AUTO) 7.8 10^3/uL (1.7-8.2); BASOPHILS % (AUTO) 0.3 % (0-2); EOSINOPHILS % (AUTO) 1.1 % (0-6); HEMATOCRIT 36.8 % (36.0-47.0); LYMPHOCYTES % (AUTO) 24.4 % (13-45); MEAN CORPUSCULAR HEMOGLOBIN 24.8 pg (27.0-33.4); MEAN CORPUSCULAR HGB CONC 32.7 g/dL (32.0-36.0); MEAN CORPUSCULAR VOLUME 76 fl (80-97); MONOCYTES % (AUTO) 5.5 % (3-13); PLATELET COUNT 298 10^3/uL (150-450); RED BLOOD COUNT 4.85 10^6/uL (3.72-5.28); RED CELL DISTRIBUTION WIDTH 19.3 % (11.5-14.0); SEGMENTED NEUTROPHILS % (AUTO) 68.7 % (42-78); TOTAL CELLS COUNTED % (AUTO) 100 %; WHITE BLOOD COUNT 11.4 10^3/uL (4.0-10.5)
[2019-09-11 05:34] LABS: ALKALINE PHOSPHATASE 149 U/L (38-126); ANION GAP 7 (5-19); ASPARTATE AMINO TRANSFERASE 34 U/L (14-36); BILIRUBIN,DIRECT 0.1 mg/dL (0.0-0.4); BILIRUBIN,TOTAL 0.3 mg/dL (0.2-1.3); BLOOD UREA NITROGEN 17 mg/dL (7-20); CALCIUM 10.5 mg/dL (8.4-10.2); CARBON DIOXIDE 32 mmol/L (22-30); CHLORIDE 99 mmol/L (98-107); GLUCOSE 136 mg/dL (75-110); POTASSIUM 4.4 mmol/L (3.6-5.0); TOTAL PROTEIN 7.1 g/dL (6.3-8.2)
[2019-09-11 06:42] VITALS: BP 115/68
[2019-09-11] MEDS ORDERED: MORPHINE SULFATE 10 MG/ML INJ IV ONE (07:43)
[2019-09-11] MEDS ORDERED: ONDANSETRON HCL INJ/PF 4 MG/2 ML SDV IV ONE (07:43)
--- NOTE | 2019-09-11 08:31 | RADIOLOGY REPORT (SQ) ---
EXAM DESCRIPTION: ACUTE ABDOMEN SERIES IMAGES COMPLETED DATE/TIME: 09/11/2019 8:10 am REASON FOR STUDY: chest pain/ left lower abd pain COMPARISON: CT abdomen pelvis 06/30/2019 Chest film 06/29/2027 Abdominal films 10/13/2017 NUMBER OF VIEWS: Three views. TECHNIQUE: Frontal chest, supine abdomen and upright/decubitus abdomen radiographic images acquired. LIMITATIONS: None. FINDINGS: CHEST: No focal infiltrates. No pleural effusion or pneumothorax. Stable mild to moderate cardiomegaly FREE AIR: None. No abnormal gas collections. BOWEL GAS PATTERN: Nonobstructive pattern. No dilated loops or air fluid levels. CALCIFICATIONS: No suspicious calcifications. HARDWARE: None in the abdomen. SOFT TISSUES: Hepatomegaly is present BONES: No acute fracture. No worrisome bone lesions. OTHER: No other significant finding. IMPRESSION: No acute infiltrates Nonobstructive bowel gas pattern. Hepatomegaly TECHNICAL DOCUMENTATION: JOB ID: [id number] 2010 [employer]- All Rights Reserved Reading location - IP/workstation name: [email or web address]
[2019-09-11 08:36] LABS: NT PRO BNP 56 pg/mL (<125)
[2019-09-11 08:37] LABS: TROPONIN I < 0.012 ng/mL
[2019-09-11 09:17] LABS: AMORPHOUS SEDIMENT,URINE TRACE /HPF; APPEARANCE,URINE CLOUDY; BILIRUBIN,URINE NEGATIVE (NEGATIVE); COLOR,URINE AMBER; GLUCOSE, URINE NEGATIVE (NEGATIVE); KETONES,URINE NEGATIVE (NEGATIVE); LEUKOCYTE ESTERASE,URINE MODERATE (NEGATIVE); NITRITE,URINE POSITIVE (NEGATIVE); PROTEIN,URINE 30 mg/dL (NEGATIVE); URINE SPECIFIC GRAVITY 1.016; UROBILINOGEN,URINE NEGATIVE mg/dL (<2.0)
[2019-09-11 09:37] LABS: URINE AMPHETAMINES SCREEN NEGATIVE; URINE BARBITURATES SCREEN NEGATIVE; URINE BENZODIAZEPINES SCREEN NEGATIVE; URINE COCAINE SCREEN NEGATIVE; URINE MARIJUANA (THC) SCREEN NEGATIVE; URINE METHADONE SCREEN NEGATIVE; URINE PHENCYCLIDINE SCREEN NEGATIVE
[2019-09-11] MEDS ORDERED: NITROFURANTOIN MONOHYD/M-CRYST 100 MG CAPSULE PO ONE (10:29)
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
--- NOTE | 2019-09-11 17:23 | EKG REPORT ---
SEVERITY:- BORDERLINE ECG - SINUS TACHYCARDIA PROBABLE LEFT ATRIAL ABNORMALITY : Confirmed by: Margarita Dave MD 11-Sep-2019 17:22:31
== END 2019-09-11 10:49 | disposition home or self-care (01) ==
LOC: ER 02:26
DX: R07.89 Other chest pain (principal); N39.0 Urinary tract infection, site not specified; R11.2 Nausea with vomiting, unspecified; R51 Headache; R10.814 Left lower quadrant abdominal tenderness; R00.0 Tachycardia, unspecified; R16.0 Hepatomegaly, not elsewhere classified; I10 Essential (primary) hypertension; E11.9 Type 2 diabetes mellitus without complications; Z87.891 Personal history of nicotine dependence; Z86.711 Personal history of pulmonary embolism; Z87.19 Personal history of other diseases of the digestive system; Z88.8 Allergy status to other drugs, medicaments and biological substances; Z88.0 Allergy status to penicillin; Z91.018 Allergy to other foods
CPT/HCPCS: 93005; 99284; 51701; 96374; 36415; 87086; 83690; 85025; 87088; 80053; 81001; 84484; 80307; 83880; 74022; 93010; J2405; J8499

== ENCOUNTER 2019-11-01 00:25 | Observation (INO) | payer BC, OTHER ==
[2019-11-01 01:51] LABS: ABSOLUTE BASOPHILS # (AUTO) 0.1 10^3/uL (0.0-0.2); ABSOLUTE EOSINOPHILS # (AUTO) 0.1 10^3/uL (0.0-0.6); ABSOLUTE LYMPHOCYTES (AUTO) 1.8 10^3/uL (0.5-4.7); ABSOLUTE MONOCYTES (AUTO) 0.6 10^3/uL (0.1-1.4); ABSOLUTE NEUT (AUTO) 10.1 10^3/uL (1.7-8.2); BASOPHILS % (AUTO) 0.7 % (0-2); EOSINOPHILS % (AUTO) 0.6 % (0-6); HEMATOCRIT 38.1 % (36.0-47.0); HEMOGLOBIN 12.3 g/dL (12.0-15.5); LYMPHOCYTES % (AUTO) 14.5 % (13-45); MEAN CORPUSCULAR HEMOGLOBIN 23.4 pg (27.0-33.4); MEAN CORPUSCULAR HGB CONC 32.3 g/dL (32.0-36.0); MEAN CORPUSCULAR VOLUME 72 fl (80-97); PLATELET COUNT 390 10^3/uL (150-450); RED BLOOD COUNT 5.26 10^6/uL (3.72-5.28); RED CELL DISTRIBUTION WIDTH 21.8 % (11.5-14.0); SEGMENTED NEUTROPHILS % (AUTO) 79.2 % (42-78); TOTAL CELLS COUNTED % (AUTO) 100 %; WHITE BLOOD COUNT 12.7 10^3/uL (4.0-10.5)
[2019-11-01 02:14] LABS: INTERNATIONAL RATION (INR) 1.07; PROTHROMBIN TIME 14.1 SEC (11.4-15.4)
[2019-11-01 02:17] LABS: ALBUMIN 4.5 g/dL (3.5-5.0); ALKALINE PHOSPHATASE 164 U/L (38-126); ANION GAP 9 (5-19); ASPARTATE AMINO TRANSFERASE 35 U/L (14-36); BILIRUBIN,DIRECT 0.4 mg/dL (0.0-0.4); BILIRUBIN,TOTAL 0.6 mg/dL (0.2-1.3); BLOOD UREA NITROGEN 14 mg/dL (7-20); CALCIUM 9.7 mg/dL (8.4-10.2); CARBON DIOXIDE 30 mmol/L (22-30); CHLORIDE 96 mmol/L (98-107); CREATINE KINASE 148 U/L (30-135); GLUCOSE 128 mg/dL (75-110); POTASSIUM 3.8 mmol/L (3.6-5.0); TOTAL PROTEIN 7.6 g/dL (6.3-8.2)
[2019-11-01 02:28] LABS: CREATINE KINASE MB 0.66 ng/mL (<4.55)
[2019-11-01 02:29] LABS: TROPONIN I < 0.012 ng/mL
[2019-11-01] MEDS ORDERED: ASPIRIN 81 MG TABLET, CHEWABLE PO ONE (02:34)
[2019-11-01] MEDS: NITROGLYCERIN 0.4 MG/TAB 25 TAB/BOTTLE SL PRN ×3 (02:45→03:13)
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
[2019-11-01 03:00] LABS: PARTIAL THROMBOPLASTIN TIME 33.3 SEC (23.5-35.8)
[2019-11-01 03:02] LABS: D-DIMER 0.52 ug/mL (0.00-0.50)
--- NOTE | 2019-11-01 03:28 | RADIOLOGY REPORT (SQ) ---
EXAM DESCRIPTION: XR CHEST 1 VIEW COMPLETED DATE/TME: 11/01/2019 01:27 CLINICAL HISTORY: 49 years, Female, PAIN . COMPARISON: 08/18/2019 NUMBER OF VIEWS: One TECHNIQUE: AP upright view of the chest LIMITATIONS: None. FINDINGS: The lungs are clear. The heart size is stable. There is no pneumothorax or pleural effusion. No intraperitoneal free air. Bones are unremarkable. IMPRESSION: No acute cardiopulmonary abnormality. copyright 2010 [employer]- All Rights Reserved
[2019-11-01] MEDS ORDERED: MORPHINE SULFATE 10 MG/ML INJ IV ONE ×2 (03:58→06:39)
[2019-11-01] MEDS ORDERED: LORAZEPAM INJ 2 MG/1 ML VIAL IV ONE ×2 (03:59→08:23)
[2019-11-01] MEDS ORDERED: NORMAL SALINE 500 ML IV ONE (03:59)
[2019-11-01 06:13] LABS: APPEARANCE,URINE SLIGHTLY-CLOUDY; BILIRUBIN,URINE NEGATIVE (NEGATIVE); COLOR,URINE YELLOW; GLUCOSE, URINE NEGATIVE (NEGATIVE); KETONES,URINE NEGATIVE (NEGATIVE); LEUKOCYTE ESTERASE,URINE LARGE (NEGATIVE); NITRITE,URINE POSITIVE (NEGATIVE); PROTEIN,URINE NEGATIVE (NEGATIVE); UROBILINOGEN,URINE NEGATIVE mg/dL (<2.0)
[2019-11-01 06:23] LABS: URINE AMPHETAMINES SCREEN NEGATIVE; URINE BARBITURATES SCREEN NEGATIVE; URINE BENZODIAZEPINES SCREEN NEGATIVE; URINE COCAINE SCREEN NEGATIVE; URINE MARIJUANA (THC) SCREEN NEGATIVE; URINE METHADONE SCREEN NEGATIVE; URINE PHENCYCLIDINE SCREEN NEGATIVE
--- NOTE | 2019-11-01 07:37 | RADIOLOGY REPORT (SQ) ---
CLINICAL HISTORY: chest pain, tachy, h/o pe. CREAT 0.88 COMPARISON: October 09, 2017. TECHNIQUE: CT CHEST ANGIOGRAPHY WITHOUT THEN WITH IV CONTRAST on 11/01/2019 4:00 AM CDT. MIPS reconstructions were generated. This exam was performed according to our departmental dose-optimization program, which includes automated exposure control, adjustment of the mA and/or kV according to patient size and/or use of iterative reconstruction technique. MIP images were generated. FINDINGS: Thoracic aorta is normal in course and caliber without aneurysm or dissection. The main pulmonary artery is mildly dilated measuring 3.4 cm. There are no acute or chronic filling defects. There is evidence of prior left lower lobe wedge resection. The heart is mildly enlarged. There is no pericardial effusion. Intrathoracic lymph nodes are not enlarged. There is no pleural effusion, pleural thickening or pneumothorax. Central airways are patent. There is mild bibasilar atelectasis and scarring. In the upper abdomen, the liver is fatty in attenuation. There are no acute osseous findings. No suspicious bony lesions. IMPRESSION: Cardiomegaly with no aortic dissection or aneurysm. No pulmonary embolus. Mildly dilated main pulmonary artery which can be seen in the central pulmonary arterial hypertension. No pneumonia.
[2019-11-01] MEDS ORDERED: DILTIAZEM HCL INJ 25 MG/5 ML VIAL IV ONE (08:23)
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
[2019-11-01] MEDS ORDERED: APIXABAN 5 MG TABLET PO ONE (09:33)
[2019-11-01] MEDS ORDERED: CLONAZEPAM 2 MG PO PRN (13:17)
[2019-11-01] MEDS ORDERED: IPRATROPIUM/ALBUTEROL 0.5-2.5 MG/3 ML AMPUL NEB PRN (13:17)
[2019-11-01] MEDS: PREGABALIN 100 MG CAPSULE PO SCH ×2 (14:30→22:44)
[2019-11-01] MEDS: DILTIAZEM HCL 60 MG TABLET PO SCH ×2 (14:30→22:47)
[2019-11-01] MEDS: CARISOPRODOL 350 MG TABLET PO PRN ×2 (14:30→22:49)
[2019-11-01] MEDS ORDERED: INSULIN REGULAR HUMAN 10 UNIT SUBCUT SCH (16:00)
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
--- NOTE | 2019-11-01 17:05 | EKG REPORT ---
SEVERITY:- BORDERLINE ECG - SINUS TACHYCARDIA PROBABLE LEFT ATRIAL ABNORMALITY BORDERLINE T ABNORMALITIES, INFERIOR LEADS : Confirmed by: Margarita Dave MD 01-Nov-2019 17:04:42
[2019-11-01] MEDS: HYDROCHLOROTHIAZIDE 25 MG TABLET PO SCH (17:46)
[2019-11-01] MEDS: ROPINIROLE HCL 0.25 MG TABLET PO SCH ×2 (17:47→22:43)
[2019-11-01] MEDS: INSULIN REG, HUMAN 100 UNIT/ML 3 ML VIAL (PYX) SUBCUT SCH (17:47)
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
[2019-11-01] MEDS: CLONAZEPAM 1 MG TABLET PO PRN (19:59)
[2019-11-01] MEDS ORDERED: (PENDING PHARMACY ID) (Quetiapine Fumarate [Seroquel] 400 MG) PO SCH (22:00)
[2019-11-01] MEDS ORDERED: INSULIN DEGLUDEC 45 UNIT SUBCUT SCH (22:00)
[2019-11-01] MEDS: QUETIAPINE FUMARATE 100 MG TABLET PO SCH (22:45)
[2019-11-01] MEDS: APIXABAN 5 MG TABLET PO SCH (22:45)
[2019-11-02] MEDS: CLONAZEPAM 1 MG TABLET PO PRN ×4 (04:45→23:25)
[2019-11-02] MEDS: PREGABALIN 100 MG CAPSULE PO SCH ×3 (05:33→22:13)
[2019-11-02] MEDS: ROPINIROLE HCL 0.25 MG TABLET PO SCH ×3 (05:33→22:31)
[2019-11-02] MEDS: CARISOPRODOL 350 MG TABLET PO PRN ×3 (05:33→20:22)
[2019-11-02] MEDS ORDERED: LEVOTHYROXINE SODIUM 0.1 MG TABLET PO SCH (06:00)
[2019-11-02 06:25] LABS: ABSOLUTE EOSINOPHILS # (AUTO) 0.1 10^3/uL (0.0-0.6); ABSOLUTE LYMPHOCYTES (AUTO) 2.2 10^3/uL (0.5-4.7); ABSOLUTE MONOCYTES (AUTO) 0.4 10^3/uL (0.1-1.4); ABSOLUTE NEUT (AUTO) 6.7 10^3/uL (1.7-8.2); BASOPHILS % (AUTO) 0.5 % (0-2); EOSINOPHILS % (AUTO) 1.3 % (0-6); HEMATOCRIT 35.9 % (36.0-47.0); HEMOGLOBIN 11.6 g/dL (12.0-15.5); LYMPHOCYTES % (AUTO) 23.1 % (13-45); MEAN CORPUSCULAR HEMOGLOBIN 23.5 pg (27.0-33.4); MEAN CORPUSCULAR HGB CONC 32.4 g/dL (32.0-36.0); MEAN CORPUSCULAR VOLUME 73 fl (80-97); MONOCYTES % (AUTO) 4.1 % (3-13); PLATELET COUNT 304 10^3/uL (150-450); RED BLOOD COUNT 4.95 10^6/uL (3.72-5.28); RED CELL DISTRIBUTION WIDTH 21.5 % (11.5-14.0); TOTAL CELLS COUNTED % (AUTO) 100 %; WHITE BLOOD COUNT 9.5 10^3/uL (4.0-10.5)
[2019-11-02 06:40] LABS: ALBUMIN 3.9 g/dL (3.5-5.0); ALKALINE PHOSPHATASE 128 U/L (38-126); ANION GAP 12 (5-19); ASPARTATE AMINO TRANSFERASE 26 U/L (14-36); BILIRUBIN,DIRECT 0.3 mg/dL (0.0-0.4); BILIRUBIN,TOTAL 0.4 mg/dL (0.2-1.3); BLOOD UREA NITROGEN 9 mg/dL (7-20); CALCIUM 9.3 mg/dL (8.4-10.2); CARBON DIOXIDE 27 mmol/L (22-30); CHLORIDE 98 mmol/L (98-107); GLUCOSE 175 mg/dL (75-110); POTASSIUM 3.1 mmol/L (3.6-5.0); TOTAL PROTEIN 6.8 g/dL (6.3-8.2)
[2019-11-02] MEDS: INSULIN REG, HUMAN 100 UNIT/ML 3 ML VIAL (PYX) SUBCUT SCH ×3 (09:09→17:41)
[2019-11-02] MEDS: DILTIAZEM HCL 60 MG TABLET PO SCH ×2 (09:10→22:12)
[2019-11-02] MEDS: ASPIRIN 81 MG TABLET, ENT COATED PO SCH (09:11)
[2019-11-02] MEDS: HYDROCHLOROTHIAZIDE 25 MG TABLET PO SCH ×2 (09:11→17:42)
[2019-11-02] MEDS: APIXABAN 5 MG TABLET PO SCH ×2 (09:11→22:13)
[2019-11-02] MEDS: FOLIC ACID 1 MG TABLET PO SCH (09:11)
--- NOTE | 2019-11-02 09:57 | PDOC PROGRESS REPORT ---
Subjective Progress Note for:: 11/02/19 Subjective:: The patient is fixated on her tachycardia. She does not seem to understand that this is not a condition that has an easy fix. She did have a suppressed TSH. She also is concerned about a urinary tract infection. Reason For Visit: CHEST PAIN,UNSPECIFIED,TACHYCARDIA,HYPERTENSION Physical Exam Vital Signs: Temp Pulse Resp BP Pulse Ox 97.3 F 103 H 18 110/68 94 11/02/19 08:08 11/02/19 08:08 11/02/19 08:08 11/02/19 08:08 11/02/19 08:08 Intake & Output 11/01/19 11/02/19 11/03/19 06:59 06:59 06:59 Intake Total 500 650 Output Total 200 Balance 500 450 Weight 92.079 kg 89.8 kg General appearance: PRESENT: no acute distress, cooperative, well-developed Head exam: PRESENT: atraumatic, normocephalic Eye exam: PRESENT: other - right eye covered Ear exam: PRESENT: normal external ear exam. ABSENT: bleeding, drainage Respiratory exam: PRESENT: clear to auscultation colleen, symmetrical, unlabored. ABSENT: rales, rhonchi, tachypnea, wheezes Cardiovascular exam: PRESENT: RRR, +S1, +S2, tachycardia. ABSENT: bradycardia, systolic murmur GI/Abdominal exam: PRESENT: normal bowel sounds, soft. ABSENT: guarding, tenderness Rectal exam: PRESENT: deferred Gentrourinary exam: ABSENT: indwelling catheter Neurological exam: PRESENT: alert, awake, oriented to person, oriented to place, oriented to time, oriented to situation, motor sensory deficit - Patch over left eye. ABSENT: altered Psychiatric exam: PRESENT: anxious, flat affect. ABSENT: agitated Focused psych exam: ABSENT: delusional, paranoid, restlessness Results Laboratory Results: 11/02/19 06:03 11/02/19 06:03 11/01/19 11/02/19 11/02/19 04:41 06:03 06:03 WBC 9.5 RBC 4.95 Hgb 11.6 L Hct 35.9 L MCV 73 L MCH 23.5 L MCHC 32.4 RDW 21.5 H Plt Count 304 Seg Neutrophils % 71.0 Sodium 137.0 Potassium 3.1 L Chloride 98 Carbon Dioxide 27 Anion Gap 12 BUN 9 Creatinine 0.83 Est GFR ( Amer) > 60 Glucose 175 H Calcium 9.3 Total Bilirubin 0.4 AST 26 Alkaline Phosphatase 128 H Total Protein 6.8 Albumin 3.9 TSH 0.37 L 11/01/19 11/01/19 11/01/19 01:37 01:37 04:41 Creatine Kinase 148 H CK-MB (CK-2) 0.66 Troponin I < 0.012 < 0.012 Impressions: Chest X-Ray 11/01/19 01:27 IMPRESSION: No acute cardiopulmonary abnormality. copyright 2011 [employer]- All Rights Reserved Chest/Abdomen CTA 11/01/19 04:00 IMPRESSION: Cardiomegaly with no aortic dissection or aneurysm. No pulmonary embolus. Mildly dilated main pulmonary artery which can be seen in the central pulmonary arterial hypertension. No pneumonia. Assessment and Plan - Diagnosis (1) Tachycardia Is this a current diagnosis for this admission?: Yes Plan: The patient has sinus tachycardia. Cardiology is seeing the patient. Unfortunately she is "allergic" to beta-blockers. She is currently on diltiazem. Still exhibits low-grade tachycardia. (2) Generalized anxiety disorder Is this a current diagnosis for this admission?: Yes Plan: Multiple medications. Patient is still anxious and anxiety could be driving her heart rate. Continue current regimen. (3) Hypothyroidism Qualifiers: Hypothyroidism type: unspecified Qualified Code(s): E03.9 - Hypothyroidism, unspecified Is this a current diagnosis for this admission?: Yes Plan: Her TSH is slightly low. I will decrease her levothyroxine to 88 mcg daily after holding it for several days (4) UTI (urinary tract infection) Qualifiers: Urinary tract infection type: acute cystitis Is this a current diagnosis for this admission?: Yes Plan: Patient has had enterococcus and several bouts of cystitis with coagulase- negative staph. These are not typical organisms for the urine however the enterococcus is. She does have a penicillin allergy with significantly limits treatment options. Nitrofurantoin I feel would work best for her. (5) Hyperglycemia due to type 2 diabetes mellitus Qualifiers: Diabetes mellitus long-term insulin use: with long-term use Qualified Code(s): E11.65 - Type 2 diabetes mellitus with hyperglycemia; Z79.4 - half-way (current) use of insulin Is this a current diagnosis for this admission?: Yes Plan: Continue mealtime dosing and sliding scale coverage - Plan Summary Summary: Patient admitted for work up of sinus tachycardia. Cardio consulted who plans to do echo. May be secondary to anxiety vs hyperthyroidism from thyroid meds. - Time Medications reviewed and adjusted accordingly: Yes Anticipated Discharge Disposition: Home with Home Health Anticipated Discharge Timeframe: within 48 hours
[2019-11-02] MEDS ORDERED: POTASSIUM CHLORIDE 10 MEQ TABLET.ER PO ONE (10:30)
--- NOTE | 2019-11-02 12:03 | PDOC PROGRESS REPORT ---
Subjective Progress Note for:: 11/02/19 Subjective:: SELMA DOUGLAS is a 49 year old female with long history of palpitations/sinus tachycardia, left lung PE in January 2019, malignant hypertension, pulmonary sarcoidosis s/p lung surgery, type II DM, blind in the right eye, anxiety, hyperlipidemia, panic attacks, hypothyroidism and chronic back pain who is consulted to our service for evaluation of chest pain and palpitations. She developed chest pain yesterday and was present for 4-5 hours before she sought medical attention. She described it as a tightness, localized to the substernal area and radiating to her back, associated with racing heart and mild diaphoresis but no shortness of breath, syncope or presyncope. It resolved spontaneously. She also c/o racing heart/palpitations that had been controlled in the past with diltiazem however the preparation was recently changed to slow release and the patient noticed worsening of her index symptoms. She also states that at some point her lisinopril and hydralazine were discontinued and since then her BP had been very elevated. She is currently resting in bed without chest pain or shortness of breath. 11/02/19: The patient had an uneventful night and is found sleeping comfortably in her bed. She is easily arousable but becomes extremely anxious when discussing her case. She is essentially obsessed with the fact that she has an elevated heart rate and continues to state that "I do not like my pulse and wanted something done about it". She continues to bring up the issue that at least 1 of her sisters had a pacemaker implanted "and her pulse is now regulated" and implies that she once something like that done to her. I spent a significant amount of time this morning with her explaining that she has no indication for pacemaker at this point. Her HR continues to be elevated however it is now better controlled. She is pending echocardiography today. She denies new cardiac complaints. Her BP is now controlled and at goal. Physical exam on 11/02/19: GA: alert, oriented x3, no acute distress. HEENT: no JVD, left eye covered with a bandage. HEART: mildly tachycardic without rubs or murmurs. LUNGS: CTA bilaterally. LE: no edema or cyanosis. Reason For Visit: CHEST PAIN,UNSPECIFIED,TACHYCARDIA,HYPERTENSION Physical Exam Vital Signs: Temp Pulse Resp BP Pulse Ox 98.3 F 105 H 16 123/55 L 92 11/02/19 04:20 11/02/19 04:20 11/02/19 04:20 11/02/19 04:20 11/02/19 04:20 Intake & Output 10/31/19 11/01/19 11/02/19 06:59 06:59 06:59 Intake Total 500 650 Output Total 200 Balance 500 450 Weight 92.079 kg 89.8 kg Results Laboratory Results: 11/02/19 06:03 11/01/19 11/02/19 04:41 06:03 WBC 9.5 RBC 4.95 Hgb 11.6 L Hct 35.9 L MCV 73 L MCH 23.5 L MCHC 32.4 RDW 21.5 H Plt Count 304 Seg Neutrophils % 71.0 TSH 0.37 L 11/01/19 11/01/19 11/01/19 01:37 01:37 04:41 Creatine Kinase 148 H CK-MB (CK-2) 0.66 Troponin I < 0.012 < 0.012 Impressions: Chest X-Ray 11/01/19 01:27 IMPRESSION: No acute cardiopulmonary abnormality. copyright 2010 [employer]- All Rights Reserved Chest/Abdomen CTA 11/01/19 04:00 IMPRESSION: Cardiomegaly with no aortic dissection or aneurysm. No pulmonary embolus. Mildly dilated main pulmonary artery which can be seen in the central pulmonary arterial hypertension. No pneumonia. Assessment & Plan - Diagnosis (1) Chest pain, unspecified Qualifiers: Chest pain type: unspecified Qualified Code(s): R07.9 - Chest pain, unspecified Is this a current diagnosis for this admission?: Yes Plan: The patient had chest pain with both typical and atypical features in the setting of a prolonged history of sinus tachycardia and multiple cardiac risk factors for coronary artery disease. Fortunately, her cardiac troponins are negative. She has remained chest pain-free since admission. Obviously the patient will need risk stratification with pharmacological nuclear stress test however I'm concerned that her tachycardia will worsen during the administration of lexiscan therefore I recommend controlling her heart rate better before proceeding with stress test. Recommendations: -Echocardiogram to assess for structural heart disease. -Continue attempts to improve tachycardia. -Pharmacological MPS after above. (2) Tachycardia Is this a current diagnosis for this admission?: Yes Plan: The patient has a long history of sinus tachycardia which is now better controlled since admission on a very complicated diltiazem regimen. Per her report, that regimen was changed at [facility] however she did not agree with that change and became very symptomatic per her report reason why her prior regimen was reinitiated during this admission. The etiology of her tachycardia is likely to be multifactorial to include but not limited to thyroid disease (she has a mildly suppressed TSH), history of PE, possible evidence of pHTN on chest CTA, obesity, deconditioning, severe anxiety with the latter being the most significant contributor of all. She was just restarted on her prior outpatient regimen. Unfortunately, she is apparently allergic to BB. There is no evidence of new PE on chest CTA and, up-to-date, there is no evidence of significant cardiac disease that could be the primary cause of her tachycardia. 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 She seems to be fixed in the idea that she needs a pacemaker to "control my heart rate like my sister" even after she was explained that she has no indication for pacemaker at this point. I believe the best course of action at this point is to optimize her psychotropic medications for her anxiety as well as her Synthroid. Recommendations: -Continue with current management. -Continue with cardiac telemetry. -Echocardiogram. -Further recommendations pending results of echocardiogram. (3) Hypertension Qualifiers: Is this a current diagnosis for this admission?: Yes Plan: The patient had been on hydralazine and lisinopril in the past which were both discontinued due to RICH in a prior admission. Her BP is now at goal with only occasional episodes of hypertension. Recommendations: -Conitnue with current management. -Avoid hydralazine. -Further management per primary team.
[2019-11-02] MEDS: NITROFURANTOIN MONOHYD/M-CRYST 100 MG CAPSULE PO SCH ×2 (14:07→22:13)
--- NOTE | 2019-11-02 16:54 | XCELERA REPORT ---
[address] [address] Transthoracic Echocardiogram Report Name: SELMA DOUGLAS Age: 49 yrs Gender: Female : 1970 Patient Status: Inpatient Patient Location: [address] [place] [address] Study Date: 11/02/2019 01:15 PM History: Tachycardia Height: 63 in Weight: 203 lb BSA: 1.9 m2 Procedure: A complete two-dimensional transthoracic echocardiogram was performed (2D, M-mode, spectral and color flow Doppler). The study was technically difficult with many images being suboptimal in quality. Doppler interrogation is suboptimal. Patient is tachycardic throughout study. Reason For Study: tachycardia Previous Evaluation: A previous study was performed on 05/24/2019 LVEF prserved. Valves okay. History: Tachcycardia. Ordering Physician: SORIN SOLOMON Performed By: Anjana Rogel Interpretation Summary The study was technically difficult with many images being suboptimal in quality. Left ventricular systolic function is normal. The Ejection Fraction estimate is 55-60% The right ventricular systolic function is normal. There is no aortic valve stenosis There is a trace amount of mitral regurgitation Minimal pericardial effusion. MMode/2D Measurements & Calculations RVDd: 2.3 cm LVIDd: 5.3 cm FS: 39.0 % Ao root diam: 2.0 cm IVSd: 1.1 cm LVIDs: 3.2 cm EDV(Teich): 135.5 ml Ao root area: 3.2 cm2 LVPWd: 0.96 cm ESV(Teich): 42.0 ml EF(Teich): 69.0 % Doppler Measurements & Calculations MV E max alicia: MV dec slope: Ao V2 max: LV V1 max P.1 cm/sec 488.1 cm/sec2 165.3 cm/sec 8.2 mmHg MV A max alicia: MV dec time: 0.18 secAo max PG: LV V1 max: 80.3 cm/sec 10.9 mmHg 143.0 cm/sec MV E/A: 1.1 PA V2 max: 113.5 cm/sec PA max P.2 mmHg Left Ventricle The left ventricle is normal in size. There is mild to moderate concentric left ventricular hypertrophy. Left ventricular systolic function is normal. The Ejection Fraction estimate is 55-60%. LV diastolic function not assessed. Regional wall motion abnormalities cannot be excluded due to limited visualization. Right Ventricle The right ventricle is not well visualized secondary to technical limitations. The right ventricular systolic function is normal. Atria Right atrium not well visualized secondary to technical limitations. The left atrial size is normal. Mitral Valve The mitral valve is grossly normal. There is no mitral valve stenosis. There is a trace amount of mitral regurgitation. Aortic Valve The aortic valve is not well visualized secondary to technical limitations. The aortic valve opens well. The aortic valve is trileaflet. There is no aortic valve stenosis. No aortic regurgitation is present. Tricuspid Valve The tricuspid valve is not well visualized secondary to technical limitations. Suboptimal assessment. Pulmonic Valve The pulmonic valve is not well visualized. Great Vessels The aortic root is normal size. The inferior vena cava was not visualized. Effusions Minimal pericardial effusion. : SORIN SOLOMON Anil
[2019-11-02] MEDS: RINGERS SOLUTION,LACTATED 1,000 ML IV PRN (18:50)
[2019-11-02] MEDS ORDERED: TRAZODONE HCL 50 MG TABLET PO PRN (19:32)
--- NOTE | 2019-11-02 20:53 | Progress Note ---
Provider Note Provider Note: I was contacted by the nurses. The patient is refusing to take her oral nitrofurantoin and insists on IV antibiotics. They are not appropriate for the situation. She is also concerned about getting IV fluids. There is no indication that she is volume depleted. Final results and urine culture are pending however the nitrofurantoin will cover some gram positives and some gram- negative's. I instructed the nurse to document all of these episodes.
[2019-11-02] MEDS: PHENAZOPYRIDINE HCL 100 MG TABLET PO SCH (22:12)
[2019-11-02] MEDS: QUETIAPINE FUMARATE 100 MG TABLET PO SCH (22:12)
[2019-11-02] MEDS: POTASSIUM CHLORIDE 10 MEQ TABLET.ER PO SCH ×2 (22:13→22:21)
[2019-11-02] MEDS: OXYCODONE-ACETAMINOPHEN 5-325 MG TABLET PO PRN (22:18)
[2019-11-02] MEDS ORDERED: ROPINIROLE HCL 0.25 MG TABLET ONE (22:22)
[2019-11-03] MEDS: OXYCODONE-ACETAMINOPHEN 5-325 MG TABLET PO PRN ×4 (02:28→14:59)
[2019-11-03] MEDS: CARISOPRODOL 350 MG TABLET PO PRN ×2 (04:24→10:48)
[2019-11-03] MEDS: RINGERS SOLUTION,LACTATED 1,000 ML IV PRN (04:25)
[2019-11-03 05:10] LABS: ABSOLUTE EOSINOPHILS # (AUTO) 0.1 10^3/uL (0.0-0.6); ABSOLUTE LYMPHOCYTES (AUTO) 2.1 10^3/uL (0.5-4.7); ABSOLUTE MONOCYTES (AUTO) 0.5 10^3/uL (0.1-1.4); ABSOLUTE NEUT (AUTO) 6.3 10^3/uL (1.7-8.2); BASOPHILS % (AUTO) 0.5 % (0-2); EOSINOPHILS % (AUTO) 1.1 % (0-6); HEMATOCRIT 33.3 % (36.0-47.0); HEMOGLOBIN 10.6 g/dL (12.0-15.5); LYMPHOCYTES % (AUTO) 23.6 % (13-45); MEAN CORPUSCULAR HEMOGLOBIN 23.4 pg (27.0-33.4); MEAN CORPUSCULAR HGB CONC 31.9 g/dL (32.0-36.0); MEAN CORPUSCULAR VOLUME 73 fl (80-97); MONOCYTES % (AUTO) 5.1 % (3-13); PLATELET COUNT 278 10^3/uL (150-450); RED BLOOD COUNT 4.54 10^6/uL (3.72-5.28); RED CELL DISTRIBUTION WIDTH 21.3 % (11.5-14.0); SEGMENTED NEUTROPHILS % (AUTO) 69.7 % (42-78); TOTAL CELLS COUNTED % (AUTO) 100 %; WHITE BLOOD COUNT 9.1 10^3/uL (4.0-10.5)
[2019-11-03 05:23] LABS: ALBUMIN 3.5 g/dL (3.5-5.0); ALKALINE PHOSPHATASE 137 U/L (38-126); ANION GAP 11 (5-19); ASPARTATE AMINO TRANSFERASE 30 U/L (14-36); BILIRUBIN,DIRECT 0.3 mg/dL (0.0-0.4); BILIRUBIN,TOTAL 0.5 mg/dL (0.2-1.3); BLOOD UREA NITROGEN 11 mg/dL (7-20); CALCIUM 8.9 mg/dL (8.4-10.2); CARBON DIOXIDE 27 mmol/L (22-30); CHLORIDE 99 mmol/L (98-107); GLUCOSE 141 mg/dL (75-110); POTASSIUM 3.9 mmol/L (3.6-5.0); TOTAL PROTEIN 6.2 g/dL (6.3-8.2)
[2019-11-03] MEDS ORDERED: LEVOTHYROXINE SODIUM 0.088 MG TABLET PO SCH (06:00)
[2019-11-03] MEDS: PREGABALIN 100 MG CAPSULE PO SCH ×2 (06:34→13:37)
[2019-11-03] MEDS: ROPINIROLE HCL 0.25 MG TABLET PO SCH ×2 (06:34→15:00)
[2019-11-03] MEDS: PHENAZOPYRIDINE HCL 100 MG TABLET PO SCH ×2 (06:35→13:37)
[2019-11-03] MEDS: CLONAZEPAM 1 MG TABLET PO PRN (07:44)
[2019-11-03] MEDS: INSULIN REG, HUMAN 100 UNIT/ML 3 ML VIAL (PYX) SUBCUT SCH ×3 (08:00→13:36)
[2019-11-03] MEDS ORDERED: DILTIAZEM HCL 240 MG CAPSULE.CR PO SCH (10:00)
--- NOTE | 2019-11-03 10:16 | PDOC PROGRESS REPORT ---
Subjective Progress Note for:: 11/03/19 Subjective:: SELMA DOUGLAS is a 49 year old female with long history of palpitations/sinus tachycardia, left lung PE in January 2019, malignant hypertension, pulmonary sarcoidosis s/p lung surgery, type II DM, blind in the right eye, anxiety, hyperlipidemia, panic attacks, hypothyroidism and chronic back pain who is consulted to our service for evaluation of chest pain and palpitations. She developed chest pain yesterday and was present for 4-5 hours before she sought medical attention. She described it as a tightness, localized to the substernal area and radiating to her back, associated with racing heart and mild diaphoresis but no shortness of breath, syncope or presyncope. It resolved spontaneously. She also c/o racing heart/palpitations that had been controlled in the past with diltiazem however the preparation was recently changed to slow release and the patient noticed worsening of her index symptoms. She also states that at some point her lisinopril and hydralazine were discontinued and since then her BP had been very elevated. She is currently resting in bed without chest pain or shortness of breath. 11/03/19: The patient had an uneventful night and is found awake and eating breakfast. She does have a UTI and has been having low-grade fevers however and, per the nursing staff report, she had been refusing her p.o. antibiotics and had been demanding IV antibiotics. Her heart rate is now at goal and below 100 bpm on telemetry. She has no new cardiovascular complaints. Her echocardiogram yesterday demonstrated a normal ejection fraction and no significant valvular disease. Her blood pressure continues to be at goal. Physical exam on 11/03/19: GA: alert, oriented x3, no acute distress. HEENT: no JVD, left eye covered with a bandage. HEART: Regular rate and rhythm without rubs or murmurs. LUNGS: CTA bilaterally. LE: no edema or cyanosis. Reason For Visit: CHEST PAIN,UNSPECIFIED,TACHYCARDIA,HYPERTENSION Physical Exam Vital Signs: Temp Pulse Resp BP Pulse Ox 100.1 F 87 18 108/61 94 11/03/19 07:50 11/03/19 07:13 11/03/19 07:13 11/03/19 07:13 11/03/19 07:13 Intake & Output 11/02/19 11/03/19 11/04/19 06:59 06:59 06:59 Intake Total 650 2568 Output Total 200 500 Balance 450 2068 Weight 89.8 kg 89.7 kg Results Laboratory Results: 11/03/19 04:15 11/03/19 04:15 11/03/19 11/03/19 04:15 04:15 WBC 9.1 RBC 4.54 Hgb 10.6 L Hct 33.3 L MCV 73 L MCH 23.4 L MCHC 31.9 L RDW 21.3 H Plt Count 278 Seg Neutrophils % 69.7 Sodium 137.0 Potassium 3.9 Chloride 99 Carbon Dioxide 27 Anion Gap 11 BUN 11 Creatinine 0.97 Est GFR ( Amer) > 60 Glucose 141 H Calcium 8.9 Magnesium 2.1 Total Bilirubin 0.5 AST 30 Alkaline Phosphatase 137 H Total Protein 6.2 L Albumin 3.5 11/01/19 11/01/19 11/01/19 01:37 01:37 04:41 Creatine Kinase 148 H CK-MB (CK-2) 0.66 Troponin I < 0.012 < 0.012 Impressions: Chest X-Ray 11/01/19 01:27 IMPRESSION: No acute cardiopulmonary abnormality. copyright 2010 [facility]- All Rights Reserved Chest/Abdomen CTA 11/01/19 04:00 IMPRESSION: Cardiomegaly with no aortic dissection or aneurysm. No pulmonary embolus. Mildly dilated main pulmonary artery which can be seen in the central pulmonary arterial hypertension. No pneumonia. 11/03/19 04:15 11/03/19 04:15 MCV 73 fl (80-97) L 11/03/19 04:15 MCH 23.4 pg (27.0-33.4) L 11/03/19 04:15 MCHC 31.9 g/dL (32.0-36.0) L 11/03/19 04:15 RDW 21.3 % (11.5-14.0) H 11/03/19 04:15 Seg Neutrophils % 69.7 % (42-78) 11/03/19 04:15 Chloride 99 mmol/L (98-107) 11/03/19 04:15 Carbon Dioxide 27 mmol/L (22-30) 11/03/19 04:15 Anion Gap 11 (5-19) 11/03/19 04:15 Est GFR ( Amer) > 60 (>60) 11/03/19 04:15 Glucose 141 mg/dL (75-110) H 11/03/19 04:15 Calcium 8.9 mg/dL (8.4-10.2) 11/03/19 04:15 Magnesium 2.1 mg/dL (1.6-2.3) 11/03/19 04:15 Total Bilirubin 0.5 mg/dL (0.2-1.3) 11/03/19 04:15 AST 30 U/L (14-36) 11/03/19 04:15 Alkaline Phosphatase 137 U/L (38-126) H 11/03/19 04:15 Total Protein 6.2 g/dL (6.3-8.2) L 11/03/19 04:15 Albumin 3.5 g/dL (3.5-5.0) 11/03/19 04:15 TSH 0.37 uIU/mL (0.47-4.68) L 11/01/19 04:41 Urine Color YELLOW 11/01/19 05:45 Urine Appearance SLIGHTLY-CLOUDY 11/01/19 05:45 Urine pH 7.0 (5.0-9.0) 11/01/19 05:45 Ur Specific [place] 1.010 11/01/19 05:45 Urine Protein NEGATIVE mg/dL (NEGATIVE) 11/01/19 05:45 Urine Glucose (UA) NEGATIVE mg/dL (NEGATIVE) 11/01/19 05:45 Urine Ketones NEGATIVE mg/dL (NEGATIVE) 11/01/19 05:45 Urine Blood SMALL (NEGATIVE) H 11/01/19 05:45 Urine Nitrite POSITIVE (NEGATIVE) H 11/01/19 05:45 Ur Leukocyte Esterase LARGE (NEGATIVE) H 11/01/19 05:45 Urine WBC (Auto) 130 /HPF 11/01/19 05:45 Urine RBC (Auto) 5 /HPF 11/01/19 05:45 11/01/19 11/01/19 11/01/19 01:37 01:37 04:41 Creatine Kinase 148 H CK-MB (CK-2) 0.66 Troponin I < 0.012 < 0.012 Current Medication List Generic Name Dose Route Start Last Admin Trade Name Freq PRN Reason Stop Dose Admin Albuterol/Ipratropium 3 ml 11/01/19 13:17 Duoneb 3 Ml Ampul NEB 12/01/19 13:16 RTQIDP PRN SHORTNESS OF BREATH Apixaban 5 mg 11/01/19 22:00 11/02/19 22:13 Eliquis 5 Mg Tablet PO 12/01/19 21:59 5 mg Q12 RADHA Administration Aspirin 81 mg 11/02/19 10:00 11/02/19 09:11 Ecotrin 81 Mg Ec Tablet PO 12/02/19 09:59 81 mg DAILY RADHA Administration Carisoprodol 350 mg 11/01/19 13:17 11/03/19 04:24 Soma 350 Mg Tablet PO 12/01/19 13:16 350 mg QIDP PRN Administration FOR PAIN Clonazepam 2 mg 11/01/19 15:09 11/03/19 07:44 Klonopin 1 Mg Tablet PO 11/08/19 15:08 2 mg Q8HP PRN Administration ANXIETY/AGITATION Diltiazem HCl 120 mg 11/03/19 22:00 Cardizem Cd 120 Mg Capsule PO 12/03/19 21:59 QHS RADHA Diltiazem HCl 240 mg 11/03/19 10:00 Cardizem Cd 240 Mg Capsule.Cr PO 12/03/19 09:59 DAILY RADHA Folic Acid 1 mg 11/02/19 10:00 11/02/19 09:11 Folvite 1 Mg Tablet PO 12/02/19 09:59 1 mg DAILY RADHA Administration Hydrochlorothiazide 25 mg 11/01/19 18:00 11/02/19 17:42 Hydrodiuril 25 Mg Tablet PO 12/01/19 17:59 25 mg BID RADHA Administration Lactated Ringer's 1,000 mls @ 100 mls/hr 11/02/19 18:09 11/03/19 04:25 Lactated Ringers 1000 Ml Iv Soln IV 12/02/19 18:08 100 mls/hr CONTINUOUS PRN Administration THIS MED IS NOT "PRN" Insulin Human Regular 10 unit 11/01/19 16:00 11/03/19 08:46 Humulin R (Pyxis) Insulin 100 Unit/Ml 3ml SUBCUT 12/01/19 15:59 10 unit AC RADHA Administration Nitrofurantoin Macrocrystals 100 mg 11/02/19 13:00 11/02/19 22:13 Macrobid 100 Mg Capsule PO 11/09/19 12:59 Not Given Q12 RADHA Oxycodone/Acetaminophen 1 tab 11/02/19 19:58 11/03/19 06:35 Percocet 5-325 Mg Tablet PO 11/09/19 19:57 1 tab Q4HP PRN Administration FOR PAIN SCALE 4-5 Tresiba Flextouch U- 1 dose 11/02/19 22:00 200 SUBCUT 12/02/19 21:[address] [facility] Phenazopyridine HCl 100 mg 11/02/19 22:00 11/03/19 06:35 Pyridium 100 Mg Tablet PO 12/02/19 21:59 100 mg Q8 RADHA Administration Potassium Chloride 20 meq 11/02/19 22:00 11/02/19 22:21 Klor-Con 10 Meq Tablet Er PO 12/02/19 21:59 Not Given Q12 RADHA Pregabalin 200 mg 11/01/19 14:00 11/03/19 06:34 Lyrica 100 Mg Capsule PO 12/01/19 13:59 200 mg Q8 RADHA Administration Quetiapine Fumarate 400 mg 11/01/19 22:00 11/02/19 22:12 Seroquel 100 Mg Tablet PO 12/01/19 21:59 400 mg QHS RADHA Administration Ropinirole HCl 0.75 mg 11/01/19 15:00 11/03/19 06:34 Requip 0.25 Mg Tablet PO 12/01/19 14:59 0.75 mg Q8 RADHA Administration Trazodone HCl 150 mg 11/02/19 19:32 Desyrel 50 Mg Tablet PO 12/02/19 19:31 HSP PRN SLEEP OR INSOMNIA Discontinued Medications Generic Name Dose Route Start Last Admin Trade Name Freq PRN Reason Stop Dose Admin Apixaban 5 mg 11/01/19 09:33 11/01/19 10:23 Eliquis 5 Mg Tablet PO 11/01/19 09:34 5 mg NOW ONE Administration Aspirin 324 mg 11/01/19 02:34 11/01/19 02:45 Aspirin 81 Mg Chewable Tablet PO 11/01/19 02:35 324 mg NOW ONE Administration Diltiazem HCl 15 mg 11/01/19 08:23 11/01/19 08:37 Cardizem Inj 25 Mg/5 Ml Vial IV 11/01/19 08:24 15 mg NOW ONE Administration Diltiazem HCl 240 mg 11/01/19 13:30 11/02/19 09:10 Cardizem 60 Mg Tablet PO 12/01/19 13:29 240 mg DAILY RADHA Administration Diltiazem HCl 120 mg 11/01/19 22:00 11/02/19 22:12 Cardizem 60 Mg Tablet PO 12/01/19 21:59 120 mg QHS RADHA Administration Sodium Chloride 500 mls @ 0 mls/hr 11/01/19 03:59 11/01/19 06:32 Nacl 0.9% 500 Ml Iv Soln IV 11/01/19 04:00 Infused NOW ONE Infusion Wide Open Levothyroxine Sodium 0.1 mg 11/02/19 06:00 11/02/19 05:33 Synthroid 0.1 Mg Tablet PO 12/02/19 05:59 0.1 mg Q6AM RADHA Administration Levothyroxine Sodium 0.088 mg 11/03/19 06:00 Synthroid 0.088 Mg Tablet PO 12/03/19 05:59 Q6AM RADHA Lorazepam 1 mg 11/01/19 03:59 11/01/19 04:42 Ativan Inj 2 Mg/1 Ml Vial IV 11/01/19 04:00 1 mg NOW ONE Administration Lorazepam 2 mg 11/01/19 08:23 11/01/19 08:37 Ativan Inj 2 Mg/1 Ml Vial IV 11/01/19 08:24 2 mg NOW ONE Administration Morphine Sulfate 2 mg 11/01/19 03:58 11/01/19 04:41 Morphine 10 Mg/Ml Inj IV 11/01/19 03:59 2 mg NOW ONE Administration Morphine Sulfate 2 mg 11/01/19 06:39 11/01/19 06:43 Morphine 10 Mg/Ml Inj IV 11/01/19 06:40 2 mg NOW ONE Administration Nitroglycerin 1 tab 11/01/19 02:33 11/01/19 03:13 Nitrostat 0.4 Mg (1/150 Gr) Tabs 25/Bottle SL 11/04/19 02:33 1 bottle Q5MP PRN Administration FOR CHEST PAIN Patient Own Medication 45 units 11/01/19 22:00 11/02/19 15:45 Insulin Degludec [Tresiba Flextouch U-200] SUBCUT 12/01/19 21:59 Not Given QHS RADHA Tresiba Flextouch U- 1 dose 11/02/19 22:00 200 SUBCUT 12/02/19 21:59 QHS RADHA Potassium Chloride 40 meq 11/02/19 10:30 11/02/19 11:55 Klor-Con 10 Meq Tablet Er PO 11/02/19 10:31 40 meq NOW ONE Administration Ropinirole HCl Confirm 11/02/19 22:22 11/02/19 22:31 Requip 0.25 Mg Tablet Administered 11/02/19 22:23 Not Given Dose 0.25 mg .ROUTE .[facility] Assessment & Plan - Diagnosis (1) Chest pain, unspecified Qualifiers: Chest pain type: unspecified Qualified Code(s): R07.9 - Chest pain, unspecified Is this a current diagnosis for this admission?: Yes Plan: The patient had chest pain with both typical and atypical features in the setting of a prolonged history of sinus tachycardia and multiple cardiac risk factors for coronary artery disease. Fortunately, her cardiac troponins are negative. She has remained chest pain-free since admission. Recommendations: -Outpatient pharmacological nuclear stress test. (2) Tachycardia Is this a current diagnosis for this admission?: Yes Plan: Now resolved. Recommendations: -Continue with current management. -Cardiology does not have further recommendations therefore we will sign off the case for now. Please feel free to reconsult if clinically indicated. (3) Hypertension Qualifiers: Is this a current diagnosis for this admission?: Yes Plan: Her blood pressure is now at goal. Further management per inpatient team.
[2019-11-03] MEDS: HYDROCHLOROTHIAZIDE 25 MG TABLET PO SCH (10:40)
[2019-11-03] MEDS: POTASSIUM CHLORIDE 10 MEQ TABLET.ER PO SCH (10:41)
[2019-11-03] MEDS: ASPIRIN 81 MG TABLET, ENT COATED PO SCH (10:41)
[2019-11-03] MEDS: FOLIC ACID 1 MG TABLET PO SCH (10:41)
[2019-11-03] MEDS: APIXABAN 5 MG TABLET PO SCH (10:41)
[2019-11-03] MEDS: NITROFURANTOIN MONOHYD/M-CRYST 100 MG CAPSULE PO SCH (10:42)
--- NOTE | 2019-11-03 14:17 | PDOC DISCHARGE SUMMARY ---
Impression - Admit/DC Date/PCP Admission Date/Primary Care Provider: 11/01/19 10:20 AUDREY RESENDIZ MD Discharge Date: 11/03/19 - Discharge Diagnosis (1) Tachycardia Is this a current diagnosis for this admission?: Yes (2) Generalized anxiety disorder Is this a current diagnosis for this admission?: Yes (3) Hypothyroidism Is this a current diagnosis for this admission?: Yes (4) UTI (urinary tract infection) Is this a current diagnosis for this admission?: Yes (5) Hyperglycemia due to type 2 diabetes mellitus Is this a current diagnosis for this admission?: Yes - Assessment Summary: Patient admitted for work up of sinus tachycardia. Cardio consulted who plans to do echo. May be secondary to anxiety vs hyperthyroidism from thyroid meds. - Additional Information Discharge Diet: Cardiac, Diabetic Discharge Activity: Activity As Tolerated Referrals: AUDREY RESENDIZ MD [Primary Care Provider] - 11/21/19 9:00 am Prescriptions: Amoxicillin/Potassium Clav [Augmentin 875-125 Tablet] 1 tab PO Q12 #20 tablet Phenazopyridine HCl [Pyridium 100 mg Tablet] 100 mg PO Q8 #21 tablet Levothyroxine Sodium [Synthroid 0.088 mg Tablet] 0.088 mg PO DAILY #30 tablet Home Medications: Apixaban [Eliquis 5 mg Tablet] 5 mg PO Q12 02/21/19 Folic Acid [Folvite 1 mg Tablet] 1 mg PO DAILY 02/21/19 Hydrochlorothiazide [Hydrodiuril 25 mg Tablet] 25 mg PO BID 02/21/19 Quetiapine Fumarate [Seroquel] 400 mg PO QHS 02/21/19 Carisoprodol [Soma 350 mg Tablet] 350 mg PO QIDP PRN 05/23/19 Clonazepam 2 mg PO Q8HP PRN 05/23/19 Ropinirole HCl [Requip 0.25 mg Tablet] 0.25 mg PO Q8 05/23/19 Pregabalin [Lyrica 100 mg Capsule] 200 mg PO Q8 07/26/19 Insulin Regular, Human [Novolin R] 0 units SUBCUT .SLIDING SCALE MDD 28 units 09/26/19 Ipratropium/Albuterol Sulfate [Duoneb 3 ml Ampul] 3 ml NEB RTQIDP PRN 09/26/19 Albuterol Sulfate [Albuterol Sulfate Hfa] 1 puff IH Q4HP PRN 11/01/19 Aspirin [Ecotrin 81 mg EC Tablet] 81 mg PO DAILY 11/01/19 Diltiazem HCl [Diltiazem 24Hr ER] 360 mg PO DAILY 11/01/19 Insulin Degludec [Tresiba Flextouch U-200] 45 units SUBCUT QHS 11/01/19 Insulin Regular, Human [Novolin R] 10 units SUBCUT AC 11/01/19 Amoxicillin/Potassium Clav [Augmentin 875-125 Tablet] 1 tab PO Q12 #20 tablet 11/03/19 Levothyroxine Sodium [Synthroid 0.088 mg Tablet] 0.088 mg PO DAILY #30 tablet 11/03/19 Phenazopyridine HCl [Pyridium 100 mg Tablet] 100 mg PO Q8 #21 tablet 11/03/19 History of Present Illiness History of Present Illness: SELMA DOUGLAS is a 49 year old female PMH of Pulmonary Sarcoidosis,Type 2 DM, hypothyrodism, MARINO, anxiety who was admitted due to complains of persistent palpitation that started 1 week [employer]. She was discharged from [facility] 4 weeks prior treated for a UTI. During that admission she was found to have hepatomegaly with hepatic steatosis and RICH. When she was discharged her lisinopril was discontinued due to RICH, as well as her hydralazine. Since then, she has had on and off episodes of anxiety and palpitations. She apparently had an episode of Loss of consciousness lasted a few hours 2 weeks prior to this admission. they went to replaced by [facility] and was sent home after a negative work up. Her on and off palpitations has progressed hence she came to the ED and was subseque ntly admitted for further management. Hospital Course Hospital Course: Challenging hospital course. The patient was evaluated by cardiology for her sinus tachycardia. It appears that this is a chronic issue. She is already on 360 mg of diltiazem. She is allergic to beta-blockers which normally would be the mainstay of treatment. Currently stable with follow-up planned as outpatient. She did develop a urinary tract infection then per family and patient this is been a recurrent issue. She might benefit from urology evaluation. Urine culture still preliminary with gram-negative bacilli. Today the patient's daughter informed me that she has been on Macrobid multiple times without successful treatment. It could be related to too short a course but she does state that she has been on 10 days in the past. She does well with Augmentin and she states that Augmentin has been helpful in the past. She tolerates it despite a listed penicillin allergy. The patient has refused Macrodantin over the past several days instead of taking it to see if it was helpful. I am going to give the patient a single dose of Unasyn IV and then she will discharge on Augmentin for a full 10 days. Physical Exam Vital Signs: Temp Pulse Resp BP Pulse Ox 97.5 F 111 H 18 149/89 H 97 11/03/19 11:31 11/03/19 11:31 11/03/19 11:31 11/03/19 11:31 11/03/19 11:31 Intake & Output 11/02/19 11/03/19 11/04/19 06:59 06:59 06:59 Intake Total 650 2568 480 Output Total 200 500 Balance 450 2068 480 Weight 89.8 kg 89.7 kg General appearance: PRESENT: no acute distress Respiratory exam: PRESENT: clear to auscultation colleen, symmetrical, unlabored. ABSENT: rales, rhonchi, tachypnea, wheezes Cardiovascular exam: PRESENT: +S1, +S2, tachycardia Musculoskeletal exam: PRESENT: ambulatory Neurological exam: PRESENT: alert, awake, oriented to person, oriented to place, oriented to time, oriented to situation Psychiatric exam: PRESENT: appropriate affect. ABSENT: agitated, anxious Results Laboratory Results: WBC 9.1 10^3/uL (4.0-10.5) 11/03/19 04:15 RBC 4.54 10^6/uL (3.72-5.28) 11/03/19 04:15 Hgb 10.6 g/dL (12.0-15.5) L 11/03/19 04:15 Hct 33.3 % (36.0-47.0) L 11/03/19 04:15 MCV 73 fl (80-97) L 11/03/19 04:15 MCH 23.4 pg (27.0-33.4) L 11/03/19 04:15 MCHC 31.9 g/dL (32.0-36.0) L 11/03/19 04:15 RDW 21.3 % (11.5-14.0) H 11/03/19 04:15 Plt Count 278 10^3/uL (150-450) 11/03/19 04:15 Lymph % (Auto) 23.6 % (13-45) 11/03/19 04:15 [place] % (Auto) 5.1 % (3-13) 11/03/19 04:15 Eos % (Auto) 1.1 % (0-6) 11/03/19 04:15 Baso % (Auto) 0.5 % (0-2) 11/03/19 04:15 Absolute Neuts (auto) 6.3 10^3/uL (1.7-8.2) 11/03/19 04:15 Absolute Lymphs (auto) 2.1 10^3/uL (0.5-4.7) 11/03/19 04:15 Absolute Monos (auto) 0.5 10^3/uL (0.1-1.4) 11/03/19 04:15 Absolute Eos (auto) 0.1 10^3/uL (0.0-0.6) 11/03/19 04:15 Absolute Basos (auto) 0.0 10^3/uL (0.0-0.2) 11/03/19 04:15 Seg Neutrophils % 69.7 % (42-78) 11/03/19 04:15 PT 14.1 SEC (11.4-15.4) 11/01/19 01:37 PT Cancelled 11/01/19 01:37 INR 1.07 11/01/19 01:37 INR Cancelled 11/01/19 01:37 INR (Anticoag Therapy) Cancelled 11/01/19 01:37 APTT 33.3 SEC (23.5-35.8) 11/01/19 01:37 D-Dimer 0.52 ug/mL (0.00-0.50) H 11/01/19 01:37 Sodium 137.0 mmol/L (137-145) 11/03/19 04:15 Potassium 3.9 mmol/L (3.6-5.0) 11/03/19 04:15 Chloride 99 mmol/L (98-107) 11/03/19 04:15 Carbon Dioxide 27 mmol/L (22-30) 11/03/19 04:15 Anion Gap 11 (5-19) 11/03/19 04:15 BUN 11 mg/dL (7-20) 11/03/19 04:15 Creatinine 0.97 mg/dL (0.52-1.25) 11/03/19 04:15 Est GFR ( Amer) > 60 (>60) 11/03/19 04:15 Est GFR (MDRD) Non-Af > 60 (>60) 11/03/19 04:15 Glucose 141 mg/dL (75-110) H 11/03/19 04:15 POC Glucose 124 mg/dL (70-110) H 11/03/19 11:33 Calcium 8.9 mg/dL (8.4-10.2) 11/03/19 04:15 Magnesium 2.1 mg/dL (1.6-2.3) 11/03/19 04:15 Total Bilirubin 0.5 mg/dL (0.2-1.3) 11/03/19 04:15 Direct Bilirubin 0.3 mg/dL (0.0-0.4) 11/03/19 04:15 Neonat Total Bilirubin Not Reportable 11/03/19 04:15 Neonat Direct Bilirubin Not Reportable 11/03/19 04:15 Neonat Indirect Bili Not Reportable 11/03/19 04:15 AST 30 U/L (14-36) 11/03/19 04:15 ALT 18 U/L (<35) 11/03/19 04:15 Alkaline Phosphatase 137 U/L (38-126) H 11/03/19 04:15 Creatine Kinase 148 U/L (30-135) H 11/01/19 01:37 CK-MB (CK-2) 0.66 ng/mL (<4.55) 11/01/19 01:37 Troponin I < 0.012 ng/mL 11/01/19 04:41 Total Protein 6.2 g/dL (6.3-8.2) L 11/03/19 04:15 Albumin 3.5 g/dL (3.5-5.0) 11/03/19 04:15 TSH 0.37 uIU/mL (0.47-4.68) L 11/01/19 04:41 Urine Color YELLOW 11/01/19 05:45 Urine Appearance SLIGHTLY-CLOUDY 11/01/19 05:45 Urine pH 7.0 (5.0-9.0) 11/01/19 05:45 Ur Specific [place] 1.010 11/01/19 05:45 Urine Protein NEGATIVE mg/dL (NEGATIVE) 11/01/19 05:45 Urine Glucose (UA) NEGATIVE mg/dL (NEGATIVE) 11/01/19 05:45 Urine Ketones NEGATIVE mg/dL (NEGATIVE) 11/01/19 05:45 Urine Blood SMALL (NEGATIVE) H 11/01/19 05:45 Urine Nitrite POSITIVE (NEGATIVE) H 11/01/19 05:45 Urine Bilirubin NEGATIVE (NEGATIVE) 11/01/19 05:45 Urine Urobilinogen NEGATIVE mg/dL (<2.0) 11/01/19 05:45 Ur Leukocyte Esterase LARGE (NEGATIVE) H 11/01/19 05:45 Urine WBC (Auto) 130 /HPF 11/01/19 05:45 Urine RBC (Auto) 5 /HPF 11/01/19 05:45 U Hyaline Cast (Auto) 1 /LPF 11/01/19 05:45 Urine Bacteria (Auto) 2+ /HPF 11/01/19 05:45 Squamous Epi Cells Auto 6 /HPF 11/01/19 05:45 Urine Mucus (Auto) RARE /LPF 11/01/19 05:45 Urine Ascorbic Acid NEGATIVE (NEGATIVE) 11/01/19 05:45 Urine Opiates Screen UNCONFIRMED POSITIVE 11/01/19 05:45 Urine Methadone Screen NEGATIVE 11/01/19 05:45 Ur Barbiturates Screen NEGATIVE 11/01/19 05:45 Ur Phencyclidine Scrn NEGATIVE 11/01/19 05:45 Ur Amphetamines Screen NEGATIVE 11/01/19 05:45 U Benzodiazepines Scrn NEGATIVE 11/01/19 05:45 Urine Cocaine Screen NEGATIVE 11/01/19 05:45 U Marijuana (THC) Screen NEGATIVE 11/01/19 05:45 11/01/19 11/01/19 01:37 04:41 CK-MB (CK-2) 0.66 Troponin I < 0.012 < 0.012 Impressions: Chest X-Ray 11/01/19 01:27 IMPRESSION: No acute cardiopulmonary abnormality. copyright 2010 [employer]- All Rights Reserved Chest/Abdomen CTA 11/01/19 04:00 IMPRESSION: Cardiomegaly with no aortic dissection or aneurysm. No pulmonary embolus. Mildly dilated main pulmonary artery which can be seen in the central pulmonary arterial hypertension. No pneumonia. Plan Health Concerns: Recurrent urinary tract infections Plan of Treatment: Full 10-day course of Augmentin. If urine culture results indicate I can call the patient to change antibiotics. Augmentin is fairly broad-spectrum and should be effective. In addition the patient will see cardiology as an outpatient for her sinus tachycardia which could be her baseline. Goals: Complete resolution of urinary infection with urology evaluation to assess the patient and try and determine why she has recurrent infections. Also follow-up outpatient cardiology Time Spent: Greater than 30 Minutes Stroke Is this a Stroke Patient?: No Acute Heart Failure - Is this a Heart Failure Patient?: No
[2019-11-03] MEDS ORDERED: AMPICILLIN SODIUM/SULBACTAM NA 1.5 GM in NORMAL SALINE 50 ML IV SCH (15:00)
[2019-11-03 15:56] VITALS: BP 139/77
[2019-11-03] MEDS ORDERED: DILTIAZEM HCL 120 MG CAP.SR.24H PO SCH (22:00)
== END 2019-11-03 16:26 | disposition home or self-care (01) ==
LOC: ER 00:25 → INTOOBSV 10:20 → EH 10:20 → 5 12:32
PROVIDERS: ADMIT Internal Medicine; ATTEND Hospitalist
DX: R00.0 Tachycardia, unspecified (principal); F41.1 Generalized anxiety disorder; E03.9 Hypothyroidism, unspecified; N30.00 Acute cystitis without hematuria; R07.89 Other chest pain; E11.65 Type 2 diabetes mellitus with hyperglycemia; G89.29 Other chronic pain; M54.9 Dorsalgia, unspecified; I10 Essential (primary) hypertension; E66.01 Morbid (severe) obesity due to excess calories; S06.309S Unspecified focal traumatic brain injury with loss of consciousness of unspecified duration, sequela; H54.62 Unqualified visual loss, left eye, normal vision right eye; V89.2XXS Person injured in unspecified motor-vehicle accident, traffic, sequela; F14.11 Cocaine abuse, in remission; Z98.890 Other specified postprocedural states; Z88.0 Allergy status to penicillin; Z90.2 Acquired absence of lung [part of]; Z79.02 Long term (current) use of antithrombotics/antiplatelets; Z79.890 Hormone replacement therapy; Z79.4 Long term (current) use of insulin; Z79.899 Other long term (current) drug therapy; Z79.82 Long term (current) use of aspirin; Z87.09 Personal history of other diseases of the respiratory system; Z87.891 Personal history of nicotine dependence; Z82.49 Family history of ischemic heart disease and other diseases of the circulatory system; Z88.8 Allergy status to other drugs, medicaments and biological substances
CPT/HCPCS: 93005; 99285; 96361; 96374; 96375; 36415 ×3; 87086; 82553; 82962 ×3; 82550; 83735; 84443; 85025 ×3; 85610; 85730; 87088; 80053 ×3; 81001; 84484; 87186; 80307; 85379; 93306; 71045; 71275; 93010; 97116; 97163; 97165; G0378 ×3; J3490 ×6; J2270; J2060; J1815 ×3; J0295; J7040; J7120 ×2

== ENCOUNTER → 2019-11-21 | Outpatient (CLI) | payer OTHER ==
--- NOTE | 2019-11-21 14:07 | RADIOLOGY REPORT (SQ) ---
EXAM DESCRIPTION: VENOUS UNILATERAL LOWER IMAGES COMPLETED DATE/TIME: 11/21/2019 1:41 pm REASON FOR STUDY: LT FOOT PAIN M79.89 OTHER SPECIFIED SOFT TISSUE DISORDERS M79.672 PAIN IN LEFT F OOT COMPARISON: None. TECHNIQUE: Dynamic and static cowan scale and color images acquired of the left leg venous system. Se lected spectral images acquired with additional compression and augmentation maneuvers. The contralat eral common femoral vein and saphenofemoral junction were also imaged. Images stored on PACS. LIMITATIONS: None. FINDINGS: COMMON FEMORAL: Normal phasicity, compression and augmentation. No visualized echogenic ma terial on cowan scale. No defects on color images. FEMORAL: Normal compression and augmentation. No visualized echogenic material on cowan scale. No defe cts on color images. POPLITEAL: Normal compression, augmentation. No visualized echogenic material on cowan scale. No defec ts on color images. CALF VESSELS: Normal compression, augmentation. No visualized echogenic material on cowan scale. No de fects on color images. GSV and SSV: Normal compression, augmentation. No visualized echogenic material on cowan scale. No def ects on color images. ANY DEEP VENOUS INSUFFICIENCY: Not evaluated. ANY EVIDENCE OF POPLITEAL CYST: No. OTHER: No other significant finding. CONTRALATERAL COMMON FEMORAL VEIN: Normal phasicity, compression and augmentation. No visualized echogenic material on cowan scale. No de fects on color images. IMPRESSION: 1. NO EVIDENCE OF DVT OR SVT IN THE LEFT LEG. TECHNICAL DOCUMENTATION: JOB ID: [id number] 2010 [employer]- All Rights Reserved Reading location - IP/workstation name: [email or web address]
== END ==
LOC: SP 12:24
PROVIDERS: ATTEND Family Medicine
DX: M79.672 Pain in left foot (principal); M79.89 Other specified soft tissue disorders
CPT/HCPCS: 93971

== ENCOUNTER 2019-12-01 20:24 | Inpatient (IN) | payer BC, OTHER ==
[2019-12-01] MEDS ORDERED: ALBUTEROL SULFATE 0.083% NEB 2.5 MG/3 ML AMPUL NEB ONE (21:04)
[2019-12-01] MEDS ORDERED: ACETAMINOPHEN 325 MG TABLET PO ONE (21:15)
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
[2019-12-01] MEDS ORDERED: LORAZEPAM INJ 2 MG/1 ML VIAL IV ONE (22:35)
--- NOTE | 2019-12-01 22:37 | RADIOLOGY REPORT (SQ) ---
AP Portable chest: 12/01/2019 9:36 PM CDT History: 49-year old patient with dyspnea, cough. Comparison: Chest radiograph performed 11/01/2019. Findings: The cardiomediastinal silhouette is enlarged. No pneumothorax is seen. No acute airspace opacities are seen. No discrete pleural effusion is apparent. Impression: No acute airspace opacities are seen. The cardiomediastinal silhouette is enlarged.
[2019-12-01] MEDS ORDERED: NORMAL SALINE 1000 ML 1,000 ML IV ONE (23:05)
[2019-12-01] MEDS ORDERED: IPRATROPIUM/ALBUTEROL 0.5-2.5 MG/3 ML AMPUL NEB ONE (23:07)
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
[2019-12-01 23:27] LABS: HEMATOCRIT 30.6 % (36.0-47.0); MEAN CORPUSCULAR HEMOGLOBIN 24.1 pg (27.0-33.4); MEAN CORPUSCULAR HGB CONC 32.6 g/dL (32.0-36.0); MEAN CORPUSCULAR VOLUME 74 fl (80-97); PLATELET COUNT 336 10^3/uL (150-450); RED BLOOD COUNT 4.15 10^6/uL (3.72-5.28); RED CELL DISTRIBUTION WIDTH 23.8 % (11.5-14.0); WHITE BLOOD COUNT 12.4 10^3/uL (4.0-10.5)
[2019-12-01 23:29] LABS: INTERNATIONAL RATION (INR) 1.32; PARTIAL THROMBOPLASTIN TIME 33.2 SEC (23.5-35.8); PROTHROMBIN TIME 16.6 SEC (11.4-15.4)
[2019-12-01 23:38] LABS: A TYPE INFLUENZA AG NEGATIVE (NEGATIVE); B INFLUENZA AG NEGATIVE (NEGATIVE)
[2019-12-01 23:41] LABS: ALBUMIN 4.3 g/dL (3.5-5.0); ALKALINE PHOSPHATASE 138 U/L (38-126); ANION GAP 13 (5-19); ASPARTATE AMINO TRANSFERASE 27 U/L (14-36); BILIRUBIN,DIRECT 0.4 mg/dL (0.0-0.4); BILIRUBIN,TOTAL 0.5 mg/dL (0.2-1.3); BLOOD UREA NITROGEN 31 mg/dL (7-20); CALCIUM 9.6 mg/dL (8.4-10.2); CARBON DIOXIDE 27 mmol/L (22-30); CHLORIDE 101 mmol/L (98-107); GLUCOSE 154 mg/dL (75-110); POTASSIUM 4.6 mmol/L (3.6-5.0); TOTAL PROTEIN 7.2 g/dL (6.3-8.2)
[2019-12-01 23:46] LABS: ABSOLUTE MONOCYTES # (MANUAL) 0.7 10^3/uL (0.1-1.4); ANISOCYTOSIS 3+; BAND NEUTROPHILS % (MANUAL) 2 % (3-5); BASOPHILS % (MANUAL) 0 % (0-2); EOSINOPHILS % (MANUAL) 0 % (0-6); LYMPHOCYTES % (MANUAL) 16 % (13-45); MONOCYTES % (MANUAL) 6 % (3-13); PLATELET COMMENT ADEQUATE; SEGMENTED NEUTROPHILS % (MAN) 76 % (42-78); TOTAL CELLS COUNTED 100
[2019-12-01 23:53] LABS: NT PRO BNP 70 pg/mL (<125)
[2019-12-01 23:54] LABS: TROPONIN I < 0.012 ng/mL
[2019-12-02 00:38] LABS: ARTERIAL BLOOD BASE EXCESS 1.4 mmol/L; ARTERIAL BLOOD HCO3 28.3 mmol/L (20-24); ARTERIAL BLOOD O2 SATURATION 59.1 % (94-98); ARTERIAL BLOOD PCO2 56.6 mmHg (35-45); ARTERIAL BLOOD PH 7.32 (7.35-7.45)
[2019-12-02 00:40] LABS: ARTERIAL BLOOD FIO2 3L
[2019-12-02 01:16] LABS: APPEARANCE,URINE CLOUDY; BILIRUBIN,URINE NEGATIVE (NEGATIVE); COLOR,URINE YELLOW; GLUCOSE, URINE NEGATIVE (NEGATIVE); KETONES,URINE NEGATIVE (NEGATIVE); LEUKOCYTE ESTERASE,URINE LARGE (NEGATIVE); NITRITE,URINE NEGATIVE (NEGATIVE); PROTEIN,URINE NEGATIVE (NEGATIVE); URINE SPECIFIC GRAVITY 1.009; UROBILINOGEN,URINE NEGATIVE mg/dL (<2.0)
[2019-12-02] MEDS ORDERED: METHYLPREDNISOLONE INJ 125 MG/2 ML SDV IV ONE (02:09)
[2019-12-02 02:19] LABS: URINE AMPHETAMINES SCREEN NEGATIVE; URINE BARBITURATES SCREEN NEGATIVE; URINE BENZODIAZEPINES SCREEN NEGATIVE; URINE COCAINE SCREEN NEGATIVE; URINE MARIJUANA (THC) SCREEN NEGATIVE; URINE METHADONE SCREEN NEGATIVE; URINE PHENCYCLIDINE SCREEN NEGATIVE
--- NOTE | 2019-12-02 02:29 | RADIOLOGY REPORT (SQ) ---
INDICATION: seizure like activity. COMPARISON: September 26, 2019 CORRELATION: None TECHNIQUE: Noncontrast spiral axial CT images were obtained from the skull base to vertex. This exam was performed according to our departmental dose-optimization program, which includes automated exposure control, adjustment of the mA and/or kV according to patient size and/or use of iterative reconstruction techniques. FINDINGS: There is no evidence of acute intracranial hemorrhage, midline shift, mass effect or mass lesion. Stiles-white differentiation is normal. There is no evidence of acute large territory infarct. Ventricles and extracerebral spaces are within normal limits, for age. The visualized paranasal sinuses are grossly clear. The orbits and eyeballs are unremarkable. The mastoid air cells are clear. Skull base and calvarium appear intact. IMPRESSION: No acute intracranial process is identified. The cause of the patient's seizure is not identified on this examination.
--- NOTE | 2019-12-02 02:32 | RADIOLOGY REPORT (SQ) ---
CLINICAL INDICATION: fever, cough. . TECHNIQUE: Noncontrast spiral axial CT imaging was obtained of the chest with multiplanar reconstructions. This exam was performed according to our departmental dose-optimization program, which includes automated exposure control, adjustment of the mA and/or kV according to patient size and/or use of iterative reconstruction techniques. COMPARISON: November 01, 2019. CORRELATION: None. FINDINGS: The heart is prominent but stable. No pericardial effusion. No bulky mediastinal adenopathy. The lungs demonstrate progressive interstitial changes bilaterally.. No effusion. No pneumothorax Visualized abdominal contents demonstrate hepatic steatosis. Visualized bones are unremarkable. IMPRESSION: Progressive diffuse interstitial prominence is identified, bilaterally. No dense consolidation. No effusion. No pneumothorax.
[2019-12-02] MEDS ORDERED: RINGERS SOLUTION,LACTATED 1,000 ML IV PRN ×2 (03:33→09:16)
[2019-12-02] MEDS ORDERED: PROMETHAZINE HCL INJ 25 MG/1 ML VIAL IV PRN (03:33)
[2019-12-02] MEDS ORDERED: ONDANSETRON HCL INJ/PF 4 MG/2 ML SDV IV PRN (03:33)
[2019-12-02] MEDS ORDERED: ACETAMINOPHEN 325 MG TABLET PO PRN (03:33)
[2019-12-02] MEDS ORDERED: IPRATROPIUM BROMIDE 0.02% NEB 0.5 MG/2.5 ML AMPUL NEB PRN (03:36)
[2019-12-02] MEDS ORDERED: DEXTROSE 40% GEL 15 GM TUBE PO PRN ×2 (03:37)
[2019-12-02] MEDS ORDERED: GLUCAGON,HUMAN RECOMB 1 MG INJ IM PRN (03:37)
[2019-12-02] MEDS ORDERED: DEXTROSE 50%-WATER 25 GM/50 ML DISP.SYRIN IV PRN ×2 (03:37)
[2019-12-02] MEDS ORDERED: HYDRALAZINE HCL INJ/PF 20 MG/1 ML SDV IV PRN (03:38)
[2019-12-02] MEDS ORDERED: METOPROLOL TARTRATE PF/INJ 5 MG/5 ML SDV IV PRN (03:38)
[2019-12-02] MEDS ORDERED: CEFTRIAXONE 1 GM/D5W RTU 1 GM/50 ML RTUPB IV ONE (04:00)
[2019-12-02] MEDS ORDERED: AZITHROMYCIN 500 MG in DEXTROSE 5%-WATER 250 ML IV ONE (04:00)
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
[2019-12-02] MEDS ORDERED: ENOXAPARIN SODIUM INJ 100 MG/1 ML DISP.SYRIN SUBCUT SCH (06:00)
[2019-12-02] MEDS: OXYCODONE-ACETAMINOPHEN 5-325 MG TABLET PO PRN ×3 (06:11→22:50)
[2019-12-02] MEDS: DEXAMETHASONE 4 MG TABLET PO SCH ×4 (06:55→23:58)
[2019-12-02] MEDS: INSULIN LISPRO 100 UNIT/ML 3 ML VIAL SUBCUT SCH ×4 (06:56→23:55)
[2019-12-02] MEDS: IPRATROPIUM BROMIDE 0.02% NEB 0.5 MG/2.5 ML AMPUL NEB SCH ×3 (07:56→20:15)
[2019-12-02] MEDS: CEFTRIAXONE 1 GM/D5W RTU 1 GM/50 ML RTUPB IV SCH (08:25)
--- NOTE | 2019-12-02 09:20 | PDOC PROGRESS REPORT ---
Subjective Progress Note for:: 12/02/19 Subjective:: 49 year old female past medical history of diabetes, sarcoidosis, COPD, anxiety, hypertension, hypothyroidism, with recurrent hospitalization, last hospitalization about 2 weeks ago, patient is presenting to ED with worsening shortness of breath, started yesterday morning, patient checked her oxygen at home was not noted to be in the 70s, she is also had multiple episodes of nonbloody vomiting but denies any abdominal pain, diarrhea, loss of smell or loss of taste, patient denies any fever, chest pain, chills. Patient has been tested for COVID several times in the past with negative results, but due to multiple hospitalizations, consider suspect for COVID-19 function by ED physician and was assisted for COVID-19. Hospitalist consulted for admission. In ED patient was noted to have mild leukocytosis, bandemia, hypoxemia, RICH on CKD, positive leukocyte esterase, with CT chest showing progressive diffuse interstitial prominence bilaterally. [id number]-old female admitted here several times with multiple medical problems came to the emergency room with complaints of shortness of breath of 1 day duration. At the time of my examination patient is comfortable in the bed sleeping. Pulse ox is 94% on room air. She also complains of nonbloody vomiting at the time of presentation. COVID-19 is pending. Lab work indicates mild leukocytosis, hypoxia, RICH. CT scan suggestive of progressive diffuse interstitial prominence. She is receiving IV Rocephin and Zithromax. Patient looks drowsy but requesting for pain medications. Reason For Visit: ACUTE RESPIRATORY FAILURE WITH HYPOXEMIA,SARCOIDOS Physical Exam Vital Signs: Temp Pulse Resp BP Pulse Ox 99.4 F 112 H 20 152/71 H 96 12/02/19 05:45 12/02/19 07:00 12/02/19 05:45 12/02/19 05:45 12/02/19 05:45 Intake & Output 12/01/19 12/02/19 12/03/19 06:59 06:59 06:59 Intake Total 1000 Output Total 0 Balance 1000 Weight 94.2 kg General appearance: PRESENT: no acute distress, morbidly obese Head exam: PRESENT: atraumatic Eye exam: PRESENT: PERRLA Mouth exam: PRESENT: neck supple Teeth exam: PRESENT: poor dentation Neck exam: ABSENT: carotid bruit, JVD, lymphadenopathy, thyromegaly Respiratory exam: PRESENT: decreased breath sounds Cardiovascular exam: PRESENT: RRR. ABSENT: diastolic murmur, rubs, systolic murmur GI/Abdominal exam: PRESENT: normal bowel sounds, soft. ABSENT: distended, guarding, mass, organolmegaly, rebound, tenderness Rectal exam: PRESENT: deferred Extremities exam: PRESENT: full ROM. ABSENT: calf tenderness, clubbing, pedal edema Neurological exam: PRESENT: alert, awake, oriented to person, oriented to place, oriented to time, oriented to situation, CN II-XII grossly intact. ABSENT: motor sensory deficit Psychiatric exam: PRESENT: appropriate affect, normal mood. ABSENT: homicidal ideation, suicidal ideation Results Laboratory Results: 12/01/19 22:45 12/01/19 22:45 12/01/19 12/01/19 12/01/19 22:45 22:45 22:45 WBC 12.4 H RBC 4.15 Hgb 10.0 L Hct 30.6 L MCV 74 L MCH 24.1 L MCHC 32.6 RDW 23.8 H Plt Count 336 Seg Neutrophils % Not Reportable Carbonic Acid HCO3/H2CO3 Ratio ABG pH ABG pCO2 ABG pO2 ABG HCO3 ABG O2 Saturation ABG Base Excess FiO2 Sodium 140.5 Potassium 4.6 Chloride 101 Carbon Dioxide 27 Anion Gap 13 BUN 31 H Creatinine 1.61 H Est GFR ( Amer) 41 L Glucose 154 H Lactic Acid 2.0 Calcium 9.6 Magnesium Total Bilirubin 0.5 AST 27 Alkaline Phosphatase 138 H Total Protein 7.2 Albumin 4.3 Lipase Urine Color Urine Appearance Urine pH Ur Specific [place] Urine Protein Urine Glucose (UA) Urine Ketones Urine Blood Urine Nitrite Ur Leukocyte Esterase Urine WBC (Auto) Urine RBC (Auto) 12/01/19 12/01/19 12/02/19 22:45 22:45 00:23 WBC RBC Hgb Hct MCV MCH MCHC RDW Plt Count Seg Neutrophils % Carbonic Acid 1.70 H HCO3/H2CO3 Ratio 16:1 ABG pH 7.32 L ABG pCO2 56.6 H ABG pO2 34.0 L* ABG HCO3 28.3 H ABG O2 Saturation 59.1 L ABG Base Excess 1.4 FiO2 3L Sodium Potassium Chloride Carbon Dioxide Anion Gap BUN Creatinine Est GFR ( Amer) Glucose Lactic Acid Calcium Magnesium 2.6 H Total Bilirubin AST Alkaline Phosphatase Total Protein Albumin Lipase 89.1 Urine Color Urine Appearance Urine pH Ur Specific [place] Urine Protein Urine Glucose (UA) Urine Ketones Urine Blood Urine Nitrite Ur Leukocyte Esterase Urine WBC (Auto) Urine RBC (Auto) 12/02/19 00:58 WBC RBC Hgb Hct MCV MCH MCHC RDW Plt Count Seg Neutrophils % Carbonic Acid HCO3/H2CO3 Ratio ABG pH ABG pCO2 ABG pO2 ABG HCO3 ABG O2 Saturation ABG Base Excess FiO2 Sodium Potassium Chloride Carbon Dioxide Anion Gap BUN Creatinine Est GFR ( Amer) Glucose Lactic Acid Calcium Magnesium Total Bilirubin AST Alkaline Phosphatase Total Protein Albumin Lipase Urine Color YELLOW Urine Appearance CLOUDY Urine pH 5.0 Ur Specific [place] 1.009 Urine Protein NEGATIVE Urine Glucose (UA) NEGATIVE Urine Ketones NEGATIVE Urine Blood SMALL H Urine Nitrite NEGATIVE Ur Leukocyte Esterase LARGE H Urine WBC (Auto) 55 Urine RBC (Auto) 12/01/19 12/02/19 22:45 03:15 Troponin I < 0.012 < 0.012 NT-Pro-B Natriuret Pep 70 Impressions: Head CT 12/02/19 00:06 IMPRESSION: No acute intracranial process is identified. The cause of the patient's seizure is not identified on this examination. Chest CT 12/02/19 00:07 IMPRESSION: Progressive diffuse interstitial prominence is identified, bilaterally. No dense consolidation. No effusion. No pneumothorax. Assessment and Plan - Diagnosis (1) Acute kidney injury Is this a current diagnosis for this admission?: Yes Plan: 12/02/19-patient's baseline creatinine is around 0.97 last night creatinine is 1.61. AKA most likely secondary to prerenal causes. Patient is on Ringer lactate at 120 cc/h. Blood pressures are stable. Plan is to decrease the fluids to 50 cc/h. Plan is to repeat the labs tomorrow. (2) Sarcoidosis Is this a current diagnosis for this admission?: No Plan: Resume home meds. 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 Diabetic diet, basal, sliding scale and correctional insulin. Hypoglycemic protocol. Accu-Chek. Adjust meds as needed. Resume home meds upon discharge. Outpatient PCP follow-up. 12/02/2019-patient has history of type 2 diabetes mellitus. Presently on insulin sliding scale before meals and at bedtime. Diet exercise weight loss lifestyle modifications discussed with the patient. To check hemoglobin A1c. (4) Acute respiratory failure with hypoxemia Is this a current diagnosis for this admission?: Yes Plan: Likely due to acute COPD exacerbation, healthcare associated pneumonia or possibly COVID-19 infection. Patient presented with shortness of breath, ABG positive for severe hypoxemia. Admit to IMC, empiric broad-spectrum IV antibiotics, IV steroids, flutter valve, BiPAP, ICS, LABA, LABA, therapeutic Lovenox, p.o. zinc, vitamin C. Follow-up sputum culture, follow-up blood culture, follow-up COVID serology results. 12/02/2019-patient came in with acute respiratory failure hypoxia requiring oxygen supplementations. CT scan of the chest suggestive of progressive interstitial markings. Receiving IV Rocephin and Zithromax. (5) Hypertension Qualifiers: Hypertension type: unspecified Qualified Code(s): I10 - Essential (primary) hypertension Is this a current diagnosis for this admission?: No Plan: 12/02/2019-patient has history of chronic essential hypertension to continue her home medications. Blood pressure is 124/70 this morning. (6) Morbid obesity Is this a current diagnosis for this admission?: No Plan: 12/02/2019-patient BMI is more than 35. Diet exercise weight loss lifestyle modifications discussed with the patient. - Time Anticipated Discharge Disposition: Home, Self Care Anticipated Discharge Timeframe: within 48 hours
[2019-12-02 10:24] LABS: ABSOLUTE LYMPHOCYTES (AUTO) 0.7 10^3/uL (0.5-4.7); ABSOLUTE MONOCYTES (AUTO) 0.1 10^3/uL (0.1-1.4); ABSOLUTE NEUT (AUTO) 6.9 10^3/uL (1.7-8.2); BASOPHILS % (AUTO) 0.2 % (0-2); EOSINOPHILS % (AUTO) 0.1 % (0-6); LYMPHOCYTES % (AUTO) 9.3 % (13-45); MEAN CORPUSCULAR HEMOGLOBIN 24.1 pg (27.0-33.4); MEAN CORPUSCULAR HGB CONC 32.2 g/dL (32.0-36.0); MEAN CORPUSCULAR VOLUME 75 fl (80-97); MONOCYTES % (AUTO) 1.6 % (3-13); PLATELET COUNT 305 10^3/uL (150-450); RED BLOOD COUNT 4.13 10^6/uL (3.72-5.28); RED CELL DISTRIBUTION WIDTH 24.7 % (11.5-14.0); SEGMENTED NEUTROPHILS % (AUTO) 88.8 % (42-78); TOTAL CELLS COUNTED % (AUTO) 100 %; WHITE BLOOD COUNT 7.8 10^3/uL (4.0-10.5)
[2019-12-02 10:32] LABS: INTERNATIONAL RATION (INR) 1.32; PROTHROMBIN TIME 16.5 SEC (11.4-15.4)
[2019-12-02 10:49] LABS: ANISOCYTOSIS 3+; HYPOCHROMASIA SLIGHT; POIKILOCYTOSIS SLIGHT; POLYCHROMASIA SLIGHT
[2019-12-02 10:50] LABS: PLATELET COMMENT ADEQUATE; TARGET CELLS SLIGHT
[2019-12-02 10:52] LABS: ALBUMIN 3.9 g/dL (3.5-5.0); ALKALINE PHOSPHATASE 136 U/L (38-126); ANION GAP 9 (5-19); ASPARTATE AMINO TRANSFERASE 29 U/L (14-36); BILIRUBIN,DIRECT 0.4 mg/dL (0.0-0.4); BILIRUBIN,TOTAL 0.4 mg/dL (0.2-1.3); BLOOD UREA NITROGEN 24 mg/dL (7-20); CALCIUM 9.2 mg/dL (8.4-10.2); CARBON DIOXIDE 28 mmol/L (22-30); CHLORIDE 103 mmol/L (98-107); GLUCOSE 359 mg/dL (75-110); POTASSIUM 5.1 mmol/L (3.6-5.0); TOTAL PROTEIN 6.7 g/dL (6.3-8.2)
[2019-12-02] MEDS: FAMOTIDINE INJ/PF 20 MG/2 ML SDV IV SCH ×2 (11:14→22:51)
[2019-12-02] MEDS: DOCUSATE SODIUM 100 MG/10 ML UDC PO SCH (11:14)
[2019-12-02] MEDS: ASCORBIC ACID 500 MG TABLET PO SCH ×2 (11:14→17:48)
[2019-12-02] MEDS: ZINC SULFATE 220 MG CAPSULE PO SCH (11:14)
[2019-12-02] MEDS: AZITHROMYCIN 500 MG in DEXTROSE 5%-WATER 250 ML IV SCH (11:14)
[2019-12-02] MEDS: APIXABAN 5 MG TABLET PO SCH ×2 (11:14→17:48)
--- NOTE | 2019-12-02 21:26 | EKG REPORT ---
SEVERITY:- BORDERLINE ECG - SINUS TACHYCARDIA PROBABLE LEFT ATRIAL ABNORMALITY : Confirmed by: Margarita Dave MD 02-Dec-2019 21:25:56
[2019-12-02] MEDS ORDERED: AZITHROMYCIN 500 MG in DEXTROSE 5%-WATER 250 ML IV SCH (22:00)
[2019-12-02] MEDS ORDERED: CEFTRIAXONE 1 GM/D5W RTU 1 GM/50 ML RTUPB IV SCH (22:00)
[2019-12-03 06:41] LABS: HEMATOCRIT 30.9 % (36.0-47.0); MEAN CORPUSCULAR HGB CONC 32.3 g/dL (32.0-36.0); MEAN CORPUSCULAR VOLUME 75 fl (80-97); PLATELET COUNT 315 10^3/uL (150-450); RED BLOOD COUNT 4.15 10^6/uL (3.72-5.28); WHITE BLOOD COUNT 13.1 10^3/uL (4.0-10.5)
[2019-12-03] MEDS: INSULIN LISPRO 100 UNIT/ML 3 ML VIAL SUBCUT SCH ×3 (06:41→17:15)
[2019-12-03] MEDS: DEXAMETHASONE 4 MG TABLET PO SCH ×3 (06:41→21:30)
[2019-12-03 06:55] LABS: ALKALINE PHOSPHATASE 113 U/L (38-126); ANION GAP 11 (5-19); ASPARTATE AMINO TRANSFERASE 22 U/L (14-36); BILIRUBIN,DIRECT 0.3 mg/dL (0.0-0.4); BILIRUBIN,TOTAL 0.5 mg/dL (0.2-1.3); BLOOD UREA NITROGEN 24 mg/dL (7-20); CALCIUM 9.8 mg/dL (8.4-10.2); CARBON DIOXIDE 26 mmol/L (22-30); CHLORIDE 104 mmol/L (98-107); GLUCOSE 193 mg/dL (75-110); POTASSIUM 4.4 mmol/L (3.6-5.0); TOTAL PROTEIN 6.9 g/dL (6.3-8.2)
[2019-12-03 06:58] LABS: ABSOLUTE MONOCYTES # (MANUAL) 0.5 10^3/uL (0.1-1.4); ANISOCYTOSIS 3+; BAND NEUTROPHILS % (MANUAL) 2 % (3-5); BASOPHILS % (MANUAL) 0 % (0-2); EOSINOPHILS % (MANUAL) 0 % (0-6); LYMPHOCYTES % (MANUAL) 8 % (13-45); MONOCYTES % (MANUAL) 4 % (3-13); POLYCHROMASIA SLIGHT; SEGMENTED NEUTROPHILS % (MAN) 86 % (42-78); TOTAL CELLS COUNTED 100; TOXIC GRANULATION SLIGHT
[2019-12-03 06:59] LABS: PLATELET COMMENT ADEQUATE
[2019-12-03] MEDS ORDERED: CARISOPRODOL 350 MG TABLET PO PRN (07:29)
[2019-12-03] MEDS ORDERED: ALBUTEROL SULFATE HFA (90 MCG/PUFF) 8 GM MDI (1 MDI/ER DISP) IH PRN (07:29)
[2019-12-03] MEDS ORDERED: ALBUTEROL SULFATE HFA (90 MCG/PUFF) 8 GM MDI IH PRN (07:57)
[2019-12-03] MEDS: IPRATROPIUM BROMIDE 0.02% NEB 0.5 MG/2.5 ML AMPUL NEB SCH ×2 (08:58→13:40)
[2019-12-03] MEDS: IPRATROPIUM/ALBUTEROL 0.5-2.5 MG/3 ML AMPUL NEB SCH ×2 (08:59→13:36)
--- NOTE | 2019-12-03 09:20 | PDOC PROGRESS REPORT ---
Subjective Progress Note for:: 12/03/19 Subjective:: 49 year old female past medical history of diabetes, sarcoidosis, COPD, anxiety, hypertension, hypothyroidism, with recurrent hospitalization, last hospitalization about 2 weeks ago, patient is presenting to ED with worsening shortness of breath, started yesterday morning, patient checked her oxygen at home was not noted to be in the 70s, she is also had multiple episodes of nonbloody vomiting but denies any abdominal pain, diarrhea, loss of smell or loss of taste, patient denies any fever, chest pain, chills. Patient has been tested for COVID several times in the past with negative results, but due to multiple hospitalizations, consider suspect for COVID-19 function by ED physician and was assisted for COVID-19. Hospitalist consulted for admission. In ED patient was noted to have mild leukocytosis, bandemia, hypoxemia, RICH on CKD, positive leukocyte esterase, with CT chest showing progressive diffuse interstitial prominence bilaterally. 12/[id number]-xome-old female admitted here several times with multiple medical problems came to the emergency room with complaints of shortness of breath of 1 day duration. At the time of my examination patient is comfortable in the bed sleeping. Pulse ox is 94% on room air. She also complains of nonbloody vomiting at the time of presentation. COVID-19 is pending. Lab work indicates mild leukocytosis, hypoxia, RICH. CT scan suggestive of progressive diffuse interstitial prominence. She is receiving IV Rocephin and Zithromax. Patient looks drowsy but requesting for pain medications. 12/03/19-no acute events in the last 24 hours. Afebrile. Blood cultures were positive for Gram positive rods. Presently on IV Rocephin and Zithromax. Patient is without IV access from last night. Agreed to have IV access this morning. Reason For Visit: ACUTE RESPIRATORY FAILURE WITH HYPOXEMIA,SARCOIDOS Physical Exam Vital Signs: Temp Pulse Resp BP Pulse Ox 98.0 F 118 H 16 133/86 H 96 12/03/19 07:38 12/03/19 08:59 12/03/19 08:59 12/03/19 07:38 12/03/19 08:59 Intake & Output 12/02/19 12/03/19 12/04/19 06:59 06:59 06:59 Intake Total 1000 1500 Output Total 0 400 Balance 1000 1100 Weight 94.2 kg 92.9 kg General appearance: PRESENT: no acute distress, morbidly obese Head exam: PRESENT: atraumatic Eye exam: PRESENT: other - Has a patching on the left eye. Mouth exam: PRESENT: moist, tongue midline Teeth exam: PRESENT: poor dentation Neck exam: ABSENT: carotid bruit, JVD, lymphadenopathy, thyromegaly Respiratory exam: PRESENT: decreased breath sounds Cardiovascular exam: PRESENT: RRR. ABSENT: diastolic murmur, rubs, systolic murmur GI/Abdominal exam: PRESENT: normal bowel sounds, soft. ABSENT: distended, guarding, mass, organolmegaly, rebound, tenderness Rectal exam: PRESENT: deferred Extremities exam: PRESENT: full ROM. ABSENT: calf tenderness, clubbing, pedal edema Neurological exam: PRESENT: alert, awake, oriented to person, oriented to place, oriented to time, oriented to situation, CN II-XII grossly intact. ABSENT: motor sensory deficit Psychiatric exam: PRESENT: appropriate affect, normal mood. ABSENT: homicidal ideation, suicidal ideation Results Laboratory Results: 12/03/19 06:25 12/03/19 06:25 12/01/19 12/02/19 12/02/19 22:45 10:05 10:05 WBC 12.4 H 7.8 RBC 4.15 4.13 Hgb 10.0 L 10.0 L Hct 30.6 L 31.0 L MCV 74 L 75 L MCH 24.1 L 24.1 L MCHC 32.6 32.2 RDW 23.8 H 24.7 H Plt Count 336 305 Seg Neutrophils % 88.8 H Sodium 140.0 Potassium 5.1 H Chloride 103 Carbon Dioxide 28 Anion Gap 9 BUN 24 H Creatinine 1.16 Est GFR ( Amer) > 60 Glucose 359 H Calcium 9.2 Magnesium 2.3 Total Bilirubin 0.4 AST 29 Alkaline Phosphatase 136 H Total Protein 6.7 Albumin 3.9 TSH 12/03/19 12/03/19 12/03/19 06:25 06:25 06:25 WBC 13.1 H RBC 4.15 Hgb 10.0 L Hct 30.9 L MCV 75 L MCH 24.0 L MCHC 32.3 RDW 24.0 H Plt Count 315 Seg Neutrophils % Not Reportable Sodium 140.6 Potassium 4.4 Chloride 104 Carbon Dioxide 26 Anion Gap 11 BUN 24 H Creatinine 0.93 Est GFR ( Amer) > 60 Glucose 193 H Calcium 9.8 Magnesium 2.2 Total Bilirubin 0.5 AST 22 Alkaline Phosphatase 113 Total Protein 6.9 Albumin 4.0 TSH 0.48 12/01/19 22:52 Blood Blood Culture (PCR) - Final 12/01/19 12/02/19 22:45 03:15 Troponin I < 0.012 < 0.012 NT-Pro-B Natriuret Pep 70 Impressions: Head CT 12/02/19 00:06 IMPRESSION: No acute intracranial process is identified. The cause of the patient's seizure is not identified on this examination. Chest CT 12/02/19 00:07 IMPRESSION: Progressive diffuse interstitial prominence is identified, bilaterally. No dense consolidation. No effusion. No pneumothorax. Assessment and Plan - Diagnosis (1) Acute kidney injury Is this a current diagnosis for this admission?: Yes Plan: 12/02/19-patient's baseline creatinine is around 0.97 last night creatinine is 1.61. AKA most likely secondary to prerenal causes. Patient is on Ringer lactate at 120 cc/h. Blood pressures are stable. Plan is to decrease the fluids to 50 cc/h. Plan is to repeat the labs tomorrow. 12/03/2019-patient admitted with RICH serum creatinine this morning is 0.93. Acute kidney injury is resolved. Plan is to discontinue IV fluids at this time. (2) Sarcoidosis Is this a current diagnosis for this admission?: No Plan: Resume home meds. 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 Diabetic diet, basal, sliding scale and correctional insulin. Hypoglycemic protocol. Accu-Chek. Adjust meds as needed. Resume home meds upon discharge. Outpatient PCP follow-up. 12/02/2019-patient has history of type 2 diabetes mellitus. Presently on insulin sliding scale before meals and at bedtime. Diet exercise weight loss lifestyle modifications discussed with the patient. To check hemoglobin A1c. 12/03/2019-patient has history of type 2 diabetes mellitus. Latest blood sugar is 193. Plan is to continue the present management at this time. (4) Acute respiratory failure with hypoxemia Is this a current diagnosis for this admission?: Yes Plan: Likely due to acute COPD exacerbation, healthcare associated pneumonia or possibly COVID-19 infection. Patient presented with shortness of breath, ABG positive for severe hypoxemia. Admit to IMC, empiric broad-spectrum IV antibiotics, IV steroids, flutter valve, BiPAP, ICS, LABA, LABA, therapeutic Lovenox, p.o. zinc, vitamin C. Follow-up sputum culture, follow-up blood culture, follow-up COVID serology results. 12/02/2019-patient came in with acute respiratory failure hypoxia requiring oxygen supplementations. CT scan of the chest suggestive of progressive interstitial markings. Receiving IV Rocephin and Zithromax. 12/03/2019-patient is comfortably in the bed communicating well. Pulse ox is 94% on 3 L. Presently on IV Rocephin and Zithromax for possible community-acquired pneumonia. (5) Hypertension Qualifiers: Hypertension type: unspecified Qualified Code(s): I10 - Essential (primary) hypertension Is this a current diagnosis for this admission?: No Plan: 12/02/2019-patient has history of chronic essential hypertension to continue her home medications. Blood pressure is 124/70 this morning. 12/03/19-blood pressure is 129/68. Stable. (6) Morbid obesity Is this a current diagnosis for this admission?: No - Time Anticipated Discharge Disposition: Home, Self Care Anticipated Discharge Timeframe: within 48 hours
[2019-12-03] MEDS: APIXABAN 5 MG TABLET PO SCH ×2 (09:43→17:12)
[2019-12-03] MEDS: ZINC SULFATE 220 MG CAPSULE PO SCH (09:43)
[2019-12-03] MEDS: ASCORBIC ACID 500 MG TABLET PO SCH ×2 (09:44→17:12)
[2019-12-03] MEDS: ROPINIROLE HCL 1 MG TABLET PO SCH ×3 (09:44→17:12)
[2019-12-03] MEDS: DILTIAZEM HCL 180 MG CAPSULE.CR PO SCH (09:44)
[2019-12-03] MEDS: HYDROCHLOROTHIAZIDE 25 MG TABLET PO SCH ×2 (09:44→17:12)
[2019-12-03] MEDS: DOCUSATE SODIUM 100 MG/10 ML UDC PO SCH (09:45)
[2019-12-03] MEDS ORDERED: QUETIAPINE FUMARATE 100 MG TABLET PO SCH (10:00)
[2019-12-03] MEDS: FAMOTIDINE INJ/PF 20 MG/2 ML SDV IV SCH ×2 (10:18→21:31)
[2019-12-03] MEDS: CEFTRIAXONE 1 GM/D5W RTU 1 GM/50 ML RTUPB IV SCH (10:18)
[2019-12-03] MEDS: AZITHROMYCIN 500 MG in DEXTROSE 5%-WATER 250 ML IV SCH (10:46)
[2019-12-03] MEDS: MORPHINE SULFATE 10 MG/ML INJ IV PRN ×3 (11:56→21:31)
[2019-12-03] MEDS: CLONAZEPAM 1 MG TABLET PO PRN (11:57)
[2019-12-03] MEDS: OXYCODONE-ACETAMINOPHEN 5-325 MG TABLET PO PRN ×2 (13:26→23:01)
[2019-12-03] MEDS: PREGABALIN 100 MG CAPSULE PO SCH ×2 (13:26→21:30)
[2019-12-03] MEDS: PHENAZOPYRIDINE HCL 100 MG TABLET PO SCH ×2 (13:27→21:30)
[2019-12-03] MEDS ORDERED: IPRATROPIUM/ALBUTEROL 0.5-2.5 MG/3 ML AMPUL NEB PRN (15:00)
[2019-12-03 16:55] LABS: APPEARANCE,URINE CLEAR; BILIRUBIN,URINE NEGATIVE (NEGATIVE); COLOR,URINE YELLOW; GLUCOSE, URINE NEGATIVE (NEGATIVE); KETONES,URINE NEGATIVE (NEGATIVE); LEUKOCYTE ESTERASE,URINE NEGATIVE (NEGATIVE); NITRITE,URINE NEGATIVE (NEGATIVE); PROTEIN,URINE NEGATIVE (NEGATIVE); URINE SPECIFIC GRAVITY 1.018; UROBILINOGEN,URINE NEGATIVE mg/dL (<2.0)
[2019-12-03] MEDS: TEMAZEPAM 7.5 MG CAPSULE PO PRN ×2 (21:30→23:01)
[2019-12-03] MEDS ORDERED: QUETIAPINE FUMARATE 25 MG TABLET PO ONE (21:57)
[2019-12-03] MEDS ORDERED: ROPINIROLE HCL 0.25 MG TABLET PO SCH (22:00)
[2019-12-04] MEDS: INSULIN LISPRO 100 UNIT/ML 3 ML VIAL SUBCUT SCH ×4 (00:28→17:04)
[2019-12-04] MEDS: MORPHINE SULFATE 10 MG/ML INJ IV PRN ×5 (02:09→23:08)
[2019-12-04] MEDS: PHENAZOPYRIDINE HCL 100 MG TABLET PO SCH ×3 (06:23→21:35)
[2019-12-04] MEDS: DEXAMETHASONE 4 MG TABLET PO SCH (06:24)
[2019-12-04] MEDS: PREGABALIN 100 MG CAPSULE PO SCH ×3 (06:24→21:31)
[2019-12-04] MEDS: LEVOTHYROXINE SODIUM 0.088 MG TABLET PO SCH (06:24)
[2019-12-04 09:06] LABS: ABSOLUTE LYMPHOCYTES (AUTO) 1.1 10^3/uL (0.5-4.7); ABSOLUTE MONOCYTES (AUTO) 0.6 10^3/uL (0.1-1.4); ABSOLUTE NEUT (AUTO) 8.5 10^3/uL (1.7-8.2); BASOPHILS % (AUTO) 0.1 % (0-2); HEMATOCRIT 31.7 % (36.0-47.0); HEMOGLOBIN 10.3 g/dL (12.0-15.5); LYMPHOCYTES % (AUTO) 10.8 % (13-45); MEAN CORPUSCULAR HEMOGLOBIN 24.5 pg (27.0-33.4); MEAN CORPUSCULAR HGB CONC 32.6 g/dL (32.0-36.0); MEAN CORPUSCULAR VOLUME 75 fl (80-97); MONOCYTES % (AUTO) 5.8 % (3-13); PLATELET COUNT 333 10^3/uL (150-450); RED BLOOD COUNT 4.22 10^6/uL (3.72-5.28); SEGMENTED NEUTROPHILS % (AUTO) 83.3 % (42-78); TOTAL CELLS COUNTED % (AUTO) 100 %; WHITE BLOOD COUNT 10.2 10^3/uL (4.0-10.5)
[2019-12-04 09:12] LABS: ALBUMIN 4.4 g/dL (3.5-5.0); ALKALINE PHOSPHATASE 119 U/L (38-126); ANION GAP 12 (5-19); ASPARTATE AMINO TRANSFERASE 18 U/L (14-36); BILIRUBIN,TOTAL 0.4 mg/dL (0.2-1.3); BLOOD UREA NITROGEN 25 mg/dL (7-20); CALCIUM 9.7 mg/dL (8.4-10.2); CARBON DIOXIDE 27 mmol/L (22-30); CHLORIDE 102 mmol/L (98-107); GLUCOSE 187 mg/dL (75-110); POTASSIUM 4.6 mmol/L (3.6-5.0); TOTAL PROTEIN 7.3 g/dL (6.3-8.2)
[2019-12-04 09:28] LABS: ANISOCYTOSIS 3+; HYPOCHROMASIA SLIGHT; PLATELET COMMENT ADEQUATE; POIKILOCYTOSIS SLIGHT
[2019-12-04] MEDS: HYDROCHLOROTHIAZIDE 25 MG TABLET PO SCH ×2 (09:59→17:50)
[2019-12-04] MEDS: DILTIAZEM HCL 180 MG CAPSULE.CR PO SCH (09:59)
[2019-12-04] MEDS: ROPINIROLE HCL 1 MG TABLET PO SCH ×3 (09:59→17:50)
[2019-12-04] MEDS: APIXABAN 5 MG TABLET PO SCH (09:59)
[2019-12-04] MEDS: ASCORBIC ACID 500 MG TABLET PO SCH ×2 (10:00→17:55)
[2019-12-04] MEDS: ZINC SULFATE 220 MG CAPSULE PO SCH (10:00)
[2019-12-04] MEDS: FAMOTIDINE INJ/PF 20 MG/2 ML SDV IV SCH ×2 (10:02→21:44)
[2019-12-04] MEDS: CEFTRIAXONE 1 GM/D5W RTU 1 GM/50 ML RTUPB IV SCH ×2 (10:02→13:40)
[2019-12-04] MEDS: DOCUSATE SODIUM 100 MG/10 ML UDC PO SCH (10:02)
[2019-12-04] MEDS: AZITHROMYCIN 500 MG in DEXTROSE 5%-WATER 250 ML IV SCH ×2 (10:02→14:16)
[2019-12-04] MEDS ORDERED: LORAZEPAM INJ 2 MG/1 ML VIAL ONE (10:14)
[2019-12-04] MEDS ORDERED: LORAZEPAM INJ 2 MG/1 ML VIAL IV PRN (10:17)
--- NOTE | 2019-12-04 10:29 | Progress Note ---
Provider Note Provider Note: Responded to ELECTRICAL POWER ENGINEER for seizure. Patient having generalized tonic clonic seizure. No loss of bowel/bladder or tongue biting. Per nursing staff, she has been complaining of feeling lightheaded. No known head trauma. On telemetry, NSR with rates 130-150. VS: afebrile, BP slightly elevated, saturating >95% on RA, tachypnea Meds: Ativan 2 mg IM x1 administered immediately after all seizure activity ceased During the seizure, which lasted 1-2 minutes, she grabbed the bed rail with her left hand. Immediately after the seizure ceased, she was able to say "my arm hurts" (where IM Ativan was administered) and "my tongue hurts" (no evidence of tongue trauma). She is following commands, but slowly. Unclear if this was a true seizure vs pseudoseizure. Discussed with primary attending, Dr. Avila, who is ordering STAT Head CT and labs. Over >30 minutes of critical care time spent.
[2019-12-04] MEDS ORDERED: DEXTROSE 40% GEL 15 GM TUBE PO PRN ×2 (10:40)
[2019-12-04] MEDS ORDERED: GLUCAGON,HUMAN RECOMB 1 MG INJ SUBCUT PRN (10:40)
[2019-12-04] MEDS ORDERED: DEXTROSE 50%-WATER 25 GM/50 ML DISP.SYRIN IV PRN ×2 (10:40)
--- NOTE | 2019-12-04 10:40 | PDOC PROGRESS REPORT ---
Subjective Progress Note for:: 12/04/19 Subjective:: 49 year old female past medical history of diabetes, sarcoidosis, COPD, anxiety, hypertension, hypothyroidism, with recurrent hospitalization, last hospitalization about 2 weeks ago, patient is presenting to ED with worsening shortness of breath, started yesterday morning, patient checked her oxygen at home was not noted to be in the 70s, she is also had multiple episodes of nonbloody vomiting but denies any abdominal pain, diarrhea, loss of smell or loss of taste, patient denies any fever, chest pain, chills. Patient has been tested for COVID several times in the past with negative results, but due to multiple hospitalizations, consider suspect for COVID-19 function by ED physician and was assisted for COVID-19. Hospitalist consulted for admission. In ED patient was noted to have mild leukocytosis, bandemia, hypoxemia, RICH on CKD, positive leukocyte esterase, with CT chest showing progressive diffuse interstitial prominence bilaterally. 12/02/[id number]-tzkd-old female admitted here several times with multiple medical problems came to the emergency room with complaints of shortness of breath of 1 day duration. At the time of my examination patient is comfortable in the bed sleeping. Pulse ox is 94% on room air. She also complains of nonbloody vomiting at the time of presentation. COVID-19 is pending. Lab work indicates mild leukocytosis, hypoxia, RICH. CT scan suggestive of progressive diffuse interstitial prominence. She is receiving IV Rocephin and Zithromax. Patient looks drowsy but requesting for pain medications. 12/03/19-no acute events in the last 24 hours. Afebrile. Blood cultures were positive for Gram positive rods. Presently on IV Rocephin and Zithromax. Patient is without IV access from last night. Agreed to have IV access this morning. 12/04/19-the time of my examination this morning patient is alert and co mmunicating reasonably and I agreed to go home today. But around 10:20 AM patient has a witnessed seizure. She was given 2 mg of IV Ativan stat. Went back to reexamine the patient on rubbing the chest patient is complaining that she is drowsy 100 responding to verbal commands able to give me the date of and the location. Plan is to do the EEG, seizure precautions are requested, CT head was requested, CK and lactic acid levels were requested. To keep her n.p.o. for today and change her insulin sliding scale to every 6 hours. Reason For Visit: ACUTE RESPIRATORY FAILURE WITH HYPOXEMIA,SARCOIDOS Physical Exam Vital Signs: Temp Pulse Resp BP Pulse Ox 97.9 F 101 H 15 126/80 H 93 12/04/19 07:48 12/04/19 09:49 12/04/19 09:49 12/04/19 07:48 12/04/19 09:49 Intake & Output 12/03/19 12/04/19 12/05/19 06:59 06:59 06:59 Intake Total 1500 680 Output Total 400 Balance 1100 680 Weight 92.9 kg 91.6 kg General appearance: PRESENT: no acute distress, cooperative, morbidly obese Head exam: PRESENT: atraumatic Eye exam: PRESENT: PERRLA Ear exam: PRESENT: normal external ear exam Teeth exam: PRESENT: poor dentation Neck exam: ABSENT: carotid bruit, JVD, lymphadenopathy, thyromegaly Respiratory exam: PRESENT: decreased breath sounds Pulses: PRESENT: normal dorsalis pedis pul GI/Abdominal exam: PRESENT: normal bowel sounds, soft. ABSENT: distended, guarding, mass, organolmegaly, rebound, tenderness Rectal exam: PRESENT: deferred Extremities exam: PRESENT: full ROM. ABSENT: calf tenderness, clubbing, pedal edema Neurological exam: PRESENT: alert, awake, oriented to person, oriented to place, oriented to time, oriented to situation, CN II-XII grossly intact. ABSENT: motor sensory deficit Psychiatric exam: PRESENT: appropriate affect, normal mood. ABSENT: homicidal ideation, suicidal ideation Results Laboratory Results: 12/04/19 07:45 12/04/19 07:45 12/03/19 12/04/19 12/04/19 16:30 07:45 07:45 WBC 10.2 RBC 4.22 Hgb 10.3 L Hct 31.7 L MCV 75 L MCH 24.5 L MCHC 32.6 RDW 25.0 H Plt Count 333 Seg Neutrophils % 83.3 H Sodium 141.4 Potassium 4.6 Chloride 102 Carbon Dioxide 27 Anion Gap 12 BUN 25 H Creatinine 0.95 Est GFR ( Amer) > 60 Glucose 187 H Calcium 9.7 Magnesium 2.0 Total Bilirubin 0.4 AST 18 Alkaline Phosphatase 119 Total Protein 7.3 Albumin 4.4 Urine Color YELLOW Urine Appearance CLEAR Urine pH 5.0 Ur Specific [place] 1.018 Urine Protein NEGATIVE Urine Glucose (UA) NEGATIVE Urine Ketones NEGATIVE Urine Blood NEGATIVE Urine Nitrite NEGATIVE Ur Leukocyte Esterase NEGATIVE Urine WBC (Auto) 8 Urine RBC (Auto) 8 12/02/19 00:58 Clean Catch Midstream Urine Culture - Final Lactobacillus (Vaginal Sariah) Mixed Urogenital Sariah C.albicans/C.dubliniensis 12/01/19 22:52 Blood Blood Culture (PCR) - Final 12/01/19 12/02/19 12/04/19 22:45 03:15 07:45 Creatine Kinase 22 L Troponin I < 0.012 < 0.012 NT-Pro-B Natriuret Pep 70 Impressions: Head CT 12/02/19 00:06 IMPRESSION: No acute intracranial process is identified. The cause of the patient's seizure is not identified on this examination. Chest CT 12/02/19 00:07 IMPRESSION: Progressive diffuse interstitial prominence is identified, bilaterally. No dense consolidation. No effusion. No pneumothorax. Assessment and Plan - Diagnosis (1) Acute kidney injury Is this a current diagnosis for this admission?: Yes Plan: 12/02/19-patient's baseline creatinine is around 0.97 last night creatinine is 1.61. AKA most likely secondary to prerenal causes. Patient is on Ringer lactate at 120 cc/h. Blood pressures are stable. Plan is to decrease the fluids to 50 cc/h. Plan is to repeat the labs tomorrow. 12/03/2019-patient admitted with RICH serum creatinine this morning is 0.93. Acute kidney injury is resolved. Plan is to discontinue IV fluids at this time. 12/04/2019-serum creatinine today 0.95. Stable. Not on IV fluids at this time. (2) Sarcoidosis Is this a current diagnosis for this admission?: No Plan: Resume home meds. (3) Type 2 diabetes mellitus Qualifiers: Diabetes mellitus residential insulin use: with residential use Is this a current diagnosis for this admission?: No Plan: History of uncontrolled diabetes. Diabetic diet, basal, sliding scale and correctional insulin. Hypoglycemic protocol. Accu-Chek. Adjust meds as needed. Resume home meds upon discharge. Outpatient PCP follow-up. 12/02/2019-patient has history of type 2 diabetes mellitus. Presently on insulin sliding scale before meals and at bedtime. Diet exercise weight loss lifestyle modifications discussed with the patient. To check hemoglobin A1c. 12/03/2019-patient has history of type 2 diabetes mellitus. Latest blood sugar is 193. Plan is to continue the present management at this time. (4) Acute respiratory failure with hypoxemia Is this a current diagnosis for this admission?: Yes Plan: Likely due to acute COPD exacerbation, healthcare associated pneumonia or possibly COVID-19 infection. Patient presented with shortness of breath, ABG positive for severe hypoxemia. Admit to IMC, empiric broad-spectrum IV antibiotics, IV steroids, flutter valve, BiPAP, ICS, LABA, LABA, therapeutic Lovenox, p.o. zinc, vitamin C. Follow-up sputum culture, follow-up blood culture, follow-up COVID serology results. 12/02/2019-patient came in with acute respiratory failure hypoxia requiring oxygen supplementations. CT scan of the chest suggestive of progressive interstitial markings. Receiving IV Rocephin and Zithromax. 12/03/2019-patient is comfortably in the bed communicating well. Pulse ox is 94% on 3 L. Presently on IV Rocephin and Zithromax for possible community-acquired pneumonia. (5) Hypertension Qualifiers: Hypertension type: unspecified Qualified Code(s): I10 - Essential (primary) hypertension Is this a current diagnosis for this admission?: No Plan: 12/02/2019-patient has history of chronic essential hypertension to continue her home medications. Blood pressure is 124/70 this morning. 12/03/19-blood pressure is 129/68. Stable. 12/04/2019-blood pressure today is 119/73. Stable. (6) Morbid obesity Is this a current diagnosis for this admission?: No (7) Seizure Is this a current diagnosis for this admission?: Yes Plan: 12/04/2019-around 10:20 AM patient was seen not responding with eyes rolled up. Impression is patient has seizure. Given 2 mg of IV Ativan. With mediately went to see the patient thereare no postictal symptoms. Communicating okay. To watch for the seizure activity. Start on IV Ativan 1 mg every 4 as needed for seizure prevention. To keep her n.p.o. today. EEG, CT head, CK and lactic acid levels were requested. - Time Anticipated Discharge Disposition: Home, Self Care Anticipated Discharge Timeframe: within 48 hours
[2019-12-04] MEDS ORDERED: LORAZEPAM INJ 2 MG/1 ML VIAL IM ONE (10:45)
--- NOTE | 2019-12-04 11:54 | RADIOLOGY REPORT (SQ) ---
EXAM DESCRIPTION: CT HEAD WITHOUT IMAGES COMPLETED DATE/TIME: 12/04/2019 11:38 am REASON FOR STUDY: seizure COMPARISON: CT brain 08/18/2019, 09/26/2019, 12/02/2019 TECHNIQUE: Axial images acquired through the brain without intravenous contrast. Images reviewed wi th bone, brain and subdural windows. Images stored on PACS. All CT scanners at this facility use dose modulation, iterative reconstruction, and/or weight based d osing when appropriate to reduce radiation dose to as low as reasonably achievable (ALARA). [facility]: Dose Right [facility]: CareDose [facility]: Dose Right [facility]: Teradose 4D [facility]: [email or web address] RADIATION DOSE: CT Rad equipment meets quality standard of care and radiation dose reduction techniq ues were employed. CTDIvol: 53.2 mGy. DLP: 964 mGy-cm. mGy. LIMITATIONS: None. FINDINGS: VENTRICLES: Normal size and contour. CEREBRUM: No masses. No hemorrhage. No midline shift. No evidence for acute infarction. Normal gra y/white matter differentiation. No areas of low density in the white matter. CEREBELLUM: No masses. No hemorrhage. No alteration of density. No evidence for acute infarction. EXTRAAXIAL SPACES: No fluid collections. No masses. ORBITS AND GLOBE: No intra- or extraconal masses. Normal contour of globe without masses. CALVARIUM: No fracture. PARANASAL SINUSES: No fluid or mucosal thickening. SOFT TISSUES: No mass or hematoma. OTHER: No other significant finding. IMPRESSION: NORMAL BRAIN CT WITHOUT CONTRAST. EVIDENCE OF ACUTE STROKE: NO. COMMENT: Quality ID # [id number]: Final reports with documentation of one or more dose reduction techniques (e.g., Automated exposure control, adjustment of the mA and/or kV according to patient size, use of iterative reconstruction technique) TECHNICAL DOCUMENTATION: JOB ID: [id number] 2010 [employer]- All Rights Reserved Reading location - IP/workstation name: [id number]
[2019-12-04] MEDS: QUETIAPINE FUMARATE 100 MG TABLET PO SCH (21:31)
[2019-12-04] MEDS: ENOXAPARIN SODIUM INJ 100 MG/1 ML DISP.SYRIN SUBCUT SCH (21:32)
[2019-12-04] MEDS: CLONAZEPAM 1 MG TABLET PO PRN (21:32)
[2019-12-04] MEDS: OXYCODONE-ACETAMINOPHEN 5-325 MG TABLET PO PRN (23:08)
[2019-12-05] MEDS: INSULIN LISPRO 100 UNIT/ML 3 ML VIAL SUBCUT SCH ×4 (00:42→23:36)
[2019-12-05 06:13] LABS: HEMATOCRIT 32.2 % (36.0-47.0); HEMOGLOBIN 10.4 g/dL (12.0-15.5); MEAN CORPUSCULAR HEMOGLOBIN 24.3 pg (27.0-33.4); MEAN CORPUSCULAR HGB CONC 32.4 g/dL (32.0-36.0); MEAN CORPUSCULAR VOLUME 75 fl (80-97); PLATELET COUNT 321 10^3/uL (150-450); RED BLOOD COUNT 4.29 10^6/uL (3.72-5.28); WHITE BLOOD COUNT 11.2 10^3/uL (4.0-10.5)
[2019-12-05] MEDS: PREGABALIN 100 MG CAPSULE PO SCH ×3 (06:25→23:36)
[2019-12-05] MEDS: LEVOTHYROXINE SODIUM 0.088 MG TABLET PO SCH (06:25)
[2019-12-05] MEDS: PHENAZOPYRIDINE HCL 100 MG TABLET PO SCH ×3 (06:25→23:35)
[2019-12-05 08:03] LABS: APPEARANCE,URINE CLEAR; BILIRUBIN,URINE NEGATIVE (NEGATIVE); COLOR,URINE AMBER; GLUCOSE, URINE NEGATIVE (NEGATIVE); KETONES,URINE NEGATIVE (NEGATIVE); LEUKOCYTE ESTERASE,URINE NEGATIVE (NEGATIVE); NITRITE,URINE POSITIVE (NEGATIVE); PROTEIN,URINE NEGATIVE (NEGATIVE)
[2019-12-05] MEDS: MORPHINE SULFATE 10 MG/ML INJ IV PRN (10:14)
[2019-12-05] MEDS: FAMOTIDINE INJ/PF 20 MG/2 ML SDV IV SCH (10:18)
[2019-12-05] MEDS: CEFTRIAXONE 1 GM/D5W RTU 1 GM/50 ML RTUPB IV SCH (10:31)
[2019-12-05] MEDS: DILTIAZEM HCL 180 MG CAPSULE.CR PO SCH (10:41)
[2019-12-05] MEDS: HYDROCHLOROTHIAZIDE 25 MG TABLET PO SCH ×2 (10:42→17:05)
[2019-12-05] MEDS: ASCORBIC ACID 500 MG TABLET PO SCH ×2 (10:42→17:02)
[2019-12-05] MEDS: DOCUSATE SODIUM 100 MG/10 ML UDC PO SCH (10:43)
[2019-12-05] MEDS: ROPINIROLE HCL 1 MG TABLET PO SCH ×3 (10:44→17:03)
[2019-12-05] MEDS: ZINC SULFATE 220 MG CAPSULE PO SCH (10:45)
[2019-12-05] MEDS: ENOXAPARIN SODIUM INJ 100 MG/1 ML DISP.SYRIN SUBCUT SCH ×2 (10:49→23:36)
[2019-12-05] MEDS: AZITHROMYCIN 500 MG in DEXTROSE 5%-WATER 250 ML IV SCH (10:51)
[2019-12-05] MEDS: CLONAZEPAM 1 MG TABLET PO PRN (14:06)
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
[2019-12-05] MEDS: OXYCODONE-ACETAMINOPHEN 5-325 MG TABLET PO PRN ×2 (17:34→22:12)
--- NOTE | 2019-12-05 19:37 | PDOC PROGRESS REPORT ---
Subjective Subjective:: Per Previous Physician: " 49 year old female past medical history of diabetes, sarcoidosis, COPD, anxiety, hypertension, hypothyroidism, with recurrent hospitalization, last hospitalization about 2 weeks ago, patient is presenting to ED with worsening shortness of breath, started yesterday morning, patient checked her oxygen at home was not noted to be in the 70s, she is also had multiple episodes of nonbloody vomiting but denies any abdominal pain, diarrhea, loss of smell or loss of taste, patient denies any fever, chest pain, chills. Patient has been tested for COVID several times in the past with negative results, but due to multiple hospitalizations, consider suspect for COVID-19 function by ED physician and was assisted for COVID-19. Hospitalist consulted for admission. In ED patient was noted to have mild leukocytosis, bandemia, hypoxemia, RICH on CKD, positive leukocyte esterase, with CT chest showing progressive diffuse interstitial prominence bilaterally. [id number]-old female admitted here several times with multiple medical problems came to the emergency room with complaints of shortness of breath of 1 day duration. At the time of my examination patient is comfortable in the bed s leeping. Pulse ox is 94% on room air. She also complains of nonbloody vomiting at the time of presentation. COVID-19 is pending. Lab work indicates mild leukocytosis, hypoxia, RICH. CT scan suggestive of progressive diffuse interstitial prominence. She is receiving IV Rocephin and Zithromax. Patient looks drowsy but requesting for pain medications. 12/03/19-no acute events in the last 24 hours. Afebrile. Blood cultures were positive for Gram positive rods. Presently on IV Rocephin and Zithromax. Patient is without IV access from last night. Agreed to have IV access this morning. 12/04/19-the time of my examination this morning patient is alert and communicating reasonably and I agreed to go home today. But around 10:20 AM patient has a witnessed seizure. She was given 2 mg of IV Ativan stat. Went back to reexamine the patient on rubbing the chest patient is complaining that she is drowsy 100 responding to verbal commands able to give me the date of and the location. Plan is to do the EEG, seizure precautions are requested, CT head was requested, CK and lactic acid levels were requested. To keep her n.p.o. for today and change her insulin sliding scale to every 6 hours." 11/27/2019 Patient home today and states she has not had any seizures since yesterday. Per my discussion with nursing staff and the physician who saw the seizure occurring Dr. Valencia, it is very unclear if this was actually a seizure or pseudoseizure. There are eyewitness accounts that the patient was grasping at parts of the bed during the episode and also did not let her hand touch her forehead when it was dropped over her face, she instead moved her arm out of the way during the seizure-like episode. EEG was done and did not show any acute abnormalities although this was not read until late in the afternoon. MRI brain was ordered as this was intended to be done outpatient before patient was acutely ill during this admission. MRI has not been done and once this is done if it is reassuring, patient can be discharged home. He has no new complaints today. I had multiple discussions with her and also her daughter. Everyone is updated today. Reason For Visit: ACUTE RESPIRATORY FAILURE WITH HYPOXEMIA,SARCOIDOS Physical Exam Vital Signs: Temp Pulse Resp BP Pulse Ox 97.9 F 101 H 17 126/74 H 96 12/05/19 16:20 12/05/19 16:20 12/05/19 16:20 12/05/19 16:20 12/05/19 16:20 Intake & Output 12/04/19 12/05/19 12/06/19 06:59 06:59 06:59 Intake Total 216 396 9481 Output Total 800 400 Balance 680 -20 640 Weight 91.6 kg 91.6 kg 91.6 kg General appearance: PRESENT: no acute distress, morbidly obese, well-developed, well-nourished Head exam: PRESENT: atraumatic, normocephalic Eye exam: PRESENT: conjunctiva pink. ABSENT: scleral icterus Mouth exam: PRESENT: moist Respiratory exam: PRESENT: clear to auscultation colleen. ABSENT: rales, rhonchi, wheezes Cardiovascular exam: PRESENT: RRR. ABSENT: diastolic murmur, rubs, systolic murmur GI/Abdominal exam: PRESENT: normal bowel sounds, soft. ABSENT: distended, guarding, mass, organolmegaly, rebound, tenderness Neurological exam: PRESENT: alert, awake, oriented to person, oriented to place, oriented to time, oriented to situation Psychiatric exam: PRESENT: appropriate affect, normal mood Skin exam: PRESENT: dry, intact, warm Results Laboratory Results: 12/05/19 05:44 12/04/19 07:45 12/05/19 12/05/19 05:44 07:30 WBC 11.2 H RBC 4.29 Hgb 10.4 L Hct 32.2 L MCV 75 L MCH 24.3 L MCHC 32.4 RDW 25.0 H Plt Count 321 Urine Color DEJA Urine Appearance CLEAR Urine pH 6.0 Ur Specific Antler 1.010 Urine Protein NEGATIVE Urine Glucose (UA) NEGATIVE Urine Ketones NEGATIVE Urine Blood NEGATIVE Urine Nitrite POSITIVE H Ur Leukocyte Esterase NEGATIVE Urine WBC (Auto) 2 Urine RBC (Auto) 2 12/03/19 16:30 Clean Catch Midstream Urine Culture - Final Yeast, Not Licha Albicans 12/01/19 12/02/19 12/04/19 22:45 03:15 07:45 Creatine Kinase 22 L Troponin I < 0.012 < 0.012 NT-Pro-B Natriuret Pep 70 Impressions: Chest CT 12/02/19 00:07 IMPRESSION: Progressive diffuse interstitial prominence is identified, bilaterally. No dense consolidation. No effusion. No pneumothorax. Head CT 12/04/19 00:00 IMPRESSION: NORMAL BRAIN CT WITHOUT CONTRAST. EVIDENCE OF ACUTE STROKE: NO. Assessment and Plan - Diagnosis (1) Seizure-like activity Is this a current diagnosis for this admission?: Yes Plan: Seen on 12/03 by nursing staff and physician, was voluntarily moving arms and grasping in bed; unclear if true seizure from epilepsy or pseudoseizure instead EEG did not show acute abnormalities MRI brain pending CT head did not show acute abnormalities Discussed with patient and family she needs to see a neurologist (2) Acute kidney injury Is this a current diagnosis for this admission?: Yes Plan: Per Previous Physician: "12/02/19-patient's baseline creatinine is around 0.97 last night creatinine is 1.61. AKA most likely secondary to prerenal causes. Patient is on Ringer lacta te at 120 cc/h. Blood pressures are stable. Plan is to decrease the fluids to 50 cc/h. Plan is to repeat the labs tomorrow. 12/03/2019-patient admitted with RICH serum creatinine this morning is 0.93. Acute kidney injury is resolved. Plan is to discontinue IV fluids at this time. 12/04/2019-serum creatinine today 0.95. Stable. Not on IV fluids at this time." (3) Acute respiratory failure with hypoxemia Is this a current diagnosis for this admission?: Yes Plan: Per Previous Physician: "Likely due to acute COPD exacerbation, healthcare associated pneumonia or possibly COVID-19 infection. Patient presented with shortness of breath, ABG positive for severe hypoxemia. Admit to [facility], empiric broad-spectrum IV antibiotics, IV steroids, flutter valve, BiPAP, ICS, LABA, LABA, therapeutic Lovenox, p.o. zinc, vitamin C. Follow-up sputum culture, follow-up blood culture, follow-up COVID serology results. 12/02/2019-patient came in with acute respiratory failure hypoxia requiring oxygen supplementations. CT scan of the chest suggestive of progressive interstitial markings. Receiving IV Rocephin and Zithromax. 12/03/2019-patient is comfortably in the bed communicating well. Pulse ox is 94% on 3 L. Presently on IV Rocephin and Zithromax for possible community-acquired pneumonia." Resolved (4) Sarcoidosis Is this a current diagnosis for this admission?: No Plan: Resume home meds. Stable (5) COPD exacerbation Is this a current diagnosis for this admission?: Yes Plan: Resolved (6) Hyperlipidemia Qualifiers: Hyperlipidemia type: unspecified Qualified Code(s): E78.5 - Hyperlipidemia, unspecified Is this a current diagnosis for this admission?: Yes (7) Hypertension Qualifiers: Hypertension type: unspecified Qualified Code(s): I10 - Essential (primary) hypertension Is this a current diagnosis for this admission?: No Plan: stable (8) Morbid obesity Is this a current diagnosis for this admission?: No (9) MARINO (obstructive sleep apnea) Is this a current diagnosis for this admission?: Yes (10) Pulmonary sarcoidosis Is this a current diagnosis for this admission?: Yes (11) Recent history of pulmonary embolism Is this a current diagnosis for this admission?: Yes (12) Tobacco dependence Is this a current diagnosis for this admission?: Yes (13) Uncontrolled diabetes mellitus Is this a current diagnosis for this admission?: Yes - Time Time Spent with patient: 25-34 minutes Medications reviewed and adjusted accordingly: Yes Anticipated Discharge Disposition: Home, Self Care Anticipated Discharge Timeframe: within 24 hours - Inpatient Certification Based on my medical assessment, after consideration of the patient's comorbidities, presenting symptoms, or acuity I expect that the services needed warrant INPATIENT care.: Yes I certify that my determination is in accordance with my understanding of Medicare's requirements for reasonable and necessary INPATIENT services [42 CFR 412.3e].: Yes Medical Necessity: Significant Comorbidiites Make Outpatient Treatment Too Risky, Need Close Monitoring Due to Risk of Patient Decompensation, Risk of Complication if Not Cared For in Hospital, Risk of Diagnosis Which Will Require Inpatient Eval/Care/Monitoring
[2019-12-05] MEDS ORDERED: LORAZEPAM INJ 2 MG/1 ML VIAL IV ONE (20:45)
[2019-12-05] MEDS: QUETIAPINE FUMARATE 100 MG TABLET PO SCH (23:35)
[2019-12-05] MEDS: FAMOTIDINE 20 MG TABLET PO SCH (23:36)
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
[2019-12-06] MEDS: PREGABALIN 100 MG CAPSULE PO SCH (05:35)
[2019-12-06] MEDS: PHENAZOPYRIDINE HCL 100 MG TABLET PO SCH (05:35)
[2019-12-06] MEDS: LEVOTHYROXINE SODIUM 0.088 MG TABLET PO SCH (05:35)
[2019-12-06] MEDS: OXYCODONE-ACETAMINOPHEN 5-325 MG TABLET PO PRN ×2 (08:11→12:01)
[2019-12-06] MEDS: INSULIN LISPRO 100 UNIT/ML 3 ML VIAL SUBCUT SCH ×2 (08:12→11:45)
[2019-12-06] MEDS: CEFTRIAXONE 1 GM/D5W RTU 1 GM/50 ML RTUPB IV SCH (11:16)
[2019-12-06] MEDS: ENOXAPARIN SODIUM INJ 100 MG/1 ML DISP.SYRIN SUBCUT SCH (11:18)
[2019-12-06] MEDS: ASCORBIC ACID 500 MG TABLET PO SCH (11:19)
[2019-12-06] MEDS: DILTIAZEM HCL 180 MG CAPSULE.CR PO SCH (11:19)
[2019-12-06] MEDS: ZINC SULFATE 220 MG CAPSULE PO SCH (11:19)
[2019-12-06] MEDS: ROPINIROLE HCL 1 MG TABLET PO SCH (11:20)
[2019-12-06] MEDS: FAMOTIDINE 20 MG TABLET PO SCH (11:20)
[2019-12-06] MEDS: DOCUSATE SODIUM 100 MG CAPSULE PO SCH ×2 (11:20→11:44)
[2019-12-06] MEDS: HYDROCHLOROTHIAZIDE 25 MG TABLET PO SCH (11:20)
[2019-12-06] MEDS: CLONAZEPAM 1 MG TABLET PO PRN (11:20)
[2019-12-06 12:40] VITALS: BP 144/88
--- NOTE | 2019-12-06 12:48 | PDOC DISCHARGE SUMMARY ---
Impression - Admit/DC Date/PCP Admission Date/Primary Care Provider: 12/02/19 03:12 AUDREY RESENDIZ MD Discharge Date: 12/06/19 - Discharge Diagnosis (1) Seizure-like activity Is this a current diagnosis for this admission?: Yes (2) Acute kidney injury Is this a current diagnosis for this admission?: Yes (3) Acute respiratory failure with hypoxemia Is this a current diagnosis for this admission?: Yes (4) Sarcoidosis Is this a current diagnosis for this admission?: No (5) COPD exacerbation Is this a current diagnosis for this admission?: Yes (6) Hyperlipidemia Is this a current diagnosis for this admission?: Yes (7) Hypertension Is this a current diagnosis for this admission?: No (8) Morbid obesity Is this a current diagnosis for this admission?: No (9) MARINO (obstructive sleep apnea) Is this a current diagnosis for this admission?: Yes (10) Pulmonary sarcoidosis Is this a current diagnosis for this admission?: Yes (11) Recent history of pulmonary embolism Is this a current diagnosis for this admission?: Yes (12) Tobacco dependence Is this a current diagnosis for this admission?: Yes (13) Uncontrolled diabetes mellitus Is this a current diagnosis for this admission?: Yes - Additional Information Discharge Diet: Diabetic Discharge Activity: Activity As Tolerated, Balance Activity w/Rest Referrals: AUDREY RESENDIZ MD [Primary Care Provider] - Follow up as needed Home Medications: Apixaban [Eliquis 5 mg Tablet] 5 mg PO Q12 02/21/19 Hydrochlorothiazide [Hydrodiuril 25 mg Tablet] 25 mg PO BID 02/21/19 Quetiapine Fumarate [Seroquel] 400 mg PO DAILY 02/21/19 Carisoprodol [Soma 350 mg Tablet] 350 mg PO QIDP PRN 05/23/19 Clonazepam 2 mg PO Q8HP PRN 05/23/19 Ropinirole HCl [Requip 0.25 mg Tablet] 0.75 mg PO QHS 05/23/19 Pregabalin [Lyrica 100 mg Capsule] 200 mg PO Q8 07/26/19 Ipratropium/Albuterol Sulfate [Duoneb 3 ml Ampul] 3 ml NEB RTQID 09/26/19 Albuterol Sulfate [Albuterol Sulfate Hfa] 1 puff IH Q4HP PRN 11/01/19 Diltiazem HCl [Diltiazem 24Hr ER] 360 mg PO DAILY 11/01/19 Insulin Regular, Human [Novolin R] 28 units SUBCUT DAILY 11/01/19 Phenazopyridine HCl [Pyridium 100 mg Tablet] 100 mg PO Q8 #21 tablet 11/03/19 Levothyroxine Sodium [Synthroid 0.088 mg Tablet] 0.088 mg PO Q6AM 12/02/19 Ropinirole HCl 1 mg PO TID 12/02/19 Apixaban [Eliquis 5 mg Tablet] 5 mg PO BID tablet 12/04/19 Ascorbic Acid [Vitamin C 500 mg Tablet] 500 mg PO BID tablet 12/04/19 History of Present Illiness History of Present Illness: Per Admitting Physician: "SELMA DOUGLAS is a 49 year old female past medical history of diabetes, sarcoidosis, COPD, anxiety, hypertension, hypothyroidism, with recurrent hospitalization, last hospitalization about 2 weeks ago, patient is presenting to ED with worsening shortness of breath, started yesterday morning, patient checked her oxygen at home was not noted to be in the 70s, she is also had multiple episodes of nonbloody vomiting but denies any abdominal pain, diarrhea, loss of smell or loss of taste, patient denies any fever, chest pain, chills. Patient has been tested for COVID several times in the past with negative results, but due to multiple hospitalizations, consider suspect for COVID-19 function by ED physician and was assisted for COVID-19. Hospitalist consulted for admission. In ED patient was noted to have mild leukocytosis, bandemia, hypoxemia, RICH on CKD, positive leukocyte esterase, with CT chest showing progressive diffuse interstitial prominence bilaterally." Hospital Course Hospital Course: Per Previous Physician: " 49 year old female past medical history of diabetes, sarcoidosis, COPD, anxiety, hypertension, hypothyroidism, with recurrent hospitalization, last hospitalization about 2 weeks ago, patient is presenting to ED with worsening shortness of breath, started yesterday morning, patient checked her oxygen at home was not noted to be in the 70s, she is also had multiple episodes of nonblo preet vomiting but denies any abdominal pain, diarrhea, loss of smell or loss of taste, patient denies any fever, chest pain, chills. Patient has been tested for COVID several times in the past with negative results, but due to multiple hospitalizations, consider suspect for COVID-19 function by ED physician and was assisted for COVID-19. Hospitalist consulted for admission. In ED patient was noted to have mild leukocytosis, bandemia, hypoxemia, RICH on CKD, positive leukocyte esterase, with CT chest showing progressive diffuse interstitial prominence bilaterally. [id number]-old female admitted here several times with multiple medical problems came to the emergency room with complaints of shortness of breath of 1 day duration. At the time of my examination patient is comfortable in the bed sleeping. Pulse ox is 94% on room air. She also complains of nonbloody vomiting at the time of presentation. COVID-19 is pending. Lab work indicates mild leukocytosis, hypoxia, RICH. CT scan suggestive of progressive diffuse interstitial prominence. She is receiving IV Rocephin and Zithromax. Patient looks drowsy but requesting for pain medications. 12/03/19-no acute events in the last 24 hours. Afebrile. Blood cultures were positive for Gram positive rods. Presently on IV Rocephin and Zithromax. Patient is without IV access from last night. Agreed to have IV access this morning. 12/04/19-the time of my examination this morning patient is alert and communicating reasonably and I agreed to go home today. But around 10:20 AM patient has a witnessed seizure. She was given 2 mg of IV Ativan stat. Went back to reexamine the patient on rubbing the chest patient is complaining that she is drowsy 100 responding to verbal commands able to give me the date of and the location. Plan is to do the EEG, seizure precautions are requested, CT head was requested, CK and lactic acid levels were requested. To keep her n.p.o. for today and change her insulin sliding scale to every 6 hours." 12/05/2019 Patient home today and states she has not had any seizures since yesterday. Per my discussion with nursing staff and the physician who saw the seizure occurring Dr. Valencia, it is very unclear if this was actually a seizure or pseudoseizure. There are eyewitness accounts that the patient was grasping at parts of the bed during the episode and also did not let her hand touch her forehead when it was dropped over her face, she instead moved her arm out of the way during the seizure-like episode. EEG was done and did not show any acute abnormalities although this was not read until late in the afternoon. MRI brain was ordered as this was intended to be done outpatient before patient was acutely ill during this admission. MRI has not been done and once this is done if it is reassuring, patient can be discharged home. He has no new complaints today. I had multiple discussions with her and also her daughter. Everyone is updated today. No acute events overnight on 12/05. Patient doing quite well although she is a bit unsteady on her feet. We will order physical therapy and occupational therapy at discharge home health. She is agreeable to discharge and states she feels overall quite well today. (1) Seizure-like activity resolved Is this a current diagnosis for this admission?: Yes Plan: Seen on 12/03 by nursing staff and physician, was voluntarily moving arms and grasping in bed; unclear if true seizure from epilepsy or pseudoseizure instead EEG did not show acute abnormalities MRI brain showed no acute abnormalities CT head did not show acute abnormalities Discussed with patient and family she needs to see a neurologist outpatient within 1 week of discharge (2) Acute kidney injury resolved Is this a current diagnosis for this admission?: Yes Plan: Per Previous Physician: "12/02/19-patient's baseline creatinine is around 0.97 last night creatinine is 1.61. AKA most likely secondary to prerenal causes. Patient is on Ringer lactate at 120 cc/h. Blood pressures are stable. Plan is to decrease the fluids to 50 cc/h. Plan is to repeat the labs tomorrow. 12/03/2019-patient admitted with RICH serum creatinine this morning is 0.93. Acute kidney injury is resolved. Plan is to discontinue IV fluids at this time. 12/04/2019-serum creatinine today 0.95. Stable. Not on IV fluids at this time." (3) Acute respiratory failure with hypoxemia resolved Is this a current diagnosis for this admission?: Yes Plan: Per Previous Physician: "Likely due to acute COPD exacerbation, healthcare associated pneumonia or possibly COVID-19 infection. Patient presented with shortness of breath, ABG positive for severe hypoxemia. Admit to IMC, empiric broad-spectrum IV antibiotics, IV steroids, flutter valve, BiPAP, ICS, LABA, LABA, therapeutic Lovenox, p.o. zinc, vitamin C. Follow-up sputum culture, follow-up blood culture, follow-up COVID serology results. 12/02/2019-patient came in with acute respiratory failure hypoxia requiring oxygen supplementations. CT scan of the chest suggestive of progressive interstitial markings. Receiving IV Rocephin and Zithromax. 12/03/2019-patient is comfortably in the bed communicating well. Pulse ox is 94% on 3 L. Presently on IV Rocephin and Zithromax for possible community-acquired pneumonia." Resolved (4) Sarcoidosis Is this a current diagnosis for this admission?: No Plan: Resume home meds. Stable (5) COPD exacerbation resolved Is this a current diagnosis for this admission?: Yes Plan: Resolved (6) Hyperlipidemia Qualifiers: Hyperlipidemia type: unspecified Qualified Code(s): E78.5 - Hyperlipidemia, unspecified Is this a current diagnosis for this admission?: Yes (7) Hypertension Qualifiers: Hypertension type: unspecified Qualified Code(s): I10 - Essential (primary) hypertension Is this a current diagnosis for this admission?: No Plan: stable (8) Morbid obesity Is this a current diagnosis for this admission?: No (9) MARINO (obstructive sleep apnea) Is this a current diagnosis for this admission?: Yes (10) Pulmonary sarcoidosis Is this a current diagnosis for this admission?: Yes (11) Recent history of pulmonary embolism Is this a current diagnosis for this admission?: Yes (12) Tobacco dependence Is this a current diagnosis for this admission?: Yes (13) Uncontrolled diabetes mellitus Is this a current diagnosis for this admission?: Yes Physical Exam Vital Signs: Temp Pulse Resp BP Pulse Ox 97.4 F 129 H 22 H 135/90 H 99 12/06/19 10:00 12/06/19 07:00 12/06/19 00:00 12/06/19 00:00 12/06/19 00:00 Intake & Output 12/05/19 12/06/19 12/07/19 06:59 06:59 06:59 Intake Total 780 1260 Output Total 800 400 Balance -20 860 Weight 91.6 kg 92.4 kg Exam: General appearance: PRESENT: no acute distress, morbidly obese, well-developed, well-nourished, states she feels well and would like to go home today Head exam: PRESENT: atraumatic, normocephalic Eye exam: PRESENT: conjunctiva pink. ABSENT: scleral icterus Mouth exam: PRESENT: moist Respiratory exam: PRESENT: clear to auscultation colleen. ABSENT: rales, rhonchi, wheezes Cardiovascular exam: PRESENT: RRR. ABSENT: diastolic murmur, rubs, systolic murmur GI/Abdominal exam: PRESENT: normal bowel sounds, soft. ABSENT: distended, guarding, mass, organolmegaly, rebound, tenderness Neurological exam: PRESENT: alert, awake, oriented to person, oriented to place, oriented to time, oriented to situation Psychiatric exam: PRESENT: appropriate affect, normal mood Skin exam: PRESENT: dry, intact, warm Results Laboratory Results: WBC 11.2 10^3/uL (4.0-10.5) H 12/05/19 05:44 RBC 4.29 10^6/uL (3.72-5.28) 12/05/19 05:44 Hgb 10.4 g/dL (12.0-15.5) L 12/05/19 05:44 Hct 32.2 % (36.0-47.0) L 12/05/19 05:44 MCV 75 fl (80-97) L 12/05/19 05:44 MCH 24.3 pg (27.0-33.4) L 12/05/19 05:44 MCHC 32.4 g/dL (32.0-36.0) 12/05/19 05:44 RDW 25.0 % (11.5-14.0) H 12/05/19 05:44 Plt Count 321 10^3/uL (150-450) 12/05/19 05:44 Lymph % (Auto) 10.8 % (13-45) L 12/04/19 07:45 [place] % (Auto) 5.8 % (3-13) 12/04/19 07:45 Eos % (Auto) 0.0 % (0-6) 12/04/19 07:45 Baso % (Auto) 0.1 % (0-2) 12/04/19 07:45 Absolute Neuts (auto) 8.5 10^3/uL (1.7-8.2) H 12/04/19 07:45 Absolute Lymphs (auto) 1.1 10^3/uL (0.5-4.7) 12/04/19 07:45 Absolute Monos (auto) 0.6 10^3/uL (0.1-1.4) 12/04/19 07:45 Absolute Eos (auto) 0.0 10^3/uL (0.0-0.6) 12/04/19 07:45 Absolute Basos (auto) 0.0 10^3/uL (0.0-0.2) 12/04/19 07:45 Total Counted 100 12/03/19 06:25 Seg Neutrophils % 83.3 % (42-78) H 12/04/19 07:45 Seg Neuts % (Manual) 86 % (42-78) H 12/03/19 06:25 Band Neutrophils % 2 % (3-5) L 12/03/19 06:25 Lymphocytes % (Manual) 8 % (13-45) L 12/03/19 06:25 Monocytes % (Manual) 4 % (3-13) 12/03/19 06:25 Eosinophils % (Manual) 0 % (0-6) 12/03/19 06:25 Basophils % (Manual) 0 % (0-2) 12/03/19 06:25 Abs Neuts (Manual) 11.5 10^3/uL (1.7-8.2) H 12/03/19 06:25 Abs Lymphs (Manual) 1.0 10^3/uL (0.5-4.7) 12/03/19 06:25 Abs Monocytes (Manual) 0.5 10^3/uL (0.1-1.4) 12/03/19 06:25 Absolute Eos (Manual) 0.0 10^3/uL (0.0-0.6) 12/03/19 06:25 Abs Basophils (Manual) 0.0 10^3/uL (0.0-0.2) 12/03/19 06:25 Toxic Granulation SLIGHT 12/03/19 06:25 Platelet Comment ADEQUATE 12/04/19 07:45 Polychromasia SLIGHT 12/03/19 06:25 Hypochromasia SLIGHT 12/04/19 07:45 Poikilocytosis SLIGHT 12/04/19 07:45 Anisocytosis 3+ 12/04/19 07:45 Microcytosis 1+ 09/27/20 07:45 Target Cells SLIGHT 12/02/19 10:05 PT 16.5 SEC (11.4-15.4) H 12/02/19 10:05 INR 1.32 12/02/19 10:05 APTT 33.2 SEC (23.5-35.8) 12/01/19 22:45 Carbonic Acid 1.70 mmol/L (1.05-1.35) H 12/02/19 00:23 HCO3/H2CO3 Ratio 16:1 12/02/19 00:23 ABG pH 7.32 (7.35-7.45) L 12/02/19 00:23 ABG pCO2 56.6 mmHg (35-45) H 12/02/19 00:23 ABG pO2 34.0 mmHg (80-100) L* 12/02/19 00:23 ABG HCO3 28.3 mmol/L (20-24) H 12/02/19 00:23 ABG Total CO2 30.0 mmol/L (21-25) H 12/02/19 00:23 ABG O2 Saturation 59.1 % (94-98) L 12/02/19 00:23 ABG Base Excess 1.4 mmol/L 12/02/19 00:23 FiO2 3L 12/02/19 00:23 Sodium 141.4 mmol/L (137-145) 12/04/19 07:45 Potassium 4.6 mmol/L (3.6-5.0) 12/04/19 07:45 Chloride 102 mmol/L (98-107) 12/04/19 07:45 Carbon Dioxide 27 mmol/L (22-30) 12/04/19 07:45 Anion Gap 12 (5-19) 12/04/19 07:45 BUN 25 mg/dL (7-20) H 12/04/19 07:45 Creatinine 0.95 mg/dL (0.52-1.25) 12/04/19 07:45 Est GFR ( Amer) > 60 (>60) 12/04/19 07:45 Est GFR (MDRD) Non-Af > 60 (>60) 12/04/19 07:45 Glucose 187 mg/dL (75-110) H 12/04/19 07:45 POC Glucose 117 mg/dL (70-110) H 12/06/19 11:32 Lactic Acid 3.5 mmol/L (0.7-2.1) H 12/04/19 10:56 Calcium 9.7 mg/dL (8.4-10.2) 12/04/19 07:45 Magnesium 2.0 mg/dL (1.6-2.3) 12/04/19 07:45 Total Bilirubin 0.4 mg/dL (0.2-1.3) 12/04/19 07:45 Direct Bilirubin 0.0 mg/dL (0.0-0.4) 12/04/19 07:45 Neonat Total Bilirubin Not Reportable 12/04/19 07:45 Neonat Direct Bilirubin Not Reportable 12/04/19 07:45 Neonat Indirect Bili Not Reportable 12/04/19 07:45 AST 18 U/L (14-36) 12/04/19 07:45 ALT 21 U/L (<35) 12/04/19 07:45 Alkaline Phosphatase 119 U/L (38-126) 12/04/19 07:45 Creatine Kinase 22 U/L (30-135) L 12/04/19 07:45 Troponin I < 0.012 ng/mL 12/02/19 03:15 NT-Pro-B Natriuret Pep 70 pg/mL (<125) 12/01/19 22:45 Total Protein 7.3 g/dL (6.3-8.2) 12/04/19 07:45 Albumin 4.4 g/dL (3.5-5.0) 12/04/19 07:45 Lipase 89.1 U/L (23-300) 12/01/19 22:45 TSH 0.48 uIU/mL (0.47-4.68) 12/03/19 06:25 Urine Color DEJA 12/05/19 07:30 Urine Appearance CLEAR 12/05/19 07:30 Urine pH 6.0 (5.0-9.0) 12/05/19 07:30 Ur Specific Elliott 1.010 12/05/19 07:30 Urine Protein NEGATIVE mg/dL (NEGATIVE) 12/05/19 07:30 Urine Glucose (UA) NEGATIVE mg/dL (NEGATIVE) 12/05/19 07:30 Urine Ketones NEGATIVE mg/dL (NEGATIVE) 12/05/19 07:30 Urine Blood NEGATIVE (NEGATIVE) 12/05/19 07:30 Urine Nitrite POSITIVE (NEGATIVE) H 12/05/19 07:30 Urine Bilirubin NEGATIVE (NEGATIVE) 12/05/19 07:30 Urine Urobilinogen 2.0 mg/dL (<2.0) H 12/05/19 07:30 Ur Leukocyte Esterase NEGATIVE (NEGATIVE) 12/05/19 07:30 Urine WBC (Auto) 2 /HPF 12/05/19 07:30 Urine RBC (Auto) 2 /HPF 12/05/19 07:30 U Hyaline Cast (Auto) 1 /LPF 12/03/19 16:30 Urine Bacteria (Auto) 3+ /HPF 12/02/19 00:58 Urine WBC Clumps RARE /HPF 12/02/19 00:58 Squamous Epi Cells Auto 1 /HPF 12/05/19 07:30 Urine Mucus (Auto) RARE /LPF 12/05/19 07:30 Urine Yeast (Budding) PRESENT /HPF 12/05/19 07:30 Urine Ascorbic Acid NEGATIVE (NEGATIVE) 12/05/19 07:30 Urine HCG, Qual NEGATIVE (NEGATIVE) 12/02/19 00:58 Urine Opiates Screen NEGATIVE 12/02/19 00:58 Urine Methadone Screen NEGATIVE 12/02/19 00:58 Ur Barbiturates Screen NEGATIVE 12/02/19 00:58 Ur Phencyclidine Scrn NEGATIVE 12/02/19 00:58 Ur Amphetamines Screen NEGATIVE 12/02/19 00:58 U Benzodiazepines Scrn NEGATIVE 12/02/19 00:58 Urine Cocaine Screen NEGATIVE 12/02/19 00:58 U Marijuana (THC) Screen NEGATIVE 12/02/19 00:58 COVID-19 Source See comment 12/01/19 22:45 COVID-19 (MARA) Not Detected (Not Detect) 12/01/19 22:45 Influenza A (Rapid) NEGATIVE (NEGATIVE) 12/01/19 23:02 Influenza B (Rapid) NEGATIVE (NEGATIVE) 12/01/19 23:02 12/01/19 12/02/19 22:45 03:15 Troponin I < 0.012 < 0.012 NT-Pro-B Natriuret Pep 70 Impressions: Head CT 12/02/19 00:06 IMPRESSION: No acute intracranial process is identified. The cause of the patient's seizure is not identified on this examination. Chest CT 12/02/19 00:07 IMPRESSION: Progressive diffuse interstitial prominence is identified, bilaterally. No dense consolidation. No effusion. No pneumothorax. Head CT 12/04/19 00:00 IMPRESSION: NORMAL BRAIN CT WITHOUT CONTRAST. EVIDENCE OF ACUTE STROKE: NO. Head MRI 12/05/19 00:00 IMPRESSION: 1. No acute intracranial process is seen. 2. Mild cerebral atrophy and periventricular white matter changes are seen. 3. There is atrophy of the right hippocampus noted. Plan Plan of Treatment: Follow-up with PCP Follow-up with neurology Stop smoking Time Spent: Greater than 30 Minutes Stroke Is this a Stroke Patient?: No Acute Heart Failure Is this a Heart Failure Patient?: No
== END 2019-12-06 15:32 | disposition home health service (06) | DRG 189 ==
LOC: ER 20:24 → EH 12-02 03:12 → 3N 12-02 05:39 → 4N 12-04 01:37
PROVIDERS: ADMIT Internal Medicine; ATTEND Internal Medicine
PROC: 5A09457 Assistance with Respiratory Ventilation, 24-96 Consecutive Hours, Continuous Positive Airway Pressure (ICD-10-PCS; principal; 2019-12-02)
DX: J96.01 Acute respiratory failure with hypoxia (principal); J44.1 Chronic obstructive pulmonary disease with (acute) exacerbation; N17.9 Acute kidney failure, unspecified; I13.0 Hypertensive heart and chronic kidney disease with heart failure and stage 1 through stage 4 chronic kidney disease, or unspecified chronic kidney disease; D86.0 Sarcoidosis of lung; E11.22 Type 2 diabetes mellitus with diabetic chronic kidney disease; N18.9 Chronic kidney disease, unspecified; I50.9 Heart failure, unspecified; F41.9 Anxiety disorder, unspecified; E03.9 Hypothyroidism, unspecified; E78.5 Hyperlipidemia, unspecified; F32.9 Major depressive disorder, single episode, unspecified; F43.10 Post-traumatic stress disorder, unspecified; G47.33 Obstructive sleep apnea (adult) (pediatric); E66.01 Morbid (severe) obesity due to excess calories; R56.9 Unspecified convulsions; E11.65 Type 2 diabetes mellitus with hyperglycemia; Z20.828 Contact with and (suspected) exposure to other viral communicable diseases; I69.398 Other sequelae of cerebral infarction; H54.62 Unqualified visual loss, left eye, normal vision right eye; V89.2XXS Person injured in unspecified motor-vehicle accident, traffic, sequela; Z79.4 Long term (current) use of insulin; Z79.01 Long term (current) use of anticoagulants; Z79.890 Hormone replacement therapy; Z86.711 Personal history of pulmonary embolism; Z87.820 Personal history of traumatic brain injury; Z90.49 Acquired absence of other specified parts of digestive tract; Z87.891 Personal history of nicotine dependence; Z88.0 Allergy status to penicillin; Z88.6 Allergy status to analgesic agent; Z68.35 Body mass index [BMI] 35.0-35.9, adult; Z83.3 Family history of diabetes mellitus; Z88.8 Allergy status to other drugs, medicaments and biological substances; Z82.49 Family history of ischemic heart disease and other diseases of the circulatory system; Z90.710 Acquired absence of both cervix and uterus; Z90.2 Acquired absence of lung [part of]
CPT/HCPCS: 36415; 36600; 70450; 70553; 71045; 71250; 80053; 80307; 81001; 81025; 82550; 82803; 82962; 83605; 83690; 83735; 83880; 84443; 84484; 85025; 85027; 85610; 85730; 87040; 87077; 87086; 87150; 87186; 87635; 87804; 93005; 93010; 94640; 94660; 95819; 96361; 96374; 96375; 99285; A9576; C9803; J0456; J0696; J1650; J1815; J2060; J2270; J2930; J3490; J7030; J7060; J7120; J7613; J7644; J8540; S0028

== ENCOUNTER 2020-01-24 11:11 | Emergency (ER) | payer BC, OTHER ==
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
[2020-01-24] MEDS ORDERED: KETOROLAC TROMETHAMINE 60 MG/2 ML SDV IM ONE (14:25)
--- NOTE | 2020-01-24 17:24 | RADIOLOGY REPORT (SQ) ---
EXAM DESCRIPTION: KNEE LEFT 4 VIEW IMAGES COMPLETED DATE/TIME: 01/24/2020 1:26 pm REASON FOR STUDY: Pain injury a week ago COMPARISON: None. NUMBER OF VIEWS: Four views. TECHNIQUE: AP, lateral, and both oblique radiographic images acquired of the left knee. LIMITATIONS: None. FINDINGS: MINERALIZATION: Normal. BONES: No acute fracture or dislocation. No worrisome bone lesions. JOINT: No effusion. SOFT TISSUES: No soft tissue swelling. No radio-opaque foreign body. OTHER: No other significant finding. IMPRESSION: NEGATIVE STUDY OF THE LEFT KNEE. NO RADIOGRAPHIC EVIDENCE OF ACUTE INJURY. TECHNICAL DOCUMENTATION: JOB ID: [id number] 2010 [employer]- All Rights Reserved Reading location - IP/workstation name: [email or web address]
[2020-01-25 00:11] VITALS: BP 131/80
== END 2020-01-24 15:18 | disposition home or self-care (01) ==
LOC: ER 11:11
DX: S80.02XA Contusion of left knee, initial encounter (principal); M25.562 Pain in left knee; W19.XXXA Unspecified fall, initial encounter; Y92.009 Unspecified place in unspecified non-institutional (private) residence as the place of occurrence of the external cause; F17.210 Nicotine dependence, cigarettes, uncomplicated; I10 Essential (primary) hypertension; J44.9 Chronic obstructive pulmonary disease, unspecified; E11.9 Type 2 diabetes mellitus without complications; Z91.018 Allergy to other foods; Z88.8 Allergy status to other drugs, medicaments and biological substances; Z88.0 Allergy status to penicillin
CPT/HCPCS: 99284; 96372; 73564; J1885